=== PATIENT | male | born 1965 | race American Indian/Alaskan Native ===

== ENCOUNTER 2018-07-22 15:38 | Inpatient (IN) | payer MEDICARE, OTHER ==
[2018-07-22] MEDS ORDERED: NACL 0.9% 1000 ML 2,000 ML IV ONE (17:01)
[2018-07-22] MEDS ORDERED: SUBLIMAZE IV ONE (17:02)
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
[2018-07-22 18:02] LABS: Hematocrit 25.5 % (35.5-45.6); Hemoglobin 8.3 gm/dl (11.8-15.2); Mean Corpuscular HGB Conc 33 % (32-34); Mean Corpuscular Volume 78 fl (84-94); Platelet Count 495 K/mm3 (140-440); Red Blood Count 3.27 M/mm3 (3.65-5.03); Red Cell Distribution Width 17.1 % (13.2-15.2)
[2018-07-22 18:12] LABS: BUN/Creatinine Ratio 10; Blood Urea Nitrogen 8 mg/dL (9-20); Calcium 9.3 mg/dL (8.4-10.2); Hemolysis Index 1
[2018-07-22] MEDS ORDERED: CLEOCIN 600 MG/50 mL 600 MG/50 ML BAG IV ONE (19:38)
--- NOTE | 2018-07-22 19:40 | History and Physical Report ---
History of Present Illness Chief complaint: My wounds hurt and they are red History of present illness: 52 YO Male with HTN, Nicotine Dependence, Severe Malnutrition, Hidradenitis Suppurativa S/P Skin Graft 1 month ago presents to ED for evaluation. Pt states that he has experienced pain and redness to his bilateral groin and legs at the site of hidradenitis. Pt states that pain is 6/10, located in the groin, and bi lateral legs, constant, worsened with movement and palpation. Pt acknowledges redness to groin. Pt seen and evaluated by his wound care nurse and was found to have suspected cellulitis. EMS notified, and upon arrival the patient was found to be in distress. Pt transported to [facility] for further care and evaluation. Pt seen and evaluated in ED and found to have Sepsis suspected secondary to cellulitis. Pt initiated on sepsis protocol and admitted to medical floor. Surgery team consulted in ED. Wound care consulted in ED. Pt denies fever, chills, chest pain, palpitations, nausea, vomiting, abdominal pain, lethargy, projectile vomiting, dysuria, or recent ill contacts. Pt is currently unable to independently conduct activities of daily living. Case management consulted for D/C planning. Past History Past Medical History: hypertension Past Surgical History: bowel surgery, Other (Skin Graft, ) Social history: single, Lives alone, smoking. denies: alcohol abuse, prescription drug abuse, IV drug use Family history: hypertension Medications and Allergies Allergies Allergy/AdvReac Type Severity Reaction Status Date / Time No Known Allergies Allergy Verified 01/04/15 17:02 Home Medications Medication Instructions Recorded Confirmed Last Taken Type Sulfamethoxazole/Trimethoprim 1 each PO BID #20 tablet 01/04/15 Unknown Rx [Bactrim DS TAB] Active Meds: Active Medications Doxycycline Hyclate (Vibramycin) 100 mg PO BID [facility] Stop: 07/23/18 10:01 Clindamycin HCl (Cleocin 600 Mg/50 Ml) 600 mg in 50 mls @ 100 mls/hr IV ONCE ONE Stop: 07/22/18 20:07 Mirtazapine (Remeron) 15 mg PO QAM [facility] Oxycodone/Acetaminophen (Percocet 5/325) 1 tab PO Q4HR PRN PRN Reason: Pain , Severe (7-10) Review of Systems Constitutional: no weight loss, no weight gain, no fever, no chills Ears, nose, mouth and throat: no ear pain, no ear discharge, no tinnitis, no decreased hearing, no nasal congestion Cardiovascular: no chest pain, no orthopnea, no rapid/irregular heart beat Respiratory: no cough, no cough with sputum, no excessive sputum, no hemoptysis Gastrointestinal: no nausea, no vomiting, no diarrhea, no constipation Genitourinary Male: no hematuria, no flank pain, no discharge, no urinary frequency, no urinary hesitancy Rectal: no pain, no incontinence, no bleeding Musculoskeletal: no neck stiffness, no neck pain, no shooting arm pain Integumentary: redness, no rash, no pruritis Neurological: no transient paralysis, no paralysis, no weakness, no parathesias, no numbness, no tingling Psychiatric: no anxiety, no memory loss, no change in sleep habits, no sleep disturbances, no insomnia, no hypersomnia, no hallucinations Endocrine: no heat intolerance, no polyphagia, no excessive thirst Hematologic/Lymphatic: no easy bruising, no easy bleeding, no lymphadenopathy Allergic/Immunologic: no urticaria, no allergic rhinitis, no wheezing, no persistent infections, no anaphylaxis Exam - Constitutional Vitals: Temp Pulse Resp BP Pulse Ox 18 07/22/18 18:00 General appearance: Present: mild distress, cachectic, disheveled - EENT Eyes: Present: PERRL ENT: hearing intact, clear oral mucosa - Neck Neck: Present: supple, normal ROM - Respiratory Respiratory effort: normal Respiratory: bilateral: CTA - Cardiovascular Heart Sounds: Present: S1 & S2. Absent: rub, click - Extremities Extremities: pulses symmetrical, No edema Peripheral Pulses: within normal limits - Abdominal General gastrointestinal: Present: soft, non-tender, non-distended, normal bowel sounds Male genitourinary: Present: normal - Integumentary Integumentary: Present: clear, warm, dry - Musculoskeletal Musculoskeletal: gait normal, strength equal bilaterally - Psychiatric Psychiatric: appropriate mood/affect, intact judgment & insight - Neurologic Neurologic: CNII-XII intact, moves all extremities Results - Labs CBC & Chem 7: 07/22/18 17:37 07/22/18 17:37 Labs: Abnormal lab results 07/22/18 07/22/18 Range/Units 17:37 17:37 WBC 16.6 H (4.5-11.0) K/mm3 RBC 3.27 L (3.65-5.03) M/mm3 Hgb 8.3 L (11.8-15.2) gm/dl Hct 25.5 L (35.5-45.6) % MCV 78 L (84-94) fl MCH 25 L (28-32) pg RDW 17.1 H (13.2-15.2) % Plt Count 495 H (140-440) K/mm3 Sodium 131 L (137-145) mmol/L Chloride 95.5 L (98-107) mmol/L BUN 8 L (9-20) mg/dL Total Creatine Kinase 11 L (55-170) units/L Assessment and Plan - Patient Problems (1) Sepsis Current Visit: Yes Status: Acute Qualifiers: Sepsis type: sepsis due to unspecified organism Qualified Code(s): A41.9 - Sepsis, unspecified organism Plan to address problem: IV antibiotic therapy, blood cultures, monitor uop q shift, serial lactic acid, CBC, CMP, serial lactic acid, urinalysis, IVF resuscitation therapy. (2) Nicotine dependence Current Visit: Yes Status: Acute Qualifiers: Nicotine product type: cigarettes Plan to address problem: smoking cessation counseling, supportive care. (3) Cellulitis Current Visit: Yes Status: Acute Qualifiers: Site of cellulitis of extremity: lower extremity Plan to address problem: Bilateral Groin Cellulitis: IV antibiotic therapy, CBC, wound care consulted. (4) Hydradenitis Current Visit: Yes Status: Acute Plan to address problem: Surgery consulted, wound care consulted, (5) Debility Current Visit: Yes Status: Acute Plan to address problem: fall precautions, PT consulted, Case management consulted for D/C Planning/Placement. (6) DVT prophylaxis Current Visit: Yes Status: Acute Plan to address problem: scd to BLE while in bed.
[2018-07-22] MEDS ORDERED: VANCOMYCIN IV ONE (19:41)
[2018-07-22] MEDS ORDERED: ZOFRAN IV PRN (19:41)
[2018-07-22] MEDS ORDERED: NACL 0.9% 1000 ML IV ONE (19:41)
[2018-07-22] MEDS ORDERED: PROVENTIL IH PRN (19:41)
[2018-07-22] MEDS ORDERED: SODIUM CHLORIDE FLUSH SYRINGE 10 ML IV PRN (19:41)
[2018-07-22] MEDS ORDERED: NACL 0.9% IV ONE (19:41)
[2018-07-22] MEDS ORDERED: VANCOMYCIN PHARMACY TO DOSE IV SCH (20:00)
[2018-07-22] MEDS ORDERED: NACL 0.9% 1000 ML 1,000 ML ONE (21:39)
[2018-07-22] MEDS ORDERED: VANCOMYCIN 1,250 MG in NACL 0.9% 250ML 250 ML IV ONE (22:00)
[2018-07-23] MEDS: VIBRAMYCIN PO SCH ×2 (00:23→10:59)
[2018-07-23] MEDS: SODIUM CHLORIDE FLUSH SYRINGE 10 ML IV SCH ×3 (00:32→22:45)
[2018-07-23 06:01] LABS: Basophils # (Auto) 0.1 K/mm3 (0.0-0.1); Basophils % (Auto) 0.4 % (0.0-1.8); Eosinophils # (Auto) 0.1 K/mm3 (0.0-0.4); Eosinophils % (Auto) 0.7 % (0.0-4.3); Hematocrit 21.9 % (35.5-45.6); Hemoglobin 7.1 gm/dl (11.8-15.2); Lymphocytes # (Auto) 2.2 K/mm3 (1.2-5.4); Lymphocytes % (Auto) 13.6 % (13.4-35.0); Mean Corpuscular HGB Conc 32 % (32-34); Mean Corpuscular Volume 77 fl (84-94); Monocytes # (Auto) 0.8 K/mm3 (0.0-0.8); Monocytes % (Auto) 5.3 % (0.0-7.3); Platelet Count 481 K/mm3 (140-440); Red Blood Count 2.84 M/mm3 (3.65-5.03)
[2018-07-23 06:26] LABS: BUN/Creatinine Ratio 10; Blood Urea Nitrogen 7 mg/dL (9-20); Calcium 8.9 mg/dL (8.4-10.2); Hemolysis Index 0
[2018-07-23] MEDS: REMERON PO SCH (10:58)
[2018-07-23] MEDS: VANCOMYCIN/NS 1 GM/250 ML 1 GM/250 ML BAG IV SCH ×2 (10:59→21:00)
--- NOTE | 2018-07-23 12:44 | Consultation ---
History of Present Illness Consult date: 07/23/18 Chief complaint: hydradenitis wounds - History of present illness History of present illness: 52 yo M with extensive history of wound debridement and skin grafting at [facility] presents from home per home care nursing. The patient states he has been doing well. He has no complaints. He was admitted to [facility] several months ago for infected hidradenitis of the scrotum and perineum for which he underwent debridement. He was then transferred to [facility] after one month and then to [facility]. He underwent skin grafting by Dr. Taylor and then was sent to rehab for 2 weeks. The patient states he was unable to stay in the rehab due to financial constraints and was sent home with home health care. He states the home health care nurse saw him once and changed the dressings. However, it was felt that he needed 24 hour care and that his wound care needs could not be met by home care visits. He was therefore sent to [facility] for evaluation. he denies f/c, cp, sob, n/v, abd pain, c/d. He states there were plans for him to be seen by plastic surgery for further surgery. Past History Past Medical History: hypertension Past Surgical History: bowel surgery (colostomy), Other (Skin Graft, debridement of perineum and scrotal wounds) Social history: single, Lives alone, smoking. denies: alcohol abuse, p rescription drug abuse, IV drug use Family history: hypertension Medications and Allergies Allergies Allergy/AdvReac Type Severity Reaction Status Date / Time No Known Allergies Allergy Verified 01/04/15 17:02 Home Medications Medication Instructions Recorded Confirmed Last Taken Type Doxycycline Hyclate [Doxycycline 100 mg PO Q12HR 07/22/18 07/22/18 Unknown History Hyclate TAB] Mirtazapine [Remeron] 15 mg PO QHS 07/22/18 07/22/18 Unknown History oxyCODONE /ACETAMINOPHEN [Percocet 1 tab PO Q4HR PRN 07/22/18 07/22/18 Unknown History 5/325] Active Meds: Active Medications Acetaminophen (Tylenol) 650 mg PO Q4H PRN PRN Reason: Pain MILD(1-3)/Fever >100.5/ANDERSEN Albuterol (Proventil) 2.5 mg IH Q4HRT PRN PRN Reason: Shortness Of Breath Vancomycin HCl (Vancomycin/Ns 1 Gm/250 Ml) 1 gm in 250 mls @ 250 mls/hr IV Q12H [facility] Last Admin: 07/23/18 10:59 Dose: 250 mls/hr Documented by: Mirtazapine (Remeron) 15 mg PO QAM [facility] Last Admin: 07/23/18 10:58 Dose: 15 mg Documented by: Ondansetron HCl (Zofran) 4 mg IV Q8H PRN PRN Reason: Nausea And Vomiting Oxycodone/Acetaminophen (Percocet 5/325) 1 tab PO Q4HR PRN PRN Reason: Pain , Severe (7-10) Sodium Chloride (Sodium Chloride Flush Syringe 10 Ml) 10 ml IV BID [facility] Last Admin: 07/23/18 10:59 Dose: 10 ml Documented by: Sodium Chloride (Sodium Chloride Flush Syringe 10 Ml) 10 ml IV PRN PRN PRN Reason: LINE FLUSH Review of Systems All systems: negative (10 pt ROS performed and negative except for that listed in HPI) Exam Vital Signs Resp 18 07/22/18 17:30 Narrative exam: Gen: AAOx3. NAD ENT: no scleral icterus or conjunctival pallor CV: S1, S2+ Resp: even and unlabored Abd: soft, colostomy with yellow/brown stool in bag Ext: bilateral anterior thigh skin graft harvest sites are clean and dry, healing well. No evidence of erythema or drainage. Xeroform dressing over wounds, wrapped with kerlex : Perineum, groin, and scrotal wounds are clean with minimal seropurulent drainage. Appear to be healing well. No erythema. Xeroform dressings in place with ABD pads and mesh underwear Results - Labs 07/23/18 05:41 07/23/18 05:41 Abnormal lab results 07/22/18 07/22/18 07/22/18 Range/Units 17:37 17:37 20:56 WBC 16.6 H (4.5-11.0) K/mm3 RBC 3.27 L (3.65-5.03) M/mm3 Hgb 8.3 L (11.8-15.2) gm/dl Hct 25.5 L (35.5-45.6) % MCV 78 L (84-94) fl MCH 25 L (28-32) pg RDW 17.1 H (13.2-15.2) % Plt Count 495 H (140-440) K/mm3 Seg Neutrophils % (40.0-70.0) % Seg Neutrophils # (1.8-7.7) K/mm3 Sodium 131 L (137-145) mmol/L Chloride 95.5 L (98-107) mmol/L BUN 8 L (9-20) mg/dL Creatinine (0.8-1.5) mg/dL Lactic Acid 2.20 H* (0.7-2.0) mmol/L Total Creatine Kinase 11 L (55-170) units/L 07/23/18 07/23/18 Range/Units 05:41 05:41 WBC 15.9 H (4.5-11.0) K/mm3 RBC 2.84 L (3.65-5.03) M/mm3 Hgb 7.1 L (11.8-15.2) gm/dl Hct 21.9 L (35.5-45.6) % MCV 77 L (84-94) fl MCH 25 L (28-32) pg RDW 17.0 H (13.2-15.2) % Plt Count 481 H (140-440) K/mm3 Seg Neutrophils % 80.0 H (40.0-70.0) % Seg Neutrophils # 12.7 H (1.8-7.7) K/mm3 Sodium 133 L (137-145) mmol/L Chloride (98-107) mmol/L BUN 7 L (9-20) mg/dL Creatinine 0.7 L (0.8-1.5) mg/dL Lactic Acid (0.7-2.0) mmol/L Total Creatine Kinase (55-170) units/L Diabetes panel 07/22/18 07/23/18 Range/Units 17:37 05:41 Sodium 131 L 133 L (137-145) mmol/L Potassium 3.9 4.0 (3.6-5.0) mmol/L Chloride 95.5 L 101.7 (98-107) mmol/L Carbon Dioxide 23 24 (22-30) mmol/L BUN 8 L 7 L (9-20) mg/dL Creatinine 0.8 0.7 L (0.8-1.5) mg/dL Glucose 87 84 (75-100) mg/dL Calcium 9.3 8.9 (8.4-10.2) mg/dL Calcium panel 07/22/18 07/23/18 Range/Units 17:37 05:41 Calcium 9.3 8.9 (8.4-10.2) mg/dL Pituitary panel 07/22/18 07/23/18 Range/Units 17:37 05:41 Sodium 131 L 133 L (137-145) mmol/L Potassium 3.9 4.0 (3.6-5.0) mmol/L Chloride 95.5 L 101.7 (98-107) mmol/L Carbon Dioxide 23 24 (22-30) mmol/L BUN 8 L 7 L (9-20) mg/dL Creatinine 0.8 0.7 L (0.8-1.5) mg/dL Glucose 87 84 (75-100) mg/dL Calcium 9.3 8.9 (8.4-10.2) mg/dL Adrenal panel 07/22/18 07/23/18 Range/Units 17:37 05:41 Sodium 131 L 133 L (137-145) mmol/L Potassium 3.9 4.0 (3.6-5.0) mmol/L Chloride 95.5 L 101.7 (98-107) mmol/L Carbon Dioxide 23 24 (22-30) mmol/L BUN 8 L 7 L (9-20) mg/dL Creatinine 0.8 0.7 L (0.8-1.5) mg/dL Glucose 87 84 (75-100) mg/dL Calcium 9.3 8.9 (8.4-10.2) mg/dL Assessment and Plan 52 yo M with 1. hx hidradenitis 2. bilateral lower extremity wounds 3. scrotal and perineal wounds 4. hx of recent skin grafting to scrotum and perineum 5. dehydration Plan: 1. Reg diet 2. IVF 3. daily wound care with xeroform dressing to wounds, covered with ABD pads 4. abx per 1' team. I do not feel the wounds are acutely infected 5. patient would benefit from placement in nursing facility while wounds heal and then be set up to follow up with his surgeon at [place] as planned. If he cannot afford this, a family member can be taught wound care and he can continue to have home health care follow up. Patient states his mother is planning to come to [place] and take care of him while the wounds heal. 6. case management consult to aid with disposition. No surgical intervention indicated. Thank you, please call with questions.
[2018-07-23 15:05] LABS: Hemoglobin 6.9 gm/dl (11.8-15.2)
[2018-07-23] MEDS ORDERED: NACL 0.9% 500 ML 500 ML IV ONE (19:00)
[2018-07-23] MEDS ORDERED: NACL 0.9% 500 ML 500 ML ONE (22:01)
[2018-07-23 23:48] LABS: Hematocrit 23.2 % (35.5-45.6); Hemoglobin 7.5 gm/dl (11.8-15.2)
[2018-07-24] MEDS: TYLENOL PO PRN (00:56)
[2018-07-24 08:55] LABS: Hematocrit 23.7 % (35.5-45.6); Hemoglobin 7.7 gm/dl (11.8-15.2)
--- NOTE | 2018-07-24 09:11 | Progress Note ---
Assessment and Plan / Sepsis IV antibiotic therapy, blood cultures, monitor uop q shift, IVF resuscitation therapy. /Bacteremia, contamination? cont abx for now, repeat cx / Nicotine dependence smoking cessation counseling, supportive care. / Cellulitis Bilateral Groin Cellulitis: IV antibiotic therapy, wound care consulted. / Hydradenitis Surgery consulted, wound care consulted, / Debility fall precautions, PT consulted, Case management consulted for D/C Planning/Placement. / DVT prophylaxis scd to BLE while in bed. Brief History: 52 YO Male with HTN, Nicotine Dependence, Severe Malnutrition, Hidradenitis Suppurativa S/P Skin Graft 1 month ago presents to ED for evaluation of pain and redness to his bilateral groin and legs at the site of hidradenitis. Pt seen and evaluated by his wound care nurse and was found to have suspected cellulitis. EMS notified, Pt transported to [facility] for further care and evaluat ion. Pt seen and evaluated in ED and found to have Sepsis suspected secondary to cellulitis. Pt initiated on sepsis protocol and admitted to medical floor. Surgery team consulted in ED. Wound care consulted in ED. Pt is currently unable to independently conduct activities of daily living. Case management consulted for D/C planning. Physical exam: Gen: AAOx3. NAD ENT: no scleral icterus or conjunctival pallor CV: S1, S2+ Resp: even and unlabored Abd: soft, colostomy with yellow/brown stool in bag Ext: bilateral anterior thigh skin graft harvest sites are clean and dry, healing well. No evidence of erythema or drainage. Xeroform dressing over wounds, wrapped with kerlex : Perineum, groin, and scrotal wounds are clean with minimal seropurulent drainage. Appear to be healing well. No erythema. Xeroform dressings in place with ABD pads and mesh underwear Subjective Date of service: 07/23/18 Interval history: patient seen and examined No fever, resting on bed Objective - Constitutional Vitals: Vital Signs - 12hr 07/23/18 07/23/18 07/23/18 22:00 22:17 22:32 Temperature 98.7 F 98.7 F Pulse Rate 108 H 102 H Respiratory 20 16 16 Rate Blood Pressure 106/71 104/64 O2 Sat by Pulse 100 99 99 Oximetry 07/23/18 07/23/18 07/23/18 22:54 23:02 23:32 Temperature 99.0 F 99.1 F 99.1 F Pulse Rate 101 H 96 H 101 H Respiratory 18 16 16 Rate Blood Pressure 106/68 111/67 105/68 O2 Sat by Pulse 100 100 98 Oximetry 07/24/18 07/24/18 07/24/18 00:02 00:56 01:56 Temperature 99.7 F H Pulse Rate 103 H Respiratory 16 16 20 Rate Blood Pressure 117/74 O2 Sat by Pulse 100 Oximetry 07/24/18 06:08 Temperature 99.0 F Pulse Rate 107 H Respiratory 18 Rate Blood Pressure 97/66 O2 Sat by Pulse 98 Oximetry - Labs CBC & Chem 7: 07/24/18 07:59 07/23/18 05:41 Labs: Abnormal lab results 07/23/18 07/23/18 07/23/18 Range/Units 14:41 19:55 23:23 Hgb 6.9 L 7.5 L (11.8-15.2) gm/dl Hct 21.0 L 23.2 L (35.5-45.6) % Crossmatch See Detail 07/24/18 Range/Units 07:59 Hgb 7.7 L (11.8-15.2) gm/dl Hct 23.7 L (35.5-45.6) % Crossmatch
[2018-07-24] MEDS: REMERON PO SCH (09:34)
[2018-07-24] MEDS: SODIUM CHLORIDE FLUSH SYRINGE 10 ML IV SCH ×2 (09:35→22:24)
[2018-07-24] MEDS: VANCOMYCIN/NS 1 GM/250 ML 1 GM/250 ML BAG IV SCH ×2 (09:37→22:24)
--- NOTE | 2018-07-24 10:36 | Progress Note ---
Assessment and Plan / Sepsis likely from groin Hydradenitis Cont IV antibiotic therapy, follow cultures, monitor uop q shift, IVF resuscitation therapy. /Bacteremia, likely contamination, repeat cx negative / Nicotine dependence smoking cessation counseling, supportive care. / Cellulitis Bilateral Groin Cellulitis: IV antibiotic therapy, wound care consulted. / Hydradenitis Surgery consulted, wound care consulted, / Debility, due to chronic infection fall precautions, PT consulted, Case management consulted for D/C Planning/Placement. / Possible moderated PCM - low albulin, will order prealbulmin - consult dietary / DVT prophylaxis scd to BLE while in bed. Diposition: pending placement Brief History: 52 YO Male with HTN, Nicotine Dependence, Severe Malnutrition, Hidradenitis Suppurativa S/P Skin Graft 1 month ago presents to ED for evaluation of pain and redness to his bilateral groin and legs at the site of hidradenitis. Pt seen and evaluated by his wound care nurse and was found to have suspected c ellulitis. EMS notified, Pt transported to [facility] for further care and evaluation. Pt seen and evaluated in ED and found to have Sepsis suspected secondary to cellulitis. Pt initiated on sepsis protocol and admitted to medical floor. Surgery team consulted in ED. Wound care consulted in ED. Pt is currently unable to independently conduct activities of daily living. Case management consulted for D/C planning. Physical exam: Gen: AAOx3. NAD ENT: no scleral icterus or conjunctival pallor CV: S1, S2+ Resp: even and unlabored Abd: soft, colostomy with yellow/brown stool in bag Ext: bilateral anterior thigh skin graft harvest sites are clean and dry, healing well. No evidence of erythema or drainage. Xeroform dressing over wounds, wrapped with kerlex : Perineum, groin, and scrotal wounds are clean with minimal seropurulent drainage. Appear to be healing well. No erythema. Xeroform dressings in place with ABD pads and mesh underwear Subjective Date of service: 07/24/18 Interval history: patient seen and examined No fever, resting on bed Discharge pending on placement Objective - Constitutional Vitals: Vital Signs - 12hr 07/23/18 07/23/18 07/23/18 22:54 23:02 23:32 Temperature 99.0 F 99.1 F 99.1 F Pulse Rate 101 H 96 H 101 H Respiratory 18 16 16 Rate Blood Pressure 106/68 111/67 105/68 O2 Sat by Pulse 100 100 98 Oximetry 07/24/18 07/24/18 07/24/18 00:02 00:56 01:56 Temperature 99.7 F H Pulse Rate 103 H Respiratory 16 16 20 Rate Blood Pressure 117/74 O2 Sat by Pulse 100 Oximetry 07/24/18 07/24/18 06:08 09:47 Temperature 99.0 F Pulse Rate 107 H Respiratory 18 Rate Blood Pressure 97/66 O2 Sat by Pulse 98 98 Oximetry - Labs CBC & Chem 7: 07/25/18 07:19 07/25/18 07:19 Labs: Abnormal lab results 07/23/18 07/23/18 07/23/18 Range/Units 14:41 19:55 23:23 Hgb 6.9 L 7.5 L (11.8-15.2) gm/dl Hct 21.0 L 23.2 L (35.5-45.6) % Crossmatch See Detail 07/24/18 Range/Units 07:59 Hgb 7.7 L (11.8-15.2) gm/dl Hct 23.7 L (35.5-45.6) % Crossmatch
[2018-07-24 15:02] LABS: Hemoglobin 7.9 gm/dl (11.8-15.2)
[2018-07-24] MEDS: PERCOCET 5/325 PO PRN (15:55)
[2018-07-24] MEDS: LOPRESSOR PO SCH (22:15)
[2018-07-24 23:37] LABS: Hematocrit 25.9 % (35.5-45.6); Hemoglobin 8.3 gm/dl (11.8-15.2)
[2018-07-25 07:42] LABS: Basophils # (Auto) 0.1 K/mm3 (0.0-0.1); Basophils % (Auto) 0.5 % (0.0-1.8); Eosinophils # (Auto) 0.1 K/mm3 (0.0-0.4); Eosinophils % (Auto) 0.7 % (0.0-4.3); Hematocrit 23.2 % (35.5-45.6); Lymphocytes # (Auto) 2.3 K/mm3 (1.2-5.4); Lymphocytes % (Auto) 12.2 % (13.4-35.0); Mean Corpuscular HGB Conc 35 % (32-34); Mean Corpuscular Volume 77 fl (84-94); Monocytes # (Auto) 0.9 K/mm3 (0.0-0.8); Monocytes % (Auto) 4.9 % (0.0-7.3); Platelet Count 512 K/mm3 (140-440); Red Cell Distribution Width 17.7 % (13.2-15.2)
[2018-07-25 07:57] LABS: BUN/Creatinine Ratio 12; Blood Urea Nitrogen 7 mg/dL (9-20); Calcium 8.8 mg/dL (8.4-10.2); Hemolysis Index 3
[2018-07-25] MEDS: LOPRESSOR PO SCH ×2 (09:40→22:54)
[2018-07-25] MEDS: REMERON PO SCH ×2 (09:42→22:37)
[2018-07-25] MEDS: VANCOMYCIN/NS 1 GM/250 ML 1 GM/250 ML BAG IV SCH ×2 (09:42→22:54)
[2018-07-25] MEDS: SODIUM CHLORIDE FLUSH SYRINGE 10 ML IV SCH ×2 (09:43→22:38)
[2018-07-25] MEDS: PERCOCET 5/325 PO PRN (15:46)
--- NOTE | 2018-07-25 16:24 | Progress Note ---
Assessment and Plan / Sepsis likely from groin Hydradenitis Cont IV antibiotic therapy, follow cultures, monitor uop q shift, IVF resuscitation therapy. Consulted ID /Bacteremia, likely contamination, repeat cx negative / Nicotine dependence smoking cessation counseling, supportive care. / Cellulitis Bilateral Groin Cellulitis: IV antibiotic therapy, wound care consulted. / Hydradenitis Surgery consulted, wound care consulted, / Debility, due to chronic infection fall precautions, PT consulted, Case management consulted for D/C Planning/Placement. / Possible moderated PCM - low albulin, will order prealbulmin - consult dietary / DVT prophylaxis scd to BLE while in bed. Diposition: pending placement Brief History: 52 YO Male with HTN, Nicotine Dependence, Severe Malnutrition, Hidradenitis Suppurativa S/P Skin Graft 1 month ago presents to ED for evaluation of pain and redness to his bilateral groin and legs at the site of hidradenitis. Pt seen and evaluated by his wound care nurse and was found to have suspected cellulitis. EMS notified, Pt transported to [facility] for further care and evaluation. Pt seen and evaluated in ED and found to have Sepsis suspected secondary to cellulitis. Pt initiated on sepsis protocol and admitted to medical floor. Surgery team consulted in ED. Wound care consulted in ED. Pt is currently unable to independently conduct activities of daily living. Case management consulted for D/C planning. Physical exam: Gen: AAOx3. NAD ENT: no scleral icterus or conjunctival pallor CV: S1, S2+ Resp: even and unlabored Abd: soft, colostomy with yellow/brown stool in bag Ext: bilateral anterior thigh skin graft harvest sites are clean and dry, healing well. No evidence of erythema or drainage. Xeroform dressing over wounds, wrapped with kerlex : Perineum, groin, and scrotal wounds are clean with minimal seropurulent drainage. Appear to be healing well. No erythema. Xeroform dressings in place with ABD pads and mesh underwear Subjective Date of service: 07/25/18 Interval history: patient seen and examined No fever, resting on bed Discharge pending on placement Objective - Constitutional Vitals: Vital Signs - 12hr 07/25/18 07/25/18 06:07 12:02 Temperature 99.7 F H 99.4 F Pulse Rate 114 H 110 H Respiratory 18 18 Rate Blood Pressure 92/61 95/58 O2 Sat by Pulse 98 99 Oximetry - Labs CBC & Chem 7: 07/25/18 07:19 07/25/18 07:19 Labs: Abnormal lab results 07/24/18 07/25/18 07/25/18 Range/Units 23:03 07:19 07:19 WBC 18.8 H (4.5-11.0) K/mm3 RBC 3.00 L (3.65-5.03) M/mm3 Hgb 8.3 L 8.0 L (11.8-15.2) gm/dl Hct 25.9 L 23.2 L (35.5-45.6) % MCV 77 L (84-94) fl MCH 27 L (28-32) pg MCHC 35 H (32-34) % RDW 17.7 H (13.2-15.2) % Plt Count 512 H (140-440) K/mm3 Lymph % (Auto) 12.2 L (13.4-35.0) % [place] # 0.9 H (0.0-0.8) K/mm3 Seg Neutrophils % 81.7 H (40.0-70.0) % Seg Neutrophils # 15.3 H (1.8-7.7) K/mm3 Sodium 132 L (137-145) mmol/L BUN 7 L (9-20) mg/dL Creatinine 0.6 L (0.8-1.5) mg/dL
[2018-07-26] MEDS: LOPRESSOR PO SCH ×2 (09:51→23:34)
[2018-07-26] MEDS: PERCOCET 5/325 PO PRN (09:59)
[2018-07-26] MEDS: REMERON PO SCH ×2 (09:59→21:55)
[2018-07-26] MEDS: VANCOMYCIN/NS 1 GM/250 ML 1 GM/250 ML BAG IV SCH ×3 (10:00→23:26)
[2018-07-26] MEDS: SODIUM CHLORIDE FLUSH SYRINGE 10 ML IV SCH ×2 (10:02→21:57)
--- NOTE | 2018-07-26 13:52 | Consultation ---
History of Present Illness - Reason for Consult Consult date: 07/26/18 abx recommnedations Requesting physician: NOHEMI BAUMANN - History of Present Illness 52 y/o male with hsitory of HTN and severe hidradenitis suppurativa follows up with Alla Batres, initially admitted at [facility] in Mar 2018 for worsening skin and soft tissue infection, abscess of the perineum, perirectal and leg flank region, undewent exlap with SHAUN, RLQ skin biopsy, diverting colostomy, he was found to have Dermabacter hominis bacteremia on 04/25/2018, discharged to rehab on vancomycin and ertapenem for 4 weeks until 05/29/2018. Readmitted at [facility] on 05/10/2018 06/10/2018 from rehab due to wound infection, WBC 15K. Saw [facility] at [facility] recommended continuation of IV abx until 05/29/2019 and follow-up with Plastics Dr Wang, colorectal sx Dr Shital thomas. During hospital course wound were bleeding and persisnte leukocytosis. A CT abd showed 6x1.5 cm fluid collection left gluteal area.and patient was taken to the OR by general surgery underwent I+D of left gluteal abscess. Seen by and no intervention done. Patient completed IV abx and PICC was removed. He underwent skin grafting by Dr. Taylor. Patient was then sent to [facility]. The patient states he was unable to stay in the rehab due to financial constraints and was sent home with home health care. He was discharged home with home health. Home health agency felt that he needed 24 hour care and that his wound care needs could not be met by home care visits. He was therefore sent to [facility] ER for evaluation. Patient clinically feels ok, no fever, N/V/D, cough, SOB, urinary symptoms. In the ED, temp 98.3, HR 113, BP 96/56, R18, O2 sat 100%. WBC 16.6. Hg 8.3. Plat 495. Creat 0.8. Lactate 2.2. CRP 9.4. Blood cultures PARTS RUNNER 1 of 8 bottles. Wound cultures 07/24/2018 GNR x 2. Review of Systems: General: no fever, chills, nightsweats, unintentional weight change, or change in appetite Cutaneous: +multiple chronic wounds Head: no headaches or injury Eyes: no changes in vision, eye pain, double vision Ears: no ear pain, ear discharge, ringing or hearing loss Nose: no nose bleeding, stuffiness Mouth & throat: no bleeding gums, no horseness, no dental problems, or swollen glands Neck: no pain, node enlargement/lumps, tyroid enlargement or tenderness Respiratory: no cough, wheezing, sputum, hemoptysis, pleuritic chest pain Cardiovascular: no chest pain, leg edema, cyanosis, MOFFETT, orthopnea Musculoskeletal: no decreased joint motion, bone or joint pain, joint swelling, muscle aches Gastrointestinal: no nausea, vomiting, hematemesis, diarrhea, constipation, melena, bright red blood in stools, fecal incontinence, jaundice Genitourinary/Reproductive: no frequent urination, dysuria, hematuria, incontinence Neurogical: no seizures, no headaches, no weakness, no paresthesias, no loss of speech or vision; no memory loss, no vertigo, no tremors, no numbness Psychiatric: stable mood; no excessive anxiety, sadness or moodiness Past History Past Medical History: hypertension Past Surgical History: bowel surgery (colostomy), Other (Skin Graft, debridement of perineum and scrotal wounds) Social history: single, Lives alone, smoking. denies: alcohol abuse, prescription drug abuse, IV drug use Family history: hypertension Medications and Allergies Allergies Allergy/AdvReac Type Severity Reaction Status Date / Time No Known Allergies Allergy Verified 01/04/15 17:02 Home Medications Medication Instructions Recorded Confirmed Last Taken Type Doxycycline Hyclate [Doxycycline 100 mg PO Q12HR 07/22/18 07/22/18 Unknown Hi story Hyclate TAB] Mirtazapine [Remeron] 15 mg PO QHS 07/22/18 07/22/18 Unknown History oxyCODONE /ACETAMINOPHEN [Percocet 1 tab PO Q4HR PRN 07/22/18 07/22/18 Unknown History 5/325] Active Meds: Active Medications Acetaminophen (Tylenol) 650 mg PO Q4H PRN PRN Reason: Pain MILD(1-3)/Fever >100.5/ANDERSEN Last Admin: 07/24/18 00:56 Dose: 650 mg Documented by: Albuterol (Proventil) 2.5 mg IH Q4HRT PRN PRN Reason: Shortness Of Breath Vancomycin HCl (Vancomycin/Ns 1 Gm/250 Ml) 1 gm in 250 mls @ 250 mls/hr IV Q12H [facility] Last Admin: 07/26/18 10:00 Dose: 250 mls/hr Documented by: Metoprolol Tartrate (Lopressor) 25 mg PO BID [facility] Last Admin: 07/26/18 09:51 Dose: Not Given Documented by: Mirtazapine (Remeron) 15 mg PO QAM [facility] Last Admin: 07/26/18 09:59 Dose: 15 mg Documented by: Mirtazapine (Remeron) 15 mg PO QHS [facility] Last Admin: 07/25/18 22:37 Dose: 15 mg Documented by: Ondansetron HCl (Zofran) 4 mg IV Q8H PRN PRN Reason: Nausea And Vomiting Oxycodone/Acetaminophen (Percocet 5/325) 1 tab PO Q4HR PRN PRN Reason: Pain , Severe (7-10) Last Admin: 07/26/18 09:59 Dose: 1 tab Documented by: Sodium Chloride (Sodium Chloride Flush Syringe 10 Ml) 10 ml IV BID [facility] Last Admin: 07/26/18 10:02 Dose: 10 ml Documented by: Sodium Chloride (Sodium Chloride Flush Syringe 10 Ml) 10 ml IV PRN PRN PRN Reason: LINE FLUSH Physical Examination - Physical Exam Narrative exam: General appearance: Alert in NAD, conversant Eyes: anicteric sclerae, moist conjunctivae; no lid-lag; PERRLA HENT: Atraumatic; oropharynx clear with moist mucous membranes and no mucosal ulcerations/no oral thrush; normal hard and soft palate. Normal external ears. Neck: Trachea midline; supple, no thyromegaly or lymphadenopathy Lungs: CTA, with normal respiratory effort and no intercostal retractions CV: RRR, no murmurs Abdomen: Soft, non-tender; +diverting colostomy Extremities: No peripheral edema or extremity lymphadenopathy Skin: extensive pernieal, bilateral groin and scrotal shallow wounds with red granulation tissue. Left groin area with moderate clear slough/drainage. Right thigh graft donor wound healing, clean. Psych: Appropriate affect, alert and oriented to person, place and time. Neuro: alert and oriented x 3. Moving all extermities - Constitutional Vitals: Vital Signs Temp Pulse Resp BP Pulse Ox 98.5 F 112 H 18 100/64 99 07/26/18 12:02 07/26/18 12:02 07/26/18 12:02 07/26/18 12:02 07/26/18 12:02 Temperature -Last 24 Hours Temperature 98.5 F Temperature 99.6 F Temperature 98.0 F Temperature 98.0 F Results - Labs CBC & Chem 7: 07/25/18 07:19 07/25/18 07:19 Labs: Abnormal lab results 07/25/18 07/26/18 Range/Units 18:04 06:25 C-Reactive Protein 9.40 H (0.00-1.30) mg/dL Prealbumin 0.046 L (0.200-0.400) g/L Assessment and Plan Cultures: Blood culture Urine culture Sputum culture Assessment: 52 y/o male with hsitory of HTN and severe hidradenitis suppurativa follows up with Alla domingo [facility], readmitted on 07/22/2018: 1) SIRS versus Sepsis: Present on admission, manifested by tachycardia, hypotension, leukocytosis (which is chronic), increased lactate. Etiology most likely ?infected wound +/- severe anemia. Blood cx positive for PARTS RUNNER 1 of 8 bottles. Likley a contaminant. 2) Extensive hidradenitis suppurativa with recent extensive skin and soft tissue infection, abscesses of the perineum, perirectal and leg flank region seen at [facility]: - underwent exlap with SHAUN, RLQ skin biopsy, diverting colostomy Mar 2018 - treated with vancomycin and ertapenem for 4 weeks until 05/29/2018 - CT abd 05/22/2018 showed 6x1.5 cm fluid collection left gluteal area s/p OR by general surgery underwent I+D of left gluteal abscess. Seen by and no intervention done. - S/p skin grafting by Dr. Taylor - CRP 9.4. - Wound cultures 07/24/2018 GNR x 2. 3) Recent Dermabacter hominis bacteremia on 04/25/2018 from wound infection 4) Extensive Perianal skin papillomas (warts) Recommendations: - follow-up wound cultures - check UA/urine culture/CXR - continue vancomycin - add cefepime and flagyl - check MRSA PCR - aggressive wound care - why was he not admitted [facility]?- he is well known to Surgery, , colorectal and plastics there Will follow. Traci Alonso MD Infectious Diseases [employer] [facility] M [phone] O [phone]
--- NOTE | 2018-07-26 14:47 | Progress Note ---
Assessment and Plan Assessment and plan: Patient is a 52 yo man with a history of HTN, Nicotine Dependence, Severe Malnutrition and Hidradenitis Suppurativa S/P Skin Graft 1 month ago who presents to ED for evaluation of pain and redness to his bilateral groin and legs at the site of hidradenitis. Pt seen and evaluated by his wound care nurse and was found to have suspected cellulitis. EMS notified, Pt transported to [facility] for further care and evaluation. Pt seen and evaluated in ED and found to have Sepsis suspected secondary to cellulitis. Pt initiated on sepsis protocol and admitted to medical floor. Surgery team consulted in ED. Wound care consulted in ED. Pt is currently unable to independently conduct activities of daily living. Case management consulted for D/C planning. /Sepsis, likely from groin Hidradenitis, Cont IV antibiotic therapy, follow cultures, monitor uop q shift, IVF resuscitation therapy. Consulted ID /Bacteremia, likely contamination, repeat cx negative, Recent Dermabacter hominis bacteremia on 04/25/2018 from wound infection /Extensive hidradenitis suppurativa with recent extensive skin and soft tissue infection, abscesses of the perineum, perirectal and leg flank region seen at [facility]: - underwent exlap with SHAUN, RLQ skin biopsy, diverting colostomy Mar 2018 - treated with vancomycin and ertapenem for 4 weeks until 05/29/2018 - CT abd 05/22/2018 showed 6x1.5 cm fluid collection left gluteal area s/p OR by general surgery underwent I+D of left gluteal abscess. Seen by and no i ntervention done. - S/p skin grafting by Dr. Taylor - CRP 9.4. - Wound cultures 07/24/2018 GNR x 2. / Nicotine dependence, smoking cessation counseling, supportive care. / Cellulitis, Bilateral Groin Cellulitis: IV antibiotic therapy, wound care consulted. / Hidradenitis, Surgery consulted, wound care consulted, / Debility, due to chronic infection fall precautions, PT consulted, Case manag ement consulted for D/C Planning/Placement. / Severe Malnutrition, poa, - low albulin, will order prealbulmin- consult dietary / DVT prophylaxis, scd to BLE while in bed. /Extensive Perianal skin papillomas (warts) Disposition: pending placement History Interval history: Patient was seen and examined. Follow-up on current diagnosis skin infection. Overnight uneventful. Patient denies any chest pain, shortness breath, nausea/vomiting or severe headaches. Imaging, nursing note, chart, labs and old chart reviewed. Discussed with patient. Hospitalist Physical - Physical exam Narrative exam: Gen: AAOx3. NAD ENT: no scleral icterus or conjunctival pallor CV: S1, S2+ Resp: even and unlabored Abd: soft, colostomy with yellow/brown stool in bag Ext: bilateral anterior thigh skin graft harvest sites are clean and dry, healing well. No evidence of erythema or drainage. Xeroform dressing over wounds, wrapped with kerlex : Perineum, groin, and scrotal wounds are clean with minimal seropurulent drainage. Appear to be healing well. No erythema. Xeroform dressings in place with ABD pads and mesh underwear On exam +rod anal large papillomas - Constitutional Vitals: Temp Pulse Resp BP Pulse Ox 98.5 F 112 H 18 100/64 99 07/26/18 12:02 07/26/18 12:02 07/26/18 12:02 07/26/18 12:02 07/26/18 12:02 General appearance: Present: cachectic, disheveled Results - Labs CBC & Chem 7: 07/27/18 10:10 07/25/18 07:19 Labs: Laboratory Last Values WBC 18.8 K/mm3 (4.5-11.0) H 07/25/18 07:19 RBC 3.00 M/mm3 (3.65-5.03) L 07/25/18 07:19 Hgb 8.0 gm/dl (11.8-15.2) L 07/25/18 07:19 Hct 23.2 % (35.5-45.6) L 07/25/18 07:19 MCV 77 fl (84-94) L 07/25/18 07:19 MCH 27 pg (28-32) L 07/25/18 07:19 MCHC 35 % (32-34) H 07/25/18 07:19 RDW 17.7 % (13.2-15.2) H 07/25/18 07:19 Plt Count 512 K/mm3 (140-440) H 07/25/18 07:19 Lymph % (Auto) 12.2 % (13.4-35.0) L 07/25/18 07:19 [place] % (Auto) 4.9 % (0.0-7.3) 07/25/18 07:19 Eos % (Auto) 0.7 % (0.0-4.3) 07/25/18 07:19 Baso % (Auto) 0.5 % (0.0-1.8) 07/25/18 07:19 Lymph # 2.3 K/mm3 (1.2-5.4) 07/25/18 07:19 [place] # 0.9 K/mm3 (0.0-0.8) H 07/25/18 07:19 Eos # 0.1 K/mm3 (0.0-0.4) 07/25/18 07:19 Baso # 0.1 K/mm3 (0.0-0.1) 07/25/18 07:19 Seg Neutrophils % 81.7 % (40.0-70.0) H 07/25/18 07:19 Seg Neutrophils # 15.3 K/mm3 (1.8-7.7) H 07/25/18 07:19 Sodium 132 mmol/L (137-145) L 07/25/18 07:19 Potassium 3.9 mmol/L (3.6-5.0) 07/25/18 07:19 Chloride 99.3 mmol/L (98-107) 07/25/18 07:19 Carbon Dioxide 24 mmol/L (22-30) 07/25/18 07:19 Anion Gap 13 mmol/L 07/25/18 07:19 BUN 7 mg/dL (9-20) L 07/25/18 07:19 Creatinine 0.6 mg/dL (0.8-1.5) L 07/25/18 07:19 Estimated GFR > 60 ml/min 07/25/18 07:19 BUN/Creatinine Ratio 12 % 07/25/18 07:19 Glucose 90 mg/dL (75-100) 07/25/18 07:19 Lactic Acid 1.50 mmol/L (0.7-2.0) 07/23/18 01:17 Calcium 8.8 mg/dL (8.4-10.2) 07/25/18 07:19 Total Creatine Kinase 11 units/L (55-170) L 07/22/18 17:37 C-Reactive Protein 9.40 mg/dL (0.00-1.30) H 07/25/18 18:04 Prealbumin 0.046 g/L (0.200-0.400) L 07/26/18 06:25 Vancomycin Trough 16.6 ug/mL (5.0-20.0) 07/25/18 21:23 Blood Type O POSITIVE 07/23/18 19:55 Antibody Screen Negative 07/23/18 19:55 Crossmatch See Detail 07/23/18 19:55 Nutrition/Malnutrition Assess - Dietary Evaluation Nutrition/Malnutrition Findings: Nutrition Notes Start: 07/23/18 13:16 Freq: Status: Active Protocol: Document 07/25/18 17:29 RM (Rec: 07/25/18 17:36 RM [id number]) Nutrition Notes Initial or Follow up Reassessment Current Diagnosis Sepsis Hypertension Other Pertinent Diagnosis Cellulitis, Hidradenitis suppurativa s/p skin graft Current Diet Cardiac Labs/Tests Reviewed Pertinent Medications Reviewed Height 5 ft 11 in Weight 63 kg [place] Body Weight (kg) 78.18 BMI 19.3 Subjective/Other Information Pt stated that his appetite is poor and that he eats a little more than 50% of his meals. Noted lunch at bedside with none eaten. Noted preferences. Pt also stated that he drinks the Ensure Enlive and would like it to be increased to TID. Percent of energy/protein needs met: 89%/100% Burn Absent Trauma Absent #1 Nutrition Diagnosis Malnutrition Diagnosis Progress(for reassessment Continues documentation) Is patient on ventilator? No Is Patient Ambulatory and/or Out of Bed No REE-([facility]-confined to bed) 1800.888 Kcal/Kg value to use for calculation 35 Approximate Energy Requirements Using 2205 kcal/Kg Calculation Used for Recommendations Kcal/kg Additional Notes Pro needs 1.25-1.5g/k-92g /day Fluid needs 1ml/kcal Nutrition Intervention Change Diet Order: Continue current diet order Add Supplement/Snack (indicate name/kcal Ensure Enlive TID /protein ) Jake BID Provides kCal: 890 Provides Protein (gm) 45 Goal #1 PO intake of meals plus ONS to continue to meet 100% energy and pro needs Goal #2 Wound healing Goal #3 Wt maintenance and/or gain Anticipated Discharge Needs: Continue Ensure Enlive and Jake BID for wt maintenance/ gain and wound healing Follow-Up By: 07/28/18 Additional Comments Follow for PO and ONS intakes
[2018-07-26] MEDS: MAXIPIME/NS 2 GM/100 ML 2 GM/100 ML BAG IV SCH ×2 (15:00→22:42)
[2018-07-26] MEDS: FLAGYL PO SCH ×2 (15:58→21:54)
[2018-07-26 22:42] LABS: Bacteria,Urine 1+ /HPF (Negative); Bilirubin,Urine NEG (Negative); Blood,Urine NEG (Negative); Color,Urine Yellow (Yellow); Mucus,Urine FEW /HPF; Protein,Urine <15 mg/dL mg/dL (Negative); Urobilinogen,Urine < 2.0 mg/dL (<2.0)
[2018-07-27] MEDS: MAXIPIME/NS 2 GM/100 ML 2 GM/100 ML BAG IV SCH ×3 (06:42→22:15)
[2018-07-27] MEDS: FLAGYL PO SCH ×3 (06:43→22:07)
--- NOTE | 2018-07-27 09:27 | Progress Note ---
Assessment and Plan Cultures: 07/26/18 Urine: no growth to date 07/24/18 Groin: Gram negative Rods 07/22/18 Blood: no growth thus far 07/22/18 Blood: Coag negative Staph, 1 out of 4 bottles Assessment: 52 y/o male with history of HTN and severe hidradenitis suppurativa follows up with Derm on [facility], readmitted on 07/22/2018: 1) SIRS versus Sepsis: Improved, still leukocytosis. Etiology most likely ?infected wound +/- severe anemia. Blood cx positive for [employer] F[employer] 1 of 8 bottles. [place] a contaminant. 2) Extensive hidradenitis suppurativa with recent extensive skin and soft tissue infection, abscesses of the perineum, perirectal and leg flank region seen at [facility]: - underwent exlap with SHAUN, RLQ skin biopsy, diverting colostomy Mar 2018 - treated with vancomycin and ertapenem for 4 weeks until 05/29/2018 - CT abd 05/22/2018 showed 6x1.5 cm fluid collection left gluteal area s/p OR by general surgery underwent I+D of left gluteal abscess. Seen by and no intervention done. - S/p skin grafting by Dr. Taylor - CRP 9.4. - Wound cultures 07/24/2018 GNR x 2. 3) Recent Dermabacter hominis bacteremia on 04/25/2018 from wound infection 4) Extensive Perianal skin papillomas (warts) Recommendations: - follow-up wound cultures - continue vancomycin - continue cefepime and flagyl - f/u MRSA PCR - aggressive wound care -Will order HIV tomorrow, need to obtain patient consent [employer] M: [phone] O:[phone] Subjective Date of service: 07/27/18 Interval history: Patient seen and examined. Acute distress observed, pelvic pain 7/10 on numeric pain scale. no fevers. No family at bedside. Objective - Exam Narrative Exam: General appearance: Alert in NAD, conversant. Acute distress, pelvic and groin pain Eyes: anicteric sclerae, moist conjunctivae; no lid-lag; PERRLA HENT: Atraumatic; oropharynx clear with moist mucous membranes and no mucosal ulcerations/no oral thrush; normal hard and soft palate. Normal external ears. Neck: Trachea midline; supple, no thyromegaly or lymphadenopathy Lungs: CTA, with normal respiratory effort and no intercostal retractions CV: RRR, no murmurs Abdomen: Soft, non-tender; +diverting colostomy Extremities: No peripheral edema or extremity lymphadenopathy Skin: extensive pernieal, bilateral groin and scrotal shallow wounds with red granulation tissue. Left groin area with moderate clear slough/drainage. Right thigh graft donor wound healing, clean. Psych: Appropriate affect, alert and oriented to person, place and time. Neuro: alert and oriented x 3. Moving all extermities - Constitutional Vitals: Vital Signs Temp Pulse Resp BP Pulse Ox 98.4 F 100 H 18 94/53 97 07/27/18 05:46 07/27/18 05:46 07/27/18 05:46 07/27/18 05:46 07/27/18 05:46 Temperature -Last 24 Hours Temperature 98.4 F Temperature 99.4 F Temperature 98.3 F Temperature 98.5 F - Labs CBC & Chem 7: 07/27/18 10:10 07/25/18 07:19
[2018-07-27 11:20] LABS: Basophils # (Auto) 0.1 K/mm3 (0.0-0.1); Basophils % (Auto) 0.5 % (0.0-1.8); Eosinophils # (Auto) 0.2 K/mm3 (0.0-0.4); Eosinophils % (Auto) 1.4 % (0.0-4.3); Hematocrit 24.6 % (35.5-45.6); Hemoglobin 7.8 gm/dl (11.8-15.2); Lymphocytes % (Auto) 11.9 % (13.4-35.0); Mean Corpuscular HGB Conc 32 % (32-34); Mean Corpuscular Volume 79 fl (84-94); Monocytes % (Auto) 5.8 % (0.0-7.3); Platelet Count 550 K/mm3 (140-440); Red Cell Distribution Width 17.4 % (13.2-15.2)
[2018-07-27] MEDS: PERCOCET 5/325 PO PRN ×2 (11:28→18:44)
[2018-07-27] MEDS: VANCOMYCIN/NS 1 GM/250 ML 1 GM/250 ML BAG IV SCH ×2 (11:40→23:42)
[2018-07-27] MEDS: REMERON PO SCH ×2 (11:50→22:14)
--- NOTE | 2018-07-27 16:19 | Progress Note ---
Assessment and Plan Assessment and plan: Patient is a 52 yo man with a history of HTN, Nicotine Dependence, Severe Malnutrition and Hidradenitis Suppurativa s/p Skin Graft [address] Taylor at [facility], underwent exlap with SHAUN, RLQ skin biopsy, diverting colostomy Mar 2018, treated with vancomycin and ertapenem for 4 weeks until 05/29/2018, CT abd 05/22/2018 showed 6x1.5 cm fluid collection left gluteal area s/p OR by general surgery underwent I+D of left gluteal abscess. Seen by and no intervention done. who presents to ED for evaluation of pain and redness to his bilateral groin and legs at the site of hidradenitis. Pt seen and evaluated by his wound care nurse and was found to have suspected cellulitis. EMS notified, Pt transported to [facility] for further care and evaluation. Pt seen and evaluated in ED and found to have Sepsis suspected secondary to cellulitis. Pt initiated on sepsis protocol and admitted to medical floor. Surgery team consulted in ED. Wound care consulted in ED. Pt is currently unable to independently conduct activities of daily living. Case management consulted for D/C planning. /Sepsis, likely from groin Hidradenitis, Cont IV antibiotic therapy, follow cultures, monitor uop q shift, IVF resuscitation therapy. ID is following /Bacteremia, likely contamination, repeat cx negative, Recent Dermabacter hominis bacteremia on 04/25/2018 from wound infection /Extensive hidradenitis suppurativa with recent extensive skin and soft tissue infection, abscesses of the perineum, perirectal and leg flank region seen at [facility]: follow Wound cultures 07/24/2018 GNR x 2. / Nicotine dependence, smoking cessation counseling, supportive care. / Cellulitis, Bilateral Groin Cellulitis: IV antibiotic therapy, wound care consulted. / Hidradenitis, Surgery consulted, wound care consulted, / Debility, due to chronic infection fall precautions, PT consulted, Case management consulted for D/C Planning/Placement. /Severe Malnutrition, poa, - low albulin, will order prealbulmin- consult diet srini / DVT prophylaxis, scd to BLE while in bed. /Extensive Perianal skin papillomas (warts) Disposition: pending placement History Interval history: Patient was seen and examined. Follow-up on current diagnosis skin infection. Overnight uneventful. Patient denies any chest pain, shortness breath, nausea/ vomiting or severe headaches. Imaging, nursing note, chart, labs and old chart reviewed. Discussed with patient. Hospitalist Physical - Physical exam Narrative exam: Gen: AAOx3. NAD ENT: no scleral icterus or conjunctival pallor CV: S1, S2+ Resp: even and unlabored Abd: soft, colostomy with yellow/brown stool in bag Ext: bilateral anterior thigh skin graft harvest sites are clean and dry, healing well. No evidence of erythema or drainage. Xeroform dressing over wounds, wrapped with kerlex : Perineum, groin, and scrotal wounds are clean with minimal seropurulent drainage. Appear to be healing well. No erythema. Xeroform dressings in place with ABD pads and mesh underwear On exam +rod anal large papillomas - Constitutional Vitals: Temp Pulse Resp BP Pulse Ox 98.6 F 105 H 18 101/61 98 07/27/18 12:03 07/27/18 12:03 07/27/18 12:03 07/27/18 12:03 07/27/18 12:03 General appearance: Present: cachectic, disheveled Results - Labs CBC & Chem 7: 07/27/18 10:10 07/25/18 07:19 Labs: Laboratory Last Values WBC 17.0 K/mm3 (4.5-11.0) H 07/27/18 10:10 RBC 3.10 M/mm3 (3.65-5.03) L 07/27/18 10:10 Hgb 7.8 gm/dl (11.8-15.2) L 07/27/18 10:10 Hct 24.6 % (35.5-45.6) L 07/27/18 10:10 MCV 79 fl (84-94) L 07/27/18 10:10 MCH 25 pg (28-32) L 07/27/18 10:10 MCHC 32 % (32-34) 07/27/18 10:10 RDW 17.4 % (13.2-15.2) H 07/27/18 10:10 Plt Count 550 K/mm3 (140-440) H 07/27/18 10:10 Lymph % (Auto) 11.9 % (13.4-35.0) L 07/27/18 10:10 [place] % (Auto) 5.8 % (0.0-7.3) 07/27/18 10:10 Eos % (Auto) 1.4 % (0.0-4.3) 07/27/18 10:10 Baso % (Auto) 0.5 % (0.0-1.8) 07/27/18 10:10 Lymph # 2.0 K/mm3 (1.2-5.4) 07/27/18 10:10 [place] # 1.0 K/mm3 (0.0-0.8) H 07/27/18 10:10 Eos # 0.2 K/mm3 (0.0-0.4) 07/27/18 10:10 Baso # 0.1 K/mm3 (0.0-0.1) 07/27/18 10:10 Seg Neutrophils % 80.4 % (40.0-70.0) H 07/27/18 10:10 Seg Neutrophils # 13.7 K/mm3 (1.8-7.7) H 07/27/18 10:10 Sodium 132 mmol/L (137-145) L 07/25/18 07:19 Potassium 3.9 mmol/L (3.6-5.0) 07/25/18 07:19 Chloride 99.3 mmol/L (98-107) 07/25/18 07:19 Carbon Dioxide 24 mmol/L (22-30) 07/25/18 07:19 Anion Gap 13 mmol/L 07/25/18 07:19 BUN 7 mg/dL (9-20) L 07/25/18 07:19 Creatinine 0.6 mg/dL (0.8-1.5) L 07/25/18 07:19 Estimated GFR > 60 ml/min 07/25/18 07:19 BUN/Creatinine Ratio 12 % 07/25/18 07:19 Glucose 90 mg/dL (75-100) 07/25/18 07:19 Lactic Acid 1.50 mmol/L (0.7-2.0) 07/23/18 01:17 Calcium 8.8 mg/dL (8.4-10.2) 07/25/18 07:19 Total Creatine Kinase 11 units/L (55-170) L 07/22/18 17:37 C-Reactive Protein 9.40 mg/dL (0.00-1.30) H 07/25/18 18:04 Prealbumin 0.046 g/L (0.200-0.400) L 07/26/18 06:25 Urine Color Yellow (Yellow) 07/26/18 22:09 Urine Turbidity Clear (Clear) 07/26/18 22:09 Urine pH 6.0 (5.0-7.0) 07/26/18 22:09 Ur Specific [place] 1.008 (1.003-1.030) 07/26/18 22:09 Urine Protein <15 mg/dl mg/dL (Negative) 07/26/18 22:09 Urine Glucose (UA) Neg mg/dL (Negative) 07/26/18 22:09 Urine Ketones Neg mg/dL (Negative) 07/26/18 22:09 Urine Blood Neg (Negative) 07/26/18 22:09 Urine Nitrite Neg (Negative) 07/26/18 22:09 Urine Bilirubin Neg (Negative) 07/26/18 22:09 Urine Urobilinogen < 2.0 mg/dL (<2.0) 07/26/18 22:09 Ur Leukocyte Esterase Sm (Negative) 07/26/18 22:09 Urine WBC (Auto) 5.0 /HPF (0.0-6.0) 07/26/18 22:09 Urine RBC (Auto) 2.0 /HPF (0.0-6.0) 07/26/18 22:09 Urine Bacteria (Auto) 1+ /HPF (Negative) 07/26/18 22:09 Urine Mucus Few /HPF 07/26/18 22:09 Vancomycin Trough 16.6 ug/mL (5.0-20.0) 07/25/18 21:23 Blood Type O POSITIVE 07/23/18 19:55 Antibody Screen Negative 07/23/18 19:55 Crossmatch See Detail 07/23/18 19:55 Nutrition/Malnutrition Assess - Dietary Evaluation Nutrition/Malnutrition Findings: Nutrition Notes Start: 07/23/18 13:16 Freq: Status: Active Protocol: Document 07/27/18 13:58 RM (Rec: 07/27/18 13:59 RM [id number]) Nutrition Notes Need for Assessment generated from: MD Order Initial or Follow up Brief Note Subjective/Other Information Consulted for malnutrition and wounds. Pt already being followed. Nutrition Intervention Follow-Up By: 07/28/18 Additional Comments Follow for PO and ONS intakes
[2018-07-27] MEDS: LOPRESSOR PO SCH (22:11)
[2018-07-27] MEDS: SODIUM CHLORIDE FLUSH SYRINGE 10 ML IV SCH ×2 (22:12→22:13)
[2018-07-28] MEDS: FLAGYL PO SCH ×3 (05:50→22:30)
[2018-07-28] MEDS: MAXIPIME/NS 2 GM/100 ML 2 GM/100 ML BAG IV SCH ×3 (05:50→22:29)
[2018-07-28] MEDS: PERCOCET 5/325 PO PRN ×3 (09:17→23:26)
[2018-07-28] MEDS: REMERON PO SCH ×2 (09:17→22:30)
[2018-07-28] MEDS: SODIUM CHLORIDE FLUSH SYRINGE 10 ML IV SCH ×2 (09:18→22:31)
[2018-07-28] MEDS: LOPRESSOR PO SCH ×3 (09:24→22:31)
--- NOTE | 2018-07-28 10:37 | Progress Note ---
Assessment and Plan Cultures: 07/26/18 Urine: no growth to date 07/24/18 Groin: Proteus, Klebsiella, susceptible to cefepime 07/22/18 Blood: no growth thus far 07/22/18 Blood: Coag negative Staph, 1 out of 4 bottles Assessment: 52 y/o male with history of HTN and severe hidradenitis suppurativa follows up with Derm on [facility], readmitted on 07/22/2018: 1) SIRS versus Sepsis: Improved, still leukocytosis, which is chronic. Etiology most likely ?infected wound +/- severe anemia. 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 Likley a contaminant. HIV negative 2) Extensive hidradenitis suppurativa with recent extensive skin and soft tissue infection, abscesses of the perineum, perirectal and leg flank region seen at [facility]: - underwent exlap with SHAUN, RLQ skin biopsy, diverting colostomy Mar 2018 - treated with vancomycin and ertapenem for 4 weeks until 05/29/2018 - CT abd 05/22/2018 showed 6x1.5 cm fluid collection left gluteal area s/p OR by general surgery underwent I+D of left gluteal abscess. Seen by and no intervention done. - S/p skin grafting by Dr. Taylor - CRP 9.4. - Wound cultures 07/24/2018 Proteus, Klebsiella, susceptible to cefepime 3) Recent Dermabacter hominis bacteremia on 04/25/2018 from wound infection 4) Extensive Perianal skin papillomas (warts) Recommendations: - follow-up wound cultures - continue vancomycin, D3 - continue cefepime and flagyl, D3 - f/u MRSA PCR - aggressive wound care [employer] M: [phone] O:[phone] Subjective Date of service: 07/28/18 Interval history: Patient seen and examined. Acute distress observed, Thigh pain 5/10 on numeric pain scale. no fevers. No family at bedside. Objective - Exam Narrative Exam: General appearance: Alert in NAD, conversant. Acute distress, pelvic and groin pain Eyes: anicteric sclerae, moist conjunctivae; no lid-lag; PERRLA HENT: Atraumatic; oropharynx clear with moist mucous membranes and no mucosal ulcerations/no oral thrush; normal hard and soft palate. Normal external ears. Neck: Trachea midline; supple, no thyromegaly or lymphadenopathy Lungs: CTA, with normal respiratory effort and no intercostal retractions CV: RRR, no murmurs Abdomen: Soft, non-tender; +diverting colostomy Extremities: No peripheral edema or extremity lymphadenopathy Skin: extensive pernieal, bilateral groin and scrotal shallow wounds with red granulation tissue. Left groin area with moderate clear slough/drainage. Right thigh graft donor wound healing, clean. Psych: Appropriate affect, alert and oriented to person, place and time. Neuro: alert and oriented x 3. Moving all extermities - Constitutional Vitals: Vital Signs Temp Pulse Resp BP Pulse Ox 98.2 F 122 H 18 99/66 98 07/28/18 05:16 07/28/18 05:16 07/28/18 05:16 07/28/18 09:24 07/28/18 05:16 Temperature -Last 24 Hours Temperature 98.2 F Temperature 99.3 F Temperature 98.0 F Temperature 98.6 F - Labs CBC & Chem 7: 07/28/18 11:08 07/25/18 07:19 Labs: Abnormal lab results 07/27/18 Range/Units 10:10 WBC 17.0 H (4.5-11.0) K/mm3 RBC 3.10 L (3.65-5.03) M/mm3 Hgb 7.8 L (11.8-15.2) gm/dl Hct 24.6 L (35.5-45.6) % MCV 79 L (84-94) fl MCH 25 L (28-32) pg RDW 17.4 H (13.2-15.2) % Plt Count 550 H (140-440) K/mm3 Lymph % (Auto) 11.9 L (13.4-35.0) % [place] # 1.0 H (0.0-0.8) K/mm3 Seg Neutrophils % 80.4 H (40.0-70.0) % Seg Neutrophils # 13.7 H (1.8-7.7) K/mm3
[2018-07-28 11:32] LABS: Basophils # (Auto) 0.1 K/mm3 (0.0-0.1); Basophils % (Auto) 0.4 % (0.0-1.8); Eosinophils # (Auto) 0.3 K/mm3 (0.0-0.4); Eosinophils % (Auto) 1.5 % (0.0-4.3); Hematocrit 22.5 % (35.5-45.6); Hemoglobin 7.2 gm/dl (11.8-15.2); Lymphocytes % (Auto) 11.5 % (13.4-35.0); Mean Corpuscular HGB Conc 32 % (32-34); Mean Corpuscular Volume 79 fl (84-94); Monocytes % (Auto) 5.6 % (0.0-7.3); Platelet Count 514 K/mm3 (140-440); Red Blood Count 2.86 M/mm3 (3.65-5.03); Red Cell Distribution Width 17.9 % (13.2-15.2)
[2018-07-28] MEDS: VANCOMYCIN/NS 1 GM/250 ML 1 GM/250 ML BAG IV SCH ×2 (12:56→23:27)
--- NOTE | 2018-07-28 15:12 | Progress Note ---
Assessment and Plan Assessment and plan: Patient is a 52 yo man with a history of HTN, Nicotine Dependence, Severe Malnutrition and Hidradenitis Suppurativa s/p Skin Graft [address] Taylor at [facility], underwent exlap with SHAUN, RLQ skin biopsy, diverting colostomy Mar 2018, treated with vancomycin and ertapenem for 4 weeks until 05/29/2018, CT abd 05/22/2018 showed 6x1.5 cm fluid collection left gluteal area s/p OR by general surgery underwent I+D of left gluteal abscess. Seen by and no intervention done. who presents to ED for evaluation of pain and redness to his bilateral groin and legs at the site of hidradenitis. Pt seen and evaluated by his wound care nurse and was found to have suspected cellulitis. EMS notified, Pt transported to [facility] for further care and evaluation. Pt seen and evaluated in ED and found to have Sepsis suspected secondary to cellulitis. Pt initiated on sepsis protocol and admitted to medical floor. Surgery team consulted in ED. Wound care consulted in ED. Pt is currently unable to independently conduct activities of daily living. Case management consulted for D/C planning. /Sepsis, likely from groin Hidradenitis, Cont IV antibiotic therapy, follow cultures, monitor uop q shift, IVF resuscitation therapy. ID is following /Bacteremia, likely contamination, repeat cx negative, Recent Dermabacter hominis bacteremia on 04/25/2018 from wound infection /Extensive hidradenitis suppurativa with recent extensive skin and soft tissue infection, abscesses of the perineum, perirectal and leg flank region seen at [facility]: follow Wound cultures 07/24/2018 GNR x 2. / Nicotine dependence, smoking cessation counseling, supportive care. / Cellulitis, Bilateral Groin Cellulitis: IV antibiotic therapy, wound care consulted. / Hidradenitis, Surgery consulted, wound care consulted, / Debility, due to chronic infection fall precautions, PT consulted, Case management consulted for D/C Planning/Placement. /Severe Malnutrition, poa, - low albulin, will order prealbulmin- consult diet srini / DVT prophylaxis, scd to BLE while in bed. /Extensive Perianal skin papillomas (warts) Disposition: pending placement History Interval history: Patient was seen and examined. Follow-up on current diagnosis skin infection. Overnight uneventful. Patient denies any chest pain, shortness breath, nausea/ vomiting or severe headaches. Imaging, nursing note, chart, labs and old chart reviewed. Discussed with patient. Hospitalist Physical - Physical exam Narrative exam: Gen: AAOx3. NAD ENT: no scleral icterus or conjunctival pallor CV: S1, S2+ Resp: even and unlabored Abd: soft, colostomy with yellow/brown stool in bag Ext: bilateral anterior thigh skin graft harvest sites are clean and dry, healing well. No evidence of erythema or drainage. Xeroform dressing over wounds, wrapped with kerlex : Perineum, groin, and scrotal wounds are clean with minimal seropurulent drainage. Appear to be healing well. No erythema. Xeroform dressings in place with ABD pads and mesh underwear On exam +rod anal large papillomas - Constitutional Vitals: Temp Pulse Resp BP Pulse Ox 99.3 F 114 H 18 94/59 98 07/28/18 12:00 07/28/18 12:00 07/28/18 12:00 07/28/18 12:00 07/28/18 12:00 General appearance: Present: cachectic, disheveled Results - Labs CBC & Chem 7: 07/28/18 11:08 07/25/18 07:19 Labs: Laboratory Last Values WBC 17.2 K/mm3 (4.5-11.0) H 07/28/18 11:08 RBC 2.86 M/mm3 (3.65-5.03) L 07/28/18 11:08 Hgb 7.2 gm/dl (11.8-15.2) L 07/28/18 11:08 Hct 22.5 % (35.5-45.6) L 07/28/18 11:08 MCV 79 fl (84-94) L 07/28/18 11:08 MCH 25 pg (28-32) L 07/28/18 11:08 MCHC 32 % (32-34) 07/28/18 11:08 RDW 17.9 % (13.2-15.2) H 07/28/18 11:08 Plt Count 514 K/mm3 (140-440) H 07/28/18 11:08 Lymph % (Auto) 11.5 % (13.4-35.0) L 07/28/18 11:08 [place] % (Auto) 5.6 % (0.0-7.3) 07/28/18 11:08 Eos % (Auto) 1.5 % (0.0-4.3) 07/28/18 11:08 Baso % (Auto) 0.4 % (0.0-1.8) 07/28/18 11:08 Lymph # 2.0 K/mm3 (1.2-5.4) 07/28/18 11:08 [place] # 1.0 K/mm3 (0.0-0.8) H 07/28/18 11:08 Eos # 0.3 K/mm3 (0.0-0.4) 07/28/18 11:08 Baso # 0.1 K/mm3 (0.0-0.1) 07/28/18 11:08 Seg Neutrophils % 81.0 % (40.0-70.0) H 07/28/18 11:08 Seg Neutrophils # 13.9 K/mm3 (1.8-7.7) H 07/28/18 11:08 Sodium 132 mmol/L (137-145) L 07/25/18 07:19 Potassium 3.9 mmol/L (3.6-5.0) 07/25/18 07:19 Chloride 99.3 mmol/L (98-107) 07/25/18 07:19 Carbon Dioxide 24 mmol/L (22-30) 07/25/18 07:19 Anion Gap 13 mmol/L 07/25/18 07:19 BUN 7 mg/dL (9-20) L 07/25/18 07:19 Creatinine 0.6 mg/dL (0.8-1.5) L 07/25/18 07:19 Estimated GFR > 60 ml/min 07/25/18 07:19 BUN/Creatinine Ratio 12 % 07/25/18 07:19 Glucose 90 mg/dL (75-100) 07/25/18 07:19 Lactic Acid 1.50 mmol/L (0.7-2.0) 07/23/18 01:17 Calcium 8.8 mg/dL (8.4-10.2) 07/25/18 07:19 Total Creatine Kinase 11 units/L (55-170) L 07/22/18 17:37 C-Reactive Protein 9.40 mg/dL (0.00-1.30) H 07/25/18 18:04 Prealbumin 0.046 g/L (0.200-0.400) L 07/26/18 06:25 Urine Color Yellow (Yellow) 07/26/18 22:09 Urine Turbidity Clear (Clear) 07/26/18 22:09 Urine pH 6.0 (5.0-7.0) 07/26/18 22:09 Ur Specific [place] 1.008 (1.003-1.030) 07/26/18 22:09 Urine Protein <15 mg/dl mg/dL (Negative) 07/26/18 22:09 Urine Glucose (UA) Neg mg/dL (Negative) 07/26/18 22:09 Urine Ketones Neg mg/dL (Negative) 07/26/18 22:09 Urine Blood Neg (Negative) 07/26/18 22:09 Urine Nitrite Neg (Negative) 07/26/18 22:09 Urine Bilirubin Neg (Negative) 07/26/18 22:09 Urine Urobilinogen < 2.0 mg/dL (<2.0) 07/26/18 22:09 Ur Leukocyte Esterase Sm (Negative) 07/26/18 22:09 Urine WBC (Auto) 5.0 /HPF (0.0-6.0) 07/26/18 22:09 Urine RBC (Auto) 2.0 /HPF (0.0-6.0) 07/26/18 22:09 Urine Bacteria (Auto) 1+ /HPF (Negative) 07/26/18 22:09 Urine Mucus Few /HPF 07/26/18 22:09 Vancomycin Trough 16.6 ug/mL (5.0-20.0) 07/25/18 21:23 HIV 1&2 Antibody Rapid Non react (Non React) 07/27/18 18:47 HIV P24 Antigen Non react (Non React) 07/27/18 18:47 Blood Type O POSITIVE 07/23/18 19:55 Antibody Screen Negative 07/23/18 19:55 Crossmatch See Detail 07/23/18 19:55 Nutrition/Malnutrition Assess - Dietary Evaluation Nutrition/Malnutrition Findings: Nutrition Notes Start: 07/23/18 13:16 Freq: Status: Active Protocol: Document 07/28/18 11:58 SA (Rec: 07/28/18 12:04 SA [id number]) Co-Sign 07/28/18 11:58 LP Nutrition Notes Initial or Follow up Reassessment Current Diagnosis Sepsis Hypertension Other Pertinent Diagnosis Cellulitis, Hidradenitis suppurativa s/p skin graft Current Diet Cardiac Labs/Tests Reviewed Pertinent Medications Reviewed Height 5 ft 11 in Weight 61.2 kg [place] Body Weight (kg) 78.18 BMI 18.8 Subjective/Other Information Patient states appetite is not good. Pt reports eating 55% of meals. Pt reports drinking 100% of ensure and jake. Pt denies N/V/D. Noted preferences. Percent of energy/protein needs met: 100%/100% Burn Absent Trauma Absent #1 Nutrition Diagnosis Malnutrition Diagnosis Progress(for reassessment Continues documentation) Is patient on ventilator? No Is Patient Ambulatory and/or Out of Bed No REE-([facility]-confined to bed) 1779.300 Kcal/Kg value to use for calculation 35 Approximate Energy Requirements Using 2142 kcal/Kg Calculation Used for Recommendations Kcal/kg Additional Notes Pro needs 1.25-1.5g/k-92g /day Fluid needs 1ml/kcal Nutrition Intervention Change Diet Order: Continue current diet order Add Supplement/Snack (indicate name/kcal Ensure Enlive TID /protein ) Jake BID Provides kCal: 1,145 Provides Protein (gm) 63 Goal #1 PO intake of meals plus ONS to continue to meet 100% energy and pro needs Goal #2 Wound healing Goal #3 Wt maintenance and/or gain Anticipated Discharge Needs: Continue Ensure Enlive and Jake BID for wt maintenance/ gain and wound healing Follow-Up By: 08/04/18 Additional Comments F/U: PO intake and ONS intake
[2018-07-29] MEDS: FLAGYL PO SCH ×3 (06:25→21:12)
[2018-07-29] MEDS: MAXIPIME/NS 2 GM/100 ML 2 GM/100 ML BAG IV SCH ×3 (06:26→21:12)
[2018-07-29 06:34] LABS: Hematocrit 23.7 % (35.5-45.6); Hemoglobin 7.6 gm/dl (11.8-15.2); Mean Corpuscular HGB Conc 32 % (32-34); Mean Corpuscular Volume 78 fl (84-94); Platelet Count 559 K/mm3 (140-440); Red Blood Count 3.02 M/mm3 (3.65-5.03); Red Cell Distribution Width 17.5 % (13.2-15.2)
[2018-07-29 06:55] LABS: BUN/Creatinine Ratio 27; Blood Urea Nitrogen 19 mg/dL (9-20); Calcium 8.7 mg/dL (8.4-10.2); Hemolysis Index 2
--- NOTE | 2018-07-29 09:59 | Progress Note ---
Assessment and Plan Cultures: 07/26/18 Urine: no growth to date 07/24/18 Groin: Proteus, Klebsiella, susceptible to cefepime 07/22/18 Blood: no growth thus far 07/22/18 Blood: Coag negative Staph, 1 out of 4 bottles Assessment: 52 y/o male with history of HTN and severe hidradenitis suppurativa follows up with Derm on [facility], readmitted on 07/22/2018: 1) SIRS versus Sepsis: Improved, still leukocytosis, which is chronic. Etiology most likely ?infected wound +/- severe anemia. 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 Likley a contaminant. HIV negative 2) Extensive hidradenitis suppurativa with recent extensive skin and soft tissue infection, abscesses of the perineum, perirectal and leg flank region seen at [facility]: - underwent exlap with SHAUN, RLQ skin biopsy, diverting colostomy Mar 2018 - treated with vancomycin and ertapenem for 4 weeks until 05/29/2018 - CT abd 05/22/2018 showed 6x1.5 cm fluid collection left gluteal area s/p OR by general surgery underwent I+D of left gluteal abscess. Seen by and no intervention done. - S/p skin grafting by Dr. Taylor - CRP 9.4. - Wound cultures 07/24/2018 Proteus, Klebsiella, susceptible to cefepime 3) Recent Dermabacter hominis bacteremia on 04/25/2018 from wound infection 4) Extensive Perianal skin papillomas (warts) Recommendations: - follow-up wound cultures - continue vancomycin, D7 - continue cefepime and flagyl, D4 - f/u MRSA PCR - aggressive wound care - can discharge on Augmentin 875 mg PO BID for total 10 days ending 08-04-18 Dr. 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 [facility] M: [phone] O:[phone] Subjective Date of service: 07/29/18 Interval history: Patient seen and examined. Stated that he was feeling better today, no fevers. Objective - Exam Narrative Exam: General appearance: Alert in NAD, conversant. no acute distress Eyes: anicteric sclerae, moist conjunctivae; no lid-lag; PERRLA HENT: Atraumatic; oropharynx clear with moist mucous membranes and no mucosal ulcerations/no oral thrush; normal hard and soft palate. Normal external ears. Neck: Trachea midline; supple, no thyromegaly or lymphadenopathy Lungs: CTA, with normal respiratory effort and no intercostal retractions CV: RRR, no murmurs Abdomen: Soft, non-tender; +diverting colostomy Extremities: No peripheral edema or extremity lymphadenopathy Skin: extensive pernieal, bilateral groin and scrotal shallow wounds with red granulation tissue. Left groin area with moderate clear slough/drainage. Right thigh graft donor wound healing, clean. Psych: Appropriate affect, alert and oriented to person, place and time. Neuro: alert and oriented x 3. Moving all extermities - Constitutional Vitals: Vital Signs Temp Pulse Resp BP Pulse Ox 98.8 F 110 H 18 97/58 98 07/28/18 22:22 07/29/18 02:56 07/29/18 02:56 07/28/18 22:31 07/29/18 02:56 Temperature -Last 24 Hours Temperature 98.8 F Temperature 98.9 F Temperature 99.3 F - Labs CBC & Chem 7: 07/29/18 05:56 07/29/18 05:56 Labs: Abnormal lab results 07/28/18 07/29/18 07/29/18 Range/Units 11:08 05:56 05:56 WBC 17.2 H 15.8 H (4.5-11.0) K/mm3 RBC 2.86 L 3.02 L (3.65-5.03) M/mm3 Hgb 7.2 L 7.6 L (11.8-15.2) gm/dl Hct 22.5 L 23.7 L (35.5-45.6) % MCV 79 L 78 L (84-94) fl MCH 25 L 25 L (28-32) pg RDW 17.9 H 17.5 H (13.2-15.2) % Plt Count 514 H 559 H (140-440) K/mm3 Lymph % (Auto) 11.5 L (13.4-35.0) % [place] # 1.0 H (0.0-0.8) K/mm3 Seg Neutrophils % 81.0 H (40.0-70.0) % Seg Neutrophils # 13.9 H (1.8-7.7) K/mm3 Sodium 136 L (137-145) mmol/L Creatinine 0.7 L (0.8-1.5) mg/dL
[2018-07-29] MEDS: VANCOMYCIN/NS 1 GM/250 ML 1 GM/250 ML BAG IV SCH (10:08)
[2018-07-29] MEDS: REMERON PO SCH ×2 (10:10→23:41)
[2018-07-29] MEDS: PERCOCET 5/325 PO PRN ×2 (10:10→16:09)
[2018-07-29] MEDS: LOPRESSOR PO SCH ×2 (10:13→21:34)
[2018-07-29] MEDS: SODIUM CHLORIDE FLUSH SYRINGE 10 ML IV SCH ×2 (10:21→21:12)
--- NOTE | 2018-07-29 15:01 | Event Note ---
Date: 07/29/18 Physician Attestation: I have seen and examined patient. I personally discussed and directed assessment and management with PREPARER Ba. Stop vancomycin, continue cefepime for now. Traci Alonso MD Infectious Diseases [employer] [facility] M [phone] O [phone]
--- NOTE | 2018-07-29 15:11 | Discharge Summary ---
Providers - Providers Date of Admission: 07/22/18 19:41 Date of discharge: 07/29/18 Attending physician: GISELLA FIGUEROA 07/22/18 17:02 Consult to Case Management [CONS] Stat Services Needed at Discharge: [facility] Notified:: awaiting call back 07/22/18 19:38 Consult to Physician [CONS] Urgent Comment: Dr. Baldwin spoke with Dr. Doyle @ [phone] Consulting Provider: DOUG DOYLE Physician Instructions: Reason For Exam: hydradenitis wounds 07/22/18 20:41 Physical Therapy Evaluation and Treat [CONS] Routine Comment: Reason For Exam: weakness/deconditioning 07/23/18 14:12 Consult to Case Management [CONS] Routine Services Needed at Discharge: Other Notified:: cm Comment:: placement 07/25/18 16:24 Consult to Physician [CONS] Routine Comment: Consulting Provider: LAYNE TA Physician Instructions: Reason For Exam: abx recommendation 07/26/18 14:16 Consult to Dietitian/Nutrition [CONS] Routine Physician Instructions: Reason For Exam: nonhealing wounds, poor nutrition Reason for Consult: Malnutrition Primary care physician: HAIR SPECIALIST Hospitalization Condition: Good Hospital course: Patient is a 52 yo man with a history of HTN, Nicotine Dependence, Severe Malnutrition and Hidradenitis Suppurativa s/p Skin Graft [address] Taylor at [facility], underwent exlap with SHAUN, RLQ skin biopsy, diverting colostomy Mar 2018, treated with vancomycin and ertapenem for 4 weeks until 05/29/2018, CT abd 05/22/2018 showed 6x1.5 cm fluid collection left gluteal area s/p OR by general surgery underwent I+D of left gluteal abscess. Seen by and no intervention done. who presents to ED for evaluation of pain and redness to his bilateral groin and legs at the site of hidradenitis. Pt seen and evaluated by his wound care nurse and was found to have suspected cellulitis. EMS notified, Pt transported to [facility] for further care and evaluation. Pt seen and evaluated in ED and found to have Sepsis suspected secondary to cellulitis. Pt initiated on sepsis protocol and admitted to medical floor. Surgery team consulted in ED. Wound care consulted in ED. Pt is currently unable to independently conduct activities of daily living. Case management consulted for D/C planning. /Sepsis, likely from groin Hidradenitis, Cont IV antibiotic therapy, follow cultures, monitor uop q shift, IVF resuscitation therapy. ID is following /Bacteremia, likely contamination, repeat cx negative, Recent Dermabacter hominis bacteremia on 04/25/2018 from wound infection /Extensive hidradenitis suppurativa with recent extensive skin and soft tissue infection, abscesses of the perineum, perirectal and leg flank region seen at [facility]: follow Wound cultures 07/24/2018 GNR x 2. / Nicotine dependence, smoking cessation counseling, supportive care. / Cellulitis, Bilateral Groin Cellulitis: IV antibiotic therapy, wound care consulted. / Hidradenitis, Surgery consulted, wound care consulted, / Debility, due to chronic infection fall precautions, PT consulted, Case management consulted for D/C Planning/Placement. /Severe Malnutrition, poa, - low albulin, will order prealbulmin- consult dietary / DVT prophylaxis, scd to BLE while in bed. /Extensive Perianal skin papillomas (warts) Disposition: [facility], pt is trying for all infection to heal so that he can have reversal of colostomy. Disposition: DC/[place]-03 SNF W [facility] CERT Time spent for discharge: 35 minutes Core Measure Documentation - Palliative Care Palliative Care/ Comfort Measures: Not Applicable - Core Measures Any of the following diagnoses?: none - VTE Discharge Requirements Deep Vein Thrombosis/Pulmonary Embolism Present on Admission: No Has pt received <5 days of overlap therapy or INR<2.0: No Anticoagulant overlap therapy prescribed at discharge: No Contraindication No Overlap Therapy order at DC: Not Indicated Exam - Physical Exam Narrative exam: Gen: AAOx3. NAD ENT: no scleral icterus or conjunctival pallor CV: S1, S2+ Resp: even and unlabored Abd: soft, colostomy with yellow/brown stool in bag Ext: bilateral anterior thigh skin graft harvest sites are clean and dry, healing well. No evidence of erythema or drainage. Xeroform dressing over wou nds, wrapped with kerlex : Perineum, groin, and scrotal wounds are clean with minimal seropurulent drainage. Appear to be healing well. No erythema. Xeroform dressings in place with ABD pads and mesh underwear On exam +rod anal large papillomas - Constitutional Vitals: Temp Pulse Resp BP Pulse Ox 98.8 F 122 H 18 92/57 99 07/28/18 22:22 07/29/18 12:04 07/29/18 12:04 07/29/18 12:04 07/29/18 05:35 Plan Activity: other (no strenous activity ) Diet: low salt Special Instructions: record daily BP diary Follow up with: PRIMARY CARE, [Primary Care Provider] - 3-5 Days DOUG DOYLE DO [Staff Physician] - 7 Days LAYNE TA MD [Staff Physician] - 7 Days AWAIS BUSTOS MD [Staff Physician] - 7 Days Prescriptions: Amoxicillin/Potassium Clav [Augmentin 875-125 Tablet] 1 each PO BID #20 tablet oxyCODONE /ACETAMINOPHEN [Percocet 5/325 mg] 1 tab PO Q4HR PRN #15 tablet PRN Reason: Pain , Severe (7-10)
--- NOTE | 2018-07-29 15:42 | Progress Note ---
Assessment and Plan Assessment and plan: Patient is a 52 yo man with a history of HTN, Nicotine Dependence, Severe Malnutrition and Hidradenitis Suppurativa s/p Skin Graft [address] Taylor at [facility], underwent exlap with SHAUN, RLQ skin biopsy, diverting colostomy Mar 2018, treated with vancomycin and ertapenem for 4 weeks until 05/29/2018, CT abd 05/22/2018 showed 6x1.5 cm fluid collection left gluteal area s/p OR by general surgery underwent I+D of left gluteal abscess. Seen by and no intervention done. who presents to ED for evaluation of pain and redness to his bilateral groin and legs at the site of hidradenitis. Pt seen and evaluated by his wound care nurse and was found to have suspected cellulitis. EMS notified, Pt transported to [facility] for further care and evaluation. Pt seen and evaluated in ED and found to have Sepsis suspected secondary to cellulitis. Pt initiated on sepsis protocol and admitted to medical floor. Surgery team consulted in ED. Wound care consulted in ED. Pt is currently unable to independently conduct activities of daily living. Case management consulted for D/C planning. /Sepsis, likely from groin Hidradenitis, Cont IV antibiotic therapy, follow cultures, monitor uop q shift, IVF resuscitation therapy. ID is following /Bacteremia, likely contamination, repeat cx negative, Recent Dermabacter hominis bacteremia on 04/25/2018 from wound infection /Extensive hidradenitis suppurativa with recent extensive skin and soft tissue infection, abscesses of the perineum, perirectal and leg flank region seen at [facility]: follow Wound cultures 07/24/2018 GNR x 2. / Nicotine dependence, smoking cessation counseling, supportive care. / Cellulitis, Bilateral Groin Cellulitis: IV antibiotic therapy, wound care consulted. / Hidradenitis, Surgery consulted, wound care consulted, / Debility, due to chronic infection fall precautions, PT consulted, Case management consulted for D/C Planning/Placement. /Severe Malnutrition, poa, - low albulin, will order prealbulmin- consult diet srini / DVT prophylaxis, scd to BLE while in bed. /Extensive Perianal skin papillomas (warts) Disposition: pending placement discharge held to [facility], because Hr 122, pt bp runs in the 90s because he is malnutr. Will get ekg and troponin and remote monitoring, most likely due to the skin graft pains bilateral thighs. History Interval history: Patient was seen and examined. Follow-up on current diagnosis skin infection. Overnight uneventful. Patient denies any chest pain, shortness breath, naus ea/vomiting or severe headaches. Imaging, nursing note, chart, labs and old chart reviewed. Discussed with patient. Hospitalist Physical - Physical exam Narrative exam: Gen: AAOx3. NAD ENT: no scleral icterus or conjunctival pallor CV: S1, S2+, regular tachycardia Resp: even and unlabored Abd: soft, colostomy with yellow/brown stool in bag Ext: bilateral anterior thigh skin graft harvest sites are clean and dry, healing well. No evidence of erythema or drainage. Xeroform dressing over wounds, wrapped with kerlex : Perineum, groin, and scrotal wounds are clean with minimal seropurulent drainage. Appear to be healing well. No erythema. Xeroform dressings in place with ABD pads and mesh underwear On exam +rod anal large papillomas - Constitutional Vitals: Temp Pulse Resp BP Pulse Ox 99.4 F 122 H 18 92/57 99 07/29/18 12:04 07/29/18 12:04 07/29/18 12:04 07/29/18 12:04 07/29/18 05:35 General appearance: Present: cachectic, disheveled Results - Labs CBC & Chem 7: 07/29/18 05:56 07/29/18 05:56 Labs: Laboratory Last Values WBC 15.8 K/mm3 (4.5-11.0) H 07/29/18 05:56 RBC 3.02 M/mm3 (3.65-5.03) L 07/29/18 05:56 Hgb 7.6 gm/dl (11.8-15.2) L 07/29/18 05:56 Hct 23.7 % (35.5-45.6) L 07/29/18 05:56 MCV 78 fl (84-94) L 07/29/18 05:56 MCH 25 pg (28-32) L 07/29/18 05:56 MCHC 32 % (32-34) 07/29/18 05:56 RDW 17.5 % (13.2-15.2) H 07/29/18 05:56 Plt Count 559 K/mm3 (140-440) H 07/29/18 05:56 Lymph % (Auto) 11.5 % (13.4-35.0) L 07/28/18 11:08 [place] % (Auto) 5.6 % (0.0-7.3) 07/28/18 11:08 Eos % (Auto) 1.5 % (0.0-4.3) 07/28/18 11:08 Baso % (Auto) 0.4 % (0.0-1.8) 07/28/18 11:08 Lymph # 2.0 K/mm3 (1.2-5.4) 07/28/18 11:08 [place] # 1.0 K/mm3 (0.0-0.8) H 07/28/18 11:08 Eos # 0.3 K/mm3 (0.0-0.4) 07/28/18 11:08 Baso # 0.1 K/mm3 (0.0-0.1) 07/28/18 11:08 Seg Neutrophils % 81.0 % (40.0-70.0) H 07/28/18 11:08 Seg Neutrophils # 13.9 K/mm3 (1.8-7.7) H 07/28/18 11:08 Sodium 136 mmol/L (137-145) L 07/29/18 05:56 Potassium 4.2 mmol/L (3.6-5.0) 07/29/18 05:56 Chloride 101.5 mmol/L (98-107) 07/29/18 05:56 Carbon Dioxide 27 mmol/L (22-30) 07/29/18 05:56 Anion Gap 12 mmol/L 07/29/18 05:56 BUN 19 mg/dL (9-20) 07/29/18 05:56 Creatinine 0.7 mg/dL (0.8-1.5) L 07/29/18 05:56 Estimated GFR > 60 ml/min 07/29/18 05:56 BUN/Creatinine Ratio 27 % 07/29/18 05:56 Glucose 85 mg/dL (75-100) 07/29/18 05:56 Lactic Acid 1.50 mmol/L (0.7-2.0) 07/23/18 01:17 Calcium 8.7 mg/dL (8.4-10.2) 07/29/18 05:56 Total Creatine Kinase 11 units/L (55-170) L 07/22/18 17:37 C-Reactive Protein 9.40 mg/dL (0.00-1.30) H 07/25/18 18:04 Prealbumin 0.046 g/L (0.200-0.400) L 07/26/18 06:25 Urine Color Yellow (Yellow) 07/26/18 22:09 Urine Turbidity Clear (Clear) 07/26/18 22:09 Urine pH 6.0 (5.0-7.0) 07/26/18 22:09 Ur Specific [place] 1.008 (1.003-1.030) 07/26/18 22:09 Urine Protein <15 mg/dl mg/dL (Negative) 07/26/18 22:09 Urine Glucose (UA) Neg mg/dL (Negative) 07/26/18 22:09 Urine Ketones Neg mg/dL (Negative) 07/26/18 22:09 Urine Blood Neg (Negative) 07/26/18 22:09 Urine Nitrite Neg (Negative) 07/26/18 22:09 Urine Bilirubin Neg (Negative) 07/26/18 22:09 Urine Urobilinogen < 2.0 mg/dL (<2.0) 07/26/18 22:09 Ur Leukocyte Esterase Sm (Negative) 07/26/18 22:09 Urine WBC (Auto) 5.0 /HPF (0.0-6.0) 07/26/18 22:09 Urine RBC (Auto) 2.0 /HPF (0.0-6.0) 07/26/18 22:09 Urine Bacteria (Auto) 1+ /HPF (Negative) 07/26/18 22:09 Urine Mucus Few /HPF 07/26/18 22:09 Vancomycin Trough 16.6 ug/mL (5.0-20.0) 07/25/18 21:23 HIV 1&2 Antibody Rapid Non react (Non React) 07/27/18 18:47 HIV P24 Antigen Non react (Non React) 07/27/18 18:47 Blood Type O POSITIVE 07/23/18 19:55 Antibody Screen Negative 07/23/18 19:55 Crossmatch See Detail 07/23/18 19:55 Nutrition/Malnutrition Assess - Dietary Evaluation Nutrition/Malnutrition Findings: Nutrition Notes Start: 07/23/18 13:16 Freq: Status: Active Protocol: Document 07/28/18 11:58 SA (Rec: 07/28/18 12:04 SA [id number]) Co-Sign 07/28/18 11:58 LP Nutrition Notes Initial or Follow up Reassessment Current Diagnosis Sepsis Hypertension Other Pertinent Diagnosis Cellulitis, Hidradenitis suppurativa s/p skin graft Current Diet Cardiac Labs/Tests Reviewed Pertinent Medications Reviewed Height 5 ft 11 in Weight 61.2 kg [place] Body Weight (kg) 78.18 BMI 18.8 Subjective/Other Information Patient states appetite is not good. Pt reports eating 55% of meals. Pt reports drinking 100% of ensure and jake. Pt denies N/V/D. Noted preferences. Percent of energy/protein needs met: 100%/100% Burn Absent Trauma Absent #1 Nutrition Diagnosis Malnutrition Diagnosis Progress(for reassessment Continues documentation) Is patient on ventilator? No Is Patient Ambulatory and/or Out of Bed No REE-([facility]-confined to bed) 1779.300 Kcal/Kg value to use for calculation 35 Approximate Energy Requirements Using 2142 kcal/Kg Calculation Used for Recommendations Kcal/kg Additional Notes Pro needs 1.25-1.5g/k-92g /day Fluid needs 1ml/kcal Nutrition Intervention Change Diet Order: Continue current diet order Add Supplement/Snack (indicate name/kcal Ensure Enlive TID /protein ) Jake BID Provides kCal: 1,145 Provides Protein (gm) 63 Goal #1 PO intake of meals plus ONS to continue to meet 100% energy and pro needs Goal #2 Wound healing Goal #3 Wt maintenance and/or gain Anticipated Discharge Needs: Continue Ensure Enlive and Jake BID for wt maintenance/ gain and wound healing Follow-Up By: 08/04/18 Additional Comments F/U: PO intake and ONS intake
[2018-07-30] MEDS: TYLENOL PO PRN (05:41)
[2018-07-30] MEDS: MAXIPIME/NS 2 GM/100 ML 2 GM/100 ML BAG IV SCH ×3 (05:41→21:22)
[2018-07-30] MEDS: FLAGYL PO SCH ×3 (05:41→21:23)
[2018-07-30 05:57] LABS: Hematocrit 22.6 % (35.5-45.6); Hemoglobin 7.5 gm/dl (11.8-15.2); Mean Corpuscular HGB Conc 33 % (32-34); Mean Corpuscular Volume 78 fl (84-94); Platelet Count 581 K/mm3 (140-440); Red Blood Count 2.92 M/mm3 (3.65-5.03); Red Cell Distribution Width 17.5 % (13.2-15.2)
[2018-07-30 06:41] LABS: BUN/Creatinine Ratio 26; Blood Urea Nitrogen 21 mg/dL (9-20); Calcium 9.1 mg/dL (8.4-10.2); Hemolysis Index 0
[2018-07-30] MEDS: REMERON PO SCH ×2 (10:55→21:23)
[2018-07-30] MEDS: PERCOCET 5/325 PO PRN (11:02)
[2018-07-30] MEDS: SODIUM CHLORIDE FLUSH SYRINGE 10 ML IV SCH ×2 (11:09→21:23)
--- NOTE | 2018-07-30 13:12 | Progress Note ---
Assessment and Plan Assessment and plan: Patient is a 52 yo man with a history of HTN, Nicotine Dependence, Severe Malnutrition and Hidradenitis Suppurativa s/p Skin Graft [address] Taylor at [facility], underwent exlap with SHAUN, RLQ skin biopsy, diverting colostomy Mar 2018, treated with vancomycin and ertapenem for 4 weeks until 05/29/2018, CT abd 05/22/2018 showed 6x1.5 cm fluid collection left gluteal area s/p OR by general surgery underwent I+D of left gluteal abscess. Seen by and no intervention done. who presents to ED for evaluation of pain and redness to his bilateral groin and legs at the site of hidradenitis. Pt seen and evaluated by his wound care nurse and was found to have suspected cellulitis. EMS notified, Pt transported to [facility] for further care and evaluation. Pt seen and evaluated in ED and found to have Sepsis suspected secondary to cellulitis. Pt initiated on sepsis protocol and admitted to medical floor. Surgery team consulted in ED. Wound care consulted in ED. Pt is currently unable to independently conduct activities of daily living. Case management consulted for D/C planning. /Sepsis, likely from groin Hidradenitis, Cont IV antibiotic therapy, follow cultures, monitor uop q shift, IVF resuscitation therapy. ID is following /Bacteremia, likely contamination, repeat cx negative, Recent Dermabacter hominis bacteremia on 04/25/2018 from wound infection /Extensive hidradenitis suppurativa with recent extensive skin and soft tissue infection, abscesses of the perineum, perirectal and leg flank region seen at [facility]: follow Wound cultures 07/24/2018 GNR x 2. / Nicotine dependence, smoking cessation counseling, supportive care. / Cellulitis, Bilateral Groin Cellulitis: IV antibiotic therapy, wound care consulted. / Hidradenitis, Surgery consulted, wound care consulted, / Debility, due to chronic infection fall precautions, PT consulted, Case management consulted for D/C Planning/Placement. /Severe Malnutrition, poa, - low albulin, will order prealbulmin- consult diet srini / DVT prophylaxis, scd to BLE while in bed. /Extensive Perianal skin papillomas (warts) Disposition: pending placement discharge held to [facility], because Hr 122, pt bp runs in the 90s because he is malnutr. Will get ekg and troponin and remote monitoring, most likely due to the skin graft pains bilateral thighs. History Interval history: Patient was seen and examined. Follow-up on current diagnosis skin infection. Overnight uneventful. Patient denies any chest pain, shortness breath, naus ea/vomiting or severe headaches. Imaging, nursing note, chart, labs and old chart reviewed. Discussed with patient. Hospitalist Physical - Physical exam Narrative exam: Gen: AAOx3. NAD ENT: no scleral icterus or conjunctival pallor CV: S1, S2+, regular tachycardia Resp: even and unlabored Abd: soft, colostomy with yellow/brown stool in bag Ext: bilateral anterior thigh skin graft harvest sites are clean and dry, healing well. No evidence of erythema or drainage. Xeroform dressing over wounds, wrapped with kerlex : Perineum, groin, and scrotal wounds are clean with minimal seropurulent drainage. Appear to be healing well. No erythema. Xeroform dressings in place with ABD pads and mesh underwear On exam +rod anal large papillomas - Constitutional Vitals: Temp Pulse Resp BP Pulse Ox 98.1 F 86 18 121/54 99 07/30/18 11:34 07/30/18 11:34 07/30/18 11:34 07/30/18 11:34 07/30/18 11:34 General appearance: Present: cachectic, disheveled Results - Labs CBC & Chem 7: 07/30/18 05:27 07/30/18 05:27 Labs: Laboratory Last Values WBC 16.7 K/mm3 (4.5-11.0) H 07/30/18 05:27 RBC 2.92 M/mm3 (3.65-5.03) L 07/30/18 05:27 Hgb 7.5 gm/dl (11.8-15.2) L 07/30/18 05:27 Hct 22.6 % (35.5-45.6) L 07/30/18 05:27 MCV 78 fl (84-94) L 07/30/18 05:27 MCH 26 pg (28-32) L 07/30/18 05:27 MCHC 33 % (32-34) 07/30/18 05:27 RDW 17.5 % (13.2-15.2) H 07/30/18 05:27 Plt Count 581 K/mm3 (140-440) H 07/30/18 05:27 Lymph % (Auto) 11.5 % (13.4-35.0) L 07/28/18 11:08 [place] % (Auto) 5.6 % (0.0-7.3) 07/28/18 11:08 Eos % (Auto) 1.5 % (0.0-4.3) 07/28/18 11:08 Baso % (Auto) 0.4 % (0.0-1.8) 07/28/18 11:08 Lymph # 2.0 K/mm3 (1.2-5.4) 07/28/18 11:08 [place] # 1.0 K/mm3 (0.0-0.8) H 07/28/18 11:08 Eos # 0.3 K/mm3 (0.0-0.4) 07/28/18 11:08 Baso # 0.1 K/mm3 (0.0-0.1) 07/28/18 11:08 Seg Neutrophils % 81.0 % (40.0-70.0) H 07/28/18 11:08 Seg Neutrophils # 13.9 K/mm3 (1.8-7.7) H 07/28/18 11:08 Sodium 135 mmol/L (137-145) L 07/30/18 05:27 Potassium 3.8 mmol/L (3.6-5.0) 07/30/18 05:27 Chloride 100.7 mmol/L (98-107) 07/30/18 05:27 Carbon Dioxide 27 mmol/L (22-30) 07/30/18 05:27 Anion Gap 11 mmol/L 07/30/18 05:27 BUN 21 mg/dL (9-20) H 07/30/18 05:27 Creatinine 0.8 mg/dL (0.8-1.5) 07/30/18 05:27 Estimated GFR > 60 ml/min 07/30/18 05:27 BUN/Creatinine Ratio 26 % 07/30/18 05:27 Glucose 92 mg/dL (75-100) 07/30/18 05:27 Lactic Acid 1.50 mmol/L (0.7-2.0) 07/23/18 01:17 Calcium 9.1 mg/dL (8.4-10.2) 07/30/18 05:27 Total Creatine Kinase 11 units/L (55-170) L 07/22/18 17:37 Troponin T < 0.010 ng/mL (0.00-0.029) 07/29/18 15:56 C-Reactive Protein 9.40 mg/dL (0.00-1.30) H 07/25/18 18:04 Prealbumin 0.046 g/L (0.200-0.400) L 07/26/18 06:25 Urine Color Yellow (Yellow) 07/26/18 22:09 Urine Turbidity Clear (Clear) 07/26/18 22:09 Urine pH 6.0 (5.0-7.0) 07/26/18 22:09 Ur Specific [place] 1.008 (1.003-1.030) 07/26/18 22:09 Urine Protein <15 mg/dl mg/dL (Negative) 07/26/18 22:09 Urine Glucose (UA) Neg mg/dL (Negative) 07/26/18 22:09 Urine Ketones Neg mg/dL (Negative) 07/26/18 22:09 Urine Blood Neg (Negative) 07/26/18 22:09 Urine Nitrite Neg (Negative) 07/26/18 22:09 Urine Bilirubin Neg (Negative) 07/26/18 22:09 Urine Urobilinogen < 2.0 mg/dL (<2.0) 07/26/18 22:09 Ur Leukocyte Esterase Sm (Negative) 07/26/18 22:09 Urine WBC (Auto) 5.0 /HPF (0.0-6.0) 07/26/18 22:09 Urine RBC (Auto) 2.0 /HPF (0.0-6.0) 07/26/18 22:09 Urine Bacteria (Auto) 1+ /HPF (Negative) 07/26/18 22:09 Urine Mucus Few /HPF 07/26/18 22:09 Vancomycin Trough 16.6 ug/mL (5.0-20.0) 07/25/18 21:23 HIV 1&2 Antibody Rapid Non react (Non React) 07/27/18 18:47 HIV P24 Antigen Non react (Non React) 07/27/18 18:47 Blood Type O POSITIVE 07/23/18 19:55 Antibody Screen Negative 07/23/18 19:55 Crossmatch See Detail 07/23/18 19:55 Nutrition/Malnutrition Assess - Dietary Evaluation Nutrition/Malnutrition Findings: Nutrition Notes Start: 07/23/18 13:16 Freq: Status: Active Protocol: Document 07/28/18 11:58 SA (Rec: 07/28/18 12:04 SA [id number]) Co-Sign 07/28/18 11:58 LP Nutrition Notes Initial or Follow up Reassessment Current Diagnosis Sepsis Hypertension Other Pertinent Diagnosis Cellulitis, Hidradenitis suppurativa s/p skin graft Current Diet Cardiac Labs/Tests Reviewed Pertinent Medications Reviewed Height 5 ft 11 in Weight 61.2 kg [place] Body Weight (kg) 78.18 BMI 18.8 Subjective/Other Information Patient states appetite is not good. Pt reports eating 55% of meals. Pt reports drinking 100% of ensure and jake. Pt denies N/V/D. Noted preferences. Percent of energy/protein needs met: 100%/100% Burn Absent Trauma Absent #1 Nutrition Diagnosis Malnutrition Diagnosis Progress(for reassessment Continues documentation) Is patient on ventilator? No Is Patient Ambulatory and/or Out of Bed No REE-([facility]-confined to bed) 1779.300 Kcal/Kg value to use for calculation 35 Approximate Energy Requirements Using 2142 kcal/Kg Calculation Used for Recommendations Kcal/kg Additional Notes Pro needs 1.25-1.5g/k-92g /day Fluid needs 1ml/kcal Nutrition Intervention Change Diet Order: Continue current diet order Add Supplement/Snack (indicate name/kcal Ensure Enlive TID /protein ) Jake BID Provides kCal: 1,145 Provides Protein (gm) 63 Goal #1 PO intake of meals plus ONS to continue to meet 100% energy and pro needs Goal #2 Wound healing Goal #3 Wt maintenance and/or gain Anticipated Discharge Needs: Continue Ensure Enlive and Jake BID for wt maintenance/ gain and wound healing Follow-Up By: 08/04/18 Additional Comments F/U: PO intake and ONS intake
[2018-07-30] MEDS: LOPRESSOR PO SCH ×2 (14:38→21:23)
[2018-07-31 05:15] LABS: Hematocrit 24.3 % (35.5-45.6); Hemoglobin 7.9 gm/dl (11.8-15.2); Mean Corpuscular HGB Conc 33 % (32-34); Mean Corpuscular Volume 78 fl (84-94); Platelet Count 594 K/mm3 (140-440); Red Blood Count 3.12 M/mm3 (3.65-5.03); Red Cell Distribution Width 17.9 % (13.2-15.2)
[2018-07-31 05:39] LABS: BUN/Creatinine Ratio 19; Blood Urea Nitrogen 15 mg/dL (9-20); Hemolysis Index 2
[2018-07-31] MEDS: FLAGYL PO SCH ×3 (06:31→21:32)
[2018-07-31] MEDS: MAXIPIME/NS 2 GM/100 ML 2 GM/100 ML BAG IV SCH ×3 (06:31→21:34)
[2018-07-31] MEDS: REMERON PO SCH ×2 (09:23→21:32)
[2018-07-31] MEDS: SODIUM CHLORIDE FLUSH SYRINGE 10 ML IV SCH ×2 (09:23→21:33)
[2018-07-31] MEDS: LOPRESSOR PO SCH ×2 (09:23→21:32)
--- NOTE | 2018-07-31 10:31 | Progress Note ---
Assessment and Plan Assessment and plan: Patient is a 52 yo man with a history of HTN, Nicotine Dependence, Severe Malnutrition and Hidradenitis Suppurativa s/p Skin Graft [address] Taylor at [facility], underwent exlap with SHAUN, RLQ skin biopsy, diverting colostomy Mar 2018, treated with vancomycin and ertapenem for 4 weeks until 05/29/2018, CT abd 05/22/2018 showed 6x1.5 cm fluid collection left gluteal area s/p OR by general surgery underwent I+D of left gluteal abscess. Seen by and no intervention done. who presents to ED for evaluation of pain and redness to his bilateral groin and legs at the site of hidradenitis. Pt seen and evaluated by his wound care nurse and was found to have suspected cellulitis. EMS notified, Pt transported to [facility] for further care and evaluation. Pt seen and evaluated in ED and found to have Sepsis suspected secondary to cellulitis. Pt initiated on sepsis protocol and admitted to medical floor. Surgery team consulted in ED. Wound care consulted in ED. Pt is currently unable to independently conduct activities of daily living. Case management consulted for D/C planning. /Sepsis, likely from groin Hidradenitis, Cont IV antibiotic therapy, follow cultures, monitor uop q shift, IVF resuscitation therapy. ID is following /Bacteremia, likely contamination, repeat cx negative, Recent Dermabacter hominis bacteremia on 04/25/2018 from wound infection /Extensive hidradenitis suppurativa with recent extensive skin and soft tissue infection, abscesses of the perineum, perirectal and leg flank region seen at [facility]: follow Wound cultures 07/24/2018 GNR x 2. / Nicotine dependence, smoking cessation counseling, supportive care. / Cellulitis, Bilateral Groin Cellulitis: IV antibiotic therapy, wound care consulted. / Hidradenitis, Surgery consulted, wound care consulted, / Debility, due to chronic infection fall precautions, PT consulted, Case management consulted for D/C Planning/Placement. /Severe Malnutrition, poa, - low albulin, will order prealbulmin- consult diet srini / DVT prophylaxis, scd to BLE while in bed. /Extensive Perianal skin papillomas (warts) Disposition: pending placement discharge held to [facility], because Hr 122, pt bp runs in the 90s because he is malnutr. Will get ekg and troponin and remote monitoring, most likely due to the skin graft pains bilateral thighs. History Interval history: Patient was seen and examined. Follow-up on current diagnosis skin infection. Overnight uneventful. Patient denies any chest pain, shortness breath, naus ea/vomiting or severe headaches. Imaging, nursing note, chart, labs and old chart reviewed. Discussed with patient. Hospitalist Physical - Physical exam Narrative exam: Gen: AAOx3. NAD ENT: no scleral icterus or conjunctival pallor CV: S1, S2+, regular tachycardia Resp: even and unlabored Abd: soft, colostomy with yellow/brown stool in bag Ext: bilateral anterior thigh skin graft harvest sites are clean and dry, healing well. No evidence of erythema or drainage. Xeroform dressing over wounds, wrapped with kerlex : Perineum, groin, and scrotal wounds are clean with minimal seropurulent drainage. Appear to be healing well. No erythema. Xeroform dressings in place with ABD pads and mesh underwear On exam +rod anal large papillomas - Constitutional Vitals: Temp Pulse Resp BP Pulse Ox 99.4 F 118 H 18 96/65 98 07/31/18 06:48 07/31/18 06:48 07/31/18 06:48 07/31/18 06:48 07/31/18 06:48 General appearance: Present: cachectic, disheveled Results - Labs CBC & Chem 7: 07/31/18 05:00 07/31/18 05:00 Labs: Laboratory Last Values WBC 17.4 K/mm3 (4.5-11.0) H 07/31/18 05:00 RBC 3.12 M/mm3 (3.65-5.03) L 07/31/18 05:00 Hgb 7.9 gm/dl (11.8-15.2) L 07/31/18 05:00 Hct 24.3 % (35.5-45.6) L 07/31/18 05:00 MCV 78 fl (84-94) L 07/31/18 05:00 MCH 25 pg (28-32) L 07/31/18 05:00 MCHC 33 % (32-34) 07/31/18 05:00 RDW 17.9 % (13.2-15.2) H 07/31/18 05:00 Plt Count 594 K/mm3 (140-440) H 07/31/18 05:00 Lymph % (Auto) 11.5 % (13.4-35.0) L 07/28/18 11:08 [place] % (Auto) 5.6 % (0.0-7.3) 07/28/18 11:08 Eos % (Auto) 1.5 % (0.0-4.3) 07/28/18 11:08 Baso % (Auto) 0.4 % (0.0-1.8) 07/28/18 11:08 Lymph # 2.0 K/mm3 (1.2-5.4) 07/28/18 11:08 [place] # 1.0 K/mm3 (0.0-0.8) H 07/28/18 11:08 Eos # 0.3 K/mm3 (0.0-0.4) 07/28/18 11:08 Baso # 0.1 K/mm3 (0.0-0.1) 07/28/18 11:08 Seg Neutrophils % 81.0 % (40.0-70.0) H 07/28/18 11:08 Seg Neutrophils # 13.9 K/mm3 (1.8-7.7) H 07/28/18 11:08 Sodium 135 mmol/L (137-145) L 07/31/18 05:00 Potassium 3.7 mmol/L (3.6-5.0) 07/31/18 05:00 Chloride 99.4 mmol/L (98-107) 07/31/18 05:00 Carbon Dioxide 26 mmol/L (22-30) 07/31/18 05:00 Anion Gap 13 mmol/L 07/31/18 05:00 BUN 15 mg/dL (9-20) 07/31/18 05:00 Creatinine 0.8 mg/dL (0.8-1.5) 07/31/18 05:00 Estimated GFR > 60 ml/min 07/31/18 05:00 BUN/Creatinine Ratio 19 % 07/31/18 05:00 Glucose 84 mg/dL (75-100) 07/31/18 05:00 Lactic Acid 1.50 mmol/L (0.7-2.0) 07/23/18 01:17 Calcium 9.0 mg/dL (8.4-10.2) 07/31/18 05:00 Total Creatine Kinase 11 units/L (55-170) L 07/22/18 17:37 Troponin T < 0.010 ng/mL (0.00-0.029) 07/29/18 15:56 C-Reactive Protein 9.40 mg/dL (0.00-1.30) H 07/25/18 18:04 Prealbumin 0.046 g/L (0.200-0.400) L 07/26/18 06:25 Urine Color Yellow (Yellow) 07/26/18 22:09 Urine Turbidity Clear (Clear) 07/26/18 22:09 Urine pH 6.0 (5.0-7.0) 07/26/18 22:09 Ur Specific [place] 1.008 (1.003-1.030) 07/26/18 22:09 Urine Protein <15 mg/dl mg/dL (Negative) 07/26/18 22:09 Urine Glucose (UA) Neg mg/dL (Negative) 07/26/18 22:09 Urine Ketones Neg mg/dL (Negative) 07/26/18 22:09 Urine Blood Neg (Negative) 07/26/18 22:09 Urine Nitrite Neg (Negative) 07/26/18 22:09 Urine Bilirubin Neg (Negative) 07/26/18 22:09 Urine Urobilinogen < 2.0 mg/dL (<2.0) 07/26/18 22:09 Ur Leukocyte Esterase Sm (Negative) 07/26/18 22:09 Urine WBC (Auto) 5.0 /HPF (0.0-6.0) 07/26/18 22:09 Urine RBC (Auto) 2.0 /HPF (0.0-6.0) 07/26/18 22:09 Urine Bacteria (Auto) 1+ /HPF (Negative) 07/26/18 22:09 Urine Mucus Few /HPF 07/26/18 22:09 Vancomycin Trough 16.6 ug/mL (5.0-20.0) 07/25/18 21:23 HIV 1&2 Antibody Rapid Non react (Non React) 07/27/18 18:47 HIV P24 Antigen Non react (Non React) 07/27/18 18:47 Blood Type O POSITIVE 07/23/18 19:55 Antibody Screen Negative 07/23/18 19:55 Crossmatch See Detail 07/23/18 19:55 Nutrition/Malnutrition Assess - Dietary Evaluation Nutrition/Malnutrition Findings: Nutrition Notes Start: 07/23/18 13:16 Freq: Status: Active Protocol: Document 07/28/18 11:58 SA (Rec: 07/28/18 12:04 SA [id number]) Co-Sign 07/28/18 11:58 LP Nutrition Notes Initial or Follow up Reassessment Current Diagnosis Sepsis Hypertension Other Pertinent Diagnosis Cellulitis, Hidradenitis suppurativa s/p skin graft Current Diet Cardiac Labs/Tests Reviewed Pertinent Medications Reviewed Height 5 ft 11 in Weight 61.2 kg [place] Body Weight (kg) 78.18 BMI 18.8 Subjective/Other Information Patient states appetite is not good. Pt reports eating 55% of meals. Pt reports drinking 100% of ensure and jake. Pt denies N/V/D. Noted preferences. Percent of energy/protein needs met: 100%/100% Burn Absent Trauma Absent #1 Nutrition Diagnosis Malnutrition Diagnosis Progress(for reassessment Continues documentation) Is patient on ventilator? No Is Patient Ambulatory and/or Out of Bed No REE-([facility]-confined to bed) 1779.300 Kcal/Kg value to use for calculation 35 Approximate Energy Requirements Using 2142 kcal/Kg Calculation Used for Recommendations Kcal/kg Additional Notes Pro needs 1.25-1.5g/k-92g /day Fluid needs 1ml/kcal Nutrition Intervention Change Diet Order: Continue current diet order Add Supplement/Snack (indicate name/kcal Ensure Enlive TID /protein ) Jake BID Provides kCal: 1,145 Provides Protein (gm) 63 Goal #1 PO intake of meals plus ONS to continue to meet 100% energy and pro needs Goal #2 Wound healing Goal #3 Wt maintenance and/or gain Anticipated Discharge Needs: Continue Ensure Enlive and Jake BID for wt maintenance/ gain and wound healing Follow-Up By: 08/04/18 Additional Comments F/U: PO intake and ONS intake
[2018-08-01] MEDS: FLAGYL PO SCH ×2 (06:48→14:09)
[2018-08-01] MEDS: MAXIPIME/NS 2 GM/100 ML 2 GM/100 ML BAG IV SCH ×2 (06:48→14:10)
[2018-08-01] MEDS: PERCOCET 5/325 PO PRN (07:15)
[2018-08-01] MEDS: SODIUM CHLORIDE FLUSH SYRINGE 10 ML IV SCH (09:45)
[2018-08-01] MEDS: REMERON PO SCH (09:45)
[2018-08-01] MEDS: LOPRESSOR PO SCH (09:47)
--- NOTE | 2018-08-01 10:27 | Progress Note ---
Assessment and Plan Cultures: 07/26/18 Urine: no growth to date 07/24/18 Groin: Proteus, Klebsiella, susceptible to cefepime 07/22/18 Blood: no growth thus far 07/22/18 Blood: Coag negative Staph, 1 out of 4 bottles Assessment: 52 y/o male with history of HTN and severe hidradenitis suppurativa follows up with Derm on [facility], readmitted on 07/22/2018: 1) SIRS versus Sepsis: Resolved, still leukocytosis, which is chronic. Etiology most likely ?infected wound +/- severe anemia. Blood cx positive for [employer]AFF [employer]ICAL [employer]ER[employer] 1 of 8 bottles. Likley a contaminant. HIV negative 2) Extensive hidradenitis suppurativa with recent extensive skin and soft tissue infection, abscesses of the perineum, perirectal and leg flank region seen at [facility]: - underwent exlap with SHAUN, RLQ skin biopsy, diverting colostomy Mar 2018 - treated with vancomycin and ertapenem for 4 weeks until 05/29/2018 - CT abd 05/22/2018 showed 6x1.5 cm fluid collection left gluteal area s/p OR by general surgery underwent I+D of left gluteal abscess. Seen by and no intervention done. - S/p skin grafting by Dr. Taylor - CRP 9.4. - Wound cultures 07/24/2018 Proteus, Klebsiella, susceptible to cefepime 3) Recent Dermabacter hominis bacteremia on 04/25/2018 from wound infection 4) Extensive Perianal skin papillomas (warts) Recommendations: - follow-up wound cultures - continue vancomycin, D7 - continue cefepime and flagyl, D4 - f/u MRSA PCR - aggressive wound care - can discharge on Augmentin 875 mg PO BID for total 10 days ending 08-04-18 ID is signing off [employer] M: [phone] O:[phone] Subjective Date of service: 08/01/18 Interval history: Patient seen and examined. Stated that he was feeling better today, no fevers. Objective - Exam Narrative Exam: General appearance: Alert in NAD, conversant. no acute distress Eyes: anicteric sclerae, moist conjunctivae; no lid-lag; PERRLA HENT: Atraumatic; oropharynx clear with moist mucous membranes and no mucosal ulcerations/no oral thrush; normal hard and soft palate. Normal external ears. Neck: Trachea midline; supple, no thyromegaly or lymphadenopathy Lungs: CTA, with normal respiratory effort and no intercostal retractions CV: RRR, no murmurs Abdomen: Soft, non-tender; +diverting colostomy Extremities: No peripheral edema or extremity lymphadenopathy Skin: extensive pernieal, bilateral groin and scrotal shallow wounds with red granulation tissue. Left groin area with moderate clear slough/drainage. Right thigh graft donor wound healing, clean. Psych: Appropriate affect, alert and oriented to person, place and time. Neuro: alert and oriented x 3. Moving all extermities - Constitutional Vitals: Vital Signs Temp Pulse Resp BP Pulse Ox 99.5 F 115 H 20 106/73 97 08/01/18 05:21 08/01/18 09:47 08/01/18 05:21 08/01/18 09:47 08/01/18 05:21 Temperature -Last 24 Hours Temperature 99.5 F Temperature 99.8 F Temperature 98.5 F Temperature 98.4 F - Labs CBC & Chem 7: 07/31/18 05:00 07/31/18 05:00
--- NOTE | 2018-08-01 13:33 | Event Note ---
Date: 08/01/18 Patient seen and examined. Please see Discharge Summary on 07/29/18. Patient was not discharge Wednesday to [place] due to borderline bp. Then he was unable to be placed over the weekend. Patient is a 52 yo man with a history of HTN, Nicotine Dependence, Severe Malnutrition and Hidradenitis Suppurativa s/p Skin Graft [address] Taylor at [facility], underwent exlap with SHAUN, RLQ skin biopsy, diverting colostomy Mar 2018, treated with vancomycin and ertapenem for 4 weeks until 05/29/2018, CT abd 05/22/2018 showed 6x1.5 cm fluid collection left gluteal area s/p OR by general surgery underwent I+D of left gluteal abscess. Seen by and no intervention done. who presents to ED for evaluation of pain and redness to his bilateral groin and legs at the site of hidradenitis. Pt seen and evaluated by his wound care nurse and was found to have suspected cellulitis. EMS notified, Pt transported to [facility] for further care and evaluation. Pt seen and evaluated in ED and found to have Sepsis suspected secondary to cellulitis. Pt initiated on sepsis protocol and admitted to medical floor. Surgery team consulted in ED. Wound care consulted in ED. Pt is currently unable to independently conduct activities of daily living. Case management consulted for D/C planning. /Sepsis, likely from groin Hidradenitis, Cont IV antibiotic therapy, follow cultures, monitor uop q shift, IVF resuscitation therapy. ID is following /Bacteremia, likely contamination, repeat cx negative, Recent Dermabacter hominis bacteremia on 04/25/2018 from wound infection /Extensive hidradenitis suppurativa with recent extensive skin and soft tissue infection, abscesses of the perineum, perirectal and leg flank region seen at [facility]: follow Wound cultures 07/24/2018 GNR x 2. / Nicotine dependence, smoking cessation counseling, supportive care. / Cellulitis, Bilateral Groin Cellulitis: IV antibiotic therapy, wound care consulted. / Hidradenitis, Surgery consulted, wound care consulted, / Debility, due to chronic infection fall precautions, PT consulted, Case management consulted for D/C Planning/Placement. /Severe Malnutrition, poa, - low albulin, will order prealbulmin- consult dietary / DVT prophylaxis, scd to BLE while in bed. /Extensive Perianal skin papillomas (warts) Disposition: [facility] [place], pt is trying for all infection to heal so that he can have reversal of colostomy. ID Recommendations: - follow-up wound cultures - continue vancomycin, D7 - continue cefepime and flagyl, D4 - f/u MRSA PCR - aggressive wound care - can discharge on Augmentin 875 mg PO BID for total 10 days ending 08-04-18
[2018-08-01 16:57] VITALS: BP 94/63
== END 2018-08-01 17:15 | DRG 871 ==
LOC: ED 15:38 → 3A 19:41
PROVIDERS: ADMIT Internal Medicine; ATTEND Internal Medicine
PROC: 30233N1 Transfusion of Nonautologous Red Blood Cells into Peripheral Vein, Percutaneous Approach (ICD-10-PCS; principal; 2018-07-23)
DX: A41.9 Sepsis, unspecified organism (principal); E43 Unspecified severe protein-calorie malnutrition; Z68.1 Body mass index [BMI] 19.9 or less, adult; L03.314 Cellulitis of groin; L73.2 Hidradenitis suppurativa; F17.210 Nicotine dependence, cigarettes, uncomplicated; R53.81 Other malaise; I10 Essential (primary) hypertension; E86.0 Dehydration; D23.5 Other benign neoplasm of skin of trunk; Z71.6 Tobacco abuse counseling; Z82.49 Family history of ischemic heart disease and other diseases of the circulatory system; Z79.899 Other long term (current) drug therapy
CPT/HCPCS: 36415; 36430; 80048; 80202; 81001; 82140; 82550; 84134; 84484; 85014; 85018; 85025; 85027; 86140; 86850; 86900; 86901; 86920; 87040; 87076; 87086; 87116; 87186; 87641; 87806; 93005; 93010; G0378; J0692; J3010; J3370; J7030; J7040; J7050; P9016

== ENCOUNTER 2019-01-11 08:59 | Inpatient (IN) | payer MEDICARE ==
[2019-01-11] MEDS ORDERED: NACL 0.9% 1000 ML 1,000 ML ONE (09:16)
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
[2019-01-11] MEDS ORDERED: INTROPIN DRIP 800 MG/D5W 250 ML 800 MG/250 ML BAG IV ONE (09:30)
[2019-01-11] MEDS ORDERED: LEVOPHED DRIP 4 MG/NS 250 ML 4 MG/250 ML BAG IV ONE ×3 (09:31→17:29)
[2019-01-11 09:34] LABS: Basophils % (Auto) 0.4 % (0.0-1.8); Eosinophils % (Auto) 0.1 % (0.0-4.3); Lymphocytes # (Auto) 1.5 K/mm3 (1.2-5.4); Lymphocytes % (Auto) 15.7 % (13.4-35.0); Mean Corpuscular HGB Conc 33 % (32-34); Mean Corpuscular Volume 72 fl (84-94); Monocytes # (Auto) 0.1 K/mm3 (0.0-0.8); Monocytes % (Auto) 0.8 % (0.0-7.3); Platelet Count 334 K/mm3 (140-440); Red Blood Count 2.42 M/mm3 (3.65-5.03)
[2019-01-11] MEDS: LEVOPHED DRIP 4 MG/NS 250 ML 4 MG/250 ML BAG IV SCH ×4 (09:35→22:27)
[2019-01-11 09:47] LABS: INR 1.78 (0.87-1.13)
[2019-01-11] MEDS ORDERED: NACL 0.9% 1000 ML 1,000 ML IV ONE (09:47)
[2019-01-11 09:48] LABS: Partial Thromboplastin Time 41.5 Sec. (24.2-36.6)
--- NOTE | 2019-01-11 09:51 | XRay Report ---
CHEST 1 VIEW 9:17 AM INDICATION / CLINICAL INFORMATION: Cardiac arrest; status post intubation. COMPARISON: None available. FINDINGS: SUPPORT DEVICES: There is an endotracheal tube with the tip 2-3 cm above the radha. HEART / MEDIASTINUM: The heart size and pulmonary vasculature are normal. LUNGS / PLEURA: No significant pulmonary or pleural abnormality. No pneumothorax. ADDITIONAL FINDINGS: There is moderately severe gaseous distention of the stomach. IMPRESSION: 1. The tip of the endotracheal tube is 2 to 3 cm above the radha. 2. Moderately severe gaseous distention of the stomach. Signer Name: Jay Carbone MD Signed: 01/11/2019 9:46 AM Workstation Name: [id number]
[2019-01-11 09:52] LABS: Red Cell Distribution Width 20.9 % (13.2-15.2)
[2019-01-11 09:54] LABS: Hematocrit 17.5 % (35.5-45.6); Hemoglobin 5.7 gm/dl (11.8-15.2)
[2019-01-11] MEDS ORDERED: NACL 0.9% 500 ML 500 ML IV ONE ×2 (09:58→13:13)
[2019-01-11 10:03] LABS: Albumin 2.1 g/dL (3.9-5); Calcium 9.4 mg/dL (8.4-10.2); Creatine Kinase MB 10.1 ng/mL (0.0-4.0)
[2019-01-11 10:08] LABS: Free T4 (Free Thyroxine) 1.04 ng/dL (0.76-1.46)
[2019-01-11] MEDS ORDERED: CEPHULAC FEEDTUBE ONE (10:25)
[2019-01-11] MEDS ORDERED: HumuLIN R IV ONE (10:30)
[2019-01-11] MEDS ORDERED: D50W (25GM) Syringe IV ONE (10:30)
[2019-01-11] MEDS ORDERED: PROVENTIL IH ONE (10:30)
[2019-01-11] MEDS ORDERED: ROCEPHIN/NS 1 GM/50 ML 1 GM/50 ML BAG IV ONE ×2 (10:52→11:46)
--- NOTE | 2019-01-11 11:18 | XRay Report ---
CHEST 1 VIEW INDICATION: Central line placement. COMPARISON: 01/11/2019 at 0917 hours FINDINGS: Support devices: The right IJ venous catheter terminates in the proximal SVC. Endotracheal tube termi nates 3 cm superior to the radha. A nasogastric tube has been inserted with its distal tip coiled in the fundus of the stomach. Heart: Within normal limits. Lungs/Pleura: No acute air space or interstitial disease. Additional findings: None. IMPRESSION: Right IJ central line as described. No pneumothorax. No acute cardiopulmonary findings. Signer Name: Brday Solano Jr, MD Signed: 01/11/2019 11:13 AM Workstation Name: [id number]
[2019-01-11] MEDS ORDERED: CALCIUM GLUCONATE 1,000 MG in NACL 0.9% 100 ML IV ONE (11:30)
--- NOTE | 2019-01-11 13:06 | Consultation ---
History of Present Illness - Reason for Consult Consult date: 01/11/19 acute renal failure, hyperkalemia, metabolic acidosis Requesting physician: SARABJIT MAYA - History of Present Illness This is a 53M, [place] resident, with past medical history of Hypertension and hidrad enitis suppurativa on treatment with humira, who presents with chief complaint of cardiac arrest. Per EMS when they arrived on scene he had been receiving CPR staff "for 10 minutes." EMS pushed 2 rounds of epinephrine and one round of sodium bicarbonate with ROSC. Upon arrival to the ED the patient was intubated. Patient was found to be hypotensive with BP as low as 70/30s mmHg, and dopamine/levophed was initiated. Labs showed severe anemia with Hb as low as 5.7, lactic acid was elevated at 7,2 with ABG showing pH of 7.28; pt was also found to be in acute renal failure with BUN/Cr at 197/13.7mg/dl along with significant hyperkalemia with K > 7.2 and severe hyponatremia with Na as low as 113. Renal Consult was requested for management of Acute renal failure and electrolyte imbalance.based on chart review, last renal function in 07/2018 was normal. Past History Past Medical History: anemia, renal failure Past Surgical History: Other (unknown) Social history: other (unknown ) Medications and Allergies Allergies Allergy/AdvReac Type Severity Reaction Status Date / Time No Known Allergies Allergy Verified 01/04/15 17:02 Home Medications Medication Instructions Recorded Confirmed Last Taken Type oxyCODONE /ACETAMINOPHEN [Percocet 1 tab PO Q4HR PRN #15 tablet 07/29/18 01/11/19 Unknown Rx 5/325 mg] Adalimumab [Humira] 40 mg SQ QWEEK 01/11/19 01/11/19 Unknown History Ascorbic Acid [Vitamin C] 500 mg PO QDAY 01/11/19 01/11/19 Unknown History Ferrous Sulfate [Feosol] 325 mg PO QDAY 01/11/19 01/11/19 Unknown History Loperamide [Imodium] 2 mg PO DAILY 01/11/19 01/11/19 Unknown History Megestrol [Megace] 10 ml PO DAILY 01/11/19 01/11/19 Unknown History Mirtazapine [Remeron 15mg TAB] 30 mg PO QHS 01/11/19 01/11/19 Unknown History Multivit-Min/Iron Fum/Folic AC 1 each PO DAILY 01/11/19 01/11/19 Unknown History [Hmbnr-Fjoubwo-Fxrapwqb Tablet] Zinc [Zinc 50mg TAB] 50 mg PO DAILY 01/11/19 01/11/19 Unknown History Active Meds: Active Medications Dopamine HCl/Dextrose (Intropin Drip 800 Mg/D5w 250 Ml) 800 mg in 250 mls @ 5.588 mls/hr IV TITR ONE; Protocol Stop: 01/13/19 06:14 Last Titration: 01/11/19 10:40 Dose: 20 mcg/kg/min, 22.35 mls/hr Documented by: Norepinephrine (Levophed Drip 4 Mg/Ns 250 Ml) 4 mg in 250 mls @ 7.5 mls/hr IV TITR MAXIMUS; Protocol Last Titration: 01/11/19 12:05 Dose: 22 mcg/min, 82.5 mls/hr Documented by: Review of Systems ROS unobtainable: due to endotracheal tube, due to mental status Exam - Vital Signs Vital signs: Vital Signs Pulse BP Pulse Ox 59 L 101/61 95 01/11/19 09:25 01/11/19 09:25 01/11/19 09:25 - General Appearance General appearance: cachectic, chronically ill, intubated, frail EENT: ATNC, mucous membranes dry Neck: Present: neck supple Respiratory: Ronchi Heart: regular, S1S2 Gastrointestinal: Present: normoactive bowel sounds Integumentary: no rash, ulcer, other (no edema ) Neurologic: other (intubated, unresponsive ) Results - Lab Results 01/11/19 09:19 01/11/19 09:19 Most recent lab results Calcium 9.4 mg/dL (8.4-10.2) 01/11/19 09:19 Magnesium 2.50 mg/dL (1.7-2.3) H 01/11/19 09:19 Assessment and Plan - Patient Problems (1) Acute kidney injury with acute tubular necrosis Current Visit: Yes Status: Acute Plan to address problem: acute renal failure secondary to ischemic ATN in the setting of hemorrhagic/septic shock. given hemodynamic instability pt is not a candidate for hemodialysis at present. Medical treatment initiated for hyperkalemia with D50, IV insulin, Na bicarb, calcium gluconate, metabolic acidosis mainly due to lactic acidosis. cont vasopressor support with levo/dopamin to maintain MAP > 65mmHg, currently at max dose. Supportive care for ATN, avoid nephrotoxins, NSAIDS, IV contrast. will monitor lytes and renal parameters closely and assess indication/feasibility of renal replacement therapy. Overall poor prognosis. (2) Hemorrhagic shock Current Visit: Yes Status: Acute Plan to address problem: 3PRBC prepared, first PRBC given. Rule out GI bleed (3) Cardiac arrest Current Visit: Yes Status: Acute Plan to address problem: s/p ACLS, now with ROSC. (4) Sepsis Current Visit: No Status: Acute Qualifiers: Sepsis type: sepsis due to unspecified organism Qualified Code(s): A41.9 - Sepsis, unspecified organism Plan to address problem: follow UCx, BCx, initated on empiric ABXs, follow ID recommendations. (5) Metabolic acidosis Current Visit: Yes Status: Acute Plan to address problem: secondary to lactic acidosis. cont IVF resuscitation along with vasopressors/blood transfusion. if refractory to above treatment will need to consider renal replacement therapy (6) Hyperkalemia Current Visit: Yes Status: Acute Plan to address problem: medical treatment as above (7) Hyponatremia Current Visit: Yes Status: Acute Plan to address problem: cont IV NS target Na correction at 8-10meq/24h
[2019-01-11] MEDS ORDERED: NACL 0.9% 500 ML 500 ML ONE (13:51)
[2019-01-11 20:54] LABS: Hematocrit 29.9 % (35.5-45.6); Hemoglobin 10.2 gm/dl (11.8-15.2); Mean Corpuscular HGB Conc 34 % (32-34); Mean Corpuscular Volume 75 fl (84-94); Platelet Count 299 K/mm3 (140-440); Red Blood Count 4.01 M/mm3 (3.65-5.03)
[2019-01-11 21:09] LABS: Red Cell Distribution Width 22.7 % (13.2-15.2)
[2019-01-11 21:15] LABS: Calcium 9.2 mg/dL (8.4-10.2)
[2019-01-11 21:39] LABS: Anisocytosis 1+; Basophils % (Manual) 0 % (0.0-1.8); Eosinophils % (Manual) 0 % (0.0-4.3); Hypochromasia 1+; Total Cells Counted 100
[2019-01-12] MEDS: LEVOPHED DRIP 4 MG/NS 250 ML 4 MG/250 ML BAG IV SCH ×4 (02:40→18:00)
[2019-01-12] MEDS ORDERED: SIMPLE SYRUP FEEDTUBE PRN ×2 (03:16)
[2019-01-12] MEDS ORDERED: REGLAN IV PRN (03:16)
[2019-01-12] MEDS ORDERED: DILAUDID IV PRN (03:16)
[2019-01-12] MEDS ORDERED: SODIUM CHLORIDE FLUSH SYRINGE 10 ML IV PRN (03:16)
[2019-01-12] MEDS ORDERED: PANCREAZE DR 10,500 UNIT FEEDTUBE PRN (03:16)
[2019-01-12] MEDS ORDERED: SODIUM BICARBONATE FEEDTUBE PRN (03:16)
[2019-01-12] MEDS ORDERED: TORADOL IV PRN (03:16)
[2019-01-12 03:59] LABS: Bacteria,Urine 1+ /HPF (Negative)
[2019-01-12 04:00] LABS: Bilirubin,Urine NEG (Negative); Blood,Urine SM (Negative); Color,Urine Yellow (Yellow); Protein,Urine <15 mg/dL mg/dL (Negative); Urobilinogen,Urine < 2.0 mg/dL (<2.0)
[2019-01-12] MEDS ORDERED: VANCOMYCIN PHARMACY TO DOSE IV SCH (04:00)
[2019-01-12] MEDS ORDERED: VANCOMYCIN 1,250 MG in NACL 0.9% 250ML 250 ML IV ONE (04:30)
[2019-01-12 05:03] LABS: Hemoglobin 9.7 gm/dl (11.8-15.2); Mean Corpuscular HGB Conc 34 % (32-34); Mean Corpuscular Volume 75 fl (84-94); Platelet Count 254 K/mm3 (140-440); Red Blood Count 3.88 M/mm3 (3.65-5.03)
[2019-01-12 05:05] LABS: Red Cell Distribution Width 22.6 % (13.2-15.2)
[2019-01-12 05:22] LABS: Calcium 9.5 mg/dL (8.4-10.2)
[2019-01-12] MEDS ORDERED: CALCIUM GLUCONATE 1,000 MG in NACL 0.9% 100 ML IV ONE (05:33)
[2019-01-12] MEDS ORDERED: HumuLIN R SUB-Q ONE (05:33)
[2019-01-12] MEDS ORDERED: D50W (25GM) Syringe IV ONE (05:34)
[2019-01-12 05:45] LABS: Monocytes # (Auto) 0.5 K/mm3 (0.0-0.8); Monocytes % (Auto) 2.8 % (0.0-7.3)
[2019-01-12] MEDS ORDERED: MAXIPIME/NS 1 GM/100 ML 1 GM/100 ML BAG IV SCH (06:00)
--- NOTE | 2019-01-12 06:35 | History and Physical Report ---
CHIEF COMPLAINT: Cardiac arrest at long-term. HISTORY OF PRESENT ILLNESS: A 53-year-old with multiple medical problems, brought in by EMS after witnessing a cardiac arrest. EMS tried to revive, CPR was done for 10 minutes. EMS pushed 2 rounds of epinephrine and 1 round of bicarbonate with return of spontaneous circulation. Upon arrival in the Emergency Room, airway was cleaned, LMA was removed, and the patient was intubated by Dr. Shipley. The patient was also hypotensive for which dopamine and Levophed was started. PAST MEDICAL HISTORY: Significant for hypertension. PAST SURGICAL HISTORY: Colon resection, status post kicked by a horse. FAMILY HISTORY: Hypertension. SOCIAL HISTORY: Unknown whether the patient smokes. REVIEW OF SYSTEMS: Significant for cardiac arrest as above. Other review of systems could not be assessed. CURRENT MEDICATIONS: On chart including albuterol, metoprolol 12.5 b.i.d. PHYSICAL EXAMINATION: GENERAL: Middle-aged male, intubated. VITAL SIGNS: Blood pressure is 92/59, temperature is 98.2, pulse is 115, sats are 90%, but intubated. HEENT: Pupils dilated and fixed. NECK: Supple, no lymphadenopathy, no thyromegaly. LUNGS: Scattered rhonchi present. CARDIOVASCULAR: S1, S2 heard. No gallop, no murmur, no rub. Apical impulse in left fifth intercostal space and midclavicular line. ABDOMEN: Soft and benign. No hepatosplenomegaly. No guarding, no rigidity. Hernial orifices are normal. EXTREMITIES: Revealed pedal pulses. CENTRAL NERVOUS SYSTEM: Unresponsive. LABORATORY DATA: Significant for a hemoglobin of 5.7, hematocrit of 17.5. Sodium is 113, potassium is 7.2, BUN and creatinine are 19 and 13.7. Glucose is 258. Lactic acid is 7.2. Total CK is 3244. Troponin is 0.094. BNP is 2056. EKG shows sinus tachycardia. ASSESSMENT AND PLAN: 1. Status post cardiac arrest. The patient revived. Continue vent support. 2. Acute respiratory failure. Continue vent support. The patient is intubated. 3. Anoxic encephalopathy highly possible. The patient does not have any power in both upper and lower extremities. Not moving the extremities at all. 4. Symptomatic anemia. Transfuse 2-3 units of packed red blood cells. 5. Hyponatremia, severe, 3% normal saline for 500 mL and then normal saline. 6. Acute kidney injury on end-stage renal disease, emergent hemodialysis to be taken. 7. Type 2 diabetes, coverage for now. 8.Multiple sacral decubitus ulcers--wound care consult 9.Septic shock--Source of infection probably from sacral decubitus ulcers---High Lactic acid.Cover with cefepime and IV Vancomycin 10. DVT prophylaxis, heparin 5000 q. 12. GI prophylaxis. CRITICAL CARE STATEMENT: 40 minutes. JOB# [id number] MILAM/TWILA VILLATORO
[2019-01-12 08:13] LABS: Basophils % (Manual) 0 % (0.0-1.8); Eosinophils % (Manual) 0 % (0.0-4.3); Total Cells Counted 100
[2019-01-12 08:15] LABS: Anisocytosis 2+; Hypochromasia 1+; Platelet Estimate Consistent w Auto
[2019-01-12] MEDS: SODIUM CHLORIDE FLUSH SYRINGE 10 ML IV SCH (10:00)
[2019-01-12] MEDS ORDERED: NACL 0.9% 1000 ML 1,000 ML IV ONE ×2 (10:37)
[2019-01-12] MEDS ORDERED: KIONEX PO ONE (10:58)
[2019-01-12] MEDS: SODIUM BICARBONATE 150 MEQ in D5W 1,000 ML IV SCH (11:07)
[2019-01-12] MEDS: NACL 0.9% 500 ML 500 ML IV SCH (11:14)
[2019-01-12] MEDS: PEPCID IV SCH (11:35)
--- NOTE | 2019-01-12 12:42 | Consultation ---
History of Present Illness Consult date: 01/12/19 Requesting physician: KISHAN REYNA Reason for consult: other (Cardiac Arrest) History of present illness: Patient found at residing alf unresponsive and no pulse. Per charting, CPR started there and had been going for 10 minutes prior to EMS arrival. Given 1 round of epi and had ROSC. Brought to ED and was intubated. Found to be hypotensive so had right IJ placed. Started on IV pressors and transferred to the unit. Patient is completely unresponsive on vent. Per RT, no cough no gag. Labs BUN/CR of 137/13, hyperkalemia with K >7 as well as several other abnormalities. Patient was also anemic with HgB of 5.7. This was not repeated but 2 units were transfused which took patient up to 10??? Patient remains hypotensive. No family is present at bedside but I have spoken to the mother and sister on the phone this morning who both live in [place]. Past History Past Medical History: other (unable to obtain given mental status) Past Surgical History: Other (unable to obtain given mental status) Social history: other (unable to obtain given mental status, did come from a alf but unsure of diagnosis that lead him there) Family history: other (unable to obtain given mental state) Medications and Allergies Allergies Allergy/AdvReac Type Severity Reaction Status Date / Time No Known Allergies Allergy Verified 01/04/15 17:02 Home Medications Medication Instructions Recorded Confirmed Last Taken Type oxyCODONE /ACETAMINOPHEN [Percocet 1 tab PO Q4HR PRN #15 tablet 07/29/18 01/11/19 Unknown Rx 5/325 mg] Adalimumab [Humira] 40 mg SQ QWEEK 01/11/19 01/11/19 Unknown History Ascorbic Acid [Vitamin C] 500 mg PO QDAY 01/11/19 01/11/19 Unknown History Ferrous Sulfate [Feosol] 325 mg PO QDAY 01/11/19 01/11/19 Unknown History Loperamide [Imodium] 2 mg PO DAILY 01/11/19 01/11/19 Unknown History Megestrol [Megace] 10 ml PO DAILY 01/11/19 01/11/19 Unknown History Mirtazapine [Remeron 15mg TAB] 30 mg PO QHS 01/11/19 01/11/19 Unknown History Multivit-Min/Iron Fum/Folic AC 1 each PO DAILY 01/11/19 01/11/19 Unknown History [Vjtvl-Exehdvi-Jujuplec Tablet] Zinc [Zinc 50mg TAB] 50 mg PO DAILY 01/11/19 01/11/19 Unknown History Active Meds: Active Medications Lipase/Protease/Amylase (Pancreaze Dr 10,500 Unit) 1 each FEEDTUBE PRN PRN PRN Reason: For Clogged Feeding Tube Famotidine (Pepcid) 20 mg IV QAM MAXIMUS Last Admin: 01/12/19 11:35 Dose: 20 mg Documented by: Hydromorphone HCl (Dilaudid) 0.25 mg IV Q3H PRN PRN Reason: Pain, Moderate (4-6) Dopamine HCl/Dextrose (Intropin Drip 800 Mg/D5w 250 Ml) 800 mg in 250 mls @ 5.588 mls/hr IV TITR ONE; Protocol Stop: 01/13/19 06:14 Last Titration: 01/11/19 23:00 Dose: 0 mcg/kg/min, 0 mls/hr Documented by: Norepinephrine (Levophed Drip 4 Mg/Ns 250 Ml) 4 mg in 250 mls @ 7.5 mls/hr IV TITR MAXIMUS; Protocol Last Admin: 01/12/19 11:06 Dose: 18 mcg/min, 67.5 mls/hr Documented by: Cefepime HCl (Maxipime/Ns 1 Gm/100 Ml) 1 gm in 100 mls @ 200 mls/hr IV QHS MAXIMUS; Protocol Sodium Bicarbonate 150 meq/ (Dextrose) 1,150 mls @ 75 mls/hr IV DIRECT MAXIMUS Last Admin: 01/12/19 11:07 Dose: 75 mls/hr Documented by: Sodium Chloride (Nacl 0.9% 1000 Ml) 1,000 mls @ 0 mls/hr IV ONCE MAXIMUS Stop: 01/13/19 11:01 Sodium Chloride (Nacl 0.9% 500 Ml) 500 mls @ 0 mls/hr IV DIRECT MAXIMUS Last Admin: 01/12/19 11:14 Dose: 10 mls/hr Documented by: Ketorolac Tromethamine (Toradol) 15 mg IV Q6H PRN PRN Reason: Pain, Mild (1-3) Stop: 01/17/19 03:15 Metoclopramide HCl (Reglan) 5 mg IV Q6H PRN PRN Reason: Nausea And Vomiting Simple Syrup (Simple Syrup) 15 ml FEEDTUBE PRN PRN PRN Reason: Hypoglycemia Simple Syrup (Simple Syrup) 30 ml FEEDTUBE PRN PRN PRN Reason: Hypoglycemia Sodium Bicarbonate (Sodium Bicarbonate) 325 mg FEEDTUBE PRN PRN PRN Reason: For Clogged Feeding Tube Sodium Chloride (Sodium Chloride Flush Syringe 10 Ml) 10 ml IV BID MAXIMUS Last Admin: 01/12/19 10:00 Dose: 10 ml Documented by: Sodium Chloride (Sodium Chloride Flush Syringe 10 Ml) 10 ml IV PRN PRN PRN Reason: LINE FLUSH Review of Systems ROS unobtainable: due to endotracheal tube, due to mental status Physical Examination Vital signs: Vital Signs Pulse BP Pulse Ox 59 L 101/61 95 01/11/19 09:25 01/11/19 09:25 01/11/19 09:25 General appearance: comatose Eyes: non-icteric ENT: other (orally intubated and not medically sedated) Neck: supple Effort: normal Ascultation: Bilateral: clear Percussion: Bilateral: not dull Cardiovascular: other (sinus tach) Gastrointestinal: other (colostomy with large output per nursing) Results - Laboratory Findings CBC and BMP: 01/12/19 04:15 01/12/19 04:15 ABG POC ABG pH 7.442 (7.35-7.45) 01/12/19 04:50 POC ABG pO2 256 (80-105) H 01/12/19 04:50 POC ABG HCO3 12.7 (22-26 mml/L) 01/12/19 04:50 POC ABG Total CO2 13 (23-27mmol/L) 01/12/19 04:50 POC ABG O2 Sat 100 01/12/19 04:50 PT/INR, D-dimer PT 20.3 Sec. (12.2-14.9) H 01/11/19 09:19 INR 1.78 (0.87-1.13) H 01/11/19 09:19 Abnormal lab findings: Abnormal Labs 01/11/19 01/11/19 01/11/19 09:19 09:19 09:19 WBC RBC 2.42 L Hgb 5.7 L* Hct 17.5 L* MCV 72 L MCH 24 L RDW 20.9 H Seg Neutrophils % 83.0 H Seg Neuts % (Manual) Lymphocytes % (Manual) Seg Neutrophils # 7.8 H Seg Neutrophils # Man Lymphocytes # (Manual) PT 20.3 H INR 1.78 H APTT 41.5 H POC ABG pH POC ABG pCO2 POC ABG pO2 Sodium 113 L* Potassium 7.2 H* Chloride 72.7 L Carbon Dioxide 10 L BUN 197 H Creatinine 13.7 H Glucose 258 H POC Glucose Lactic Acid Magnesium 2.50 H Alkaline Phosphatase 139 H Ammonia Total Creatine Kinase 244 H CK-MB (CK-2) 10.1 H CK-MB (CK-2) Rel Index 4.1 H Troponin T 0.094 H NT-Pro-B Natriuret Pep 2056 H Albumin 2.1 L Crossmatch 01/11/19 01/11/19 01/11/19 09:19 09:30 10:08 WBC RBC Hgb Hct MCV MCH RDW Seg Neutrophils % Seg Neuts % (Manual) Lymphocytes % (Manual) Seg Neutrophils # Seg Neutrophils # Man Lymphocytes # (Manual) PT INR APTT POC ABG pH POC ABG pCO2 POC ABG pO2 Sodium Potassium Chloride Carbon Dioxide BUN Creatinine Glucose POC Glucose Lactic Acid 7.20 H* Magnesium Alkaline Phosphatase Ammonia 167.0 H Total Creatine Kinase CK-MB (CK-2) CK-MB (CK-2) Rel Index Troponin T NT-Pro-B Natriuret Pep Albumin Crossmatch See Detail 01/11/19 01/11/19 01/11/19 11:02 11:15 15:10 WBC RBC Hgb Hct MCV MCH RDW Seg Neutrophils % Seg Neuts % (Manual) Lymphocytes % (Manual) Seg Neutrophils # Seg Neutrophils # Man Lymphocytes # (Manual) PT INR APTT POC ABG pH 7.287 L POC ABG pCO2 32.1 L POC ABG pO2 Sodium Potassium Chloride Carbon Dioxide BUN Creatinine Glucose POC Glucose 239 H Lactic Acid 4.70 H* Magnesium Alkaline Phosphatase Ammonia Total Creatine Kinase CK-MB (CK-2) CK-MB (CK-2) Rel Index Troponin T NT-Pro-B Natriuret Pep Albumin Crossmatch 01/11/19 01/11/19 01/11/19 20:30 20:30 23:13 WBC RBC Hgb 10.2 L D Hct 29.9 L D MCV 75 L MCH 25 L RDW 22.7 H Seg Neutrophils % Seg Neuts % (Manual) 91.0 H Lymphocytes % (Manual) 5.0 L Seg Neutrophils # Seg Neutrophils # Man Lymphocytes # (Manual) 0.4 L PT INR APTT POC ABG pH POC ABG pCO2 POC ABG pO2 Sodium 120 L D Potassium 5.8 H Chloride 78.5 L Carbon Dioxide 10 L BUN 190 H Creatinine 13.2 H Glucose 107 H POC Glucose 134 H Lactic Acid Magnesium Alkaline Phosphatase Ammonia Total Creatine Kinase CK-MB (CK-2) CK-MB (CK-2) Rel Index Troponin T NT-Pro-B Natriuret Pep Albumin Crossmatch 01/12/19 01/12/19 01/12/19 04:15 04:15 04:50 WBC 16.3 H RBC Hgb 9.7 L Hct 29.0 L MCV 75 L MCH 25 L RDW 22.6 H Seg Neutrophils % Seg Neuts % (Manual) 95.0 H Lymphocytes % (Manual) 2.0 L Seg Neutrophils # 15.5 H Seg Neutrophils # Man 15.5 H Lymphocytes # (Manual) 0.3 L PT INR APTT POC ABG pH POC ABG pCO2 POC ABG pO2 256 H Sodium 121 L Potassium 6.5 H* Chloride 80.8 L Carbon Dioxide 12 L BUN 187 H Creatinine 13.1 H Glucose 110 H POC Glucose Lactic Acid Magnesium Alkaline Phosphatase Ammonia Total Creatine Kinase CK-MB (CK-2) CK-MB (CK-2) Rel Index Troponin T NT-Pro-B Natriuret Pep Albumin Crossmatch 01/12/19 01/12/19 05:56 11:34 WBC RBC Hgb Hct MCV MCH RDW Seg Neutrophils % Seg Neuts % (Manual) Lymphocytes % (Manual) Seg Neutrophils # Seg Neutrophils # Man Lymphocytes # (Manual) PT INR APTT POC ABG pH POC ABG pCO2 POC ABG pO2 Sodium Potassium Chloride Carbon Dioxide BUN Creatinine Glucose POC Glucose 124 H 127 H Lactic Acid Magnesium Alkaline Phosphatase Ammonia Total Creatine Kinase CK-MB (CK-2) CK-MB (CK-2) Rel Index Troponin T NT-Pro-B Natriuret Pep Albumin Crossmatch - Diagnostic Findings Chest x-ray: image reviewed (Clear) Assessment and Plan 53 y/o male resident at alf, found down with no pulse and ROSC was achieved after 10 minutes of CPR and drug administration, found to have renal failure, electrolyte abnormalities that are severe, hypotension and possible bleed. 1. Patient appears to be severely volume deplete. Renal has been consulted but asked nursing to check CVP and it was 1. Ordered 4 more additional boluses. Will continue to bolus until CVP is 10-12. Wean pressors for MAPS >65. 2. Renal-Agree with bicarb drip ordered by renal. Likely will need serial chemistries to follow K and BUN/CR. Also do not want to correct Na levels too fast, but given his mental state, renal may be ok with a more rapid correction. 3. Heme- Low HGB on initial read but unexpected response to just 2 units of PRBC's. Suspect the 5.7 was not accurate. Reviewed last admit and HgB was in the 7's. Will check serial H/H's for the next 24 hours. 4. Pulm-intubated, not on sedation. Very minimal support. Is breathing over the vent but has no cough no gag per RT 5. Neuro-comatose now without sedation/help from us. Maybe metabolic encepha lopathy given the degree of azotemia but patient was also down for an unknown amount of time. Long discussion over the phone with mother and sister. Both them deny knowledge of the person listed in the computer as the daughter. The person listed as the aunt is actually his sister and the number is correct but address is wrong. I attempted to explain in detail the severity of the illness that their family member is experiencing regarding life support and multi-system organ failure. I explained there is a high likelihood of him not waking up and a high chance he would have arrest again. I also asked the family to make arrangements to come down here [facility] given the severity of illness. I am not sure that the mother has a full understanding but I kept making the same points over and over again and stressed the severity of illness. CCT [id number]
[2019-01-12] MEDS: NACL 0.9% 1000 ML 1,000 ML IV SCH ×6 (14:30→21:23)
--- NOTE | 2019-01-12 15:35 | Consultation ---
History of Present Illness Consult date: 01/12/19 Consult reason: elevated troponin History of present illness: This is a 53 year old male who presented to the hospital with out of the hospital cardiac arrest. Initial rhythm is reported as PEA. CPR was initiated and continued by EMS. Patient was brought in and intubated in the emergency department. Chest x-ray reports no acute cardiopulmonary findings. Labs revealed multiple metabolic abnormalities including severe anemia, metabolic acidosis, severe hyponatremia, acute renal insufficiency with a creatinine of 13.7 with severe hyperkalemia, potassium of 7.2. His presenting ECG is junctional rhythm, likely in the setting of severe hyperkalemia. Patient is currently in the CCU, unresponsive on the ventilator and on pressors for support. Past History Past Medical History: other (unable to obtain given mental status) Past Surgical History: Other (unable to obtain given mental status) Social history: other (unable to obtain given mental status, did come from a half-way but unsure of diagnosis that lead him there) Family history: other (unable to obtain given mental state) Medications and Allergies Allergies Allergy/AdvReac Type Severity Reaction Status Date / Time No Known Allergies Allergy Verified 01/04/15 17:02 Home Medications Medication Instructions Recorded Confirmed Last Taken Type oxyCODONE /ACETAMINOPHEN [Percocet 1 tab PO Q4HR PRN #15 tablet 07/29/18 01/11/19 Unknown Rx 5/325 mg] Adalimumab [Humira] 40 mg SQ QWEEK 01/11/19 01/11/19 Unknown History Ascorbic Acid [Vitamin C] 500 mg PO QDAY 01/11/19 01/11/19 Unknown History Ferrous Sulfate [Feosol] 325 mg PO QDAY 01/11/19 01/11/19 Unknown History Loperamide [Imodium] 2 mg PO DAILY 01/11/19 01/11/19 Unknown History Megestrol [Megace] 10 ml PO DAILY 01/11/19 01/11/19 Unknown History Mirtazapine [Remeron 15mg TAB] 30 mg PO QHS 01/11/19 01/11/19 Unknown History Multivit-Min/Iron Fum/Folic AC 1 each PO DAILY 01/11/19 01/11/19 Unknown History [Ffhbj-Kjkqvkm-Ncvrqqcf Tablet] Zinc [Zinc 50mg TAB] 50 mg PO DAILY 01/11/19 01/11/19 Unknown History Active Meds: Active Medications Lipase/Protease/Amylase (Pancreaze Dr 10,500 Unit) 1 each FEEDTUBE PRN PRN PRN Reason: For Clogged Feeding Tube Famotidine (Pepcid) 20 mg IV QAM MAXIMUS Last Admin: 01/12/19 11:35 Dose: 20 mg Documented by: Hydromorphone HCl (Dilaudid) 0.25 mg IV Q3H PRN PRN Reason: Pain, Moderate (4-6) Dopamine HCl/Dextrose (Intropin Drip 800 Mg/D5w 250 Ml) 800 mg in 250 mls @ 5.588 mls/hr IV TITR ONE; Protocol Stop: 01/13/19 06:14 Last Titration: 01/11/19 23:00 Dose: 0 mcg/kg/min, 0 mls/hr Documented by: Norepinephrine (Levophed Drip 4 Mg/Ns 250 Ml) 4 mg in 250 mls @ 7.5 mls/hr IV TITR MAXIMUS; Protocol Last Titration: 01/12/19 14:31 Dose: 10 mcg/min, 37.5 mls/hr Documented by: Cefepime HCl (Maxipime/Ns 1 Gm/100 Ml) 1 gm in 100 mls @ 200 mls/hr IV QHS MAXIMUS; Protocol Sodium Bicarbonate 150 meq/ (Dextrose) 1,150 mls @ 75 mls/hr IV DIRECT MAXIMUS Last Admin: 01/12/19 11:07 Dose: 75 mls/hr Documented by: Sodium Chloride (Nacl 0.9% 1000 Ml) 1,000 mls @ 0 mls/hr IV ONCE MAXIMUS Stop: 01/13/19 11:01 Last Admin: 01/12/19 14:30 Dose: 999 mls/hr Documented by: Sodium Chloride (Nacl 0.9% 500 Ml) 500 mls @ 0 mls/hr IV DIRECT MAXIMUS Last Admin: 01/12/19 11:14 Dose: 10 mls/hr Documented by: Ketorolac Tromethamine (Toradol) 15 mg IV Q6H PRN PRN Reason: Pain, Mild (1-3) Stop: 01/17/19 03:15 Metoclopramide HCl (Reglan) 5 mg IV Q6H PRN PRN Reason: Nausea And Vomiting Simple Syrup (Simple Syrup) 15 ml FEEDTUBE PRN PRN PRN Reason: Hypoglycemia Simple Syrup (Simple Syrup) 30 ml FEEDTUBE PRN PRN PRN Reason: Hypoglycemia Sodium Bicarbonate (Sodium Bicarbonate) 325 mg FEEDTUBE PRN PRN PRN Reason: For Clogged Feeding Tube Sodium Chloride (Sodium Chloride Flush Syringe 10 Ml) 10 ml IV BID MAXIMUS Last Admin: 01/12/19 10:00 Dose: 10 ml Documented by: Sodium Chloride (Sodium Chloride Flush Syringe 10 Ml) 10 ml IV PRN PRN PRN Reason: LINE FLUSH Physical Examination Vital Signs Pulse BP Pulse Ox 59 L 101/61 95 01/11/19 09:25 01/11/19 09:25 01/11/19 09:25 General appearance: other (unresponsive on the vent) Cardiac: Positive: Reg Rate and Rhythm Results 01/12/19 04:15 01/12/19 04:15 CBC 01/11/19 01/12/19 Range/Units 20:30 04:15 WBC 7.8 16.3 H (4.5-11.0) K/mm3 RBC 4.01 3.88 (3.65-5.03) M/mm3 Hgb 10.2 L D 9.7 L (11.8-15.2) gm/dl Hct 29.9 L D 29.0 L (35.5-45.6) % Plt Count 299 254 (140-440) K/mm3 [place] # 0.5 (0.0-0.8) K/mm3 Eos # 0.0 (0.0-0.4) K/mm3 Baso # 0.0 (0.0-0.1) K/mm3 Comprehensive Metabolic Panel 01/11/19 01/12/19 Range/Units 20:30 04:15 Sodium 120 L D 121 L (137-145) mmol/L Potassium 5.8 H 6.5 H* (3.6-5.0) mmol/L Chloride 78.5 L 80.8 L (98-107) mmol/L Carbon Dioxide 10 L 12 L (22-30) mmol/L BUN 190 H 187 H (9-20) mg/dL Creatinine 13.2 H 13.1 H (0.8-1.5) mg/dL Glucose 107 H 110 H (75-100) mg/dL Calcium 9.2 9.5 (8.4-10.2) mg/dL Assessment and Plan Out of the hospital Cardiac arrest intubated on the vent and pressors for support GI bleed Severe Anemia s/p transfusion of PRBCs Metabolic acidosis Severe Renal failure Severe hyperkalemia Severe Volume depletion Recommend: An echocardiogram for LVEF assessment.
[2019-01-12 17:36] LABS: Hematocrit 21.4 % (35.5-45.6); Hemoglobin 7.2 gm/dl (11.8-15.2)
--- NOTE | 2019-01-12 18:00 | Progress Note ---
Assessment and Plan - Patient Problems (1) Acute kidney injury with acute tubular necrosis Current Visit: Yes Status: Acute Plan to address problem: acute renal failure secondary to ischemic ATN in the setting of hemorrhagic/septic shock. given hemodynamic instability pt is not a candidate for hemodialysis at present. Cont medical treatment for hyperkalemia with kayexalate, started on bicarb gtt. cont vasopressor support with levo to maintain MAP > 65mmHg. Supportive care for ATN, avoid nephrotoxins, NSAIDS, IV contrast. will monitor lytes and renal parameters closely and assess indication/feasibility of renal replacement therapy. Will consider HD in AM once levophed requirement decreases. Overall poor prognosis. (2) Hemorrhagic shock Current Visit: Yes Status: Acute Plan to address problem: s/p 2PRBC, monitor Hb and transfuse for Hb 7 (3) Cardiac arrest Current Visit: Yes Status: Acute Plan to address problem: s/p ACLS, now with ROSC. (4) Sepsis Current Visit: No Status: Acute Qualifiers: Sepsis type: sepsis due to unspecified organism Qualified Code(s): A41.9 - Sepsis, unspecified organism Plan to address problem: follow UCx, BCx, initated on empiric ABXs, follow ID recommendations. (5) Metabolic acidosis Current Visit: Yes Status: Acute Plan to address problem: secondary to lactic acidosis, improving with improved hemodynamics (6) Hyperkalemia Current Visit: Yes Status: Acute Plan to address problem: medical treatment as above. will consider HD in AM if vasopressor requirment is acceptable to tolerate HD. (7) Hyponatremia Current Visit: Yes Status: Acute Plan to address problem: cont IV NS target Na correction at 8-10meq/24h Subjective Date of service: 01/12/19 Principal diagnosis: [place] Interval history: Pt remains intubated, unresponsive. off dopamin gtt, however still on levo 14mcg /min Objective - Vital Signs Vital signs: Vital Signs - 12hr 01/12/19 01/12/19 01/12/19 06:00 06:15 06:30 Temperature Pulse Rate 120 H 122 H 123 H Pulse Rate [ From Monitor] Respiratory 26 H 25 H 23 Rate Blood Pressure 88/61 87/51 83/53 O2 Sat by Pulse 97 95 96 Oximetry 01/12/19 01/12/19 01/12/19 06:45 07:00 07:15 Temperature Pulse Rate 122 H 120 H 120 H Pulse Rate [ From Monitor] Respiratory 24 23 24 Rate Blood Pressure 89/50 90/59 96/58 O2 Sat by Pulse 97 99 100 Oximetry 01/12/19 01/12/19 01/12/19 07:30 07:45 08:00 Temperature 98.1 F Pulse Rate 118 H 116 H 120 H Pulse Rate [ 119 H From Monitor] Respiratory 22 20 23 Rate Blood Pressure 96/59 89/60 108/70 O2 Sat by Pulse 100 99 100 Oximetry 01/12/19 01/12/19 01/12/19 08:15 08:30 08:45 Temperature Pulse Rate 114 H 116 H 117 H Pulse Rate [ From Monitor] Respiratory 21 21 22 Rate Blood Pressure 102/62 98/64 96/60 O2 Sat by Pulse 99 100 Oximetry 01/12/19 01/12/19 01/12/19 09:00 09:15 09:30 Temperature Pulse Rate 118 H 117 H 119 H Pulse Rate [ From Monitor] Respiratory 22 22 23 Rate Blood Pressure 95/63 104/62 95/61 O2 Sat by Pulse 100 Oximetry 01/12/19 01/12/19 01/12/19 09:45 10:00 10:15 Temperature Pulse Rate 116 H 118 H 119 H Pulse Rate [ From Monitor] Respiratory 22 21 22 Rate Blood Pressure 108/70 96/62 94/64 O2 Sat by Pulse 99 100 Oximetry 01/12/19 01/12/19 01/12/19 10:30 10:45 11:00 Temperature Pulse Rate 120 H 115 H 120 H Pulse Rate [ From Monitor] Respiratory 21 19 23 Rate Blood Pressure 96/67 99/66 73/46 O2 Sat by Pulse 100 99 94 Oximetry 01/12/19 01/12/19 01/12/19 11:15 11:30 11:45 Temperature Pulse Rate 117 H 115 H 114 H Pulse Rate [ From Monitor] Respiratory 20 19 17 Rate Blood Pressure 101/66 110/71 118/71 O2 Sat by Pulse 100 Oximetry 01/12/19 01/12/19 01/12/19 12:00 12:15 12:30 Temperature 98.3 F Pulse Rate 110 H 110 H 108 H Pulse Rate [ 108 H From Monitor] Respiratory 13 14 22 Rate Blood Pressure 118/71 116/75 114/77 O2 Sat by Pulse 100 100 Oximetry 01/12/19 01/12/1919 12:45 13:00 13:06 Temperature Pulse Rate 107 H 104 H 118 H Pulse Rate [ From Monitor] Respiratory 16 13 Rate Blood Pressure 125/77 129/80 109/71 O2 Sat by Pulse 99 Oximetry 01/12/19 01/12/19 01/12/19 13:15 13:30 13:45 Temperature Pulse Rate 107 H 105 H 107 H Pulse Rate [ From Monitor] Respiratory 12 11 L 14 Rate Blood Pressure 122/76 118/79 119/75 O2 Sat by Pulse Oximetry 01/12/19 01/12/19 01/12/19 14:00 14:15 14:30 Temperature Pulse Rate 108 H 108 H 100 H Pulse Rate [ From Monitor] Respiratory 11 L 12 16 Rate Blood Pressure 110/76 116/76 120/77 O2 Sat by Pulse 100 Oximetry 01/12/19 01/12/19 01/12/19 14:45 15:00 15:15 Temperature Pulse Rate 106 H 104 H 104 H Pulse Rate [ From Monitor] Respiratory 10 L 20 9 L Rate Blood Pressure 108/74 115/74 120/73 O2 Sat by Pulse Oximetry 01/12/19 01/12/19 01/12/19 15:30 15:45 16:00 Temperature 98.8 F Pulse Rate 106 H 108 H 107 H Pulse Rate [ 89 From Monitor] Respiratory 7 L 14 10 L Rate Blood Pressure 109/71 118/69 110/61 O2 Sat by Pulse 100 100 Oximetry 01/12/19 01/12/19 01/12/19 16:06 16:15 16:30 Temperature Pulse Rate 111 H 102 H 103 H Pulse Rate [ From Monitor] Respiratory 12 17 Rate Blood Pressure 110/61 117/70 110/73 O2 Sat by Pulse 99 Oximetry 01/12/19 01/12/19 16:45 17:00 Temperature Pulse Rate 102 H 104 H Pulse Rate [ From Monitor] Respiratory 19 7 L Rate Blood Pressure 113/74 119/70 O2 Sat by Pulse Oximetry - General Appearance General appearance: cachectic, chronically ill, intubated, frail EENT: ATNC, mucous membranes dry Neck: no JVD Respiratory: Present: Decreased Breath Sounds Cardiology: regular, tachycardia, S1S2 Gastrointestinal: normoactive bowel sounds Integumentary: no rash Neurologic: other (unresponsive ) - Lab 01/12/19 17:12 01/12/19 04:15 Most recent lab results Calcium 9.5 mg/dL (8.4-10.2) 01/12/19 04:15 Magnesium 1.80 mg/dL (1.7-2.3) 01/11/19 20:30 Medications & Allergies - Medications Allergies/Adverse Reactions: Allergies No Known Allergies Allergy (Verified 01/04/15 17:02) Home Medications: Home Medications Medication Instructions Recorded Confirmed Last Taken Type oxyCODONE /ACETAMINOPHEN [Percocet 1 tab PO Q4HR PRN #15 tablet 07/29/18 Unknown Rx 5/325 mg] Adalimumab [Humira] 40 mg SQ QWEEK 01/11/19 01/11/19 Unknown History Ascorbic Acid [Vitamin C] 500 mg PO QDAY 01/11/19 01/11/19 Unknown History Ferrous Sulfate [Feosol] 325 mg PO QDAY 01/11/19 01/11/19 Unknown History Loperamide [Imodium] 2 mg PO DAILY 01/11/19 01/11/19 Unknown History Megestrol [Megace] 10 ml PO DAILY 01/11/19 01/11/19 Unknown History Mirtazapine [Remeron 15mg TAB] 30 mg PO QHS 01/11/19 01/11/19 Unknown History Multivit-Min/Iron Fum/Folic AC 1 each PO DAILY 01/11/19 01/11/19 Unknown History [Vlqdk-Emztygg-Ujbdtgla Tablet] Zinc [Zinc 50mg TAB] 50 mg PO DAILY 01/11/19 01/11/19 Unknown History Active Medications: Generic Name Dose Route Start Last Admin Trade Name Freq PRN Reason Stop Dose Admin Lipase/Protease/Amylase 1 each 01/12/19 03:[address] 10,500 Unit FEEDTUBE PRN PRN For Clogged Feeding Tube Famotidine 20 mg 01/12/19 10:00 01/12/19 11:35 Pepcid IV 20 mg QAM MAXIMUS Administration Hydromorphone HCl 0.25 mg 01/12/19 03:16 Dilaudid IV Q3H PRN Pain, Moderate (4-6) Dopamine HCl/Dextrose 800 mg in 250 mls @ 5.588 mls/hr 01/11/19 09:30 01/11/19 23:00 Intropin Drip 800 Mg/D5w 250 Ml IV 01/13/19 06:14 0 mcg/kg/min TITR ONE 0 mls/hr Titration Protocol 5 MCG/KG/MIN Norepinephrine 4 mg in 250 mls @ 7.5 mls/hr 01/11/19 11:00 01/12/19 15:48 Levophed Drip 4 Mg/Ns 250 Ml IV 8 mcg/min TITR MAXIMUS 30 mls/hr Titration Protocol 2 MCG/MIN Cefepime HCl 1 gm in 100 mls @ 200 mls/hr 01/12/19 22:00 Maxipime/Ns 1 Gm/100 Ml IV QHS MAXIMUS Protocol Sodium Bicarbonate 150 meq/ 1,150 mls @ 75 mls/hr 01/12/19 11:15 01/12/19 11:07 Dextrose IV 75 mls/hr DIRECT MAXIMUS Administration Sodium Chloride 1,000 mls @ 0 mls/hr 01/12/19 11:00 01/12/19 15:42 Nacl 0.9% 1000 Ml IV 01/13/19 11:01 999 mls/hr ONCE MAXIMUS Administration As Directed Sodium Chloride 500 mls @ 0 mls/hr 01/12/19 11:00 01/12/19 11:14 Nacl 0.9% 500 Ml IV 10 mls/hr DIRECT MAXIMUS Administration As Directed Sodium Chloride 1,000 mls @ 999 mls/hr 01/12/19 18:00 01/12/19 17:36 Nacl 0.9% 1000 Ml IV 999 mls/hr DIRECT MAXIMUS Administration Ketorolac Tromethamine 15 mg 01/12/19 03:16 Toradol IV 01/17/19 03:15 Q6H PRN Pain, Mild (1-3) Metoclopramide HCl 5 mg 01/12/19 03:16 Reglan IV Q6H PRN Nausea And Vomiting Simple Syrup 15 ml 01/12/19 03:16 Simple Syrup FEEDTUBE PRN PRN Hypoglycemia Simple Syrup 30 ml 01/12/19 03:16 Simple Syrup FEEDTUBE PRN PRN Hypoglycemia Sodium Bicarbonate 325 mg 01/12/19 03:16 Sodium Bicarbonate FEEDTUBE PRN PRN For Clogged Feeding Tube Sodium Chloride 10 ml 01/12/19 10:00 01/12/19 10:00 Sodium Chloride Flush Syringe 10 Ml IV 10 ml BID MAXIMUS Administration Sodium Chloride 10 ml 01/12/19 03:16 Sodium Chloride Flush Syringe 10 Ml IV PRN PRN LINE FLUSH
--- NOTE | 2019-01-12 19:55 | Event Note ---
Date: 01/11/19 See history and physical in the reports Septic shock Status post cardiac arrest Multiple decubitus ulcers on sacrum, penis and thigh-rt Hypotension Acute respiratory failure Possible anoxic encephalopathy
[2019-01-12] MEDS: MAXIPIME/NS 1 GM/100 ML 1 GM/100 ML BAG IV SCH (21:27)
--- NOTE | 2019-01-12 23:05 | Progress Note ---
Assessment and Plan Assessment and plan: Patient is a 53 year old male with pmh significant for HTN, Hydranitis supprativa colon resection with ileostomy and a resident of group home admitted after he was found down for unknown period of time with chart documentation revealing CPR for about 10 mins prior to EMS arrival, and noted to be in PEA, patient was given 1 round of epi and had ROSC and on arrival to the ED was intubated. * Started on 3 pressors following volume resuscitation and now down to Levophed only but remains commatose * Received 2 units of Blood * unable to start Dialysis due to severe hypotension but renal following * manager government consulted and discussed case with them, I appreciated their update including well documented discussion with family * CXR: No acute cardiopulmonary abnormality Acute HYPOXIC RESPIRATORY FAILURE s/p non witnessed cardiac arrest Severe Anemia S/P Transfusion 2 units PRBC [place] with vasomotor nephropathy SIRS with organ dysfunction but no clear evidence of sepsis severe Metabolic acidosis Hyponatremia Metabolic Encephalopathy-ACUTE S/P CARDIAC ARREST Hyperkalmia Hydranitis supprative Plan Continue supportive care in the ICU Discussed case with Hospice Rn and initiated Bicarb drip Monitor electrolytes and Na level Attempt to obtain additional records from outside facility on patients clinical condition and any other medical hx Wean Pressors as tolerated Continue Neuro checks CT head when clinically stable and safe to obtain Patient was hypothermic on admission, now improved temp and remains unresponsive woundcare consult PROGNOSIS-POOR The high probability of a clinically significant, sudden or life threatening deterioration of the [renal, 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 The aggregate critic al care time was [55] minutes. This time is in addition to time spent performing reported procedures but includes the following: [x] Data Review and interpretation [x] Patient assessment and monitoring of vital signs [x] Documentation [x] Medication orders and management History Interval history: Patient seen and examined, remains comatose and on mechanical ventilation with no sedation. No other adverse event reported Hospitalist Physical - Constitutional Vitals: Temp Pulse Resp BP Pulse Ox 97.8 F 96 H 8 L 106/71 100 01/12/19 20:00 01/12/19 22:00 01/12/19 22:00 01/12/19 22:00 01/12/19 21:25 General appearance: Present: other (unresponsive on the vent) - EENT Eyes: Present: PERRL ENT: other (commatos) - Neck Neck: Present: other (unable to full exam, no ridgidty noted) - Respiratory Respiratory effort: other (on ventilator with no spontaneous breathing noted) - Cardiovascular Rhythm: regular Heart Sounds: Present: S1 & S2. Absent: systolic murmur - Extremities Extremities: no ischemia, pulses intact Extremity abnormal: pulses diminished Peripheral Pulses: abnormal (dimished) - Abdominal General gastrointestinal: soft, non-distended, normal bowel sounds, other (ileostomy bag in place) - Integumentary Integumentary: Present: warm (multiple skin lesions around groin and sacrum, dressing in place) - Psychiatric Psychiatric: other (comatos) - Neurologic Neurologic: other (comatose) - Allied Health Allied health notes reviewed: nursing Results - Labs CBC & Chem 7: 01/13/19 01:30 01/13/19 01:30 Labs: Laboratory Last Values WBC 16.3 K/mm3 (4.5-11.0) H 01/12/19 04:15 RBC 3.88 M/mm3 (3.65-5.03) 01/12/19 04:15 Hgb 7.2 gm/dl (11.8-15.2) L 01/12/19 17:12 Hct 21.4 % (35.5-45.6) L D 01/12/19 17:12 MCV 75 fl (84-94) L 01/12/19 04:15 MCH 25 pg (28-32) L 01/12/19 04:15 MCHC 34 % (32-34) 01/12/19 04:15 RDW 22.6 % (13.2-15.2) H 01/12/19 04:15 Plt Count 254 K/mm3 (140-440) 01/12/19 04:15 Lymph % (Auto) 15.7 % (13.4-35.0) 01/11/19 09:19 [place] % (Auto) 2.8 % (0.0-7.3) 01/12/19 04:15 Eos % (Auto) 0.0 % (0.0-4.3) 01/12/19 04:15 Baso % (Auto) 0.4 % (0.0-1.8) 01/11/19 09:19 Lymph # 1.5 K/mm3 (1.2-5.4) 01/11/19 09:19 [place] # 0.5 K/mm3 (0.0-0.8) 01/12/19 04:15 Eos # 0.0 K/mm3 (0.0-0.4) 01/12/19 04:15 Baso # 0.0 K/mm3 (0.0-0.1) 01/12/19 04:15 Add Manual Diff Complete 01/12/19 04:15 Total Counted 100 01/12/19 04:15 Seg Neutrophils % Lens Blank Gauger 01/11/19 20:30 Seg Neuts % (Manual) 95.0 % (40.0-70.0) H 01/12/19 04:15 0 % 01/12/19 04:15 2.0 % (13.4-35.0) L 01/12/19 04:15 Reactive Lymphs % (Man) 0 % 01/12/19 04:15 2.0 % (0.0-7.3) 01/12/19 04:15 0 % (0.0-4.3) 01/12/19 04:15 0 % (0.0-1.8) 01/12/19 04:15 1.0 % 01/12/19 04:15 0 % 01/12/19 04:15 0 % 01/12/19 04:15 0 % 01/12/19 04:15 Nucleated RBC % Not Reportable 01/12/19 04:15 Seg Neutrophils # 15.5 K/mm3 (1.8-7.7) H 01/12/19 04:15 Seg Neutrophils # Man 15.5 K/mm3 (1.8-7.7) H 01/12/19 04:15 Band Neutrophils # 0.0 K/mm3 01/12/19 04:15 0.3 K/mm3 (1.2-5.4) L 01/12/19 04:15 Abs React Lymphs (Man) 0.0 K/mm3 01/12/19 04:15 0.3 K/mm3 (0.0-0.8) 01/12/19 04:15 0.0 K/mm3 (0.0-0.4) 01/12/19 04:15 0.0 K/mm3 (0.0-0.1) 01/12/19 04:15 0.2 K/mm3 01/12/19 04:15 0.0 K/mm3 01/12/19 04:15 0.0 K/mm3 01/12/19 04:15 Blast Cells # 0.0 K/mm3 01/12/19 04:15 WBC Morphology Not Reportable 01/12/19 04:15 Hypersegmented Neuts Not Reportable 01/12/19 04:15 Hyposegmented Neuts Not Reportable 01/12/19 04:15 Hypogranular Neuts Not Reportable 01/12/19 04:15 Not Reportable 01/12/19 04:15 Not Reportable 01/12/19 04:15 Not Reportable 01/12/19 04:15 Not Reportable 01/12/19 04:15 Not Reportable 01/12/19 04:15 Not Reportable 01/12/19 04:15 Consistent w auto 01/12/19 04:15 Not Reportable 01/12/19 04:15 Plt Clumps, EDTA Not Reportable 01/12/19 04:15 Not Reportable 01/12/19 04:15 Not Reportable 01/12/19 04:15 Not Reportable 01/12/19 04:15 Plt Morphology Comment Not Reportable 01/12/19 04:15 RBC Morphology Not Reportable 01/12/19 04:15 Dimorphic RBCs Not Reportable 01/12/19 04:15 Not Reportable 01/12/19 04:15 1+ 01/12/19 04:15 Not Reportable 01/12/19 04:15 2+ 01/12/19 04:15 Not Reportable 01/12/19 04:15 Not Reportable 01/12/19 04:15 Not Reportable 01/12/19 04:15 Not Reportable 01/12/19 04:15 Not Reportable 01/12/19 04:15 Not Reportable 01/12/19 04:15 Not Reportable 01/12/19 04:15 Not Reportable 01/12/19 04:15 Not Reportable 01/12/19 04:15 Not Reportable 01/12/19 04:15 Not Reportable 01/12/19 04:15 Not Reportable 01/12/19 04:15 Not Reportable 01/12/19 04:15 Not Reportable 01/12/19 04:15 Not Reportable 01/12/19 04:15 Acanthocytes (Spur) Not Reportable 01/12/19 04:15 [place]le[place] Not Reportable 01/12/19 04:15 Not Reportable 01/12/19 04:15 Not Reportable 01/12/19 04:15 Not Reportable 01/12/19 04:15 Not Reportable 01/12/19 04:15 Hem Pathologist Commnt No 01/12/19 04:15 PT 20.3 Sec. (12.2-14.9) H 01/11/19 09:19 INR 1.78 (0.87-1.13) H 01/11/19 09:19 APTT 41.5 Sec. (24.2-36.6) H 01/11/19 09:19 POC ABG pH 7.442 (7.35-7.45) 01/12/19 04:50 POC ABG pCO2 32.1 (35-45) L 01/11/19 11:15 POC ABG pO2 256 (80-105) H 01/12/19 04:50 POC ABG HCO3 12.7 (22-26 mml/L) 01/12/19 04:50 POC ABG Total CO2 13 (23-27mmol/L) 01/12/19 04:50 POC ABG O2 Sat 100 01/12/19 04:50 POC ABG Base Excess -11 ((-2) - (+3)mmol/L) 01/12/19 04:50 30 % 01/12/19 04:50 Sodium 129 mmol/L (137-145) L D 01/12/19 17:12 Potassium 4.5 mmol/L (3.6-5.0) D 01/12/19 17:12 Chloride 94.4 mmol/L (98-107) L 01/12/19 17:12 Carbon Dioxide 14 mmol/L (22-30) L 01/12/19 17:12 25 mmol/L 01/12/19 17:12 BUN 165 mg/dL (9-20) H 01/12/19 17:12 11.4 mg/dL (0.8-1.5) H 01/12/19 17:12 Estimated GFR 6 ml/min 01/12/19 17:12 14 % 01/12/19 17:12 Glucose 119 mg/dL (75-100) H 01/12/19 17:12 POC Glucose 127 (70-105) H 01/12/19 11:34 Lactic Acid 4.70 mmol/L (0.7-2.0) H* 01/11/19 15:10 Calcium 8.0 mg/dL (8.4-10.2) L D 01/12/19 17:12 Magnesium 1.80 mg/dL (1.7-2.3) 01/11/19 20:30 0.30 mg/dL (0.1-1.2) 01/11/19 09:19 AST 30 units/L (5-40) 01/11/19 09:19 ALT 25 units/L (7-56) 01/11/19 09:19 139 units/L (35-129) H 01/11/19 09:19 167.0 umol/L (25-60) H 01/11/19 09:19 244 units/L (55-170) H 01/11/19 09:19 CK-MB (CK-2) 10.1 ng/mL (0.0-4.0) H 01/11/19 09:19 CK-MB (CK-2) Rel Index 4.1 (0-4) H 01/11/19 09:19 0.094 ng/mL (0.00-0.029) H 01/11/19 09:19 NT-Pro-B Natriuret Pep 2056 pg/mL (0-900) H 01/11/19 09:19 7.7 g/dL (6.3-8.2) 01/11/19 09:19 2.1 g/dL (3.9-5) L 01/11/19 09:19 0.4 % 01/11/19 09:19 TSH 3.310 mlU/mL (0.270-4.200) 01/11/19 09:19 Free T4 1.04 ng/dL (0.76-1.46) 01/11/19 09:19 Yellow (Yellow) 01/11/19 03:30 Hazy (Clear) 01/11/19 03:30 5.0 (5.0-7.0) 01/11/19 03:30 Ur Specific [place] 1.012 (1.003-1.030) 01/11/19 03:30 <15 mg/dl mg/dL (Negative) 01/11/19 03:30 Neg mg/dL (Negative) 01/11/19 03:30 Neg mg/dL (Negative) 01/11/19 03:30 Sm (Negative) 01/11/19 03:30 Neg (Negative) 01/11/19 03:30 Ur Reducing Substances Not Reportable 01/11/19 03:30 Neg (Negative) 01/11/19 03:30 Not Reportable 01/11/19 03:30 < 2.0 mg/dL (<2.0) 01/11/19 03:30 Ur Leukocyte Esterase Sm (Negative) 01/11/19 03:30 3.0 /HPF (0.0-6.0) 01/11/19 03:30 8.0 /HPF (0.0-6.0) 01/11/19 03:30 1+ /HPF (Negative) 01/11/19 03:30 Not Reportable 01/11/19 03:30 Blood Type O POSITIVE 01/11/19 10:08 Antibody Screen Negative 01/11/19 10:08 Crossmatch See Detail 01/11/19 10:08 Active Medications - Current Medications Current Medications: Generic Name Dose Route Start Last Admin Trade Name Freq PRN Reason Stop Dose Admin Lipase/Protease/Amylase 1 each 01/12/19 03:[address] 10,500 Unit FEEDTUBE PRN PRN For Clogged Feeding Tube Famotidine 20 mg 01/12/19 10:00 01/12/19 11:35 Pepcid IV 20 mg QAM MAXIMUS Administration Hydromorphone HCl 0.25 mg 01/12/19 03:16 Dilaudid IV Q3H PRN Pain, Moderate (4-6) Dopamine HCl/Dextrose 800 mg in 250 mls @ 5.588 mls/hr 01/11/19 09:30 01/11/19 23:00 Intropin Drip 800 Mg/D5w 250 Ml IV 01/13/19 06:14 0 mcg/kg/min TITR ONE 0 mls/hr Titration Protocol 5 MCG/KG/MIN Norepinephrine 4 mg in 250 mls @ 7.5 mls/hr 01/11/19 11:00 01/12/19 20:38 Levophed Drip 4 Mg/Ns 250 Ml IV 0 mcg/min TITR MAXIMUS 0 mls/hr Titration Protocol 2 MCG/MIN Cefepime HCl 1 gm in 100 mls @ 200 mls/hr 01/12/19 22:00 01/12/19 21:27 Maxipime/Ns 1 Gm/100 Ml IV 200 mls/hr QHS MAXIMUS Administration Protocol Sodium Bicarbonate 150 meq/ 1,150 mls @ 75 mls/hr 01/12/19 11:15 01/12/19 11:07 Dextrose IV 75 mls/hr DIRECT MAXIMUS Administration Sodium Chloride 1,000 mls @ 0 mls/hr 01/12/19 11:00 01/12/19 21:23 Nacl 0.9% 1000 Ml IV 01/13/19 11:01 999 mls/hr ONCE MAXIMUS Administration As Directed Sodium Chloride 500 mls @ 0 mls/hr 01/12/19 11:00 01/12/19 11:14 Nacl 0.9% 500 Ml IV 10 mls/hr DIRECT MAXIMUS Administration As Directed Sodium Chloride 1,000 mls @ 999 mls/hr 01/12/19 18:00 01/12/19 18:43 Nacl 0.9% 1000 Ml IV 999 mls/hr DIRECT MAXIMUS Administration Ketorolac Tromethamine 15 mg 01/12/19 03:16 Toradol IV 01/17/19 03:15 Q6H PRN Pain, Mild (1-3) Metoclopramide HCl 5 mg 01/12/19 03:16 Reglan IV Q6H PRN Nausea And Vomiting Simple Syrup 15 ml 01/12/19 03:16 Simple Syrup FEEDTUBE PRN PRN Hypoglycemia Simple Syrup 30 ml 01/12/19 03:16 Simple Syrup FEEDTUBE PRN PRN Hypoglycemia Sodium Bicarbonate 325 mg 01/12/19 03:16 Sodium Bicarbonate FEEDTUBE PRN PRN For Clogged Feeding Tube Sodium Chloride 10 ml 01/12/19 10:00 01/12/19 10:00 Sodium Chloride Flush Syringe 10 Ml IV 10 ml BID MAXIMUS Administration Sodium Chloride 10 ml 01/12/19 03:16 Sodium Chloride Flush Syringe 10 Ml IV PRN PRN LINE FLUSH Nutrition/Malnutrition Assess - Dietary Evaluation Nutrition/Malnutrition Findings: Nutrition Notes Start: 01/12/19 13:16 Freq: Status: Active Protocol: Document 01/12/19 13:16 RM (Rec: 01/12/19 13:29 RM [id number]) Nutrition Notes Need for Assessment generated from: MD Order Initial or Follow up Assessment Current Diagnosis Hypertension,Respiratory Failure Other Pertinent Diagnosis ESRD on HD, Multiple wounds Current Diet TF (blank) Labs/Tests K 6.5 Pertinent Medications Levophed Height 5 ft 6 in Weight 59.6 kg [place] Body Weight (kg) 64.54 BMI 21.2 Subjective/Other Information Consulted for TF recommendation. Pt on vent. Burn Absent Trauma Absent #2 Nutrition Diagnosis Increased nutrient needs ( specify in comment below) Comments: glutamine, arginine Etiology wound healing As Evidenced by Signs and Symptoms mutiple wounds #1 Nutrition Diagnosis Inadequate oral intake Etiology on vent As Evidenced by Signs and Symptoms TF consult Is patient on ventilator? Yes Is Patient Ambulatory and/or Out of Bed No REE-([facility]-confined to bed) [phone] Calculation Used for Recommendations [facility] Additional Notes Protein Needs: 72-119g (1.2-2g /kg) Fluid Needs: 1 ml/kcal Nutrition Intervention Nutrition Support: Nepro at 40 ml/hr Water flush of 150 mls q 4 hrs Kcal 1,728 Protein (gm) 78 Fluid (mL) 698 Add Supplement/Snack (indicate name/kcal Jake BID /protein ) Provides kCal: 190 Provides Protein (gm) 5 Goal #1 TF tolerance Goal #2 Meet at least 80% of calorie and protein needs via TF Anticipated Discharge Needs: Unable to determine at this time Follow-Up By: 01/16/19 Additional Comments Follow for new TF
[2019-01-13] MEDS: NACL 0.9% 1000 ML 1,000 ML IV SCH ×8 (01:06→14:44)
[2019-01-13] MEDS: SODIUM CHLORIDE FLUSH SYRINGE 10 ML IV SCH ×2 (01:07→09:39)
[2019-01-13] MEDS: SODIUM BICARBONATE 150 MEQ in D5W 1,000 ML IV SCH (02:13)
[2019-01-13 02:23] LABS: Hematocrit 20.5 % (35.5-45.6); Hemoglobin 6.7 gm/dl (11.8-15.2)
[2019-01-13 02:33] LABS: Calcium 7.5 mg/dL (8.4-10.2)
[2019-01-13 06:27] LABS: Albumin 1.5 g/dL (3.9-5); Calcium 6.9 mg/dL (8.4-10.2)
[2019-01-13 08:21] LABS: Hemoglobin 6.1 gm/dl (11.8-15.2); Mean Corpuscular HGB Conc 34 % (32-34); Mean Corpuscular Volume 76 fl (84-94); Platelet Count 103 K/mm3 (140-440); Red Blood Count 2.36 M/mm3 (3.65-5.03)
[2019-01-13 08:24] LABS: Red Cell Distribution Width 23.5 % (13.2-15.2)
[2019-01-13 08:29] LABS: Calcium 6.6 mg/dL (8.4-10.2)
[2019-01-13 09:10] LABS: Basophils % (Manual) 0 % (0.0-1.8); Eosinophils % (Manual) 0 % (0.0-4.3); Total Cells Counted 100
[2019-01-13 09:11] LABS: Anisocytosis 2+; Hypochromasia 1+; Platelet Estimate Consistent w Auto
[2019-01-13] MEDS ORDERED: NACL 0.9% 500 ML 500 ML IV NR (09:30)
[2019-01-13] MEDS: PEPCID IV SCH (09:38)
--- NOTE | 2019-01-13 09:51 | Progress Note ---
Assessment and Plan Out of the hospital Cardiac arrest intubated on the vent support GI bleed Severe Anemia s/p transfusion of PRBCs Metabolic acidosis Severe Renal failure Severe hyperkalemia Severe Volume depletion Echocardiogram showing normal LVEF Recommend: No further cardiac intervention is needed Supportive ICU care Subjective Date of service: 01/13/19 Principal diagnosis: [place] Interval history: No interval changes cardiac webb Objective Vital Signs Temp Pulse Pulse Resp BP Pulse Ox 01/13/19 08:52 101 H 118/81 100 01/13/19 08:45 101 H 10 L 118/81 100 01/13/19 08:30 97 H 10 L 109/71 100 01/13/19 08:15 105 H 13 109/79 100 01/13/19 08:00 96 F L 97 H 101 H 8 L 112/70 100 01/13/19 07:45 100 H 9 L 118/73 01/13/19 07:30 101 H 11 L 118/68 01/13/19 07:15 102 H 9 L 109/73 01/13/19 07:00 100 H 9 L 114/75 100 01/13/19 06:45 99 H 10 L 111/70 100 01/13/19 06:30 97 H 9 L 120/72 100 01/13/19 06:15 100 H 10 L 117/71 100 01/13/19 06:00 103 H 13 107/66 100 01/13/19 05:45 97 H 9 L 107/66 01/13/19 05:30 97 H 9 L 113/64 01/13/19 05:15 97 H 9 L 107/67 01/13/19 05:00 98 H 8 L 106/69 01/13/19 04:45 98 H 8 L 110/68 01/13/19 04:30 99 H 8 L 118/66 01/13/19 04:15 95 H 7 L 105/66 01/13/19 04:08 101 H 108/67 100 01/13/19 04:00 102 H 102 H 10 L 108/67 100 01/13/19 03:45 99 H 9 L 112/67 01/13/19 03:30 102 H 10 L 118/73 100 01/13/19 03:19 97.4 F L 01/13/19 03:15 98 H 13 115/67 01/13/19 03:00 101 H 11 L 122/71 100 01/13/19 02:45 99 H 10 L 112/70 01/13/19 02:30 96 H 12 108/68 01/13/19 02:15 98 H 9 L 107/67 01/13/19 02:00 100 H 11 L 106/70 01/13/19 01:45 99 H 10 L 118/78 100 01/13/19 01:32 96 H 01/13/19 01:30 97 H 11 L 121/71 01/13/19 01:15 98 H 10 L 116/69 01/13/19 01:00 98 H 9 L 106/68 100 01/13/19 00:45 98 H 10 L 115/75 100 01/13/19 00:30 94 H 8 L 105/72 01/13/19 00:15 97 H 9 L 112/72 100 01/13/19 00:00 98 H 97 H 22 112/76 100 01/12/19 23:48 96 H 112/76 100 01/12/19 23:45 97.5 F L 95 H 9 L 112/76 01/12/19 23:30 100 H 11 L 110/69 100 01/12/19 23:21 97 H 18 113/73 99 01/12/19 23:15 99 H 9 L 113/73 100 01/12/19 23:00 100 H 21 103/70 01/12/19 22:45 97 H 11 L 105/69 01/12/19 22:30 101 H 25 H 109/71 01/12/19 22:15 99 H 27 H 111/71 100 01/12/19 22:00 96 H 8 L 106/71 01/12/19 21:45 93 H 12 109/67 01/12/19 21:30 99 H 9 L 114/67 01/12/19 21:25 100 H 18 107/68 100 01/12/19 21:23 96 H 13 107/68 100 01/12/19 21:21 100 H 14 107/68 100 01/12/19 21:19 97 H 14 107/68 100 01/12/19 21:17 97 H 7 L 107/68 100 01/12/19 21:15 98 H 13 107/68 01/12/19 21:13 98 H 7 L 110/72 100 01/12/19 21:11 100 H 7 L 110/72 100 01/12/19 21:09 98 H 8 L 110/72 100 01/12/19 21:07 99 H 8 L 110/72 100 01/12/19 21:05 97 H 14 110/72 100 01/12/19 21:03 100 H 12 110/72 100 01/12/19 21:01 101 H 9 L 110/72 100 01/12/19 21:00 100 H 14 110/72 01/12/19 20:59 97 H 15 114/68 100 01/12/19 20:57 97 H 16 114/68 100 01/12/19 20:55 98 H 12 114/68 100 01/12/19 20:53 97 H 20 114/68 100 01/12/19 20:51 96 H 14 114/68 100 01/12/19 20:49 102 H 11 L 114/68 100 01/12/19 20:47 98 H 11 L 114/68 100 01/12/19 20:45 102 H 8 L 114/68 01/12/19 20:43 97 H 13 111/71 100 01/12/19 20:41 98 H 10 L 111/71 100 01/12/19 20:39 103 H 11 L 111/71 100 01/12/19 20:37 103 H 13 111/71 100 01/12/19 20:35 105 H 10 L 111/71 100 01/12/19 20:33 101 H 10 L 111/71 100 01/12/19 20:31 103 H 10 L 111/71 100 01/12/19 20:30 103 H 12 111/71 100 01/12/19 20:29 102 H 14 101/67 100 01/12/19 20:27 101 H 14 101/67 100 01/12/19 20:21 102 H 17 101/67 99 01/12/19 20:15 99 H 12 101/67 100 01/12/19 20:00 97.8 F 102 H 101 H 13 114/67 100 01/12/19 19:55 98 H 111/70 100 01/12/19 19:45 104 H 10 L 111/70 01/12/19 19:30 102 H 10 L 110/73 100 01/12/19 19:15 98 H 13 115/73 01/12/19 19:09 97 H 01/12/19 19:00 102 H 14 114/69 01/12/19 18:45 98 H 9 L 126/78 99 01/12/19 18:30 99 H 16 137/84 100 01/12/19 18:15 100 H 12 115/71 01/12/19 18:00 101 H 10 L 121/76 01/12/19 17:45 104 H 16 116/73 100 01/12/19 17:30 105 H 21 112/69 01/12/19 17:15 108 H 21 106/62 01/12/19 17:00 104 H 7 L 119/70 01/12/19 16:45 102 H 19 113/74 01/12/19 16:30 103 H 17 110/73 01/12/19 16:15 102 H 12 117/70 01/12/19 16:06 111 H 110/61 99 01/12/19 16:00 98.8 F 107 H 89 10 L 110/61 100 01/12/19 15:45 108 H 14 118/69 100 01/12/19 15:30 106 H 7 L 109/71 01/12/19 15:15 104 H 9 L 120/73 01/12/19 15:00 104 H 20 115/74 01/12/19 14:45 106 H 10 L 108/74 01/12/19 14:30 100 H 16 120/77 100 01/12/19 14:15 108 H 12 116/76 01/12/19 14:00 108 H 11 L 110/76 01/12/19 13:45 107 H 14 119/75 01/12/19 13:30 105 H 11 L 118/79 01/12/19 13:15 107 H 12 122/76 01/12/19 13:06 118 H 109/71 99 01/12/19 13:00 104 H 13 129/80 01/12/19 12:45 107 H 16 125/77 01/12/19 12:30 108 H 22 114/77 01/12/19 12:15 110 H 14 116/75 100 01/12/19 12:00 98.3 F 110 H 108 H 13 118/71 100 01/12/19 11:45 114 H 17 118/71 100 01/12/19 11:30 115 H 19 110/71 01/12/19 11:15 117 H 20 101/66 01/12/19 11:00 120 H 23 73/46 94 01/12/19 10:45 115 H 19 99/66 99 01/12/19 10:30 120 H 21 96/67 100 01/12/19 10:15 119 H 22 94/64 100 01/12/19 10:00 118 H 21 96/62 - Physical Examination Neck: Positive: neck supple Cardiac: Positive: Reg Rate and Rhythm Lungs: Positive: Ventilated Respirations - Labs and Meds Cardiac Enzymes 01/13/19 Range/Units 05:30 AST 20 (5-40) units/L CBC 01/12/19 01/13/19 01/13/19 Range/Units 17:12 01:30 08:05 WBC 10.3 (4.5-11.0) K/mm3 RBC 2.36 L (3.65-5.03) M/mm3 Hgb 7.2 L 6.7 L 6.1 L (11.8-15.2) gm/dl Hct 21.4 L D 20.5 L 18.0 L* (35.5-45.6) % Plt Count 103 L (140-440) K/mm3 Comprehensive Metabolic Panel 01/12/19 01/13/19 01/13/19 Range/Units 17:12 01:30 05:30 Sodium 129 L D 131 L 135 L (137-145) mmol/L Potassium 4.5 D 3.7 3.3 L (3.6-5.0) mmol/L Chloride 94.4 L 98.7 103.7 (98-107) mmol/L Carbon Dioxide 14 L 14 L 14 L (22-30) mmol/L BUN 165 H 150 H 125 H (9-20) mg/dL Creatinine 11.4 H 9.6 H 9.0 H (0.8-1.5) mg/dL Glucose 119 H 101 H 96 (75-100) mg/dL Calcium 8.0 L D 7.5 L 6.9 L (8.4-10.2) mg/dL AST 20 (5-40) units/L ALT 14 (7-56) units/L Alkaline Phosphatase 75 (35-129) units/L Total Protein 5.2 L D (6.3-8.2) g/dL Albumin 1.5 L (3.9-5) g/dL 01/13/19 Range/Units 08:05 Sodium 136 L (137-145) mmol/L Potassium 3.2 L (3.6-5.0) mmol/L Chloride 106.2 (98-107) mmol/L Carbon Dioxide 15 L (22-30) mmol/L BUN 113 H (9-20) mg/dL Creatinine 8.0 H (0.8-1.5) mg/dL Glucose 127 H (75-100) mg/dL Calcium 6.6 L (8.4-10.2) mg/dL AST (5-40) units/L ALT (7-56) units/L Alkaline Phosphatase (35-129) units/L Total Protein (6.3-8.2) g/dL Albumin (3.9-5) g/dL
[2019-01-13] MEDS ORDERED: POTASSIUM CHLORIDE FEEDTUBE ONE (12:00)
--- NOTE | 2019-01-13 12:49 | Cat Scan Report ---
CT HEAD WITHOUT CONTRAST INDICATION : Altered mental status. TECHNIQUE: Axial imaging performed from the skull apex through the skull base without the use of con trast. Sagittal and coronal reformatted images. All CT scans at this location are performed using C T dose reduction for ALARA by means of automated exposure control. COMPARISON: None FINDINGS: Parenchyma: No acute intracranial hemorrhage or parenchymal abnormality. Ventricles: Ventricles are normal in size and appear symmetric. Bones: No acute osseous abnormality. Sinuses: Sinuses and mastoid air cells are clear. Soft tissues: Soft tissues including the orbits appear normal. IMPRESSION: No acute abnormality. Signer Name: Brady Solano Jr, MD Signed: 01/13/2019 12:45 PM Workstation Name: [id number]
[2019-01-13] MEDS: NACL 0.9% 500 ML 500 ML IV SCH (12:57)
--- NOTE | 2019-01-13 13:02 | Progress Note ---
Assessment and Plan Imp: 1. Severe volume depletion 2. Hyperkalemia 3. [place] 4. Hyponatremia 2/2 #1 5. s/p CP arrest probably due to #1 6. Encephalopathy, ? anoxic Rec: 1. IVFs per renal; K repleted; d/c all sedation and Toradol 2. Cefipime for now pending cultures but doubt sepsis 3. For 1 unit of PRBCs today and monitor H/H; stool in colostomy is brown and there is not active bleeding 4. SCDs, GI PPx, TFs 5. May need neurology eval. 6. Prognosis guarded No family present CCt 31 minutes Subjective Date of service: 01/13/19 Principal diagnosis: [place] Interval history: No events. Unresponsive. Cannot give hx. Has gag/cough. HD stable. Active Medications Lipase/Protease/Amylase (Pancreaze Dr 10,500 Unit) 1 each FEEDTUBE PRN PRN PRN Reason: For Clogged Feeding Tube Famotidine (Pepcid) 20 mg IV QAM MAXIMUS Last Admin: 01/13/19 09:38 Dose: 20 mg Documented by: Norepinephrine (Levophed Drip 4 Mg/Ns 250 Ml) 4 mg in 250 mls @ 7.5 mls/hr IV TITR [facility]; Protocol Last Titration: 01/12/19 20:38 Dose: 0 mcg/min, 0 mls/hr Documented by: Cefepime HCl (Maxipime/Ns 1 Gm/100 Ml) 1 gm in 100 mls @ 200 mls/hr IV QHS MAXIMUS; Protocol Last Admin: 01/12/19 21:27 Dose: 200 mls/hr Documented by: Sodium Chloride (Nacl 0.9% 500 Ml) 500 mls @ 0 mls/hr IV DIRECT MAXIMUS Last Admin: 01/13/19 12:57 Dose: 10 mls/hr Documented by: Sodium Chloride (Nacl 0.9% 1000 Ml) 1,000 mls @ 100 mls/hr IV DIRECT MAXIMUS Last Admin: 01/13/19 14:44 Dose: 100 mls/hr Documented by: Metoclopramide HCl (Reglan) 5 mg IV Q6H PRN PRN Reason: Nausea And Vomiting Simple Syrup (Simple Syrup) 15 ml FEEDTUBE PRN PRN PRN Reason: Hypoglycemia Simple Syrup (Simple Syrup) 30 ml FEEDTUBE PRN PRN PRN Reason: Hypoglycemia Sodium Bicarbonate (Sodium Bicarbonate) 325 mg FEEDTUBE PRN PRN PRN Reason: For Clogged Feeding Tube Sodium Chloride (Sodium Chloride Flush Syringe 10 Ml) 10 ml IV BID MAXIMUS Last Admin: 01/13/19 09:39 Dose: 10 ml Documented by: Sodium Chloride (Sodium Chloride Flush Syringe 10 Ml) 10 ml IV PRN PRN PRN Reason: LINE FLUSH Objective Vital Signs - 12hr 01/13/19 01/13/19 01/13/19 01:15 01:30 01:32 Temperature Pulse Rate 98 H 97 H 96 H Pulse Rate [ From Monitor] Respiratory 10 L 11 L Rate Blood Pressure 116/69 121/71 O2 Sat by Pulse Oximetry 01/13/19 01/13/19 01/13/19 01:45 02:00 02:15 Temperature Pulse Rate 99 H 100 H 98 H Pulse Rate [ From Monitor] Respiratory 10 L 11 L 9 L Rate Blood Pressure 118/78 106/70 107/67 O2 Sat by Pulse 100 Oximetry 01/13/19 01/13/19 01/13/19 02:30 02:45 03:00 Temperature Pulse Rate 96 H 99 H 101 H Pulse Rate [ From Monitor] Respiratory 12 10 L 11 L Rate Blood Pressure 108/68 112/70 122/71 O2 Sat by Pulse 100 Oximetry 01/13/19 01/13/19 01/13/19 03:15 03:19 03:30 Temperature 97.4 F L Pulse Rate 98 H 102 H Pulse Rate [ From Monitor] Respiratory 13 10 L Rate Blood Pressure 115/67 118/73 O2 Sat by Pulse 100 Oximetry 01/13/19 01/13/19 01/13/19 03:45 04:00 04:08 Temperature Pulse Rate 99 H 102 H 101 H Pulse Rate [ 102 H From Monitor] Respiratory 9 L 10 L Rate Blood Pressure 112/67 108/67 108/67 O2 Sat by Pulse 100 100 Oximetry 01/13/19 01/13/19 01/13/19 04:15 04:30 04:45 Temperature Pulse Rate 95 H 99 H 98 H Pulse Rate [ From Monitor] Respiratory 7 L 8 L 8 L Rate Blood Pressure 105/66 118/66 110/68 O2 Sat by Pulse Oximetry 01/13/19 01/13/19 01/13/19 05:00 05:15 05:30 Temperature Pulse Rate 98 H 97 H 97 H Pulse Rate [ From Monitor] Respiratory 8 L 9 L 9 L Rate Blood Pressure 106/69 107/67 113/64 O2 Sat by Pulse Oximetry 01/13/19 01/13/19 01/13/19 05:45 06:00 06:15 Temperature Pulse Rate 97 H 103 H 100 H Pulse Rate [ From Monitor] Respiratory 9 L 13 10 L Rate Blood Pressure 107/66 107/66 117/71 O2 Sat by Pulse 100 100 Oximetry 01/13/19 01/13/19 01/13/19 06:30 06:45 07:00 Temperature Pulse Rate 97 H 99 H 100 H Pulse Rate [ From Monitor] Respiratory 9 L 10 L 9 L Rate Blood Pressure 120/72 111/70 114/75 O2 Sat by Pulse 100 100 100 Oximetry 01/13/19 01/13/19 01/13/19 07:15 07:30 07:45 Temperature Pulse Rate 102 H 101 H 100 H Pulse Rate [ From Monitor] Respiratory 9 L 11 L 9 L Rate Blood Pressure 109/73 118/68 118/73 O2 Sat by Pulse Oximetry 01/13/19 01/13/19 01/13/19 08:00 08:15 08:30 Temperature 96 F L Pulse Rate 97 H 105 H 97 H Pulse Rate [ 101 H From Monitor] Respiratory 8 L 13 10 L Rate Blood Pressure 112/70 109/79 109/71 O2 Sat by Pulse 100 100 100 Oximetry 01/13/19 01/13/19 01/13/19 08:45 08:52 09:00 Temperature Pulse Rate 101 H 101 H 101 H Pulse Rate [ From Monitor] Respiratory 10 L 15 Rate Blood Pressure 118/81 118/81 110/67 O2 Sat by Pulse 100 100 100 Oximetry 01/13/19 01/13/19 01/13/19 09:15 09:30 09:45 Temperature Pulse Rate 100 H 104 H 95 H Pulse Rate [ From Monitor] Respiratory 9 L 13 12 Rate Blood Pressure 106/64 111/71 112/68 O2 Sat by Pulse 100 100 Oximetry 01/13/19 01/13/19 01/13/19 10:00 10:15 10:30 Temperature Pulse Rate 95 H 97 H 99 H Pulse Rate [ From Monitor] Respiratory 13 12 8 L Rate Blood Pressure 113/69 114/67 112/67 O2 Sat by Pulse 100 100 100 Oximetry 01/13/19 01/13/19 01/13/19 10:45 11:00 11:15 Temperature Pulse Rate 100 H 97 H 101 H Pulse Rate [ From Monitor] Respiratory 8 L 9 L 13 Rate Blood Pressure 121/67 111/70 129/77 O2 Sat by Pulse 100 Oximetry 01/13/19 01/13/19 01/13/19 11:30 11:45 12:00 Temperature Pulse Rate 101 H 96 H 104 H Pulse Rate [ From Monitor] Respiratory 9 L 10 L 10 L Rate Blood Pressure 122/78 115/72 113/73 O2 Sat by Pulse Oximetry Constitutional: comatose, other (critically ill on vent) Eyes: non-icteric ENT: other (orally intubated and not medically sedated) Neck: supple Effort: normal Ascultation: Bilateral: other (coarse BS bilaterally) Cardiovascular: regular rate and rhythm (no mrg) Gastrointestinal: other (colostomy with brown output per nursing) Extremities: no cyanosis, no edema Neurologic: other (unresponsive, mild increased tone RUE but flaccid other extremities) Psychiatric: other (not able to assess) CBC and BMP: 01/13/19 17:55 01/13/19 12:47 ABG, PT/INR, D-dimer: ABG POC ABG pH 7.363 (7.35-7.45) 01/13/19 04:26 POC ABG pO2 122 (80-105) H 01/13/19 04:26 POC ABG HCO3 12.8 (22-26 mml/L) 01/13/19 04:26 POC ABG Total CO2 14 (23-27mmol/L) 01/13/19 04:26 POC ABG O2 Sat 99 01/13/19 04:26 PT/INR, D-dimer PT 20.3 Sec. (12.2-14.9) H 01/11/19 09:19 INR 1.78 (0.87-1.13) H 01/11/19 09:19 Abnormal lab findings: Abnormal Labs 01/11/19 01/11/19 01/11/19 09:19 09:19 09:19 WBC RBC 2.42 L Hgb 5.7 L* Hct 17.5 L* MCV 72 L MCH 24 L RDW 20.9 H Plt Count Seg Neutrophils % 83.0 H Seg Neuts % (Manual) Lymphocytes % (Manual) Seg Neutrophils # 7.8 H Seg Neutrophils # Man Lymphocytes # (Manual) PT 20.3 H INR 1.78 H APTT 41.5 H POC ABG pH POC ABG pCO2 POC ABG pO2 Sodium 113 L* Potassium 7.2 H* Chloride 72.7 L Carbon Dioxide 10 L BUN 197 H Creatinine 13.7 H Glucose 258 H POC Glucose Lactic Acid Calcium Magnesium 2.50 H Alkaline Phosphatase 139 H Ammonia Total Creatine Kinase 244 H CK-MB (CK-2) 10.1 H CK-MB (CK-2) Rel Index 4.1 H Troponin T 0.094 H NT-Pro-B Natriuret Pep 2056 H Total Protein Albumin 2.1 L Crossmatch 01/11/19 01/11/19 01/11/19 09:19 09:30 10:08 WBC RBC Hgb Hct MCV MCH RDW Plt Count Seg Neutrophils % Seg Neuts % (Manual) Lymphocytes % (Manual) Seg Neutrophils # Seg Neutrophils # Man Lymphocytes # (Manual) PT INR APTT POC ABG pH POC ABG pCO2 POC ABG pO2 Sodium Potassium Chloride Carbon Dioxide BUN Creatinine Glucose POC Glucose Lactic Acid 7.20 H* Calcium Magnesium Alkaline Phosphatase Ammonia 167.0 H Total Creatine Kinase CK-MB (CK-2) CK-MB (CK-2) Rel Index Troponin T NT-Pro-B Natriuret Pep Total Protein Albumin Crossmatch See Detail 01/11/19 01/11/19 01/11/19 11:02 11:15 15:10 WBC RBC Hgb Hct MCV MCH RDW Plt Count Seg Neutrophils % Seg Neuts % (Manual) Lymphocytes % (Manual) Seg Neutrophils # Seg Neutrophils # Man Lymphocytes # (Manual) PT INR APTT POC ABG pH 7.287 L POC ABG pCO2 32.1 L POC ABG pO2 Sodium Potassium Chloride Carbon Dioxide BUN Creatinine Glucose POC Glucose 239 H Lactic Acid 4.70 H* Calcium Magnesium Alkaline Phosphatase Ammonia Total Creatine Kinase CK-MB (CK-2) CK-MB (CK-2) Rel Index Troponin T NT-Pro-B Natriuret Pep Total Protein Albumin Crossmatch 01/11/19 01/11/19 01/11/19 20:30 20:30 23:13 WBC RBC Hgb 10.2 L D Hct 29.9 L D MCV 75 L MCH 25 L RDW 22.7 H Plt Count Seg Neutrophils % Seg Neuts % (Manual) 91.0 H Lymphocytes % (Manual) 5.0 L Seg Neutrophils # Seg Neutrophils # Man Lymphocytes # (Manual) 0.4 L PT INR APTT POC ABG pH POC ABG pCO2 POC ABG pO2 Sodium 120 L D Potassium 5.8 H Chloride 78.5 L Carbon Dioxide 10 L BUN 190 H Creatinine 13.2 H Glucose 107 H POC Glucose 134 H Lactic Acid Calcium Magnesium Alkaline Phosphatase Ammonia Total Creatine Kinase CK-MB (CK-2) CK-MB (CK-2) Rel Index Troponin T NT-Pro-B Natriuret Pep Total Protein Albumin Crossmatch 01/12/19 01/12/19 01/12/19 04:15 04:15 04:50 WBC 16.3 H RBC Hgb 9.7 L Hct 29.0 L MCV 75 L MCH 25 L RDW 22.6 H Plt Count Seg Neutrophils % Seg Neuts % (Manual) 95.0 H Lymphocytes % (Manual) 2.0 L Seg Neutrophils # 15.5 H Seg Neutrophils # Man 15.5 H Lymphocytes # (Manual) 0.3 L PT INR APTT POC ABG pH POC ABG pCO2 POC ABG pO2 256 H Sodium 121 L Potassium 6.5 H* Chloride 80.8 L Carbon Dioxide 12 L BUN 187 H Creatinine 13.1 H Glucose 110 H POC Glucose Lactic Acid Calcium Magnesium Alkaline Phosphatase Ammonia Total Creatine Kinase CK-MB (CK-2) CK-MB (CK-2) Rel Index Troponin T NT-Pro-B Natriuret Pep Total Protein Albumin Crossmatch 01/12/19 01/12/19 01/12/19 05:56 11:34 17:12 WBC RBC Hgb 7.2 L Hct 21.4 L D MCV MCH RDW Plt Count Seg Neutrophils % Seg Neuts % (Manual) Lymphocytes % (Manual) Seg Neutrophils # Seg Neutrophils # Man Lymphocytes # (Manual) PT INR APTT POC ABG pH POC ABG pCO2 POC ABG pO2 Sodium Potassium Chloride Carbon Dioxide BUN Creatinine Glucose POC Glucose 124 H 127 H Lactic Acid Calcium Magnesium Alkaline Phosphatase Ammonia Total Creatine Kinase CK-MB (CK-2) CK-MB (CK-2) Rel Index Troponin T NT-Pro-B Natriuret Pep Total Protein Albumin Crossmatch 01/12/19 01/12/19 01/13/19 17:12 18:02 00:21 WBC RBC Hgb Hct MCV MCH RDW Plt Count Seg Neutrophils % Seg Neuts % (Manual) Lymphocytes % (Manual) Seg Neutrophils # Seg Neutrophils # Man Lymphocytes # (Manual) PT INR APTT POC ABG pH POC ABG pCO2 POC ABG pO2 Sodium 129 L D Potassium Chloride 94.4 L Carbon Dioxide 14 L BUN 165 H Creatinine 11.4 H Glucose 119 H POC Glucose 140 H 132 H Lactic Acid Calcium 8.0 L D Magnesium Alkaline Phosphatase Ammonia Total Creatine Kinase CK-MB (CK-2) CK-MB (CK-2) Rel Index Troponin T NT-Pro-B Natriuret Pep Total Protein Albumin Crossmatch 01/13/19 01/13/19 01/13/19 01:30 01:30 04:13 WBC RBC Hgb 6.7 L Hct 20.5 L MCV MCH RDW Plt Count Seg Neutrophils % Seg Neuts % (Manual) Lymphocytes % (Manual) Seg Neutrophils # Seg Neutrophils # Man Lymphocytes # (Manual) PT INR APTT POC ABG pH POC ABG pCO2 POC ABG pO2 68 L Sodium 131 L Potassium Chloride Carbon Dioxide 14 L BUN 150 H Creatinine 9.6 H Glucose 101 H POC Glucose Lactic Acid Calcium 7.5 L Magnesium Alkaline Phosphatase Ammonia Total Creatine Kinase CK-MB (CK-2) CK-MB (CK-2) Rel Index Troponin T NT-Pro-B Natriuret Pep Total Protein Albumin Crossmatch 01/13/19 01/13/19 01/13/19 04:26 05:30 05:36 WBC RBC Hgb Hct MCV MCH RDW Plt Count Seg Neutrophils % Seg Neuts % (Manual) Lymphocytes % (Manual) Seg Neutrophils # Seg Neutrophils # Man Lymphocytes # (Manual) PT INR APTT POC ABG pH POC ABG pCO2 POC ABG pO2 122 H Sodium 135 L Potassium 3.3 L Chloride Carbon Dioxide 14 L BUN 125 H Creatinine 9.0 H Glucose POC Glucose 111 H Lactic Acid Calcium 6.9 L Magnesium Alkaline Phosphatase Ammonia Total Creatine Kinase CK-MB (CK-2) CK-MB (CK-2) Rel Index Troponin T NT-Pro-B Natriuret Pep Total Protein 5.2 L D Albumin 1.5 L Crossmatch 01/13/19 01/13/19 08:05 08:05 WBC RBC 2.36 L Hgb 6.1 L Hct 18.0 L* MCV 76 L MCH 26 L RDW 23.5 H Plt Count 103 L Seg Neutrophils % Seg Neuts % (Manual) 96.0 H Lymphocytes % (Manual) 2.0 L Seg Neutrophils # Seg Neutrophils # Man 9.9 H Lymphocytes # (Manual) 0.2 L PT INR APTT POC ABG pH POC ABG pCO2 POC ABG pO2 Sodium 136 L Potassium 3.2 L Chloride Carbon Dioxide 15 L BUN 113 H Creatinine 8.0 H Glucose 127 H POC Glucose Lactic Acid Calcium 6.6 L Magnesium Alkaline Phosphatase Ammonia Total Creatine Kinase CK-MB (CK-2) CK-MB (CK-2) Rel Index Troponin T NT-Pro-B Natriuret Pep Total Protein Albumin Crossmatch Chest x-ray: report reviewed, image reviewed (clear lungs)
[2019-01-13 13:18] LABS: Calcium 6.9 mg/dL (8.4-10.2)
--- NOTE | 2019-01-13 14:05 | Progress Note ---
Assessment and Plan - Patient Problems (1) Acute kidney injury with acute tubular necrosis Current Visit: Yes Status: Acute Plan to address problem: acute renal failure secondary to ischemic ATN in the setting of hemorrhagic/septic shock. Improving renal function with IVF, blood transfusion and s/p vasopressor support. pt is now weaned off vasopressors. metabolic acidosis corrected with bicarb gtt, will d/c IV bicarb given developing hypokalemia/hypocalcemia. changed IVF to NS. No emergent indication for renal replacement therapy at present, pt remains non- oliguric. Cont supportive care for ATN, avoid nephrotoxins, NSAIDS, IV contrast. (2) Hemorrhagic shock Current Visit: Yes Status: Acute Plan to address problem: hb trending down to 6.1, pt receiving 2PRBC transfusion (3) Cardiac arrest Current Visit: Yes Status: Acute Plan to address problem: s/p ACLS, now with ROSC. (4) Sepsis Current Visit: No Status: Acute Qualifiers: Sepsis type: sepsis due to unspecified organism Qualified Code(s): A41.9 - Sepsis, unspecified organism Plan to address problem: follow UCx, BCx, initated on empiric ABXs, follow ID recommendations. (5) Metabolic acidosis Current Visit: Yes Status: Acute Plan to address problem: secondary to lactic acidosis, improving s/p bicarb gtt along with stable hemodynamics (6) Hyponatremia Current Visit: Yes Status: Acute Plan to address problem: cont IV NS target Na correction at 8-10meq/24h (7) Hypokalemia Current Visit: Yes Status: Acute Plan to address problem: due to treatment with IV bicarb, which was stopped. K Dur 40meq given this AM Subjective Date of service: 01/13/19 Principal diagnosis: [place] Interval history: Pt remains intubated, unresponsive. off vasopressors Objective - Vital Signs Vital signs: Vital Signs - 12hr 01/13/19 01/13/19 01/13/19 02:15 02:30 02:45 Temperature Pulse Rate 98 H 96 H 99 H Pulse Rate [ From Monitor] Respiratory 9 L 12 10 L Rate Blood Pressure 107/67 108/68 112/70 O2 Sat by Pulse Oximetry 01/13/19 01/13/19 01/13/19 03:00 03:15 03:19 Temperature 97.4 F L Pulse Rate 101 H 98 H Pulse Rate [ From Monitor] Respiratory 11 L 13 Rate Blood Pressure 122/71 115/67 O2 Sat by Pulse 100 Oximetry 01/13/19 01/13/19 01/13/19 03:30 03:45 04:00 Temperature Pulse Rate 102 H 99 H 102 H Pulse Rate [ 102 H From Monitor] Respiratory 10 L 9 L 10 L Rate Blood Pressure 118/73 112/67 108/67 O2 Sat by Pulse 100 100 Oximetry 01/13/19 01/13/19 01/13/19 04:08 04:15 04:30 Temperature Pulse Rate 101 H 95 H 99 H Pulse Rate [ From Monitor] Respiratory 7 L 8 L Rate Blood Pressure 108/67 105/66 118/66 O2 Sat by Pulse 100 Oximetry 01/13/19 01/13/19 01/13/19 04:45 05:00 05:15 Temperature Pulse Rate 98 H 98 H 97 H Pulse Rate [ From Monitor] Respiratory 8 L 8 L 9 L Rate Blood Pressure 110/68 106/69 107/67 O2 Sat by Pulse Oximetry 01/13/19 01/13/19 01/13/19 05:30 05:45 06:00 Temperature Pulse Rate 97 H 97 H 103 H Pulse Rate [ From Monitor] Respiratory 9 L 9 L 13 Rate Blood Pressure 113/64 107/66 107/66 O2 Sat by Pulse 100 Oximetry 01/13/19 01/13/19 01/13/19 06:15 06:30 06:45 Temperature Pulse Rate 100 H 97 H 99 H Pulse Rate [ From Monitor] Respiratory 10 L 9 L 10 L Rate Blood Pressure 117/71 120/72 111/70 O2 Sat by Pulse 100 100 100 Oximetry 01/13/19 01/13/19 01/13/19 07:00 07:15 07:30 Temperature Pulse Rate 100 H 102 H 101 H Pulse Rate [ From Monitor] Respiratory 9 L 9 L 11 L Rate Blood Pressure 114/75 109/73 118/68 O2 Sat by Pulse 100 Oximetry 01/13/19 01/13/19 01/13/19 07:45 08:00 08:15 Temperature 96 F L Pulse Rate 100 H 97 H 105 H Pulse Rate [ 101 H From Monitor] Respiratory 9 L 8 L 13 Rate Blood Pressure 118/73 112/70 109/79 O2 Sat by Pulse 100 100 Oximetry 01/13/19 01/13/19 01/13/19 08:30 08:45 08:52 Temperature Pulse Rate 97 H 101 H 101 H Pulse Rate [ From Monitor] Respiratory 10 L 10 L Rate Blood Pressure 109/71 118/81 118/81 O2 Sat by Pulse 100 100 100 Oximetry 01/13/19 01/13/19 01/13/19 09:00 09:15 09:30 Temperature Pulse Rate 101 H 100 H 104 H Pulse Rate [ From Monitor] Respiratory 15 9 L 13 Rate Blood Pressure 110/67 106/64 111/71 O2 Sat by Pulse 100 100 Oximetry 01/13/19 01/13/19 01/13/19 09:45 10:00 10:15 Temperature Pulse Rate 95 H 95 H 97 H Pulse Rate [ From Monitor] Respiratory 12 13 12 Rate Blood Pressure 112/68 113/69 114/67 O2 Sat by Pulse 100 100 100 Oximetry 01/13/19 01/13/19 01/13/19 10:30 10:45 11:00 Temperature Pulse Rate 99 H 100 H 97 H Pulse Rate [ From Monitor] Respiratory 8 L 8 L 9 L Rate Blood Pressure 112/67 121/67 111/70 O2 Sat by Pulse 100 100 Oximetry 01/13/19 01/13/19 01/13/19 11:15 11:30 11:45 Temperature Pulse Rate 101 H 101 H 96 H Pulse Rate [ From Monitor] Respiratory 13 9 L 10 L Rate Blood Pressure 129/77 122/78 115/72 O2 Sat by Pulse Oximetry 01/13/19 01/13/19 01/13/19 12:00 12:33 12:45 Temperature 96.5 F L Pulse Rate 104 H 104 H 99 H Pulse Rate [ From Monitor] Respiratory 10 L 16 9 L Rate Blood Pressure 113/73 130/77 O2 Sat by Pulse 100 100 Oximetry 01/13/19 01/13/19 01/13/19 12:51 13:00 13:15 Temperature Pulse Rate 102 H 107 H 99 H Pulse Rate [ From Monitor] Respiratory 12 8 L Rate Blood Pressure 116/75 116/75 122/75 O2 Sat by Pulse 100 100 100 Oximetry 01/13/19 01/13/19 01/13/19 13:30 13:41 13:51 Temperature Pulse Rate 95 H 96 H 105 H Pulse Rate [ From Monitor] Respiratory 10 L 11 L 10 L Rate Blood Pressure 112/74 112/74 112/69 O2 Sat by Pulse 99 100 100 Oximetry 01/13/19 13:57 Temperature 96.2 F L Pulse Rate Pulse Rate [ From Monitor] Respiratory Rate Blood Pressure O2 Sat by Pulse Oximetry - General Appearance General appearance: chronically ill, intubated, frail EENT: ATNC, mucous membranes moist Neck: no JVD Respiratory: Present: Decreased Breath Sounds Cardiology: regular, S1S2 Gastrointestinal: normoactive bowel sounds Integumentary: no rash, other (no edema ) Neurologic: other (intubated, unresponsive ) - Lab 01/13/19 08:05 01/13/19 12:47 Most recent lab results Calcium 6.9 mg/dL (8.4-10.2) L 01/13/19 12:47 Magnesium 1.80 mg/dL (1.7-2.3) 01/11/19 20:30 Medications & Allergies - Medications Allergies/Adverse Reactions: Allergies No Known Allergies Allergy (Verified 01/04/15 17:02) Home Medications: Home Medications Medication Instructions Recorded Confirmed Last Taken Type oxyCODONE /ACETAMINOPHEN [Percocet 1 tab PO Q4HR PRN #15 tablet 07/29/18 01/11/19 Unknown Rx 5/325 mg] Adalimumab [Humira] 40 mg SQ QWEEK 01/11/19 01/11/19 Unknown History Ascorbic Acid [Vitamin C] 500 mg PO QDAY 01/11/19 01/11/19 Unknown History Ferrous Sulfate [Feosol] 325 mg PO QDAY 01/11/19 01/11/19 Unknown History Loperamide [Imodium] 2 mg PO DAILY 01/11/19 01/11/19 Unknown History Megestrol [Megace] 10 ml PO DAILY 01/11/19 01/11/19 Unknown History Mirtazapine [Remeron 15mg TAB] 30 mg PO QHS 01/11/19 01/11/19 Unknown History Multivit-Min/Iron Fum/Folic AC 1 each PO DAILY 01/11/19 01/11/19 Unknown History [Irlfr-Aafdbwd-Woiqdvyc Tablet] Zinc [Zinc 50mg TAB] 50 mg PO DAILY 01/11/19 01/11/19 Unknown History Active Medications: Generic Name Dose Route Start Last Admin Trade Name Freq PRN Reason Stop Dose Admin Lipase/Protease/Amylase 1 each 01/12/19 03:16 Pancrelyssa Henley 10,500 Unit FEEDTUBE PRN PRN For Clogged Feeding Tube Famotidine 20 mg 01/12/19 10:00 01/13/19 09:38 Pepcid IV 20 mg QAM MAXIUMS Administration Norepinephrine 4 mg in 250 mls @ 7.5 mls/hr 01/11/19 11:00 01/12/19 20:38 Levophed Drip 4 Mg/Ns 250 Ml IV 0 mcg/min TITR MAXIMUS 0 mls/hr Titration Protocol 2 MCG/MIN Cefepime HCl 1 gm in 100 mls @ 200 mls/hr 01/12/19 22:00 01/12/19 21:27 Maxipime/Ns 1 Gm/100 Ml IV 200 mls/hr QHS MAXIMUS Administration Protocol Sodium Bicarbonate 150 meq/ 1,150 mls @ 75 mls/hr 01/12/19 11:15 01/13/19 02:13 Dextrose IV 75 mls/hr DIRECT MAXIMUS Administration Sodium Chloride 500 mls @ 0 mls/hr 01/12/19 11:00 01/13/19 12:57 Nacl 0.9% 500 Ml IV 10 mls/hr DIRECT MAXIMUS Administration As Directed Sodium Chloride 500 mls @ 0 mls/hr 01/13/19 09:30 Nacl 0.9% 500 Ml IV 01/13/19 18:00 ONCE NR As Directed Metoclopramide HCl 5 mg 01/12/19 03:16 Reglan IV Q6H PRN Nausea And Vomiting Simple Syrup 15 ml 01/12/19 03:16 Simple Syrup FEEDTUBE PRN PRN Hypoglycemia Simple Syrup 30 ml 01/12/19 03:16 Simple Syrup FEEDTUBE PRN PRN Hypoglycemia Sodium Bicarbonate 325 mg 01/12/19 03:16 Sodium Bicarbonate FEEDTUBE PRN PRN For Clogged Feeding Tube Sodium Chloride 10 ml 01/12/19 10:00 01/13/19 09:39 Sodium Chloride Flush Syringe 10 Ml IV 10 ml BID MAXIMUS Administration Sodium Chloride 10 ml 01/12/19 03:16 Sodium Chloride Flush Syringe 10 Ml IV PRN PRN LINE FLUSH
[2019-01-13 18:10] LABS: Hematocrit 22.9 % (35.5-45.6); Hemoglobin 7.7 gm/dl (11.8-15.2)
--- NOTE | 2019-01-13 21:02 | Progress Note ---
Assessment and Plan Assessment and plan: Patient is a 53 year old male with pmh significant for HTN, Hydranitis supprativa colon resection with ileostomy and a resident of residential admitted after he was found down for unknown period of time with chart documentation revealing CPR for about 10 mins prior to EMS arrival, and noted to be in PEA, patient was given 1 round of epi and had ROSC and on arrival to the ED was intubated. * Started on 3 pressors following volume resuscitation and now down to Levophed only but remains commatose * Received 2 units of Blood * unable to start Dialysis due to severe hypotension but renal following * captain waiter consulted and discussed case with them, I appreciated their update including well documented discussion with family * CXR: No acute cardiopulmonary abnormality Acute HYPOXIC RESPIRATORY FAILURE s/p non witnessed cardiac arrest Severe Anemia S/P Transfusion 4 units PRBC [place] with vasomotor nephropathy SIRS with organ dysfunction but no clear evidence of sepsis severe Metabolic acidosis Hyponatremia Metabolic Encephalopathy-ACUTE S/P CARDIAC ARREST Hyperkalmia NOW WITH Hypokalemia Hydranitis supprative Plan Continue supportive care in the ICU Continue with Bicarb drip, may be able to start dialysis today Neurology consult considering negative CT head but not waking up Replace K Monitor electrolytes and Na level Attempt to obtain additional records from outside facility on patients clinical condition and any other medical hx Wean Pressors as tolerated Continue Neuro checks Patient was hypothermic on admission, now improved temp and remains unresponsive woundcare consult PROGNOSIS-POOR The high probability of a clinically significant, sudden or life threatening deterioration of the [renal, 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 The aggregate critical care time was [55] minutes. This time is in addition to time spent performing reported procedures but includes the following: [x] Data Review and interpretation [x] Patient assessment and monitoring of vital signs [x] Documentation [x] Medication orders and management History Interval history: Patient seen and examined, remains comatose and on mechanical ventilation with no sedation. No other adverse event reported. transported for ct head scan today Hospitalist Physical - Physical exam Narrative exam: General appearance: Present: other (unresponsive on the vent) - EENT Eyes: Present: PERRL ENT: other (commatos) - Neck Neck: Present: other (unable to full exam, no ridgidty noted) - Respiratory Respiratory effort: other (on ventilator with no spontaneous breathing noted) - Cardiovascular Rhythm: regular Heart Sounds: Present: S1 & S2. Absent: systolic murmur - Extremities Extremities: no ischemia, pulses intact Extremity abnormal: pulses diminished Peripheral Pulses: abnormal (dimished) - Abdominal General gastrointestinal: soft, non-distended, normal bowel sounds, other (ileos ling bag in place) - Integumentary Integumentary: Present: warm (multiple skin lesions around groin and sacrum, dressing in place) - Psychiatric Psychiatric: other (comatos) - Neurologic Neurologic: other (comatose) - Allied Health Allied health notes reviewed: nursing - Constitutional Vitals: Temp Pulse Resp BP Pulse Ox 97.8 F 101 H 9 L 120/67 100 01/13/19 20:40 01/13/19 20:45 01/13/19 20:45 01/13/19 20:45 01/13/19 20:40 General appearance: Present: other (unresponsive on the vent) Results - Labs CBC & Chem 7: 01/13/19 17:55 01/13/19 12:47 Labs: Laboratory Last Values WBC 10.3 K/mm3 (4.5-11.0) 01/13/19 08:05 RBC 2.36 M/mm3 (3.65-5.03) L 01/13/19 08:05 Hgb 7.7 gm/dl (11.8-15.2) L 01/13/19 17:55 Hct 22.9 % (35.5-45.6) L 01/13/19 17:55 MCV 76 fl (84-94) L 01/13/19 08:05 MCH 26 pg (28-32) L 01/13/19 08:05 MCHC 34 % (32-34) 01/13/19 08:05 RDW 23.5 % (13.2-15.2) H 01/13/19 08:05 Plt Count 103 K/mm3 (140-440) L 01/13/19 08:05 Lymph % (Auto) 15.7 % (13.4-35.0) 01/11/19 09:19 [place] % (Auto) 2.8 % (0.0-7.3) 01/12/19 04:15 Eos % (Auto) 0.0 % (0.0-4.3) 01/12/19 04:15 Baso % (Auto) 0.4 % (0.0-1.8) 01/11/19 09:19 Lymph # 1.5 K/mm3 (1.2-5.4) 01/11/19 09:19 [place] # 0.5 K/mm3 (0.0-0.8) 01/12/19 04:15 Eos # 0.0 K/mm3 (0.0-0.4) 01/12/19 04:15 Baso # 0.0 K/mm3 (0.0-0.1) 01/12/19 04:15 Add Manual Diff Complete 01/13/19 08:05 Total Counted 100 01/13/19 08:05 Seg Neutrophils % Laminated [employer]uer 01/11/19 20:30 Seg Neuts % (Manual) 96.0 % (40.0-70.0) H 01/13/19 08:05 0 % 01/13/19 08:05 2.0 % (13.4-35.0) L 01/13/19 08:05 Reactive Lymphs % (Man) 0 % 01/13/19 08:05 2.0 % (0.0-7.3) 01/13/19 08:05 0 % (0.0-4.3) 01/13/19 08:05 0 % (0.0-1.8) 01/13/19 08:05 0 % 01/13/19 08:05 0 % 01/13/19 08:05 0 % 01/13/19 08:05 0 % 01/13/19 08:05 Nucleated RBC % Not Reportable 01/13/19 08:05 Seg Neutrophils # 15.5 K/mm3 (1.8-7.7) H 01/12/19 04:15 Seg Neutrophils # Man 9.9 K/mm3 (1.8-7.7) H 01/13/19 08:05 Band Neutrophils # 0.0 K/mm3 01/13/19 08:05 0.2 K/mm3 (1.2-5.4) L 01/13/19 08:05 Abs React Lymphs (Man) 0.0 K/mm3 01/13/19 08:05 0.2 K/mm3 (0.0-0.8) 01/13/19 08:05 0.0 K/mm3 (0.0-0.4) 01/13/19 08:05 0.0 K/mm3 (0.0-0.1) 01/13/19 08:05 0.0 K/mm3 01/13/19 08:05 0.0 K/mm3 01/13/19 08:05 0.0 K/mm3 01/13/19 08:05 Blast Cells # 0.0 K/mm3 01/13/19 08:05 WBC Morphology Not Reportable 01/13/19 08:05 Hypersegmented Neuts Not Reportable 01/13/19 08:05 Hyposegmented Neuts Not Reportable 01/13/19 08:05 Hypogranular Neuts Not Reportable 01/13/19 08:05 Not Reportable 01/13/19 08:05 Not Reportable 01/13/19 08:05 Not Reportable 01/13/19 08:05 Not Reportable 01/13/19 08:05 Not Reportable 01/13/19 08:05 Not Reportable 01/13/19 08:05 Consistent w auto 01/13/19 08:05 Not Reportable 01/13/19 08:05 Plt Clumps, EDTA Not Reportable 01/13/19 08:05 Not Reportable 01/13/19 08:05 Not Reportable 01/13/19 08:05 Not Reportable 01/13/19 08:05 Plt Morphology Comment Not Reportable 01/13/19 08:05 RBC Morphology Not Reportable 01/13/19 08:05 Dimorphic RBCs Not Reportable 01/13/19 08:05 Not Reportable 01/13/19 08:05 1+ 01/13/19 08:05 Not Reportable 01/13/19 08:05 2+ 01/13/19 08:05 Not Reportable 01/13/19 08:05 Not Reportable 01/13/19 08:05 Not Reportable 01/13/19 08:05 Not Reportable 01/13/19 08:05 Not Reportable 01/13/19 08:05 Not Reportable 01/13/19 08:05 Not Reportable 01/13/19 08:05 Not Reportable 01/13/19 08:05 Not Reportable 01/13/19 08:05 Not Reportable 01/13/19 08:05 Not Reportable 01/13/19 08:05 Not Reportable 01/13/19 08:05 Not Reportable 01/13/19 08:05 Not Reportable 01/13/19 08:05 Not Reportable 01/13/19 08:05 Acanthocytes (Spur) Not Reportable 01/13/19 08:05 [place]leaux Not Reportable 01/13/19 08:05 Not Reportable 01/13/19 08:05 Not Reportable 01/13/19 08:05 Not Reportable 01/13/19 08:05 Not Reportable 01/13/19 08:05 Hem Pathologist Commnt No 01/13/19 08:05 PT 20.3 Sec. (12.2-14.9) H 01/11/19 09:19 INR 1.78 (0.87-1.13) H 01/11/19 09:19 APTT 41.5 Sec. (24.2-36.6) H 01/11/19 09:19 POC ABG pH 7.363 (7.35-7.45) 01/13/19 04:26 POC ABG pCO2 32.1 (35-45) L 01/11/19 11:15 POC ABG pO2 122 (80-105) H 01/13/19 04:26 POC ABG HCO3 12.8 (22-26 mml/L) 01/13/19 04:26 POC ABG Total CO2 14 (23-27mmol/L) 01/13/19 04:26 POC ABG O2 Sat 99 01/13/19 04:26 POC ABG Base Excess -13 ((-2) - (+3)mmol/L) 01/13/19 04:26 30 % 01/13/19 04:26 Sodium 134 mmol/L (137-145) L 01/13/19 12:47 Potassium 3.3 mmol/L (3.6-5.0) L 01/13/19 12:47 Chloride 104.5 mmol/L (98-107) 01/13/19 12:47 Carbon Dioxide 14 mmol/L (22-30) L 01/13/19 12:47 19 mmol/L 01/13/19 12:47 BUN 122 mg/dL (9-20) H 01/13/19 12:47 7.5 mg/dL (0.8-1.5) H 01/13/19 12:47 Estimated GFR 9 ml/min 01/13/19 12:47 16 % 01/13/19 12:47 Glucose 99 mg/dL (75-100) 01/13/19 12:47 POC Glucose 119 (70-105) H 01/13/19 17:43 Lactic Acid 4.70 mmol/L (0.7-2.0) H* 01/11/19 15:10 Calcium 6.9 mg/dL (8.4-10.2) L 01/13/19 12:47 Magnesium 1.80 mg/dL (1.7-2.3) 01/11/19 20:30 0.20 mg/dL (0.1-1.2) 01/13/19 05:30 AST 20 units/L (5-40) 01/13/19 05:30 ALT 14 units/L (7-56) 01/13/19 05:30 75 units/L (35-129) 01/13/19 05:30 167.0 umol/L (25-60) H 01/11/19 09:19 244 units/L (55-170) H 01/11/19 09:19 CK-MB (CK-2) 10.1 ng/mL (0.0-4.0) H 01/11/19 09:19 CK-MB (CK-2) Rel Index 4.1 (0-4) H 01/11/19 09:19 0.094 ng/mL (0.00-0.029) H 01/11/19 09:19 NT-Pro-B Natriuret Pep 2056 pg/mL (0-900) H 01/11/19 09:19 5.2 g/dL (6.3-8.2) L D 01/13/19 05:30 1.5 g/dL (3.9-5) L 01/13/19 05:30 0.4 % 01/13/19 05:30 TSH 3.310 mlU/mL (0.270-4.200) 01/11/19 09:19 Free T4 1.04 ng/dL (0.76-1.46) 01/11/19 09:19 Yellow (Yellow) 01/11/19 03:30 Hazy (Clear) 01/11/19 03:30 5.0 (5.0-7.0) 01/11/19 03:30 Ur Specific [place] 1.012 (1.003-1.030) 01/11/19 03:30 <15 mg/dl mg/dL (Negative) 01/11/19 03:30 Neg mg/dL (Negative) 01/11/19 03:30 Neg mg/dL (Negative) 01/11/19 03:30 Sm (Negative) 01/11/19 03:30 Neg (Negative) 01/11/19 03:30 Ur Reducing Substances Not Reportable 01/11/19 03:30 Neg (Negative) 01/11/19 03:30 Not Reportable 01/11/19 03:30 < 2.0 mg/dL (<2.0) 01/11/19 03:30 Ur Leukocyte Esterase Sm (Negative) 01/11/19 03:30 3.0 /HPF (0.0-6.0) 01/11/19 03:30 8.0 /HPF (0.0-6.0) 01/11/19 03:30 1+ /HPF (Negative) 01/11/19 03:30 Not Reportable 01/11/19 03:30 Blood Type O POSITIVE 01/11/19 10:08 Antibody Screen Negative 01/11/19 10:08 Crossmatch See Detail 01/11/19 10:08 Active Medications - Current Medications Current Medications: Generic Name Dose Route Start Last Admin Trade Name Freq PRN Reason Stop Dose Admin Lipase/Protease/Amylase 1 each 01/12/19 03:[address] 10,500 Unit FEEDTUBE PRN PRN For Clogged Feeding Tube Famotidine 20 mg 01/12/19 10:00 01/13/19 09:38 Pepcid IV 20 mg QAM MAXIMUS Administration Norepinephrine 4 mg in 250 mls @ 7.5 mls/hr 01/11/19 11:00 01/12/19 20:38 Levophed Drip 4 Mg/Ns 250 Ml IV 0 mcg/min TITR MAXIMUS 0 mls/hr Titration Protocol 2 MCG/MIN Cefepime HCl 1 gm in 100 mls @ 200 mls/hr 01/12/19 22:00 01/12/19 21:27 Maxipime/Ns 1 Gm/100 Ml IV 200 mls/hr QHS MAXIMUS Administration Protocol Sodium Chloride 500 mls @ 0 mls/hr 01/12/19 11:00 01/13/19 12:57 Nacl 0.9% 500 Ml IV 10 mls/hr DIRECT MAXIMUS Administration As Directed Sodium Chloride 1,000 mls @ 100 mls/hr 01/13/19 15:00 01/13/19 14:44 Nacl 0.9% 1000 Ml IV 100 mls/hr DIRECT MAXIMUS Administration Metoclopramide HCl 5 mg 01/12/19 03:16 Reglan IV Q6H PRN Nausea And Vomiting Simple Syrup 15 ml 01/12/19 03:16 Simple Syrup FEEDTUBE PRN PRN Hypoglycemia Simple Syrup 30 ml 01/12/19 03:16 Simple Syrup FEEDTUBE PRN PRN Hypoglycemia Sodium Bicarbonate 325 mg 01/12/19 03:16 Sodium Bicarbonate FEEDTUBE PRN PRN For Clogged Feeding Tube Sodium Chloride 10 ml 01/12/19 10:00 01/13/19 09:39 Sodium Chloride Flush Syringe 10 Ml IV 10 ml BID MAXIMUS Administration Sodium Chloride 10 ml 01/12/19 03:16 Sodium Chloride Flush Syringe 10 Ml IV PRN PRN LINE FLUSH Nutrition/Malnutrition Assess - Dietary Evaluation Nutrition/Malnutrition Findings: Nutrition Notes Start: 01/12/19 13:16 Freq: Status: Active Protocol: Document 01/12/19 13:16 RM (Rec: 01/12/19 13:29 RM [id number]) Nutrition Notes Need for Assessment generated from: MD Order Initial or Follow up Assessment Current Diagnosis Hypertension,Respiratory Failure Other Pertinent Diagnosis ESRD on HD, Multiple wounds Current Diet TF (blank) Labs/Tests K 6.5 Pertinent Medications Levophed Height 5 ft 6 in Weight 59.6 kg [place] Body Weight (kg) 64.54 BMI 21.2 Subjective/Other Information Consulted for TF recommendation. Pt on vent. Burn Absent Trauma Absent #2 Nutrition Diagnosis Increased nutrient needs ( specify in comment below) Comments: glutamine, arginine Etiology wound healing As Evidenced by Signs and Symptoms mutiple wounds #1 Nutrition Diagnosis Inadequate oral intake Etiology on vent As Evidenced by Signs and Symptoms TF consult Is patient on ventilator? Yes Is Patient Ambulatory and/or Out of Bed No REE-([facility]-confined to bed) [phone] Calculation Used for Recommendations Nat Medeiros Additional Notes Protein Needs: 72-119g (1.2-2g /kg) Fluid Needs: 1 ml/kcal Nutrition Intervention Nutrition Support: Nepro at 40 ml/hr Water flush of 150 mls q 4 hrs Kcal 1,728 Protein (gm) 78 Fluid (mL) 698 Add Supplement/Snack (indicate name/kcal Jake BID /protein ) Provides kCal: 190 Provides Protein (gm) 5 Goal #1 TF tolerance Goal #2 Meet at least 80% of calorie and protein needs via TF Anticipated Discharge Needs: Unable to determine at this time Follow-Up By: 01/16/19 Additional Comments Follow for new TF
[2019-01-13] MEDS: MAXIPIME/NS 1 GM/100 ML 1 GM/100 ML BAG IV SCH (22:49)
--- NOTE | 2019-01-13 23:46 | Progress Note ---
Assessment and Plan Out of the hospital Cardiac arrest intubated on the vent support GI bleed Severe Anemia s/p transfusion of PRBCs Metabolic acidosis Severe Renal failure Severe hyperkalemia Severe Volume depletion Echocardiogram showing normal LVEF Recommend: No further cardiac intervention is needed Supportive ICU care Thank you for the consult. no further cardiac recommendation at this time. Please re-consult as needed. Subjective Date of service: 01/14/19 Principal diagnosis: [place] Interval history: No acute events. Resting comfortably. No chest pain or SOB. Objective Vital Signs Temp Pulse Pulse Resp BP Pulse Ox 01/13/19 23:15 94 H 11 L 119/74 01/13/19 23:04 97.4 F L 01/13/19 23:00 98 H 11 L 111/72 98 01/13/19 22:45 92 H 14 112/71 01/13/19 22:30 101 H 16 124/69 01/13/19 22:15 98 H 14 111/68 01/13/19 22:00 88 20 120/71 99 01/13/19 21:45 95 H 7 L 116/69 99 01/13/19 21:41 100 H 18 112/66 100 01/13/19 21:30 100 H 10 L 112/66 01/13/19 21:15 97.6 F 94 H 8 L 113/66 100 01/13/19 21:00 100 H 8 L 118/85 98 01/13/19 20:45 101 H 9 L 120/67 01/13/19 20:40 97.8 F 96 H 18 120/67 100 01/13/19 20:30 106 H 8 L 111/68 01/13/19 20:24 101 H 111/68 99 01/13/19 20:15 93 H 17 118/70 01/13/19 20:00 97.4 F L 94 H 98 H 18 119/67 100 01/13/19 19:45 95 H 14 114/66 01/13/19 19:30 90 17 107/65 01/13/19 19:15 93 H 10 L 116/68 100 01/13/19 19:00 96 H 13 117/71 01/13/19 18:45 92 H 16 111/68 100 01/13/19 18:30 93 H 12 101/72 100 01/13/19 18:15 94 H 16 107/70 01/13/19 18:00 99 H 10 L 116/66 100 01/13/19 17:45 93 H 9 L 113/68 01/13/19 17:43 96.4 F L 95 H 16 117/67 100 01/13/19 17:30 94 H 14 117/67 98 01/13/19 17:15 92 H 17 114/71 99 01/13/19 17:12 96.6 F L 94 H 16 111/66 99 01/13/19 17:00 95 H 13 113/67 99 01/13/19 16:47 93 H 113/67 99 01/13/19 16:45 91 H 13 113/67 100 01/13/19 16:42 96.4 F L 96 H 16 113/67 100 01/13/19 16:30 87 14 108/66 100 01/13/19 16:15 87 17 99/58 99 01/13/19 16:12 96.8 F L 90 16 109/66 100 01/13/19 16:01 94 H 9 L 99/58 100 01/13/19 16:00 97.0 F L 98 H 16 99 01/13/19 15:45 105 H 14 99/58 100 01/13/19 15:42 97 F L 106 H 16 99/58 100 01/13/19 15:30 104 H 10 L 99/58 99 01/13/19 15:15 105 H 8 L 122/73 100 01/13/19 15:12 96.6 F L 94 H 16 122/73 100 01/13/19 15:00 97 H 10 L 113/71 100 01/13/19 14:45 96 H 9 L 117/71 01/13/19 14:42 96.4 F L 101 H 16 117/71 100 01/13/19 14:30 86 11 L 118/69 01/13/19 14:15 99 H 9 L 123/77 100 01/13/19 14:12 96.4 F L 97 H 16 119/70 01/13/19 14:11 95 H 10 L 119/70 100 01/13/19 14:00 99 H 8 L 119/70 100 01/13/19 13:57 96.2 F L 01/13/19 13:51 105 H 10 L 112/69 100 01/13/19 13:41 96 H 11 L 112/74 100 01/13/19 13:30 95 H 10 L 112/74 99 01/13/19 13:15 99 H 8 L 122/75 100 01/13/19 13:00 107 H 12 116/75 100 01/13/19 12:51 102 H 116/75 100 01/13/19 12:45 99 H 9 L 130/77 01/13/19 12:33 104 H 16 100 01/13/19 12:00 96.5 F L 104 H 10 L 113/73 100 01/13/19 11:45 96 H 10 L 115/72 01/13/19 11:30 101 H 9 L 122/78 01/13/19 11:15 101 H 13 129/77 01/13/19 11:00 97 H 9 L 111/70 100 01/13/19 10:45 100 H 8 L 121/67 01/13/19 10:30 99 H 8 L 112/67 100 01/13/19 10:15 97 H 12 114/67 100 01/13/19 10:00 95 H 13 113/69 100 01/13/19 09:45 95 H 12 112/68 100 01/13/19 09:30 104 H 13 111/71 100 01/13/19 09:15 100 H 9 L 106/64 01/13/19 09:00 101 H 15 110/67 100 01/13/19 08:52 101 H 118/81 100 01/13/19 08:45 101 H 10 L 118/81 100 01/13/19 08:30 97 H 10 L 109/71 100 01/13/19 08:15 105 H 13 109/79 100 01/13/19 08:00 96 F L 97 H 101 H 8 L 112/70 100 01/13/19 07:45 100 H 9 L 118/73 01/13/19 07:30 101 H 11 L 118/68 01/13/19 07:15 102 H 9 L 109/73 01/13/19 07:00 100 H 9 L 114/75 100 01/13/19 06:45 99 H 10 L 111/70 100 01/13/19 06:30 97 H 9 L 120/72 100 01/13/19 06:15 100 H 10 L 117/71 100 01/13/19 06:00 103 H 13 107/66 100 01/13/19 05:45 97 H 9 L 107/66 01/13/19 05:30 97 H 9 L 113/64 01/13/19 05:15 97 H 9 L 107/67 01/13/19 05:00 98 H 8 L 106/69 01/13/19 04:45 98 H 8 L 110/68 01/13/19 04:30 99 H 8 L 118/66 01/13/19 04:15 95 H 7 L 105/66 01/13/19 04:08 101 H 108/67 100 01/13/19 04:00 102 H 102 H 10 L 108/67 100 01/13/19 03:45 99 H 9 L 112/67 01/13/19 03:30 102 H 10 L 118/73 100 01/13/19 03:19 97.4 F L 01/13/19 03:15 98 H 13 115/67 01/13/19 03:00 101 H 11 L 122/71 100 01/13/19 02:45 99 H 10 L 112/70 01/13/19 02:30 96 H 12 108/68 01/13/19 02:15 98 H 9 L 107/67 01/13/19 02:00 100 H 11 L 106/70 01/13/19 01:45 99 H 10 L 118/78 100 01/13/19 01:32 96 H 01/13/19 01:30 97 H 11 L 121/71 01/13/19 01:15 98 H 10 L 116/69 01/13/19 01:00 98 H 9 L 106/68 100 01/13/19 00:45 98 H 10 L 115/75 100 01/13/19 00:30 94 H 8 L 105/72 01/13/19 00:15 97 H 9 L 112/72 100 01/13/19 00:00 98 H 97 H 22 112/76 100 01/12/19 23:48 96 H 112/76 100 - Physical Examination Neck: Positive: neck supple - Labs and Meds Cardiac Enzymes 01/13/19 Range/Units 05:30 AST 20 (5-40) units/L CBC 01/13/19 01/13/19 01/13/19 Range/Units 01:30 08:05 17:55 WBC 10.3 (4.5-11.0) K/mm3 RBC 2.36 L (3.65-5.03) M/mm3 Hgb 6.7 L 6.1 L 7.7 L (11.8-15.2) gm/dl Hct 20.5 L 18.0 L* 22.9 L (35.5-45.6) % Plt Count 103 L (140-440) K/mm3 Comprehensive Metabolic Panel 01/13/19 01/13/19 01/13/19 Range/Units 01:30 05:30 08:05 Sodium 131 L 135 L 136 L (137-145) mmol/L Potassium 3.7 3.3 L 3.2 L (3.6-5.0) mmol/L Chloride 98.7 103.7 106.2 (98-107) mmol/L Carbon Dioxide 14 L 14 L 15 L (22-30) mmol/L BUN 150 H 125 H 113 H (9-20) mg/dL Creatinine 9.6 H 9.0 H 8.0 H (0.8-1.5) mg/dL Glucose 101 H 96 127 H (75-100) mg/dL Calcium 7.5 L 6.9 L 6.6 L (8.4-10.2) mg/dL AST 20 (5-40) units/L ALT 14 (7-56) units/L Alkaline Phosphatase 75 (35-129) units/L Total Protein 5.2 L D (6.3-8.2) g/dL Albumin 1.5 L (3.9-5) g/dL 01/13/19 Range/Units 12:47 Sodium 134 L (137-145) mmol/L Potassium 3.3 L (3.6-5.0) mmol/L Chloride 104.5 (98-107) mmol/L Carbon Dioxide 14 L (22-30) mmol/L BUN 122 H (9-20) mg/dL Creatinine 7.5 H (0.8-1.5) mg/dL Glucose 99 (75-100) mg/dL Calcium 6.9 L (8.4-10.2) mg/dL AST (5-40) units/L ALT (7-56) units/L Alkaline Phosphatase (35-129) units/L Total Protein (6.3-8.2) g/dL Albumin (3.9-5) g/dL
[2019-01-14] MEDS: SODIUM CHLORIDE FLUSH SYRINGE 10 ML IV SCH ×2 (00:45→09:24)
[2019-01-14] MEDS: NACL 0.9% 1000 ML 1,000 ML IV SCH ×3 (01:03→20:30)
[2019-01-14 05:20] LABS: Hemoglobin 8.8 gm/dl (11.8-15.2); Mean Corpuscular HGB Conc 34 % (32-34); Mean Corpuscular Volume 79 fl (84-94); Platelet Count 100 K/mm3 (140-440)
[2019-01-14 05:23] LABS: Calcium 7.2 mg/dL (8.4-10.2)
[2019-01-14 05:51] LABS: Red Cell Distribution Width 23.3 % (13.2-15.2)
[2019-01-14 08:00] LABS: Basophils % (Manual) 0 % (0.0-1.8); Eosinophils % (Manual) 0 % (0.0-4.3); Total Cells Counted 100
[2019-01-14 08:01] LABS: Hypochromasia 1+; Platelet Estimate Consistent w Auto
[2019-01-14] MEDS: PEPCID IV SCH (09:23)
[2019-01-14] MEDS ORDERED: VANCOMYCIN/NS 1 GM/250 ML 1 GM/250 ML BAG IV ONE (10:00)
--- NOTE | 2019-01-14 11:42 | Progress Note ---
Assessment and Plan - Patient Problems (1) Acute kidney injury with acute tubular necrosis Current Visit: Yes Status: Acute Plan to address problem: acute renal failure secondary to ischemic ATN in the setting of hemorrhagic/septic shock. Improving renal function with IVF, blood transfusion and s/p vasopressor support. pt is now weaned off vasopressors. metabolic acidosis corrected with bicarb gtt, changed IVF to NS. No emergent indication for renal replacement therapy at present, pt remains non- oliguric. Cont supportive care for ATN, avoid nephrotoxins, NSAIDS, IV contrast. (2) Hemorrhagic shock Current Visit: Yes Status: Acute Plan to address problem: s/p another 2PRBC transfusion yesterday, Hb improved to 8.8 (3) Cardiac arrest Current Visit: Yes Status: Acute Plan to address problem: s/p ACLS, now with ROSC. (4) Sepsis Current Visit: No Status: Acute Qualifiers: Sepsis type: sepsis due to unspecified organism Qualified Code(s): A41.9 - Sepsis, unspecified organism Plan to address problem: follow UCx, BCx, initated on empiric ABXs, follow ID recommendations. (5) Metabolic acidosis Current Visit: Yes Status: Acute Plan to address problem: secondary to lactic acidosis, improved s/p bicarb gtt along with stable hemodynamics (6) Hyponatremia Current Visit: Yes Status: Acute Plan to address problem: improved with IV NS (7) Hypokalemia Current Visit: Yes Status: Acute Plan to address problem: s/p K supplementation with KDur 40meq Subjective Date of service: 01/14/19 Principal diagnosis: [place] Interval history: Pt remains intubated, unresponsive. off vasopressors Objective - Vital Signs Vital signs: Vital Signs - 12hr 01/13/19 01/14/19 01/14/19 23:45 00:00 00:15 Temperature Pulse Rate 103 H 104 H 100 H Pulse Rate [ 105 H From Monitor] Respiratory 14 10 L 15 Rate Blood Pressure 126/72 115/69 120/73 O2 Sat by Pulse 99 99 Oximetry 01/14/19 01/14/19 01/14/19 00:30 00:45 01:00 Temperature Pulse Rate 98 H 98 H 103 H Pulse Rate [ From Monitor] Respiratory 16 12 20 Rate Blood Pressure 111/71 117/70 120/71 O2 Sat by Pulse 98 99 Oximetry 01/14/19 01/14/19 01/14/19 01:07 01:15 01:30 Temperature Pulse Rate 103 H 103 H 101 H Pulse Rate [ From Monitor] Respiratory 26 H 13 Rate Blood Pressure 120/71 122/68 124/72 O2 Sat by Pulse 96 99 98 Oximetry 01/14/19 01/14/19 01/14/19 01:45 02:00 02:15 Temperature Pulse Rate 103 H 97 H 101 H Pulse Rate [ From Monitor] Respiratory 12 15 14 Rate Blood Pressure 110/70 113/68 113/69 O2 Sat by Pulse 98 98 99 Oximetry 01/14/19 01/14/19 01/14/19 02:30 02:45 03:00 Temperature Pulse Rate 103 H 102 H 100 H Pulse Rate [ From Monitor] Respiratory 17 13 14 Rate Blood Pressure 121/69 114/68 128/66 O2 Sat by Pulse 98 99 98 Oximetry 01/14/19 01/14/19 01/14/19 03:15 03:30 03:45 Temperature Pulse Rate 106 H 106 H 98 H Pulse Rate [ From Monitor] Respiratory 20 22 26 H Rate Blood Pressure 119/68 123/70 113/68 O2 Sat by Pulse 100 98 99 Oximetry 01/14/19 01/14/19 01/14/19 03:47 04:00 04:15 Temperature 97.8 F Pulse Rate 105 H 105 H Pulse Rate [ 105 H From Monitor] Respiratory 15 17 Rate Blood Pressure 115/75 123/75 O2 Sat by Pulse 98 99 Oximetry 01/14/19 01/14/19 01/14/19 04:30 04:45 04:54 Temperature Pulse Rate 109 H 107 H 101 H Pulse Rate [ From Monitor] Respiratory 8 L 8 L Rate Blood Pressure 120/72 123/77 123/77 O2 Sat by Pulse 99 98 99 Oximetry 01/14/19 01/14/19 01/14/19 05:00 05:15 05:30 Temperature Pulse Rate 103 H 102 H 99 H Pulse Rate [ From Monitor] Respiratory 8 L 9 L 12 Rate Blood Pressure 123/77 112/70 118/74 O2 Sat by Pulse 99 98 Oximetry 01/14/19 01/14/19 01/14/19 05:45 06:00 06:15 Temperature Pulse Rate 101 H 101 H 101 H Pulse Rate [ From Monitor] Respiratory 16 9 L 19 Rate Blood Pressure 116/73 109/70 111/72 O2 Sat by Pulse 97 Oximetry 01/14/19 01/14/19 01/14/19 06:30 06:45 07:00 Temperature Pulse Rate 98 H 100 H 98 H Pulse Rate [ From Monitor] Respiratory 14 14 13 Rate Blood Pressure 115/72 112/73 122/77 O2 Sat by Pulse 98 Oximetry 01/14/19 01/14/19 01/14/19 07:15 07:30 07:45 Temperature Pulse Rate 96 H 98 H 102 H Pulse Rate [ From Monitor] Respiratory 15 13 13 Rate Blood Pressure 111/73 114/72 109/78 O2 Sat by Pulse 98 98 Oximetry 01/14/19 01/14/19 01/14/19 08:00 08:15 08:30 Temperature 97.9 F Pulse Rate 96 H 107 H 103 H Pulse Rate [ 102 H From Monitor] Respiratory 12 12 10 L Rate Blood Pressure 118/71 126/76 120/76 O2 Sat by Pulse 98 98 96 Oximetry 01/14/19 01/14/19 01/14/19 08:45 09:00 09:15 Temperature Pulse Rate 96 H 101 H 111 H Pulse Rate [ From Monitor] Respiratory 16 13 11 L Rate Blood Pressure 118/75 117/75 129/82 O2 Sat by Pulse 99 Oximetry 01/14/19 01/14/19 01/14/19 09:30 09:45 10:00 Temperature Pulse Rate 106 H 105 H 98 H Pulse Rate [ From Monitor] Respiratory 9 L 19 13 Rate Blood Pressure 127/80 120/84 117/82 O2 Sat by Pulse 98 98 99 Oximetry 01/14/19 01/14/19 01/14/19 10:15 10:30 10:45 Temperature Pulse Rate 97 H 101 H 101 H Pulse Rate [ From Monitor] Respiratory 21 18 12 Rate Blood Pressure 128/81 131/82 133/87 O2 Sat by Pulse 99 100 100 Oximetry - General Appearance General appearance: appears stated age, chronically ill, intubated, frail, comatose EENT: ATNC, mucous membranes dry Neck: no JVD Respiratory: Present: Decreased Breath Sounds Cardiology: regular, S1S2 Gastrointestinal: normoactive bowel sounds Integumentary: no rash, other (no edema ) Neurologic: other (intubated, comatose ) - Lab 01/14/19 04:35 01/14/19 04:35 Most recent lab results Calcium 7.2 mg/dL (8.4-10.2) L 01/14/19 04:35 Phosphorus 5.30 mg/dL (2.5-4.5) H 01/14/19 04:35 Magnesium 1.20 mg/dL (1.7-2.3) L 01/14/19 04:35 Medications & Allergies - Medications Allergies/Adverse Reactions: Allergies No Known Allergies Allergy (Verified 01/04/15 17:02) Home Medications: Home Medications Medication Instructions Recorded Confirmed Last Taken Type oxyCODONE /ACETAMINOPHEN [Percocet 1 tab PO Q4HR PRN #15 tablet 07/29/18 Unknown Rx 5/325 mg] Adalimumab [Humira] 40 mg SQ QWEEK 01/11/19 01/11/19 Unknown History Ascorbic Acid [Vitamin C] 500 mg PO QDAY 01/11/19 01/11/19 Unknown History Ferrous Sulfate [Feosol] 325 mg PO QDAY 01/11/19 01/11/19 Unknown History Loperamide [Imodium] 2 mg PO DAILY 01/11/19 01/11/19 Unknown History Megestrol [Megace] 10 ml PO DAILY 01/11/19 01/11/19 Unknown History Mirtazapine [Remeron 15mg TAB] 30 mg PO QHS 01/11/19 01/11/19 Unknown History Multivit-Min/Iron Fum/Folic AC 1 each PO DAILY 01/11/19 01/11/19 Unknown History [Jaorl-[id number]-[id number] Tablet] Zinc [Zinc 50mg TAB] 50 mg PO DAILY 01/11/19 01/11/19 Unknown History Active Medications: Generic Name Dose Route Start Last Admin Trade Name Freq PRN Reason Stop Dose Admin Lipase/Protease/Amylase 1 each 01/12/19 03:[address] 10,500 Unit FEEDTUBE PRN PRN For Clogged Feeding Tube Famotidine 20 mg 01/12/19 10:00 01/14/19 09:23 Pepcid IV 20 mg QAM MAXIMUS Administration Norepinephrine 4 mg in 250 mls @ 7.5 mls/hr 01/11/19 11:00 01/12/19 20:38 Levophed Drip 4 Mg/Ns 250 Ml IV 0 mcg/min TITR MAXIMUS 0 mls/hr Titration Protocol 2 MCG/MIN Cefepime HCl 1 gm in 100 mls @ 200 mls/hr 01/12/19 22:00 01/13/19 22:49 Maxipime/Ns 1 Gm/100 Ml IV 200 mls/hr QHS MAXIMUS Administration Protocol Sodium Chloride 500 mls @ 0 mls/hr 01/12/19 11:00 01/13/19 12:57 Nacl 0.9% 500 Ml IV 10 mls/hr DIRECT MAXIMUS Administration As Directed Sodium Chloride 1,000 mls @ 75 mls/hr 01/13/19 15:00 01/14/19 09:24 Nacl 0.9% 1000 Ml IV 100 mls/hr DIRECT MAXIMUS Administration Metoclopramide HCl 5 mg 01/12/19 03:16 Reglan IV Q6H PRN Nausea And Vomiting Simple Syrup 15 ml 01/12/19 03:16 Simple Syrup FEEDTUBE PRN PRN Hypoglycemia Simple Syrup 30 ml 01/12/19 03:16 Simple Syrup FEEDTUBE PRN PRN Hypoglycemia Sodium Bicarbonate 325 mg 01/12/19 03:16 Sodium Bicarbonate FEEDTUBE PRN PRN For Clogged Feeding Tube Sodium Chloride 10 ml 01/12/19 10:00 01/14/19 09:24 Sodium Chloride Flush Syringe 10 Ml IV 10 ml BID MAXIMUS Administration Sodium Chloride 10 ml 01/12/19 03:16 Sodium Chloride Flush Syringe 10 Ml IV PRN PRN LINE FLUSH
--- NOTE | 2019-01-14 12:34 | Progress Note ---
Assessment and Plan - Patient Problems (1) Acute respiratory failure Current Visit: Yes Status: Acute (2) Acute kidney injury with acute tubular necrosis Current Visit: Yes Status: Acute (3) Acute renal failure Current Visit: Yes Status: Acute (4) Cardiac arrest Current Visit: Yes Status: Acute (5) Hemorrhagic shock Current Visit: Yes Status: Acute (6) Hepatic encephalopathy Current Visit: Yes Status: Acute (7) Metabolic acidosis Current Visit: Yes Status: Acute (8) Debility Current Visit: No Status: Acute (9) Nicotine dependence Current Visit: No Status: Acute Qualifiers: Nicotine product type: cigarettes (10) Sepsis Current Visit: No Status: Acute Qualifiers: Sepsis type: sepsis due to unspecified organism Qualified Code(s): A41.9 - Sepsis, unspecified organism (11) Electrolyte abnormality Current Visit: Yes Status: Acute Subjective Principal diagnosis: [place] Interval history: On vent No active weaning Objective Vital Signs - 12hr 01/14/19 01/14/19 01/14/19 00:45 01:00 01:07 Temperature Pulse Rate 98 H 103 H 103 H Pulse Rate [ From Monitor] Respiratory 12 20 Rate Blood Pressure 117/70 120/71 120/71 O2 Sat by Pulse 98 99 96 Oximetry 01/14/19 01/14/19 01/14/19 01:15 01:30 01:45 Temperature Pulse Rate 103 H 101 H 103 H Pulse Rate [ From Monitor] Respiratory 26 H 13 12 Rate Blood Pressure 122/68 124/72 110/70 O2 Sat by Pulse 99 98 98 Oximetry 01/14/19 01/14/19 01/14/19 02:00 02:15 02:30 Temperature Pulse Rate 97 H 101 H 103 H Pulse Rate [ From Monitor] Respiratory 15 14 17 Rate Blood Pressure 113/68 113/69 121/69 O2 Sat by Pulse 98 99 98 Oximetry 01/14/19 01/14/19 01/14/19 02:45 03:00 03:15 Temperature Pulse Rate 102 H 100 H 106 H Pulse Rate [ From Monitor] Respiratory 13 14 20 Rate Blood Pressure 114/68 128/66 119/68 O2 Sat by Pulse 99 98 100 Oximetry 01/14/19 01/14/19 01/14/19 03:30 03:45 03:47 Temperature 97.8 F Pulse Rate 106 H 98 H Pulse Rate [ From Monitor] Respiratory 22 26 H Rate Blood Pressure 123/70 113/68 O2 Sat by Pulse 98 99 Oximetry 01/14/19 01/14/19 01/14/19 04:00 04:15 04:30 Temperature Pulse Rate 105 H 105 H 109 H Pulse Rate [ 105 H From Monitor] Respiratory 15 17 8 L Rate Blood Pressure 115/75 123/75 120/72 O2 Sat by Pulse 98 99 99 Oximetry 01/14/19 01/14/19 01/14/19 04:45 04:54 05:00 Temperature Pulse Rate 107 H 101 H 103 H Pulse Rate [ From Monitor] Respiratory 8 L 8 L Rate Blood Pressure 123/77 123/77 123/77 O2 Sat by Pulse 98 99 99 Oximetry 01/14/19 01/14/19 01/14/19 05:15 05:30 05:45 Temperature Pulse Rate 102 H 99 H 101 H Pulse Rate [ From Monitor] Respiratory 9 L 12 16 Rate Blood Pressure 112/70 118/74 116/73 O2 Sat by Pulse 98 Oximetry 01/14/19 01/14/19 01/14/19 06:00 06:15 06:30 Temperature Pulse Rate 101 H 101 H 98 H Pulse Rate [ From Monitor] Respiratory 9 L 19 14 Rate Blood Pressure 109/70 111/72 115/72 O2 Sat by Pulse 97 Oximetry 01/14/19 01/14/19 01/14/19 06:45 07:00 07:15 Temperature Pulse Rate 100 H 98 H 96 H Pulse Rate [ From Monitor] Respiratory 14 13 15 Rate Blood Pressure 112/73 122/77 111/73 O2 Sat by Pulse 98 Oximetry 01/14/19 01/14/19 01/14/19 07:30 07:45 08:00 Temperature 97.9 F Pulse Rate 98 H 102 H 96 H Pulse Rate [ 102 H From Monitor] Respiratory 13 13 12 Rate Blood Pressure 114/72 109/78 118/71 O2 Sat by Pulse 98 98 98 Oximetry 01/14/19 01/14/19 01/14/19 08:15 08:30 08:45 Temperature Pulse Rate 107 H 103 H 96 H Pulse Rate [ From Monitor] Respiratory 12 10 L 16 Rate Blood Pressure 126/76 120/76 118/75 O2 Sat by Pulse 98 96 Oximetry 01/14/19 01/14/19 01/14/19 09:00 09:15 09:30 Temperature Pulse Rate 101 H 111 H 106 H Pulse Rate [ From Monitor] Respiratory 13 11 L 9 L Rate Blood Pressure 117/75 129/82 127/80 O2 Sat by Pulse 99 98 Oximetry 01/14/19 01/14/19 01/14/19 09:45 10:00 10:15 Temperature Pulse Rate 105 H 98 H 97 H Pulse Rate [ From Monitor] Respiratory 19 13 21 Rate Blood Pressure 120/84 117/82 128/81 O2 Sat by Pulse 98 99 99 Oximetry 01/14/19 01/14/19 01/14/19 10:30 10:45 11:00 Temperature Pulse Rate 101 H 101 H 103 H Pulse Rate [ From Monitor] Respiratory 18 12 22 Rate Blood Pressure 131/82 133/87 126/78 O2 Sat by Pulse 100 100 Oximetry 01/14/19 01/14/19 01/14/19 11:15 11:30 11:45 Temperature Pulse Rate 108 H 109 H 105 H Pulse Rate [ From Monitor] Respiratory 25 H 19 19 Rate Blood Pressure 122/82 128/80 111/83 O2 Sat by Pulse 99 99 99 Oximetry 01/14/19 12:00 Temperature 97.3 F L Pulse Rate 108 H Pulse Rate [ 108 H From Monitor] Respiratory 24 Rate Blood Pressure 118/76 O2 Sat by Pulse 99 Oximetry Constitutional: comatose, other (critically ill on vent) Eyes: non-icteric ENT: other (orally intubated and not medically sedated) Neck: supple Effort: normal Ascultation: Bilateral: other (coarse BS bilaterally) Percussion: Bilateral: not dull Cardiovascular: regular rate and rhythm (no mrg) Gastrointestinal: other (colostomy with brown output per nursing) Extremities: no cyanosis, no edema Neurologic: other (unresponsive, mild increased tone RUE but flaccid other extremities) Psychiatric: other (not able to assess) CBC and BMP: 01/14/19 04:35 01/14/19 04:35 ABG, PT/INR, D-dimer: ABG POC ABG pH 7.399 (7.35-7.45) 01/14/19 05:45 POC ABG pO2 143 (80-105) H 01/14/19 05:45 POC ABG HCO3 13.7 (22-26 mml/L) 01/14/19 05:45 POC ABG Total CO2 14 (23-27mmol/L) 01/14/19 05:45 POC ABG O2 Sat 99 01/14/19 05:45 PT/INR, D-dimer PT 20.3 Sec. (12.2-14.9) H 01/11/19 09:19 INR 1.78 (0.87-1.13) H 01/11/19 09:19 Abnormal lab findings: Abnormal Labs 01/11/19 01/11/19 01/11/19 09:19 09:19 09:19 WBC RBC 2.42 L Hgb 5.7 L* Hct 17.5 L* MCV 72 L MCH 24 L RDW 20.9 H Plt Count Seg Neutrophils % 83.0 H Seg Neuts % (Manual) Lymphocytes % (Manual) Seg Neutrophils # 7.8 H Seg Neutrophils # Man Lymphocytes # (Manual) PT 20.3 H INR 1.78 H APTT 41.5 H POC ABG pH POC ABG pCO2 POC ABG pO2 Sodium 113 L* Potassium 7.2 H* Chloride 72.7 L Carbon Dioxide 10 L BUN 197 H Creatinine 13.7 H Glucose 258 H POC Glucose Lactic Acid Calcium Phosphorus Magnesium 2.50 H Alkaline Phosphatase 139 H Ammonia Total Creatine Kinase 244 H CK-MB (CK-2) 10.1 H CK-MB (CK-2) Rel Index 4.1 H Troponin T 0.094 H NT-Pro-B Natriuret Pep 2056 H Total Protein Albumin 2.1 L Crossmatch 01/11/19 01/11/19 01/11/19 09:19 09:30 10:08 WBC RBC Hgb Hct MCV MCH RDW Plt Count Seg Neutrophils % Seg Neuts % (Manual) Lymphocytes % (Manual) Seg Neutrophils # Seg Neutrophils # Man Lymphocytes # (Manual) PT INR APTT POC ABG pH POC ABG pCO2 POC ABG pO2 Sodium Potassium Chloride Carbon Dioxide BUN Creatinine Glucose POC Glucose Lactic Acid 7.20 H* Calcium Phosphorus Magnesium Alkaline Phosphatase Ammonia 167.0 H Total Creatine Kinase CK-MB (CK-2) CK-MB (CK-2) Rel Index Troponin T NT-Pro-B Natriuret Pep Total Protein Albumin Crossmatch See Detail 01/11/19 01/11/19 01/11/19 11:02 11:15 15:10 WBC RBC Hgb Hct MCV MCH RDW Plt Count Seg Neutrophils % Seg Neuts % (Manual) Lymphocytes % (Manual) Seg Neutrophils # Seg Neutrophils # Man Lymphocytes # (Manual) PT INR APTT POC ABG pH 7.287 L POC ABG pCO2 32.1 L POC ABG pO2 Sodium Potassium Chloride Carbon Dioxide BUN Creatinine Glucose POC Glucose 239 H Lactic Acid 4.70 H* Calcium Phosphorus Magnesium Alkaline Phosphatase Ammonia Total Creatine Kinase CK-MB (CK-2) CK-MB (CK-2) Rel Index Troponin T NT-Pro-B Natriuret Pep Total Protein Albumin Crossmatch 01/11/19 01/11/19 01/11/19 20:30 20:30 23:13 WBC RBC Hgb 10.2 L D Hct 29.9 L D MCV 75 L MCH 25 L RDW 22.7 H Plt Count Seg Neutrophils % Seg Neuts % (Manual) 91.0 H Lymphocytes % (Manual) 5.0 L Seg Neutrophils # Seg Neutrophils # Man Lymphocytes # (Manual) 0.4 L PT INR APTT POC ABG pH POC ABG pCO2 POC ABG pO2 Sodium 120 L D Potassium 5.8 H Chloride 78.5 L Carbon Dioxide 10 L BUN 190 H Creatinine 13.2 H Glucose 107 H POC Glucose 134 H Lactic Acid Calcium Phosphorus Magnesium Alkaline Phosphatase Ammonia Total Creatine Kinase CK-MB (CK-2) CK-MB (CK-2) Rel Index Troponin T NT-Pro-B Natriuret Pep Total Protein Albumin Crossmatch 01/12/19 01/12/19 01/12/19 04:15 04:15 04:50 WBC 16.3 H RBC Hgb 9.7 L Hct 29.0 L MCV 75 L MCH 25 L RDW 22.6 H Plt Count Seg Neutrophils % Seg Neuts % (Manual) 95.0 H Lymphocytes % (Manual) 2.0 L Seg Neutrophils # 15.5 H Seg Neutrophils # Man 15.5 H Lymphocytes # (Manual) 0.3 L PT INR APTT POC ABG pH POC ABG pCO2 POC ABG pO2 256 H Sodium 121 L Potassium 6.5 H* Chloride 80.8 L Carbon Dioxide 12 L BUN 187 H Creatinine 13.1 H Glucose 110 H POC Glucose Lactic Acid Calcium Phosphorus Magnesium Alkaline Phosphatase Ammonia Total Creatine Kinase CK-MB (CK-2) CK-MB (CK-2) Rel Index Troponin T NT-Pro-B Natriuret Pep Total Protein Albumin Crossmatch 01/12/19 01/12/19 01/12/19 05:56 11:34 17:12 WBC RBC Hgb 7.2 L Hct 21.4 L D MCV MCH RDW Plt Count Seg Neutrophils % Seg Neuts % (Manual) Lymphocytes % (Manual) Seg Neutrophils # Seg Neutrophils # Man Lymphocytes # (Manual) PT INR APTT POC ABG pH POC ABG pCO2 POC ABG pO2 Sodium Potassium Chloride Carbon Dioxide BUN Creatinine Glucose POC Glucose 124 H 127 H Lactic Acid Calcium Phosphorus Magnesium Alkaline Phosphatase Ammonia Total Creatine Kinase CK-MB (CK-2) CK-MB (CK-2) Rel Index Troponin T NT-Pro-B Natriuret Pep Total Protein Albumin Crossmatch 01/12/19 01/12/19 01/13/19 17:12 18:02 00:21 WBC RBC Hgb Hct MCV MCH RDW Plt Count Seg Neutrophils % Seg Neuts % (Manual) Lymphocytes % (Manual) Seg Neutrophils # Seg Neutrophils # Man Lymphocytes # (Manual) PT INR APTT POC ABG pH POC ABG pCO2 POC ABG pO2 Sodium 129 L D Potassium Chloride 94.4 L Carbon Dioxide 14 L BUN 165 H Creatinine 11.4 H Glucose 119 H POC Glucose 140 H 132 H Lactic Acid Calcium 8.0 L D Phosphorus Magnesium Alkaline Phosphatase Ammonia Total Creatine Kinase CK-MB (CK-2) CK-MB (CK-2) Rel Index Troponin T NT-Pro-B Natriuret Pep Total Protein Albumin Crossmatch 01/13/19 01/13/19 01/13/19 01:30 01:30 04:13 WBC RBC Hgb 6.7 L Hct 20.5 L MCV MCH RDW Plt Count Seg Neutrophils % Seg Neuts % (Manual) Lymphocytes % (Manual) Seg Neutrophils # Seg Neutrophils # Man Lymphocytes # (Manual) PT INR APTT POC ABG pH POC ABG pCO2 POC ABG pO2 68 L Sodium 131 L Potassium Chloride Carbon Dioxide 14 L BUN 150 H Creatinine 9.6 H Glucose 101 H POC Glucose Lactic Acid Calcium 7.5 L Phosphorus Magnesium Alkaline Phosphatase Ammonia Total Creatine Kinase CK-MB (CK-2) CK-MB (CK-2) Rel Index Troponin T NT-Pro-B Natriuret Pep Total Protein Albumin Crossmatch 01/13/19 01/13/19 01/13/19 04:26 05:30 05:36 WBC RBC Hgb Hct MCV MCH RDW Plt Count Seg Neutrophils % Seg Neuts % (Manual) Lymphocytes % (Manual) Seg Neutrophils # Seg Neutrophils # Man Lymphocytes # (Manual) PT INR APTT POC ABG pH POC ABG pCO2 POC ABG pO2 122 H Sodium 135 L Potassium 3.3 L Chloride Carbon Dioxide 14 L BUN 125 H Creatinine 9.0 H Glucose POC Glucose 111 H Lactic Acid Calcium 6.9 L Phosphorus Magnesium Alkaline Phosphatase Ammonia Total Creatine Kinase CK-MB (CK-2) CK-MB (CK-2) Rel Index Troponin T NT-Pro-B Natriuret Pep Total Protein 5.2 L D Albumin 1.5 L Crossmatch 01/13/19 01/13/19 01/13/19 08:05 08:05 12:47 WBC RBC 2.36 L Hgb 6.1 L Hct 18.0 L* MCV 76 L MCH 26 L RDW 23.5 H Plt Count 103 L Seg Neutrophils % Seg Neuts % (Manual) 96.0 H Lymphocytes % (Manual) 2.0 L Seg Neutrophils # Seg Neutrophils # Man 9.9 H Lymphocytes # (Manual) 0.2 L PT INR APTT POC ABG pH POC ABG pCO2 POC ABG pO2 Sodium 136 L 134 L Potassium 3.2 L 3.3 L Chloride Carbon Dioxide 15 L 14 L BUN 113 H 122 H Creatinine 8.0 H 7.5 H Glucose 127 H POC Glucose Lactic Acid Calcium 6.6 L 6.9 L Phosphorus Magnesium Alkaline Phosphatase Ammonia Total Creatine Kinase CK-MB (CK-2) CK-MB (CK-2) Rel Index Troponin T NT-Pro-B Natriuret Pep Total Protein Albumin Crossmatch 01/13/19 01/13/19 01/13/19 17:43 17:55 23:35 WBC RBC Hgb 7.7 L Hct 22.9 L MCV MCH RDW Plt Count Seg Neutrophils % Seg Neuts % (Manual) Lymphocytes % (Manual) Seg Neutrophils # Seg Neutrophils # Man Lymphocytes # (Manual) PT INR APTT POC ABG pH POC ABG pCO2 POC ABG pO2 Sodium Potassium Chloride Carbon Dioxide BUN Creatinine Glucose POC Glucose 119 H 106 H Lactic Acid Calcium Phosphorus Magnesium Alkaline Phosphatase Ammonia Total Creatine Kinase CK-MB (CK-2) CK-MB (CK-2) Rel Index Troponin T NT-Pro-B Natriuret Pep Total Protein Albumin Crossmatch 01/14/19 01/14/19 01/14/19 04:35 04:35 05:45 WBC 12.6 H RBC 3.30 L Hgb 8.8 L Hct 26.0 L MCV 79 L MCH 27 L RDW 23.3 H Plt Count 100 L Seg Neutrophils % Seg Neuts % (Manual) 96.0 H Lymphocytes % (Manual) 1.0 L Seg Neutrophils # Seg Neutrophils # Man 12.1 H Lymphocytes # (Manual) 0.1 L PT INR APTT POC ABG pH POC ABG pCO2 POC ABG pO2 143 H Sodium Potassium 3.5 L Chloride Carbon Dioxide 15 L BUN 111 H Creatinine 8.0 H Glucose POC Glucose Lactic Acid Calcium 7.2 L Phosphorus 5.30 H Magnesium 1.20 L Alkaline Phosphatase Ammonia Total Creatine Kinase CK-MB (CK-2) CK-MB (CK-2) Rel Index Troponin T NT-Pro-B Natriuret Pep Total Protein Albumin Crossmatch 01/14/19 12:04 WBC RBC Hgb Hct MCV MCH RDW Plt Count Seg Neutrophils % Seg Neuts % (Manual) Lymphocytes % (Manual) Seg Neutrophils # Seg Neutrophils # Man Lymphocytes # (Manual) PT INR APTT POC ABG pH POC ABG pCO2 POC ABG pO2 Sodium Potassium Chloride Carbon Dioxide BUN Creatinine Glucose POC Glucose 111 H Lactic Acid Calcium Phosphorus Magnesium Alkaline Phosphatase Ammonia Total Creatine Kinase CK-MB (CK-2) CK-MB (CK-2) Rel Index Troponin T NT-Pro-B Natriuret Pep Total Protein Albumin Crossmatch Additional Studies: ct of head report reviewed
--- NOTE | 2019-01-14 14:12 | Progress Note ---
Subjective Date of service: 01/14/19 Principal diagnosis: [place] Interval history: reviewed the notes and prior labs/ imaging studies suspect septic shock will assess neuro issues thanks for consult Objective - Vital Sign Vital Signs - 12hr 01/14/19 01/14/19 01/14/19 02:15 02:30 02:45 Temperature Pulse Rate 101 H 103 H 102 H Pulse Rate [ From Monitor] Respiratory 14 17 13 Rate Blood Pressure 113/69 121/69 114/68 O2 Sat by Pulse 99 98 99 Oximetry 01/14/19 01/14/19 01/14/19 03:00 03:15 03:30 Temperature Pulse Rate 100 H 106 H 106 H Pulse Rate [ From Monitor] Respiratory 14 20 22 Rate Blood Pressure 128/66 119/68 123/70 O2 Sat by Pulse 98 100 98 Oximetry 01/14/19 01/14/19 01/14/19 03:45 03:47 04:00 Temperature 97.8 F Pulse Rate 98 H 105 H Pulse Rate [ 105 H From Monitor] Respiratory 26 H 15 Rate Blood Pressure 113/68 115/75 O2 Sat by Pulse 99 98 Oximetry 01/14/19 01/14/19 01/14/19 04:15 04:30 04:45 Temperature Pulse Rate 105 H 109 H 107 H Pulse Rate [ From Monitor] Respiratory 17 8 L 8 L Rate Blood Pressure 123/75 120/72 123/77 O2 Sat by Pulse 99 99 98 Oximetry 01/14/19 01/14/19 01/14/19 04:54 05:00 05:15 Temperature Pulse Rate 101 H 103 H 102 H Pulse Rate [ From Monitor] Respiratory 8 L 9 L Rate Blood Pressure 123/77 123/77 112/70 O2 Sat by Pulse 99 99 Oximetry 01/14/19 01/14/19 01/14/19 05:30 05:45 06:00 Temperature Pulse Rate 99 H 101 H 101 H Pulse Rate [ From Monitor] Respiratory 12 16 9 L Rate Blood Pressure 118/74 116/73 109/70 O2 Sat by Pulse 98 Oximetry 01/14/19 01/14/19 01/14/19 06:15 06:30 06:45 Temperature Pulse Rate 101 H 98 H 100 H Pulse Rate [ From Monitor] Respiratory 19 14 14 Rate Blood Pressure 111/72 115/72 112/73 O2 Sat by Pulse 97 Oximetry 01/14/19 01/14/19 01/14/19 07:00 07:15 07:30 Temperature Pulse Rate 98 H 96 H 98 H Pulse Rate [ From Monitor] Respiratory 13 15 13 Rate Blood Pressure 122/77 111/73 114/72 O2 Sat by Pulse 98 98 Oximetry 01/14/19 01/14/19 01/14/19 07:45 08:00 08:15 Temperature 97.9 F Pulse Rate 102 H 96 H 107 H Pulse Rate [ 102 H From Monitor] Respiratory 13 12 12 Rate Blood Pressure 109/78 118/71 126/76 O2 Sat by Pulse 98 98 98 Oximetry 01/14/19 01/14/19 01/14/19 08:30 08:45 09:00 Temperature Pulse Rate 103 H 96 H 101 H Pulse Rate [ From Monitor] Respiratory 10 L 16 13 Rate Blood Pressure 120/76 118/75 117/75 O2 Sat by Pulse 96 Oximetry 01/14/19 01/14/19 01/14/19 09:15 09:30 09:45 Temperature Pulse Rate 111 H 106 H 105 H Pulse Rate [ From Monitor] Respiratory 11 L 9 L 19 Rate Blood Pressure 129/82 127/80 120/84 O2 Sat by Pulse 99 98 98 Oximetry 01/14/19 01/14/19 01/14/19 10:00 10:15 10:30 Temperature Pulse Rate 98 H 97 H 101 H Pulse Rate [ From Monitor] Respiratory 13 21 18 Rate Blood Pressure 117/82 128/81 131/82 O2 Sat by Pulse 99 99 100 Oximetry 01/14/19 01/14/19 01/14/19 10:45 11:00 11:15 Temperature Pulse Rate 101 H 103 H 108 H Pulse Rate [ From Monitor] Respiratory 12 22 25 H Rate Blood Pressure 133/87 126/78 122/82 O2 Sat by Pulse 100 99 Oximetry 01/14/19 01/14/19 01/14/19 11:30 11:45 12:00 Temperature 97.3 F L Pulse Rate 109 H 105 H 108 H Pulse Rate [ 108 H From Monitor] Respiratory 19 19 24 Rate Blood Pressure 128/80 111/83 118/76 O2 Sat by Pulse 99 99 99 Oximetry 01/14/19 01/14/19 01/14/19 12:15 12:30 12:45 Temperature Pulse Rate 104 H 102 H 101 H Pulse Rate [ From Monitor] Respiratory 20 19 18 Rate Blood Pressure 120/77 121/78 123/77 O2 Sat by Pulse 99 Oximetry 01/14/19 01/14/19 01/14/19 13:00 13:15 13:30 Temperature Pulse Rate 102 H 104 H 107 H Pulse Rate [ From Monitor] Respiratory 20 24 22 Rate Blood Pressure 123/77 116/75 118/77 O2 Sat by Pulse 99 98 Oximetry 01/14/19 13:45 Temperature Pulse Rate 105 H Pulse Rate [ From Monitor] Respiratory 19 Rate Blood Pressure 122/78 O2 Sat by Pulse Oximetry - Laboratory Findings CBC and BMP: 01/14/19 04:35 01/14/19 04:35 Abnormal Lab Findings: Abnormal Labs 01/11/19 01/11/19 01/11/19 09:19 09:19 09:19 WBC RBC 2.42 L Hgb 5.7 L* Hct 17.5 L* MCV 72 L MCH 24 L RDW 20.9 H Plt Count Seg Neutrophils % 83.0 H Seg Neuts % (Manual) Lymphocytes % (Manual) Seg Neutrophils # 7.8 H Seg Neutrophils # Man Lymphocytes # (Manual) PT 20.3 H INR 1.78 H APTT 41.5 H POC ABG pH POC ABG pCO2 POC ABG pO2 Sodium 113 L* Potassium 7.2 H* Chloride 72.7 L Carbon Dioxide 10 L BUN 197 H Creatinine 13.7 H Glucose 258 H POC Glucose Lactic Acid Calcium Phosphorus Magnesium 2.50 H Alkaline Phosphatase 139 H Ammonia Total Creatine Kinase 244 H CK-MB (CK-2) 10.1 H CK-MB (CK-2) Rel Index 4.1 H Troponin T 0.094 H NT-Pro-B Natriuret Pep 2056 H Total Protein Albumin 2.1 L Crossmatch 01/11/19 01/11/19 01/11/19 09:19 09:30 10:08 WBC RBC Hgb Hct MCV MCH RDW Plt Count Seg Neutrophils % Seg Neuts % (Manual) Lymphocytes % (Manual) Seg Neutrophils # Seg Neutrophils # Man Lymphocytes # (Manual) PT INR APTT POC ABG pH POC ABG pCO2 POC ABG pO2 Sodium Potassium Chloride Carbon Dioxide BUN Creatinine Glucose POC Glucose Lactic Acid 7.20 H* Calcium Phosphorus Magnesium Alkaline Phosphatase Ammonia 167.0 H Total Creatine Kinase CK-MB (CK-2) CK-MB (CK-2) Rel Index Troponin T NT-Pro-B Natriuret Pep Total Protein Albumin Crossmatch See Detail 01/11/19 01/11/19 01/11/19 11:02 11:15 15:10 WBC RBC Hgb Hct MCV MCH RDW Plt Count Seg Neutrophils % Seg Neuts % (Manual) Lymphocytes % (Manual) Seg Neutrophils # Seg Neutrophils # Man Lymphocytes # (Manual) PT INR APTT POC ABG pH 7.287 L POC ABG pCO2 32.1 L POC ABG pO2 Sodium Potassium Chloride Carbon Dioxide BUN Creatinine Glucose POC Glucose 239 H Lactic Acid 4.70 H* Calcium Phosphorus Magnesium Alkaline Phosphatase Ammonia Total Creatine Kinase CK-MB (CK-2) CK-MB (CK-2) Rel Index Troponin T NT-Pro-B Natriuret Pep Total Protein Albumin Crossmatch 01/11/19 01/11/19 01/11/19 20:30 20:30 23:13 WBC RBC Hgb 10.2 L D Hct 29.9 L D MCV 75 L MCH 25 L RDW 22.7 H Plt Count Seg Neutrophils % Seg Neuts % (Manual) 91.0 H Lymphocytes % (Manual) 5.0 L Seg Neutrophils # Seg Neutrophils # Man Lymphocytes # (Manual) 0.4 L PT INR APTT POC ABG pH POC ABG pCO2 POC ABG pO2 Sodium 120 L D Potassium 5.8 H Chloride 78.5 L Carbon Dioxide 10 L BUN 190 H Creatinine 13.2 H Glucose 107 H POC Glucose 134 H Lactic Acid Calcium Phosphorus Magnesium Alkaline Phosphatase Ammonia Total Creatine Kinase CK-MB (CK-2) CK-MB (CK-2) Rel Index Troponin T NT-Pro-B Natriuret Pep Total Protein Albumin Crossmatch 01/12/19 01/12/19 01/12/19 04:15 04:15 04:50 WBC 16.3 H RBC Hgb 9.7 L Hct 29.0 L MCV 75 L MCH 25 L RDW 22.6 H Plt Count Seg Neutrophils % Seg Neuts % (Manual) 95.0 H Lymphocytes % (Manual) 2.0 L Seg Neutrophils # 15.5 H Seg Neutrophils # Man 15.5 H Lymphocytes # (Manual) 0.3 L PT INR APTT POC ABG pH POC ABG pCO2 POC ABG pO2 256 H Sodium 121 L Potassium 6.5 H* Chloride 80.8 L Carbon Dioxide 12 L BUN 187 H Creatinine 13.1 H Glucose 110 H POC Glucose Lactic Acid Calcium Phosphorus Magnesium Alkaline Phosphatase Ammonia Total Creatine Kinase CK-MB (CK-2) CK-MB (CK-2) Rel Index Troponin T NT-Pro-B Natriuret Pep Total Protein Albumin Crossmatch 01/12/19 01/12/19 01/12/19 05:56 11:34 17:12 WBC RBC Hgb 7.2 L Hct 21.4 L D MCV MCH RDW Plt Count Seg Neutrophils % Seg Neuts % (Manual) Lymphocytes % (Manual) Seg Neutrophils # Seg Neutrophils # Man Lymphocytes # (Manual) PT INR APTT POC ABG pH POC ABG pCO2 POC ABG pO2 Sodium Potassium Chloride Carbon Dioxide BUN Creatinine Glucose POC Glucose 124 H 127 H Lactic Acid Calcium Phosphorus Magnesium Alkaline Phosphatase Ammonia Total Creatine Kinase CK-MB (CK-2) CK-MB (CK-2) Rel Index Troponin T NT-Pro-B Natriuret Pep Total Protein Albumin Crossmatch 01/12/19 01/12/19 01/13/19 17:12 18:02 00:21 WBC RBC Hgb Hct MCV MCH RDW Plt Count Seg Neutrophils % Seg Neuts % (Manual) Lymphocytes % (Manual) Seg Neutrophils # Seg Neutrophils # Man Lymphocytes # (Manual) PT INR APTT POC ABG pH POC ABG pCO2 POC ABG pO2 Sodium 129 L D Potassium Chloride 94.4 L Carbon Dioxide 14 L BUN 165 H Creatinine 11.4 H Glucose 119 H POC Glucose 140 H 132 H Lactic Acid Calcium 8.0 L D Phosphorus Magnesium Alkaline Phosphatase Ammonia Total Creatine Kinase CK-MB (CK-2) CK-MB (CK-2) Rel Index Troponin T NT-Pro-B Natriuret Pep Total Protein Albumin Crossmatch 01/13/19 01/13/19 01/13/19 01:30 01:30 04:13 WBC RBC Hgb 6.7 L Hct 20.5 L MCV MCH RDW Plt Count Seg Neutrophils % Seg Neuts % (Manual) Lymphocytes % (Manual) Seg Neutrophils # Seg Neutrophils # Man Lymphocytes # (Manual) PT INR APTT POC ABG pH POC ABG pCO2 POC ABG pO2 68 L Sodium 131 L Potassium Chloride Carbon Dioxide 14 L BUN 150 H Creatinine 9.6 H Glucose 101 H POC Glucose Lactic Acid Calcium 7.5 L Phosphorus Magnesium Alkaline Phosphatase Ammonia Total Creatine Kinase CK-MB (CK-2) CK-MB (CK-2) Rel Index Troponin T NT-Pro-B Natriuret Pep Total Protein Albumin Crossmatch 01/13/19 01/13/19 01/13/19 04:26 05:30 05:36 WBC RBC Hgb Hct MCV MCH RDW Plt Count Seg Neutrophils % Seg Neuts % (Manual) Lymphocytes % (Manual) Seg Neutrophils # Seg Neutrophils # Man Lymphocytes # (Manual) PT INR APTT POC ABG pH POC ABG pCO2 POC ABG pO2 122 H Sodium 135 L Potassium 3.3 L Chloride Carbon Dioxide 14 L BUN 125 H Creatinine 9.0 H Glucose POC Glucose 111 H Lactic Acid Calcium 6.9 L Phosphorus Magnesium Alkaline Phosphatase Ammonia Total Creatine Kinase CK-MB (CK-2) CK-MB (CK-2) Rel Index Troponin T NT-Pro-B Natriuret Pep Total Protein 5.2 L D Albumin 1.5 L Crossmatch 01/13/19 01/13/19 01/13/19 08:05 08:05 11:24 WBC RBC 2.36 L Hgb 6.1 L Hct 18.0 L* MCV 76 L MCH 26 L RDW 23.5 H Plt Count 103 L Seg Neutrophils % Seg Neuts % (Manual) 96.0 H Lymphocytes % (Manual) 2.0 L Seg Neutrophils # Seg Neutrophils # Man 9.9 H Lymphocytes # (Manual) 0.2 L PT INR APTT POC ABG pH POC ABG pCO2 POC ABG pO2 Sodium 136 L Potassium 3.2 L Chloride Carbon Dioxide 15 L BUN 113 H Creatinine 8.0 H Glucose 127 H POC Glucose 122 H Lactic Acid Calcium 6.6 L Phosphorus Magnesium Alkaline Phosphatase Ammonia Total Creatine Kinase CK-MB (CK-2) CK-MB (CK-2) Rel Index Troponin T NT-Pro-B Natriuret Pep Total Protein Albumin Crossmatch 01/13/19 01/13/19 01/13/19 12:47 17:43 17:55 WBC RBC Hgb 7.7 L Hct 22.9 L MCV MCH RDW Plt Count Seg Neutrophils % Seg Neuts % (Manual) Lymphocytes % (Manual) Seg Neutrophils # Seg Neutrophils # Man Lymphocytes # (Manual) PT INR APTT POC ABG pH POC ABG pCO2 POC ABG pO2 Sodium 134 L Potassium 3.3 L Chloride Carbon Dioxide 14 L BUN 122 H Creatinine 7.5 H Glucose POC Glucose 119 H Lactic Acid Calcium 6.9 L Phosphorus Magnesium Alkaline Phosphatase Ammonia Total Creatine Kinase CK-MB (CK-2) CK-MB (CK-2) Rel Index Troponin T NT-Pro-B Natriuret Pep Total Protein Albumin Crossmatch 01/13/19 01/14/19 01/14/19 23:35 04:35 04:35 WBC 12.6 H RBC 3.30 L Hgb 8.8 L Hct 26.0 L MCV 79 L MCH 27 L RDW 23.3 H Plt Count 100 L Seg Neutrophils % Seg Neuts % (Manual) 96.0 H Lymphocytes % (Manual) 1.0 L Seg Neutrophils # Seg Neutrophils # Man 12.1 H Lymphocytes # (Manual) 0.1 L PT INR APTT POC ABG pH POC ABG pCO2 POC ABG pO2 Sodium Potassium 3.5 L Chloride Carbon Dioxide 15 L BUN 111 H Creatinine 8.0 H Glucose POC Glucose 106 H Lactic Acid Calcium 7.2 L Phosphorus 5.30 H Magnesium 1.20 L Alkaline Phosphatase Ammonia Total Creatine Kinase CK-MB (CK-2) CK-MB (CK-2) Rel Index Troponin T NT-Pro-B Natriuret Pep Total Protein Albumin Crossmatch 01/14/19 01/14/19 05:45 12:04 WBC RBC Hgb Hct MCV MCH RDW Plt Count Seg Neutrophils % Seg Neuts % (Manual) Lymphocytes % (Manual) Seg Neutrophils # Seg Neutrophils # Man Lymphocytes # (Manual) PT INR APTT POC ABG pH POC ABG pCO2 POC ABG pO2 143 H Sodium Potassium Chloride Carbon Dioxide BUN Creatinine Glucose POC Glucose 111 H Lactic Acid Calcium Phosphorus Magnesium Alkaline Phosphatase Ammonia Total Creatine Kinase CK-MB (CK-2) CK-MB (CK-2) Rel Index Troponin T NT-Pro-B Natriuret Pep Total Protein Albumin Crossmatch
--- NOTE | 2019-01-14 15:30 | Progress Note ---
Assessment and Plan Assessment and plan: The high probability of a clinically significant, sudden or life threatening deterioration of the [] system(s) required my full and direct attention, intervention and personal management. The aggregate critical care time was [] minutes. This time is in addition to time spent performing reported procedures but includes the following: [x] Data Review and interpretation [x] Patient assessment and monitoring of vital signs [x] Documentation []x Medication orders and management Total Time Spent with Patient (Minutes): 33 - Patient Problems (1) Acute kidney injury with acute tubular necrosis Current Visit: Yes Status: Acute Plan to address problem: Patient with acute kidney injury. (2) Acute respiratory failure Current Visit: Yes Status: Acute Plan to address problem: Acute respiratory failure patient remains intubated. Secondary to cardiorespiratory arrest. Continue beta alison oxygen support wean as tolerated. (3) Cardiac arrest Current Visit: Yes Status: Acute Plan to address problem: Patient status post ACLS. Intubated supportive care. Wean as tolerated. (4) Electrolyte abnormality Current Visit: Yes Status: Acute (5) Hemorrhagic shock Current Visit: Yes Status: Acute Plan to address problem: That is posttransfusion has stabilized now no evidence of obvious bleeding. (6) Hyperkalemia Current Visit: Yes Status: Resolved (7) Nicotine dependence Current Visit: No Status: Acute Qualifiers: Nicotine product type: cigarettes History Interval history: Patient remains intubated today. Acute hypoxic respiratory failure. Status post cardiorespiratory arrest. Hospitalist Physical - Constitutional Vitals: Temp Pulse Resp BP Pulse Ox 97.3 F L 104 H 8 L 126/78 98 01/14/19 12:00 01/14/19 15:00 01/14/19 15:00 01/14/19 15:00 01/14/19 14:00 General appearance: Present: no acute distress, well-nourished, other (unresponsive on the vent) - EENT Eyes: Present: PERRL, EOM intact. Absent: scleral icterus, conjunctival inje ction, exopthalmos ENT: hearing intact, clear oral mucosa, dentition normal, poor dentition, ulcerations, no oropharyngeal erythema, no thrush, no edentulous - Neck Neck: Present: supple, normal ROM. Absent: enlarged thyroid, masses or JVD, cervical LAD - Respiratory Respiratory: bilateral: diminished - Cardiovascular Rhythm: regular Heart Sounds: Present: S1 & S2, systolic murmur - Extremities Extremities: pulses intact, No edema Extremity abnormal: edema, cyanosis, clubbing - Abdominal General gastrointestinal: soft, non-tender, non-distended, normal bowel sounds, no hypoactive bowel sounds - Integumentary Integumentary: Present: clear, warm, dry Results - Labs CBC & Chem 7: 01/14/19 04:35 01/14/19 04:35 Labs: Laboratory Last Values WBC 12.6 K/mm3 (4.5-11.0) H 01/14/19 04:35 RBC 3.30 M/mm3 (3.65-5.03) L 01/14/19 04:35 Hgb 8.8 gm/dl (11.8-15.2) L 01/14/19 04:35 Hct 26.0 % (35.5-45.6) L 01/14/19 04:35 MCV 79 fl (84-94) L 01/14/19 04:35 MCH 27 pg (28-32) L 01/14/19 04:35 MCHC 34 % (32-34) 01/14/19 04:35 RDW 23.3 % (13.2-15.2) H 01/14/19 04:35 Plt Count 100 K/mm3 (140-440) L 01/14/19 04:35 Lymph % (Auto) 15.7 % (13.4-35.0) 01/11/19 09:19 [place] % (Auto) 2.8 % (0.0-7.3) 01/12/19 04:15 Eos % (Auto) 0.0 % (0.0-4.3) 01/12/19 04:15 Baso % (Auto) 0.4 % (0.0-1.8) 01/11/19 09:19 Lymph # 1.5 K/mm3 (1.2-5.4) 01/11/19 09:19 [place] # 0.5 K/mm3 (0.0-0.8) 01/12/19 04:15 Eos # 0.0 K/mm3 (0.0-0.4) 01/12/19 04:15 Baso # 0.0 K/mm3 (0.0-0.1) 01/12/19 04:15 Add Manual Diff Complete 01/14/19 04:35 Total Counted 100 01/14/19 04:35 Seg Neutrophils % Collections Curator 01/14/19 04:35 Seg Neuts % (Manual) 96.0 % (40.0-70.0) H 01/14/19 04:35 0 % 01/14/19 04:35 1.0 % (13.4-35.0) L 01/14/19 04:35 Reactive Lymphs % (Man) 0 % 01/14/19 04:35 3.0 % (0.0-7.3) 01/14/19 04:35 0 % (0.0-4.3) 01/14/19 04:35 0 % (0.0-1.8) 01/14/19 04:35 0 % 01/14/19 04:35 0 % 01/14/19 04:35 0 % 01/14/19 04:35 0 % 01/14/19 04:35 Nucleated RBC % Not Reportable 01/14/19 04:35 Seg Neutrophils # 15.5 K/mm3 (1.8-7.7) H 01/12/19 04:15 Seg Neutrophils # Man 12.1 K/mm3 (1.8-7.7) H 01/14/19 04:35 Band Neutrophils # 0.0 K/mm3 01/14/19 04:35 0.1 K/mm3 (1.2-5.4) L 01/14/19 04:35 Abs React Lymphs (Man) 0.0 K/mm3 01/14/19 04:35 0.4 K/mm3 (0.0-0.8) 01/14/19 04:35 0.0 K/mm3 (0.0-0.4) 01/14/19 04:35 0.0 K/mm3 (0.0-0.1) 01/14/19 04:35 0.0 K/mm3 01/14/19 04:35 0.0 K/mm3 01/14/19 04:35 0.0 K/mm3 01/14/19 04:35 Blast Cells # 0.0 K/mm3 01/14/19 04:35 WBC Morphology Not Reportable 01/14/19 04:35 Hypersegmented Neuts Not Reportable 01/14/19 04:35 Hyposegmented Neuts Not Reportable 01/14/19 04:35 Hypogranular Neuts Not Reportable 01/14/19 04:35 Not Reportable 01/14/19 04:35 Not Reportable 01/14/19 04:35 Not Reportable 01/14/19 04:35 Not Reportable 01/14/19 04:35 Not Reportable 01/14/19 04:35 Not Reportable 01/14/19 04:35 Consistent w auto 01/14/19 04:35 Not Reportable 01/14/19 04:35 Plt Clumps, EDTA Not Reportable 01/14/19 04:35 Not Reportable 01/14/19 04:35 Not Reportable 01/14/19 04:35 Not Reportable 01/14/19 04:35 Plt Morphology Comment Not Reportable 01/14/19 04:35 RBC Morphology Not Reportable 01/14/19 04:35 Dimorphic RBCs Not Reportable 01/14/19 04:35 Not Reportable 01/14/19 04:35 1+ 01/14/19 04:35 Not Reportable 01/14/19 04:35 Not Reportable 01/14/19 04:35 Not Reportable 01/14/19 04:35 Not Reportable 01/14/19 04:35 Not Reportable 01/14/19 04:35 Not Reportable 01/14/19 04:35 Not Reportable 01/14/19 04:35 Not Reportable 01/14/19 04:35 Not Reportable 01/14/19 04:35 Not Reportable 01/14/19 04:35 Not Reportable 01/14/19 04:35 Not Reportable 01/14/19 04:35 Not Reportable 01/14/19 04:35 Not Reportable 01/14/19 04:35 Not Reportable 01/14/19 04:35 Not Reportable 01/14/19 04:35 Not Reportable 01/14/19 04:35 Acanthocytes (Spur) Not Reportable 01/14/19 04:35 Rouleaux Not Reportable 01/14/19 04:35 Not Reportable 01/14/19 04:35 Not Reportable 01/14/19 04:35 Not Reportable 01/14/19 04:35 Not Reportable 01/14/19 04:35 Hem Pathologist Commnt No 01/14/19 04:35 PT 20.3 Sec. (12.2-14.9) H 01/11/19 09:19 INR 1.78 (0.87-1.13) H 01/11/19 09:19 APTT 41.5 Sec. (24.2-36.6) H 01/11/19 09:19 POC ABG pH 7.399 (7.35-7.45) 01/14/19 05:45 POC ABG pCO2 32.1 (35-45) L 01/11/19 11:15 POC ABG pO2 143 (80-105) H 01/14/19 05:45 POC ABG HCO3 13.7 (22-26 mml/L) 01/14/19 05:45 POC ABG Total CO2 14 (23-27mmol/L) 01/14/19 05:45 POC ABG O2 Sat 99 01/14/19 05:45 POC ABG Base Excess -11 ((-2) - (+3)mmol/L) 01/14/19 05:45 37 % 01/14/19 05:45 Sodium 137 mmol/L (137-145) 01/14/19 04:35 Potassium 3.5 mmol/L (3.6-5.0) L 01/14/19 04:35 Chloride 106.4 mmol/L (98-107) 01/14/19 04:35 Carbon Dioxide 15 mmol/L (22-30) L 01/14/19 04:35 19 mmol/L 01/14/19 04:35 BUN 111 mg/dL (9-20) H 01/14/19 04:35 8.0 mg/dL (0.8-1.5) H 01/14/19 04:35 Estimated GFR 9 ml/min 01/14/19 04:35 14 % 01/14/19 04:35 Glucose 89 mg/dL (75-100) 01/14/19 04:35 POC Glucose 111 (70-105) H 01/14/19 12:04 Lactic Acid 4.70 mmol/L (0.7-2.0) H* 01/11/19 15:10 Calcium 7.2 mg/dL (8.4-10.2) L 01/14/19 04:35 Phosphorus 5.30 mg/dL (2.5-4.5) H 01/14/19 04:35 Magnesium 1.20 mg/dL (1.7-2.3) L 01/14/19 04:35 0.20 mg/dL (0.1-1.2) 01/13/19 05:30 AST 20 units/L (5-40) 01/13/19 05:30 ALT 14 units/L (7-56) 01/13/19 05:30 75 units/L (35-129) 01/13/19 05:30 167.0 umol/L (25-60) H 01/11/19 09:19 244 units/L (55-170) H 01/11/19 09:19 CK-MB (CK-2) 10.1 ng/mL (0.0-4.0) H 01/11/19 09:19 CK-MB (CK-2) Rel Index 4.1 (0-4) H 01/11/19 09:19 0.094 ng/mL (0.00-0.029) H 01/11/19 09:19 NT-Pro-B Natriuret Pep 2056 pg/mL (0-900) H 01/11/19 09:19 5.2 g/dL (6.3-8.2) L D 01/13/19 05:30 1.5 g/dL (3.9-5) L 01/13/19 05:30 0.4 % 01/13/19 05:30 TSH 3.310 mlU/mL (0.270-4.200) 01/11/19 09:19 Free T4 1.04 ng/dL (0.76-1.46) 01/11/19 09:19 Yellow (Yellow) 01/11/19 03:30 Hazy (Clear) 01/11/19 03:30 5.0 (5.0-7.0) 01/11/19 03:30 Ur Specific [place] 1.012 (1.003-1.030) 01/11/19 03:30 <15 mg/dl mg/dL (Negative) 01/11/19 03:30 Neg mg/dL (Negative) 01/11/19 03:30 Neg mg/dL (Negative) 01/11/19 03:30 Sm (Negative) 01/11/19 03:30 Neg (Negative) 01/11/19 03:30 Ur Reducing Substances Not Reportable 01/11/19 03:30 Neg (Negative) 01/11/19 03:30 Not Reportable 01/11/19 03:30 < 2.0 mg/dL (<2.0) 01/11/19 03:30 Ur Leukocyte Esterase Sm (Negative) 01/11/19 03:30 3.0 /HPF (0.0-6.0) 01/11/19 03:30 8.0 /HPF (0.0-6.0) 01/11/19 03:30 1+ /HPF (Negative) 01/11/19 03:30 Not Reportable 01/11/19 03:30 Random Vancomycin 10.3 ug/mL (0-40.0) 01/14/19 04:35 Blood Type O POSITIVE 01/11/19 10:08 Antibody Screen Negative 01/11/19 10:08 Crossmatch See Detail 01/11/19 10:08 - Imaging and Cardiology EKG: image reviewed CT Scan - head: image reviewed Active Medications - Current Medications Current Medications: Generic Name Dose Route Start Last Admin Trade Name Freq PRN Reason Stop Dose Admin Lipase/Protease/Amylase 1 each 01/12/19 03:[address] 10,500 Unit FEEDTUBE PRN PRN For Clogged Feeding Tube Famotidine 20 mg 01/12/19 10:00 01/14/19 09:23 Pepcid IV 20 mg QAM MAXIMUS Administration Norepinephrine 4 mg in 250 mls @ 7.5 mls/hr 01/11/19 11:00 01/12/19 20:38 Levophed Drip 4 Mg/Ns 250 Ml IV 0 mcg/min TITR MAXIMUS 0 mls/hr Titration Protocol 2 MCG/MIN Cefepime HCl 1 gm in 100 mls @ 200 mls/hr 01/12/19 22:00 01/13/19 22:49 Maxipime/Ns 1 Gm/100 Ml IV 200 mls/hr QHS MAXIMUS Administration Protocol Sodium Chloride 500 mls @ 0 mls/hr 01/12/19 11:00 01/13/19 12:57 Nacl 0.9% 500 Ml IV 10 mls/hr DIRECT MAXIMUS Administration As Directed Sodium Chloride 1,000 mls @ 75 mls/hr 01/13/19 15:00 01/14/19 09:24 Nacl 0.9% 1000 Ml IV 100 mls/hr DIRECT MAXIMUS Administration Metoclopramide HCl 5 mg 01/12/19 03:16 Reglan IV Q6H PRN Nausea And Vomiting Simple Syrup 15 ml 01/12/19 03:16 Simple Syrup FEEDTUBE PRN PRN Hypoglycemia Simple Syrup 30 ml 01/12/19 03:16 Simple Syrup FEEDTUBE PRN PRN Hypoglycemia Sodium Bicarbonate 325 mg 01/12/19 03:16 Sodium Bicarbonate FEEDTUBE PRN PRN For Clogged Feeding Tube Sodium Chloride 10 ml 01/12/19 10:00 01/14/19 09:24 Sodium Chloride Flush Syringe 10 Ml IV 10 ml BID MAXIMUS Administration Sodium Chloride 10 ml 01/12/19 03:16 Sodium Chloride Flush Syringe 10 Ml IV PRN PRN LINE FLUSH Nutrition/Malnutrition Assess - Dietary Evaluation Nutrition/Malnutrition Findings: Nutrition Notes Start: 01/12/19 13:16 Freq: Status: Active Protocol: Document 01/12/19 13:16 RM (Rec: 01/12/19 13:29 RM [id number]) Nutrition Notes Need for Assessment generated from: MD Order Initial or Follow up Assessment Current Diagnosis Hypertension,Respiratory Failure Other Pertinent Diagnosis ESRD on HD, Multiple wounds Current Diet TF (blank) Labs/Tests K 6.5 Pertinent Medications Levophed Height 5 ft 6 in Weight 59.6 kg [place] Body Weight (kg) 64.54 BMI 21.2 Subjective/Other Information Consulted for TF recommendation. Pt on vent. Burn Absent Trauma Absent #2 Nutrition Diagnosis Increased nutrient needs ( specify in comment below) Comments: glutamine, arginine Etiology wound healing As Evidenced by Signs and Symptoms mutiple wounds #1 Nutrition Diagnosis Inadequate oral intake Etiology on vent As Evidenced by Signs and Symptoms TF consult Is patient on ventilator? Yes Is Patient Ambulatory and/or Out of Bed No REE-([facility]-confined to bed) 2213.473 Calculation Used for Recommendations [facility] Additional Notes Protein Needs: 72-119g (1.2-2g /kg) Fluid Needs: 1 ml/kcal Nutrition Intervention Nutrition Support: Nepro at 40 ml/hr Water flush of 150 mls q 4 hrs Kcal 1,728 Protein (gm) 78 Fluid (mL) 698 Add Supplement/Snack (indicate name/kcal Jake BID /protein ) Provides kCal: 190 Provides Protein (gm) 5 Goal #1 TF tolerance Goal #2 Meet at least 80% of calorie and protein needs via TF Anticipated Discharge Needs: Unable to determine at this time Follow-Up By: 01/16/19 Additional Comments Follow for new TF - Attestation Statement I have reviewed and agreed w/ Malnutrition eval & tx plan: Yes
[2019-01-14] MEDS: MAXIPIME/NS 1 GM/100 ML 1 GM/100 ML BAG IV SCH (22:05)
[2019-01-15 04:23] LABS: ABG Base Excess -9.5 mmol/L (-2.0-3.0); ABG Methemoglobin 0.5 % (0.0-1.5); ABG Oxygen Saturation 98.4 % (95.0-99.0); ABG PCO2 23.1 mm Hg; ABG PH 7.401 pH Units (7.350-7.450); ABG PO2 118.4 mm Hg (80.0-90.0)
[2019-01-15] MEDS: SODIUM CHLORIDE FLUSH SYRINGE 10 ML IV SCH ×2 (07:03→10:05)
[2019-01-15] MEDS: NACL 0.9% 1000 ML 1,000 ML IV SCH (07:15)
--- NOTE | 2019-01-15 09:26 | Progress Note ---
Subjective Date of service: 01/15/19 Principal diagnosis: [place] Interval history: patient is in deep coma and very limuited response to pain , no spontanous movements does have intact Doll's Eyes movement but he is not responsive to verbal or visual stimulation at this poin plan EEG susepct anoxic encephalopathy- prognosis is poor will follow and comment on EEG once done Objective - Vital Sign Vital Signs - 12hr 01/14/19 01/14/19 01/14/19 21:30 21:45 22:00 Temperature Pulse Rate 104 H 106 H 106 H Pulse Rate [ From Monitor] Respiratory 12 16 21 Rate Blood Pressure 112/70 119/69 125/73 O2 Sat by Pulse 98 99 Oximetry 01/14/19 01/14/19 01/14/19 22:15 22:30 22:45 Temperature Pulse Rate 103 H 101 H 107 H Pulse Rate [ From Monitor] Respiratory 15 22 18 Rate Blood Pressure 112/70 113/69 122/69 O2 Sat by Pulse 98 98 97 Oximetry 01/14/19 01/14/19 01/14/19 23:00 23:15 23:30 Temperature Pulse Rate 108 H 109 H 114 H Pulse Rate [ From Monitor] Respiratory 13 19 18 Rate Blood Pressure 119/72 123/70 115/76 O2 Sat by Pulse 98 97 98 Oximetry 01/14/19 01/15/19 01/15/19 23:45 00:00 00:04 Temperature 99.5 F Pulse Rate 107 H 107 H 107 H Pulse Rate [ 108 H From Monitor] Respiratory 15 11 L 12 Rate Blood Pressure 108/68 116/75 116/75 O2 Sat by Pulse 98 98 99 Oximetry 01/15/19 01/15/19 01/15/19 00:15 00:30 00:40 Temperature Pulse Rate 109 H 109 H 107 H Pulse Rate [ From Monitor] Respiratory 15 13 Rate Blood Pressure 116/72 119/73 119/73 O2 Sat by Pulse 97 97 99 Oximetry 01/15/19 01/15/19 01/15/19 00:45 01:00 01:15 Temperature Pulse Rate 106 H 114 H 111 H Pulse Rate [ From Monitor] Respiratory 12 13 11 L Rate Blood Pressure 121/75 131/77 127/75 O2 Sat by Pulse 97 96 97 Oximetry 01/15/19 01/15/19 01/15/19 01:30 01:45 02:00 Temperature Pulse Rate 109 H 109 H 105 H Pulse Rate [ From Monitor] Respiratory 18 12 11 L Rate Blood Pressure 120/75 118/73 118/74 O2 Sat by Pulse 97 97 98 Oximetry 01/15/19 01/15/19 01/15/19 02:15 02:30 02:45 Temperature Pulse Rate 107 H 107 H 106 H Pulse Rate [ From Monitor] Respiratory 11 L 18 13 Rate Blood Pressure 118/75 119/75 122/73 O2 Sat by Pulse 98 98 97 Oximetry 01/15/19 01/15/19 01/15/19 03:00 03:15 03:30 Temperature 98.8 F Pulse Rate 107 H 107 H 105 H Pulse Rate [ From Monitor] Respiratory 11 L 10 L 11 L Rate Blood Pressure 121/73 123/76 125/69 O2 Sat by Pulse 96 99 97 Oximetry 01/15/19 01/15/19 01/15/19 03:45 03:50 04:00 Temperature Pulse Rate 106 H 108 H 107 H Pulse Rate [ 108 H From Monitor] Respiratory 14 10 L Rate Blood Pressure 110/72 110/72 116/75 O2 Sat by Pulse 98 99 97 Oximetry 01/15/19 01/15/19 01/15/19 04:15 04:30 04:45 Temperature Pulse Rate 107 H 107 H 105 H Pulse Rate [ From Monitor] Respiratory 15 13 12 Rate Blood Pressure 115/73 117/73 122/75 O2 Sat by Pulse 96 98 98 Oximetry 01/15/19 01/15/19 01/15/19 05:00 05:15 05:30 Temperature Pulse Rate 104 H 107 H 103 H Pulse Rate [ From Monitor] Respiratory 11 L 16 12 Rate Blood Pressure 118/80 121/77 115/72 O2 Sat by Pulse 98 97 98 Oximetry 01/15/19 01/15/19 01/15/19 05:45 06:00 06:15 Temperature Pulse Rate 108 H 107 H 106 H Pulse Rate [ From Monitor] Respiratory 15 13 17 Rate Blood Pressure 119/74 117/73 116/75 O2 Sat by Pulse 98 96 98 Oximetry 01/15/19 01/15/19 06:30 07:46 Temperature Pulse Rate 106 H 107 H Pulse Rate [ From Monitor] Respiratory 13 Rate Blood Pressure 115/75 128/87 O2 Sat by Pulse 96 100 Oximetry - Laboratory Findings CBC and BMP: 01/14/19 04:35 01/14/19 04:35 Abnormal Lab Findings: Abnormal Labs 01/11/19 01/11/19 01/11/19 09:19 09:19 09:19 WBC RBC 2.42 L Hgb 5.7 L* Hct 17.5 L* MCV 72 L MCH 24 L RDW 20.9 H Plt Count Seg Neutrophils % 83.0 H Seg Neuts % (Manual) Lymphocytes % (Manual) Seg Neutrophils # 7.8 H Seg Neutrophils # Man Lymphocytes # (Manual) PT 20.3 H INR 1.78 H APTT 41.5 H POC ABG pH POC ABG pCO2 POC ABG pO2 ABG pO2 ABG HCO3 ABG Base Excess ABG Hemoglobin Sodium 113 L* Potassium 7.2 H* Chloride 72.7 L Carbon Dioxide 10 L BUN 197 H Creatinine 13.7 H Glucose 258 H POC Glucose Lactic Acid Calcium Phosphorus Magnesium 2.50 H Alkaline Phosphatase 139 H Ammonia Total Creatine Kinase 244 H CK-MB (CK-2) 10.1 H CK-MB (CK-2) Rel Index 4.1 H Troponin T 0.094 H NT-Pro-B Natriuret Pep 2056 H Total Protein Albumin 2.1 L Crossmatch 01/11/19 01/11/19 01/11/19 09:19 09:30 10:08 WBC RBC Hgb Hct MCV MCH RDW Plt Count Seg Neutrophils % Seg Neuts % (Manual) Lymphocytes % (Manual) Seg Neutrophils # Seg Neutrophils # Man Lymphocytes # (Manual) PT INR APTT POC ABG pH POC ABG pCO2 POC ABG pO2 ABG pO2 ABG HCO3 ABG Base Excess ABG Hemoglobin Sodium Potassium Chloride Carbon Dioxide BUN Creatinine Glucose POC Glucose Lactic Acid 7.20 H* Calcium Phosphorus Magnesium Alkaline Phosphatase Ammonia 167.0 H Total Creatine Kinase CK-MB (CK-2) CK-MB (CK-2) Rel Index Troponin T NT-Pro-B Natriuret Pep Total Protein Albumin Crossmatch See Detail 01/11/19 01/11/19 01/11/19 11:02 11:15 15:10 WBC RBC Hgb Hct MCV MCH RDW Plt Count Seg Neutrophils % Seg Neuts % (Manual) Lymphocytes % (Manual) Seg Neutrophils # Seg Neutrophils # Man Lymphocytes # (Manual) PT INR APTT POC ABG pH 7.287 L POC ABG pCO2 32.1 L POC ABG pO2 ABG pO2 ABG HCO3 ABG Base Excess ABG Hemoglobin Sodium Potassium Chloride Carbon Dioxide BUN Creatinine Glucose POC Glucose 239 H Lactic Acid 4.70 H* Calcium Phosphorus Magnesium Alkaline Phosphatase Ammonia Total Creatine Kinase CK-MB (CK-2) CK-MB (CK-2) Rel Index Troponin T NT-Pro-B Natriuret Pep Total Protein Albumin Crossmatch 01/11/19 01/11/19 01/11/19 20:30 20:30 23:13 WBC RBC Hgb 10.2 L D Hct 29.9 L D MCV 75 L MCH 25 L RDW 22.7 H Plt Count Seg Neutrophils % Seg Neuts % (Manual) 91.0 H Lymphocytes % (Manual) 5.0 L Seg Neutrophils # Seg Neutrophils # Man Lymphocytes # (Manual) 0.4 L PT INR APTT POC ABG pH POC ABG pCO2 POC ABG pO2 ABG pO2 ABG HCO3 ABG Base Excess ABG Hemoglobin Sodium 120 L D Potassium 5.8 H Chloride 78.5 L Carbon Dioxide 10 L BUN 190 H Creatinine 13.2 H Glucose 107 H POC Glucose 134 H Lactic Acid Calcium Phosphorus Magnesium Alkaline Phosphatase Ammonia Total Creatine Kinase CK-MB (CK-2) CK-MB (CK-2) Rel Index Troponin T NT-Pro-B Natriuret Pep Total Protein Albumin Crossmatch 01/12/19 01/12/19 01/12/19 04:15 04:15 04:50 WBC 16.3 H RBC Hgb 9.7 L Hct 29.0 L MCV 75 L MCH 25 L RDW 22.6 H Plt Count Seg Neutrophils % Seg Neuts % (Manual) 95.0 H Lymphocytes % (Manual) 2.0 L Seg Neutrophils # 15.5 H Seg Neutrophils # Man 15.5 H Lymphocytes # (Manual) 0.3 L PT INR APTT POC ABG pH POC ABG pCO2 POC ABG pO2 256 H ABG pO2 ABG HCO3 ABG Base Excess ABG Hemoglobin Sodium 121 L Potassium 6.5 H* Chloride 80.8 L Carbon Dioxide 12 L BUN 187 H Creatinine 13.1 H Glucose 110 H POC Glucose Lactic Acid Calcium Phosphorus Magnesium Alkaline Phosphatase Ammonia Total Creatine Kinase CK-MB (CK-2) CK-MB (CK-2) Rel Index Troponin T NT-Pro-B Natriuret Pep Total Protein Albumin Crossmatch 01/12/19 01/12/19 01/12/19 05:56 11:34 17:12 WBC RBC Hgb 7.2 L Hct 21.4 L D MCV MCH RDW Plt Count Seg Neutrophils % Seg Neuts % (Manual) Lymphocytes % (Manual) Seg Neutrophils # Seg Neutrophils # Man Lymphocytes # (Manual) PT INR APTT POC ABG pH POC ABG pCO2 POC ABG pO2 ABG pO2 ABG HCO3 ABG Base Excess ABG Hemoglobin Sodium Potassium Chloride Carbon Dioxide BUN Creatinine Glucose POC Glucose 124 H 127 H Lactic Acid Calcium Phosphorus Magnesium Alkaline Phosphatase Ammonia Total Creatine Kinase CK-MB (CK-2) CK-MB (CK-2) Rel Index Troponin T NT-Pro-B Natriuret Pep Total Protein Albumin Crossmatch 01/12/19 01/12/19 01/13/19 17:12 18:02 00:21 WBC RBC Hgb Hct MCV MCH RDW Plt Count Seg Neutrophils % Seg Neuts % (Manual) Lymphocytes % (Manual) Seg Neutrophils # Seg Neutrophils # Man Lymphocytes # (Manual) PT INR APTT POC ABG pH POC ABG pCO2 POC ABG pO2 ABG pO2 ABG HCO3 ABG Base Excess ABG Hemoglobin Sodium 129 L D Potassium Chloride 94.4 L Carbon Dioxide 14 L BUN 165 H Creatinine 11.4 H Glucose 119 H POC Glucose 140 H 132 H Lactic Acid Calcium 8.0 L D Phosphorus Magnesium Alkaline Phosphatase Ammonia Total Creatine Kinase CK-MB (CK-2) CK-MB (CK-2) Rel Index Troponin T NT-Pro-B Natriuret Pep Total Protein Albumin Crossmatch 01/13/19 01/13/19 01/13/19 01:30 01:30 04:13 WBC RBC Hgb 6.7 L Hct 20.5 L MCV MCH RDW Plt Count Seg Neutrophils % Seg Neuts % (Manual) Lymphocytes % (Manual) Seg Neutrophils # Seg Neutrophils # Man Lymphocytes # (Manual) PT INR APTT POC ABG pH POC ABG pCO2 POC ABG pO2 68 L ABG pO2 ABG HCO3 ABG Base Excess ABG Hemoglobin Sodium 131 L Potassium Chloride Carbon Dioxide 14 L BUN 150 H Creatinine 9.6 H Glucose 101 H POC Glucose Lactic Acid Calcium 7.5 L Phosphorus Magnesium Alkaline Phosphatase Ammonia Total Creatine Kinase CK-MB (CK-2) CK-MB (CK-2) Rel Index Troponin T NT-Pro-B Natriuret Pep Total Protein Albumin Crossmatch 01/13/19 01/13/19 01/13/19 04:26 05:30 05:36 WBC RBC Hgb Hct MCV MCH RDW Plt Count Seg Neutrophils % Seg Neuts % (Manual) Lymphocytes % (Manual) Seg Neutrophils # Seg Neutrophils # Man Lymphocytes # (Manual) PT INR APTT POC ABG pH POC ABG pCO2 POC ABG pO2 122 H ABG pO2 ABG HCO3 ABG Base Excess ABG Hemoglobin Sodium 135 L Potassium 3.3 L Chloride Carbon Dioxide 14 L BUN 125 H Creatinine 9.0 H Glucose POC Glucose 111 H Lactic Acid Calcium 6.9 L Phosphorus Magnesium Alkaline Phosphatase Ammonia Total Creatine Kinase CK-MB (CK-2) CK-MB (CK-2) Rel Index Troponin T NT-Pro-B Natriuret Pep Total Protein 5.2 L D Albumin 1.5 L Crossmatch 01/13/19 01/13/19 01/13/19 08:05 08:05 11:24 WBC RBC 2.36 L Hgb 6.1 L Hct 18.0 L* MCV 76 L MCH 26 L RDW 23.5 H Plt Count 103 L Seg Neutrophils % Seg Neuts % (Manual) 96.0 H Lymphocytes % (Manual) 2.0 L Seg Neutrophils # Seg Neutrophils # Man 9.9 H Lymphocytes # (Manual) 0.2 L PT INR APTT POC ABG pH POC ABG pCO2 POC ABG pO2 ABG pO2 ABG HCO3 ABG Base Excess ABG Hemoglobin Sodium 136 L Potassium 3.2 L Chloride Carbon Dioxide 15 L BUN 113 H Creatinine 8.0 H Glucose 127 H POC Glucose 122 H Lactic Acid Calcium 6.6 L Phosphorus Magnesium Alkaline Phosphatase Ammonia Total Creatine Kinase CK-MB (CK-2) CK-MB (CK-2) Rel Index Troponin T NT-Pro-B Natriuret Pep Total Protein Albumin Crossmatch 01/13/19 01/13/19 01/13/19 12:47 17:43 17:55 WBC RBC Hgb 7.7 L Hct 22.9 L MCV MCH RDW Plt Count Seg Neutrophils % Seg Neuts % (Manual) Lymphocytes % (Manual) Seg Neutrophils # Seg Neutrophils # Man Lymphocytes # (Manual) PT INR APTT POC ABG pH POC ABG pCO2 POC ABG pO2 ABG pO2 ABG HCO3 ABG Base Excess ABG Hemoglobin Sodium 134 L Potassium 3.3 L Chloride Carbon Dioxide 14 L BUN 122 H Creatinine 7.5 H Glucose POC Glucose 119 H Lactic Acid Calcium 6.9 L Phosphorus Magnesium Alkaline Phosphatase Ammonia Total Creatine Kinase CK-MB (CK-2) CK-MB (CK-2) Rel Index Troponin T NT-Pro-B Natriuret Pep Total Protein Albumin Crossmatch 01/13/19 01/14/19 01/14/19 23:35 04:35 04:35 WBC 12.6 H RBC 3.30 L Hgb 8.8 L Hct 26.0 L MCV 79 L MCH 27 L RDW 23.3 H Plt Count 100 L Seg Neutrophils % Seg Neuts % (Manual) 96.0 H Lymphocytes % (Manual) 1.0 L Seg Neutrophils # Seg Neutrophils # Man 12.1 H Lymphocytes # (Manual) 0.1 L PT INR APTT POC ABG pH POC ABG pCO2 POC ABG pO2 ABG pO2 ABG HCO3 ABG Base Excess ABG Hemoglobin Sodium Potassium 3.5 L Chloride Carbon Dioxide 15 L BUN 111 H Creatinine 8.0 H Glucose POC Glucose 106 H Lactic Acid Calcium 7.2 L Phosphorus 5.30 H Magnesium 1.20 L Alkaline Phosphatase Ammonia Total Creatine Kinase CK-MB (CK-2) CK-MB (CK-2) Rel Index Troponin T NT-Pro-B Natriuret Pep Total Protein Albumin Crossmatch 01/14/19 01/14/19 01/14/19 05:45 12:04 17:30 WBC RBC Hgb Hct MCV MCH RDW Plt Count Seg Neutrophils % Seg Neuts % (Manual) Lymphocytes % (Manual) Seg Neutrophils # Seg Neutrophils # Man Lymphocytes # (Manual) PT INR APTT POC ABG pH POC ABG pCO2 POC ABG pO2 143 H ABG pO2 ABG HCO3 ABG Base Excess ABG Hemoglobin Sodium Potassium Chloride Carbon Dioxide BUN Creatinine Glucose POC Glucose 111 H 119 H Lactic Acid Calcium Phosphorus Magnesium Alkaline Phosphatase Ammonia Total Creatine Kinase CK-MB (CK-2) CK-MB (CK-2) Rel Index Troponin T NT-Pro-B Natriuret Pep Total Protein Albumin Crossmatch 01/15/19 01/15/19 03:35 05:31 WBC RBC Hgb Hct MCV MCH RDW Plt Count Seg Neutrophils % Seg Neuts % (Manual) Lymphocytes % (Manual) Seg Neutrophils # Seg Neutrophils # Man Lymphocytes # (Manual) PT INR APTT POC ABG pH POC ABG pCO2 POC ABG pO2 ABG pO2 118.4 H ABG HCO3 14.0 L ABG Base Excess -9.5 L ABG Hemoglobin 8.7 L Sodium Potassium Chloride Carbon Dioxide BUN Creatinine Glucose POC Glucose 106 H Lactic Acid Calcium Phosphorus Magnesium Alkaline Phosphatase Ammonia Total Creatine Kinase CK-MB (CK-2) CK-MB (CK-2) Rel Index Troponin T NT-Pro-B Natriuret Pep Total Protein Albumin Crossmatch
[2019-01-15] MEDS: PEPCID IV SCH (10:05)
--- NOTE | 2019-01-15 11:12 | Progress Note ---
Assessment and Plan - Patient Problems (1) Acute respiratory failure Current Visit: Yes Status: Acute (2) Acute kidney injury with acute tubular necrosis Current Visit: Yes Status: Acute (3) Acute renal failure Current Visit: Yes Status: Acute (4) Cardiac arrest Current Visit: Yes Status: Acute (5) Hemorrhagic shock Current Visit: Yes Status: Acute (6) Hepatic encephalopathy Current Visit: Yes Status: Acute (7) Metabolic acidosis Current Visit: Yes Status: Acute (8) Debility Current Visit: No Status: Acute (9) Nicotine dependence Current Visit: No Status: Acute Qualifiers: Nicotine product type: cigarettes (10) Sepsis Current Visit: No Status: Acute Qualifiers: Sepsis type: sepsis due to unspecified organism Qualified Code(s): A41.9 - Sepsis, unspecified organism (11) Electrolyte abnormality Current Visit: Yes Status: Acute Subjective Principal diagnosis: [place] Interval history: on vent Objective Vital Signs - 12hr 01/14/19 01/14/19 01/14/19 23:15 23:30 23:45 Temperature Pulse Rate 109 H 114 H 107 H Pulse Rate [ From Monitor] Respiratory 19 18 15 Rate Blood Pressure 123/70 115/76 108/68 O2 Sat by Pulse 97 98 98 Oximetry 01/15/19 01/15/19 01/15/19 00:00 00:04 00:15 Temperature 99.5 F Pulse Rate 107 H 107 H 109 H Pulse Rate [ 108 H From Monitor] Respiratory 11 L 12 15 Rate Blood Pressure 116/75 116/75 116/72 O2 Sat by Pulse 98 99 97 Oximetry 01/15/19 01/15/19 01/15/19 00:30 00:40 00:45 Temperature Pulse Rate 109 H 107 H 106 H Pulse Rate [ From Monitor] Respiratory 13 12 Rate Blood Pressure 119/73 119/73 121/75 O2 Sat by Pulse 97 99 97 Oximetry 01/15/19 01/15/19 01/15/19 01:00 01:15 01:30 Temperature Pulse Rate 114 H 111 H 109 H Pulse Rate [ From Monitor] Respiratory 13 11 L 18 Rate Blood Pressure 131/77 127/75 120/75 O2 Sat by Pulse 96 97 97 Oximetry 01/15/19 01/15/19 01/15/19 01:45 02:00 02:15 Temperature Pulse Rate 109 H 105 H 107 H Pulse Rate [ From Monitor] Respiratory 12 11 L 11 L Rate Blood Pressure 118/73 118/74 118/75 O2 Sat by Pulse 97 98 98 Oximetry 01/15/19 01/15/19 01/15/19 02:30 02:45 03:00 Temperature Pulse Rate 107 H 106 H 107 H Pulse Rate [ From Monitor] Respiratory 18 13 11 L Rate Blood Pressure 119/75 122/73 121/73 O2 Sat by Pulse 98 97 96 Oximetry 01/15/19 01/15/19 01/15/19 03:15 03:30 03:45 Temperature 98.8 F Pulse Rate 107 H 105 H 106 H Pulse Rate [ From Monitor] Respiratory 10 L 11 L 14 Rate Blood Pressure 123/76 125/69 110/72 O2 Sat by Pulse 99 97 98 Oximetry 01/15/19 01/15/19 01/15/19 03:50 04:00 04:15 Temperature Pulse Rate 108 H 107 H 107 H Pulse Rate [ 108 H From Monitor] Respiratory 10 L 15 Rate Blood Pressure 110/72 116/75 115/73 O2 Sat by Pulse 99 97 96 Oximetry 01/15/19 01/15/19 01/15/19 04:30 04:45 05:00 Temperature Pulse Rate 107 H 105 H 104 H Pulse Rate [ From Monitor] Respiratory 13 12 11 L Rate Blood Pressure 117/73 122/75 118/80 O2 Sat by Pulse 98 98 98 Oximetry 01/15/19 01/15/19 01/15/19 05:15 05:30 05:45 Temperature Pulse Rate 107 H 103 H 108 H Pulse Rate [ From Monitor] Respiratory 16 12 15 Rate Blood Pressure 121/77 115/72 119/74 O2 Sat by Pulse 97 98 98 Oximetry 01/15/19 01/15/19 01/15/19 06:00 06:15 06:30 Temperature Pulse Rate 107 H 106 H 106 H Pulse Rate [ From Monitor] Respiratory 13 17 13 Rate Blood Pressure 117/73 116/75 115/75 O2 Sat by Pulse 96 98 96 Oximetry 01/15/19 01/15/19 01/15/19 06:45 07:00 07:15 Temperature Pulse Rate 106 H 104 H 105 H Pulse Rate [ From Monitor] Respiratory 11 L 16 10 L Rate Blood Pressure 107/74 118/73 115/75 O2 Sat by Pulse 97 97 98 Oximetry 01/15/19 01/15/19 01/15/19 07:30 07:45 07:46 Temperature Pulse Rate 107 H Pulse Rate [ From Monitor] Respiratory Rate Blood Pressure 120/79 128/87 128/87 O2 Sat by Pulse 99 98 100 Oximetry 01/15/19 01/15/19 01/15/19 08:00 08:15 08:30 Temperature 96.7 F L Pulse Rate 110 H 107 H 108 H Pulse Rate [ 110 H From Monitor] Respiratory 11 L 11 L 10 L Rate Blood Pressure 131/87 132/85 126/81 O2 Sat by Pulse 100 99 Oximetry 01/15/19 01/15/19 01/15/19 08:45 09:00 09:15 Temperature Pulse Rate 109 H 105 H 115 H Pulse Rate [ From Monitor] Respiratory 12 12 11 L Rate Blood Pressure 126/86 117/69 138/94 O2 Sat by Pulse 99 98 98 Oximetry 01/15/19 01/15/19 01/15/19 09:30 09:45 10:00 Temperature Pulse Rate 110 H 110 H 108 H Pulse Rate [ From Monitor] Respiratory 11 L 11 L 11 L Rate Blood Pressure 122/87 130/88 127/88 O2 Sat by Pulse 98 98 Oximetry 01/15/19 01/15/19 01/15/19 10:15 10:30 10:45 Temperature Pulse Rate 109 H 108 H 108 H Pulse Rate [ From Monitor] Respiratory 11 L 11 L 11 L Rate Blood Pressure 128/87 134/86 129/89 O2 Sat by Pulse 98 Oximetry 01/15/19 11:00 Temperature Pulse Rate 108 H Pulse Rate [ From Monitor] Respiratory 12 Rate Blood Pressure 124/84 O2 Sat by Pulse 99 Oximetry Constitutional: comatose, other (critically ill on vent) Eyes: non-icteric ENT: other (orally intubated and not medically sedated) Neck: supple Effort: normal Ascultation: Bilateral: other (coarse BS bilaterally) Percussion: Bilateral: not dull Cardiovascular: regular rate and rhythm (no mrg) Gastrointestinal: normoactive bowel sounds, soft, other (colostomy with brown output per nursing) Extremities: no cyanosis, no edema Neurologic: other (unresponsive, mild increased tone RUE but flaccid other extremities) Psychiatric: other (not able to assess) CBC and BMP: 01/14/19 04:35 01/14/19 04:35 ABG, PT/INR, D-dimer: ABG POC ABG pH 7.399 (7.35-7.45) 01/14/19 05:45 ABG pH 7.401 pH Units (7.350-7.450) 01/15/19 03:35 ABG pCO2 23.1 mm Hg 01/15/19 03:35 POC ABG pO2 143 (80-105) H 01/14/19 05:45 ABG pO2 118.4 mm Hg (80.0-90.0) H 01/15/19 03:35 POC ABG HCO3 13.7 (22-26 mml/L) 01/14/19 05:45 POC ABG Total CO2 14 (23-27mmol/L) 01/14/19 05:45 POC ABG O2 Sat 99 01/14/19 05:45 ABG O2 Saturation 98.4 % (95.0-99.0) 01/15/19 03:35 PT/INR, D-dimer PT 20.3 Sec. (12.2-14.9) H 01/11/19 09:19 INR 1.78 (0.87-1.13) H 01/11/19 09:19 Abnormal lab findings: Abnormal Labs 01/11/19 01/11/19 01/11/19 09:19 09:19 09:19 WBC RBC 2.42 L Hgb 5.7 L* Hct 17.5 L* MCV 72 L MCH 24 L RDW 20.9 H Plt Count Seg Neutrophils % 83.0 H Seg Neuts % (Manual) Lymphocytes % (Manual) Seg Neutrophils # 7.8 H Seg Neutrophils # Man Lymphocytes # (Manual) PT 20.3 H INR 1.78 H APTT 41.5 H POC ABG pH POC ABG pCO2 POC ABG pO2 ABG pO2 ABG HCO3 ABG Base Excess ABG Hemoglobin Sodium 113 L* Potassium 7.2 H* Chloride 72.7 L Carbon Dioxide 10 L BUN 197 H Creatinine 13.7 H Glucose 258 H POC Glucose Lactic Acid Calcium Phosphorus Magnesium 2.50 H Alkaline Phosphatase 139 H Ammonia Total Creatine Kinase 244 H CK-MB (CK-2) 10.1 H CK-MB (CK-2) Rel Index 4.1 H Troponin T 0.094 H NT-Pro-B Natriuret Pep 2056 H Total Protein Albumin 2.1 L Crossmatch 0801/11/19 01/11/19 09:19 09:30 10:08 WBC RBC Hgb Hct MCV MCH RDW Plt Count Seg Neutrophils % Seg Neuts % (Manual) Lymphocytes % (Manual) Seg Neutrophils # Seg Neutrophils # Man Lymphocytes # (Manual) PT INR APTT POC ABG pH POC ABG pCO2 POC ABG pO2 ABG pO2 ABG HCO3 ABG Base Excess ABG Hemoglobin Sodium Potassium Chloride Carbon Dioxide BUN Creatinine Glucose POC Glucose Lactic Acid 7.20 H* Calcium Phosphorus Magnesium Alkaline Phosphatase Ammonia 167.0 H Total Creatine Kinase CK-MB (CK-2) CK-MB (CK-2) Rel Index Troponin T NT-Pro-B Natriuret Pep Total Protein Albumin Crossmatch See Detail 01/11/19 01/11/19 01/11/19 11:02 11:15 15:10 WBC RBC Hgb Hct MCV MCH RDW Plt Count Seg Neutrophils % Seg Neuts % (Manual) Lymphocytes % (Manual) Seg Neutrophils # Seg Neutrophils # Man Lymphocytes # (Manual) PT INR APTT POC ABG pH 7.287 L POC ABG pCO2 32.1 L POC ABG pO2 ABG pO2 ABG HCO3 ABG Base Excess ABG Hemoglobin Sodium Potassium Chloride Carbon Dioxide BUN Creatinine Glucose POC Glucose 239 H Lactic Acid 4.70 H* Calcium Phosphorus Magnesium Alkaline Phosphatase Ammonia Total Creatine Kinase CK-MB (CK-2) CK-MB (CK-2) Rel Index Troponin T NT-Pro-B Natriuret Pep Total Protein Albumin Crossmatch 01/11/19 01/11/19 01/11/19 20:30 20:30 23:13 WBC RBC Hgb 10.2 L D Hct 29.9 L D MCV 75 L MCH 25 L RDW 22.7 H Plt Count Seg Neutrophils % Seg Neuts % (Manual) 91.0 H Lymphocytes % (Manual) 5.0 L Seg Neutrophils # Seg Neutrophils # Man Lymphocytes # (Manual) 0.4 L PT INR APTT POC ABG pH POC ABG pCO2 POC ABG pO2 ABG pO2 ABG HCO3 ABG Base Excess ABG Hemoglobin Sodium 120 L D Potassium 5.8 H Chloride 78.5 L Carbon Dioxide 10 L BUN 190 H Creatinine 13.2 H Glucose 107 H POC Glucose 134 H Lactic Acid Calcium Phosphorus Magnesium Alkaline Phosphatase Ammonia Total Creatine Kinase CK-MB (CK-2) CK-MB (CK-2) Rel Index Troponin T NT-Pro-B Natriuret Pep Total Protein Albumin Crossmatch 01/12/19 01/12/19 01/12/19 04:15 04:15 04:50 WBC 16.3 H RBC Hgb 9.7 L Hct 29.0 L MCV 75 L MCH 25 L RDW 22.6 H Plt Count Seg Neutrophils % Seg Neuts % (Manual) 95.0 H Lymphocytes % (Manual) 2.0 L Seg Neutrophils # 15.5 H Seg Neutrophils # Man 15.5 H Lymphocytes # (Manual) 0.3 L PT INR APTT POC ABG pH POC ABG pCO2 POC ABG pO2 256 H ABG pO2 ABG HCO3 ABG Base Excess ABG Hemoglobin Sodium 121 L Potassium 6.5 H* Chloride 80.8 L Carbon Dioxide 12 L BUN 187 H Creatinine 13.1 H Glucose 110 H POC Glucose Lactic Acid Calcium Phosphorus Magnesium Alkaline Phosphatase Ammonia Total Creatine Kinase CK-MB (CK-2) CK-MB (CK-2) Rel Index Troponin T NT-Pro-B Natriuret Pep Total Protein Albumin Crossmatch 01/12/19 01/12/19 01/12/19 05:56 11:34 17:12 WBC RBC Hgb 7.2 L Hct 21.4 L D MCV MCH RDW Plt Count Seg Neutrophils % Seg Neuts % (Manual) Lymphocytes % (Manual) Seg Neutrophils # Seg Neutrophils # Man Lymphocytes # (Manual) PT INR APTT POC ABG pH POC ABG pCO2 POC ABG pO2 ABG pO2 ABG HCO3 ABG Base Excess ABG Hemoglobin Sodium Potassium Chloride Carbon Dioxide BUN Creatinine Glucose POC Glucose 124 H 127 H Lactic Acid Calcium Phosphorus Magnesium Alkaline Phosphatase Ammonia Total Creatine Kinase CK-MB (CK-2) CK-MB (CK-2) Rel Index Troponin T NT-Pro-B Natriuret Pep Total Protein Albumin Crossmatch 01/12/19 01/12/19 01/13/19 17:12 18:02 00:21 WBC RBC Hgb Hct MCV MCH RDW Plt Count Seg Neutrophils % Seg Neuts % (Manual) Lymphocytes % (Manual) Seg Neutrophils # Seg Neutrophils # Man Lymphocytes # (Manual) PT INR APTT POC ABG pH POC ABG pCO2 POC ABG pO2 ABG pO2 ABG HCO3 ABG Base Excess ABG Hemoglobin Sodium 129 L D Potassium Chloride 94.4 L Carbon Dioxide 14 L BUN 165 H Creatinine 11.4 H Glucose 119 H POC Glucose 140 H 132 H Lactic Acid Calcium 8.0 L D Phosphorus Magnesium Alkaline Phosphatase Ammonia Total Creatine Kinase CK-MB (CK-2) CK-MB (CK-2) Rel Index Troponin T NT-Pro-B Natriuret Pep Total Protein Albumin Crossmatch 01/13/19 01/13/19 01/13/19 01:30 01:30 04:13 WBC RBC Hgb 6.7 L Hct 20.5 L MCV MCH RDW Plt Count Seg Neutrophils % Seg Neuts % (Manual) Lymphocytes % (Manual) Seg Neutrophils # Seg Neutrophils # Man Lymphocytes # (Manual) PT INR APTT POC ABG pH POC ABG pCO2 POC ABG pO2 68 L ABG pO2 ABG HCO3 ABG Base Excess ABG Hemoglobin Sodium 131 L Potassium Chloride Carbon Dioxide 14 L BUN 150 H Creatinine 9.6 H Glucose 101 H POC Glucose Lactic Acid Calcium 7.5 L Phosphorus Magnesium Alkaline Phosphatase Ammonia Total Creatine Kinase CK-MB (CK-2) CK-MB (CK-2) Rel Index Troponin T NT-Pro-B Natriuret Pep Total Protein Albumin Crossmatch 01/13/19 01/13/19 01/13/19 04:26 05:30 05:36 WBC RBC Hgb Hct MCV MCH RDW Plt Count Seg Neutrophils % Seg Neuts % (Manual) Lymphocytes % (Manual) Seg Neutrophils # Seg Neutrophils # Man Lymphocytes # (Manual) PT INR APTT POC ABG pH POC ABG pCO2 POC ABG pO2 122 H ABG pO2 ABG HCO3 ABG Base Excess ABG Hemoglobin Sodium 135 L Potassium 3.3 L Chloride Carbon Dioxide 14 L BUN 125 H Creatinine 9.0 H Glucose POC Glucose 111 H Lactic Acid Calcium 6.9 L Phosphorus Magnesium Alkaline Phosphatase Ammonia Total Creatine Kinase CK-MB (CK-2) CK-MB (CK-2) Rel Index Troponin T NT-Pro-B Natriuret Pep Total Protein 5.2 L D Albumin 1.5 L Crossmatch 01/13/19 01/13/19 01/13/19 08:05 08:05 11:24 WBC RBC 2.36 L Hgb 6.1 L Hct 18.0 L* MCV 76 L MCH 26 L RDW 23.5 H Plt Count 103 L Seg Neutrophils % Seg Neuts % (Manual) 96.0 H Lymphocytes % (Manual) 2.0 L Seg Neutrophils # Seg Neutrophils # Man 9.9 H Lymphocytes # (Manual) 0.2 L PT INR APTT POC ABG pH POC ABG pCO2 POC ABG pO2 ABG pO2 ABG HCO3 ABG Base Excess ABG Hemoglobin Sodium 136 L Potassium 3.2 L Chloride Carbon Dioxide 15 L BUN 113 H Creatinine 8.0 H Glucose 127 H POC Glucose 122 H Lactic Acid Calcium 6.6 L Phosphorus Magnesium Alkaline Phosphatase Ammonia Total Creatine Kinase CK-MB (CK-2) CK-MB (CK-2) Rel Index Troponin T NT-Pro-B Natriuret Pep Total Protein Albumin Crossmatch 01/13/19 01/13/19 01/13/19 12:47 17:43 17:55 WBC RBC Hgb 7.7 L Hct 22.9 L MCV MCH RDW Plt Count Seg Neutrophils % Seg Neuts % (Manual) Lymphocytes % (Manual) Seg Neutrophils # Seg Neutrophils # Man Lymphocytes # (Manual) PT INR APTT POC ABG pH POC ABG pCO2 POC ABG pO2 ABG pO2 ABG HCO3 ABG Base Excess ABG Hemoglobin Sodium 134 L Potassium 3.3 L Chloride Carbon Dioxide 14 L BUN 122 H Creatinine 7.5 H Glucose POC Glucose 119 H Lactic Acid Calcium 6.9 L Phosphorus Magnesium Alkaline Phosphatase Ammonia Total Creatine Kinase CK-MB (CK-2) CK-MB (CK-2) Rel Index Troponin T NT-Pro-B Natriuret Pep Total Protein Albumin Crossmatch 01/13/19 01/14/19 01/14/19 23:35 04:35 04:35 WBC 12.6 H RBC 3.30 L Hgb 8.8 L Hct 26.0 L MCV 79 L MCH 27 L RDW 23.3 H Plt Count 100 L Seg Neutrophils % Seg Neuts % (Manual) 96.0 H Lymphocytes % (Manual) 1.0 L Seg Neutrophils # Seg Neutrophils # Man 12.1 H Lymphocytes # (Manual) 0.1 L PT INR APTT POC ABG pH POC ABG pCO2 POC ABG pO2 ABG pO2 ABG HCO3 ABG Base Excess ABG Hemoglobin Sodium Potassium 3.5 L Chloride Carbon Dioxide 15 L BUN 111 H Creatinine 8.0 H Glucose POC Glucose 106 H Lactic Acid Calcium 7.2 L Phosphorus 5.30 H Magnesium 1.20 L Alkaline Phosphatase Ammonia Total Creatine Kinase CK-MB (CK-2) CK-MB (CK-2) Rel Index Troponin T NT-Pro-B Natriuret Pep Total Protein Albumin Crossmatch 01/14/19 01/14/19 01/14/19 05:45 12:04 17:30 WBC RBC Hgb Hct MCV MCH RDW Plt Count Seg Neutrophils % Seg Neuts % (Manual) Lymphocytes % (Manual) Seg Neutrophils # Seg Neutrophils # Man Lymphocytes # (Manual) PT INR APTT POC ABG pH POC ABG pCO2 POC ABG pO2 143 H ABG pO2 ABG HCO3 ABG Base Excess ABG Hemoglobin Sodium Potassium Chloride Carbon Dioxide BUN Creatinine Glucose POC Glucose 111 H 119 H Lactic Acid Calcium Phosphorus Magnesium Alkaline Phosphatase Ammonia Total Creatine Kinase CK-MB (CK-2) CK-MB (CK-2) Rel Index Troponin T NT-Pro-B Natriuret Pep Total Protein Albumin Crossmatch 01/15/19 01/15/19 03:35 05:31 WBC RBC Hgb Hct MCV MCH RDW Plt Count Seg Neutrophils % Seg Neuts % (Manual) Lymphocytes % (Manual) Seg Neutrophils # Seg Neutrophils # Man Lymphocytes # (Manual) PT INR APTT POC ABG pH POC ABG pCO2 POC ABG pO2 ABG pO2 118.4 H ABG HCO3 14.0 L ABG Base Excess -9.5 L ABG Hemoglobin 8.7 L Sodium Potassium Chloride Carbon Dioxide BUN Creatinine Glucose POC Glucose 106 H Lactic Acid Calcium Phosphorus Magnesium Alkaline Phosphatase Ammonia Total Creatine Kinase CK-MB (CK-2) CK-MB (CK-2) Rel Index Troponin T NT-Pro-B Natriuret Pep Total Protein Albumin Crossmatch
[2019-01-15 11:24] LABS: Calcium 7.4 mg/dL (8.4-10.2)
[2019-01-15] MEDS ORDERED: POTASSIUM CHLORIDE FEEDTUBE ONE (14:13)
--- NOTE | 2019-01-15 14:20 | Progress Note ---
Assessment and Plan - Patient Problems (1) Acute kidney injury with acute tubular necrosis Current Visit: Yes Status: Acute Plan to address problem: acute renal failure secondary to ischemic ATN in the setting of hemorrhagic/septic shock. Improving renal function with IVF, blood transfusion and s/p vasopressor support. pt is now weaned off vasopressors. metabolic acidosis corrected with bicarb gtt, changed IVF to D5 1/2 NS given worsening hyperchloremic met acidosis. No emergent indication for renal replacement therapy at present, pt remains non- oliguric. Cont supportive care for ATN, avoid nephrotoxins, NSAIDS, IV contrast. (2) Hemorrhagic shock Current Visit: Yes Status: Acute Plan to address problem: Hb improved to 8.8, s/p 4 PRBC transfusion since admission (3) Cardiac arrest Current Visit: Yes Status: Acute Plan to address problem: s/p ACLS, now with ROSC. (4) Sepsis Current Visit: No Status: Acute Qualifiers: Sepsis type: sepsis due to unspecified organism Qualified Code(s): A41.9 - Sepsis, unspecified organism Plan to address problem: follow UCx, BCx, initated on empiric ABXs, follow ID recommendations. (5) Metabolic acidosis Current Visit: Yes Status: Acute Plan to address problem: secondary to lactic acidosis, improved s/p bicarb gtt along with stable hemodynamics. now non AG hyperchloremic met acidosis in the setting of [place]. (6) Hyponatremia Current Visit: Yes Status: Acute Plan to address problem: improved with IVF (7) Hypokalemia Current Visit: Yes Status: Acute Plan to address problem: s/p K supplementation with KDur 40meq Subjective Date of service: 01/15/19 Principal diagnosis: [place] Interval history: Pt remains intubated, unresponsive. Objective - Vital Signs Vital signs: Vital Signs - 12hr 01/15/19 01/15/19 01/15/19 02:30 02:45 03:00 Temperature Pulse Rate 107 H 106 H 107 H Pulse Rate [ From Monitor] Respiratory 18 13 11 L Rate Blood Pressure 119/75 122/73 121/73 O2 Sat by Pulse 98 97 96 Oximetry 01/15/19 01/15/19 01/15/19 03:15 03:30 03:45 Temperature 98.8 F Pulse Rate 107 H 105 H 106 H Pulse Rate [ From Monitor] Respiratory 10 L 11 L 14 Rate Blood Pressure 123/76 125/69 110/72 O2 Sat by Pulse 99 97 98 Oximetry 01/15/19 01/15/19 01/15/19 03:50 04:00 04:15 Temperature Pulse Rate 108 H 107 H 107 H Pulse Rate [ 108 H From Monitor] Respiratory 10 L 15 Rate Blood Pressure 110/72 116/75 115/73 O2 Sat by Pulse 99 97 96 Oximetry 01/15/19 01/15/19 01/15/19 04:30 04:45 05:00 Temperature Pulse Rate 107 H 105 H 104 H Pulse Rate [ From Monitor] Respiratory 13 12 11 L Rate Blood Pressure 117/73 122/75 118/80 O2 Sat by Pulse 98 98 98 Oximetry 01/15/19 01/15/19 01/15/19 05:15 05:30 05:45 Temperature Pulse Rate 107 H 103 H 108 H Pulse Rate [ From Monitor] Respiratory 16 12 15 Rate Blood Pressure 121/77 115/72 119/74 O2 Sat by Pulse 97 98 98 Oximetry 01/15/19 01/15/19 01/15/19 06:00 06:15 06:30 Temperature Pulse Rate 107 H 106 H 106 H Pulse Rate [ From Monitor] Respiratory 13 17 13 Rate Blood Pressure 117/73 116/75 115/75 O2 Sat by Pulse 96 98 96 Oximetry 01/15/19 01/15/19 01/15/19 06:45 07:00 07:15 Temperature Pulse Rate 106 H 104 H 105 H Pulse Rate [ From Monitor] Respiratory 11 L 16 10 L Rate Blood Pressure 107/74 118/73 115/75 O2 Sat by Pulse 97 97 98 Oximetry 01/15/19 01/15/19 01/15/19 07:30 07:45 07:46 Temperature Pulse Rate 107 H Pulse Rate [ From Monitor] Respiratory Rate Blood Pressure 120/79 128/87 128/87 O2 Sat by Pulse 99 98 100 Oximetry 01/15/19 01/15/19 01/15/19 08:00 08:15 08:30 Temperature 96.7 F L Pulse Rate 110 H 107 H 108 H Pulse Rate [ 110 H From Monitor] Respiratory 11 L 11 L 10 L Rate Blood Pressure 131/87 132/85 126/81 O2 Sat by Pulse 100 99 Oximetry 01/15/19 01/15/19 01/15/19 08:45 09:00 09:15 Temperature Pulse Rate 109 H 105 H 115 H Pulse Rate [ From Monitor] Respiratory 12 12 11 L Rate Blood Pressure 126/86 117/69 138/94 O2 Sat by Pulse 99 98 98 Oximetry 01/15/19 01/15/19 01/15/19 09:30 09:45 10:00 Temperature Pulse Rate 110 H 110 H 108 H Pulse Rate [ From Monitor] Respiratory 11 L 11 L 11 L Rate Blood Pressure 122/87 130/88 127/88 O2 Sat by Pulse 98 98 Oximetry 01/15/19 01/15/19 01/15/19 10:15 10:30 10:45 Temperature Pulse Rate 109 H 108 H 108 H Pulse Rate [ From Monitor] Respiratory 11 L 11 L 11 L Rate Blood Pressure 128/87 134/86 129/89 O2 Sat by Pulse 98 Oximetry 01/15/19 01/15/19 01/15/19 11:00 11:15 11:30 Temperature Pulse Rate 108 H 107 H 107 H Pulse Rate [ From Monitor] Respiratory 12 12 11 L Rate Blood Pressure 124/84 127/85 127/85 O2 Sat by Pulse 99 98 98 Oximetry 01/15/19 01/15/19 01/15/19 11:45 12:00 12:15 Temperature Pulse Rate 107 H 106 H 104 H Pulse Rate [ 106 H From Monitor] Respiratory 12 11 L 10 L Rate Blood Pressure 126/86 129/86 123/84 O2 Sat by Pulse 99 99 Oximetry 01/15/19 12:43 Temperature Pulse Rate 103 H Pulse Rate [ From Monitor] Respiratory Rate Blood Pressure 122/85 O2 Sat by Pulse 99 Oximetry - General Appearance General appearance: chronically ill, intubated, frail EENT: ATNC, mucous membranes moist Neck: no JVD Respiratory: Present: Clear to Ascultation Cardiology: regular, S1S2 Gastrointestinal: normoactive bowel sounds Integumentary: no rash, other (no edema ) Neurologic: obtunded - Lab 01/14/19 04:35 01/15/19 10:37 Most recent lab results ABG pH 7.401 pH Units (7.350-7.450) 01/15/19 03:35 ABG pCO2 23.1 mm Hg 01/15/19 03:35 ABG pO2 118.4 mm Hg (80.0-90.0) H 01/15/19 03:35 ABG HCO3 14.0 mmol/L (20.0-26.0) L 01/15/19 03:35 ABG O2 Saturation 98.4 % (95.0-99.0) 01/15/19 03:35 Calcium 7.4 mg/dL (8.4-10.2) L 01/15/19 10:37 Phosphorus 5.30 mg/dL (2.5-4.5) H 01/14/19 04:35 Magnesium 1.20 mg/dL (1.7-2.3) L 01/14/19 04:35 Medications & Allergies - Medications Allergies/Adverse Reactions: Allergies No Known Allergies Allergy (Verified 01/04/15 17:02) Home Medications: Home Medications Medication Instructions Recorded Confirmed Last Taken Type oxyCODONE /ACETAMINOPHEN [Percocet 1 tab PO Q4HR PRN #15 tablet 07/29/18 01/11/19 Unknown Rx 5/325 mg] Adalimumab [Humira] 40 mg SQ QWEEK 01/11/19 01/11/19 Unknown History Ascorbic Acid [Vitamin C] 500 mg PO QDAY 01/11/19 01/11/19 Unknown History Ferrous Sulfate [Feosol] 325 mg PO QDAY 01/11/19 01/11/19 Unknown History Loperamide [Imodium] 2 mg PO DAILY 01/11/19 01/11/19 Unknown History Megestrol [Megace] 10 ml PO DAILY 01/11/19 01/11/19 Unknown History Mirtazapine [Remeron 15mg TAB] 30 mg PO QHS 01/11/19 01/11/19 Unknown History Multivit-Min/Iron Fum/Folic AC 1 each PO DAILY 01/11/19 01/11/19 Unknown History [Udlip-Otdequc-Pjfjyukz Tablet] Zinc [Zinc 50mg TAB] 50 mg PO DAILY 01/11/19 01/11/19 Unknown History Active Medications: Generic Name Dose Route Start Last Admin Trade Name Freq PRN Reason Stop Dose Admin Lipase/Protease/Amylase 1 each 01/12/19 03:16 Pancrelyssa Henley 10,500 Unit FEEDTUBE PRN PRN For Clogged Feeding Tube Famotidine 20 mg 01/12/19 10:00 01/14/19 09:23 Pepcid IV 20 mg QAM MAXIMUS Administration Norepinephrine 4 mg in 250 mls @ 7.5 mls/hr 01/11/19 11:00 01/12/19 20:38 Levophed Drip 4 Mg/Ns 250 Ml IV 0 mcg/min TITR MAXIMUS 0 mls/hr Titration Protocol 2 MCG/MIN Cefepime HCl 1 gm in 100 mls @ 200 mls/hr 01/12/19 22:00 01/14/19 22:05 Maxipime/Ns 1 Gm/100 Ml IV 200 mls/hr QHS MAXIMUS Administration Protocol Sodium Chloride 500 mls @ 0 mls/hr 01/12/19 11:00 01/13/19 12:57 Nacl 0.9% 500 Ml IV 10 mls/hr DIRECT MAXIMUS Administration As Directed Dextrose/Sodium Chloride 1,000 mls @ 75 mls/hr 01/15/19 15:00 D5/0.45ns IV DIRECT MAXIMUS Metoclopramide HCl 5 mg 01/12/19 03:16 Reglan IV Q6H PRN Nausea And Vomiting Potassium Chloride 40 meq 01/15/19 14:13 Potassium Chloride FEEDTUBE 01/15/19 14:14 ONCE ONE Simple Syrup 15 ml 01/12/19 03:16 Simple Syrup FEEDTUBE PRN PRN Hypoglycemia Simple Syrup 30 ml 01/12/19 03:16 Simple Syrup FEEDTUBE PRN PRN Hypoglycemia Sodium Bicarbonate 325 mg 01/12/19 03:16 Sodium Bicarbonate FEEDTUBE PRN PRN For Clogged Feeding Tube Sodium Chloride 10 ml 01/12/19 10:00 01/15/19 07:03 Sodium Chloride Flush Syringe 10 Ml IV 10 ml BID MAXIMUS Administration Sodium Chloride 10 ml 01/12/19 03:16 Sodium Chloride Flush Syringe 10 Ml IV PRN PRN LINE FLUSH
[2019-01-15] MEDS: D5/0.45NS 1,000 ML IV SCH (14:35)
--- NOTE | 2019-01-15 16:49 | Progress Note ---
Assessment and Plan Assessment and plan: The high probability of a clinically significant, sudden or life threatening deterioration of the [] system(s) required my full and direct attention, intervention and personal management. The aggregate critical care time was [] minutes. This time is in addition to time spent performing reported procedures but includes the following: [x] Data Review and interpretation [x] Patient assessment and monitoring of vital signs [x] Documentation []x Medication orders and management - Patient Problems (1) Acute kidney injury with acute tubular necrosis Current Visit: Yes Status: Acute Plan to address problem: Patient with acute kidney injury. Patient renal function continues to be poor s econdary to ischemia, respiratory arrest. (2) Acute respiratory failure Current Visit: Yes Status: Acute Plan to address problem: Acute respiratory failure patient remains intubated. Secondary to cardior espiratory arrest. Continue beta alison oxygen support wean as tolerated. Appears to be improving was able to come off of pressor support. (3) Cardiac arrest Current Visit: Yes Status: Acute Plan to address problem: Patient status post ACLS. Intubated supportive care. Wean as tolerated. (4) Electrolyte abnormality Current Visit: Yes Status: Acute (5) Hemorrhagic shock Current Visit: Yes Status: Acute Plan to address problem: That is posttransfusion has stabilized now no evidence of obvious bleeding. (6) Hyperkalemia Current Visit: Yes Status: Resolved Plan to address problem: Continue to monitor electrolytes (7) Nicotine dependence Current Visit: No Status: Acute Qualifiers: Nicotine product type: cigarettes (8) Sepsis Current Visit: Yes Status: Acute Plan to address problem: Continue reason for breakdown. Continue cefepime and vancomycin. Clinically patient not improving very well. The fever curve is coming down and leukocyto sis is improved however patient remains acutely ill with the extremely poor prognosis. History Interval history: She remains nonverbal encephalopathic was able to come or persist today remains on life-support. Hospitalist Physical - Constitutional Vitals: Temp Pulse Resp BP Pulse Ox 97.5 F L 101 H 10 L 120/82 100 01/15/19 12:00 01/15/19 14:58 01/15/19 12:15 01/15/19 14:58 01/15/19 14:58 General appearance: Present: no acute distress, well-nourished, other (unresponsive on the vent) - EENT ENT: poor dentition, other (reports sluggishly reactive.) - Neck Neck: Present: supple, normal ROM. Absent: enlarged thyroid, masses or JVD, cervical LAD - Respiratory Respiratory: bilateral: diminished, wheezing - Cardiovascular Rhythm: regular - Extremities Extremities: No edema, normal temperature, normal color, abnormal Extremity abnormal: edema, pulses diminished Peripheral Pulses: within normal limits - Abdominal General gastrointestinal: soft, non-tender, other (scaphoid), no hepatomegaly, no splenomegaly - Integumentary Integumentary: Present: clear, warm, dry Results - Labs CBC & Chem 7: 01/14/19 04:35 01/15/19 10:37 Labs: Laboratory Last Values WBC 12.6 K/mm3 (4.5-11.0) H 01/14/19 04:35 RBC 3.30 M/mm3 (3.65-5.03) L 01/14/19 04:35 Hgb 8.8 gm/dl (11.8-15.2) L 01/14/19 04:35 Hct 26.0 % (35.5-45.6) L 01/14/19 04:35 MCV 79 fl (84-94) L 01/14/19 04:35 MCH 27 pg (28-32) L 01/14/19 04:35 MCHC 34 % (32-34) 01/14/19 04:35 RDW 23.3 % (13.2-15.2) H 01/14/19 04:35 Plt Count 100 K/mm3 (140-440) L 01/14/19 04:35 Lymph % (Auto) 15.7 % (13.4-35.0) 01/11/19 09:19 [place] % (Auto) 2.8 % (0.0-7.3) 01/12/19 04:15 Eos % (Auto) 0.0 % (0.0-4.3) 01/12/19 04:15 Baso % (Auto) 0.4 % (0.0-1.8) 01/11/19 09:19 Lymph # 1.5 K/mm3 (1.2-5.4) 01/11/19 09:19 [place] # 0.5 K/mm3 (0.0-0.8) 01/12/19 04:15 Eos # 0.0 K/mm3 (0.0-0.4) 01/12/19 04:15 Baso # 0.0 K/mm3 (0.0-0.1) 01/12/19 04:15 Add Manual Diff Complete 01/14/19 04:35 Total Counted 100 01/14/19 04:35 Seg Neutrophils % Boom Pump Operator 01/14/19 04:35 Seg Neuts % (Manual) 96.0 % (40.0-70.0) H 01/14/19 04:35 0 % 01/14/19 04:35 1.0 % (13.4-35.0) L 01/14/19 04:35 Reactive Lymphs % (Man) 0 % 01/14/19 04:35 3.0 % (0.0-7.3) 01/14/19 04:35 0 % (0.0-4.3) 01/14/19 04:35 0 % (0.0-1.8) 01/14/19 04:35 0 % 01/14/19 04:35 0 % 01/14/19 04:35 0 % 01/14/19 04:35 0 % 01/14/19 04:35 Nucleated RBC % Not Reportable 01/14/19 04:35 Seg Neutrophils # 15.5 K/mm3 (1.8-7.7) H 01/12/19 04:15 Seg Neutrophils # Man 12.1 K/mm3 (1.8-7.7) H 01/14/19 04:35 Band Neutrophils # 0.0 K/mm3 01/14/19 04:35 0.1 K/mm3 (1.2-5.4) L 01/14/19 04:35 Abs React Lymphs (Man) 0.0 K/mm3 01/14/19 04:35 0.4 K/mm3 (0.0-0.8) 01/14/19 04:35 0.0 K/mm3 (0.0-0.4) 01/14/19 04:35 0.0 K/mm3 (0.0-0.1) 01/14/19 04:35 0.0 K/mm3 01/14/19 04:35 0.0 K/mm3 01/14/19 04:35 0.0 K/mm3 01/14/19 04:35 Blast Cells # 0.0 K/mm3 01/14/19 04:35 WBC Morphology Not Reportable 01/14/19 04:35 Hypersegmented Neuts Not Reportable 01/14/19 04:35 Hyposegmented Neuts Not Reportable 01/14/19 04:35 Hypogranular Neuts Not Reportable 01/14/19 04:35 Not Reportable 01/14/19 04:35 Not Reportable 01/14/19 04:35 Not Reportable 01/14/19 04:35 Not Reportable 01/14/19 04:35 Not Reportable 01/14/19 04:35 Not Reportable 01/14/19 04:35 Consistent w auto 01/14/19 04:35 Not Reportable 01/14/19 04:35 Plt Clumps, EDTA Not Reportable 01/14/19 04:35 Not Reportable 01/14/19 04:35 Not Reportable 01/14/19 04:35 Not Reportable 01/14/19 04:35 Plt Morphology Comment Not Reportable 01/14/19 04:35 RBC Morphology Not Reportable 01/14/19 04:35 Dimorphic RBCs Not Reportable 01/14/19 04:35 Not Reportable 01/14/19 04:35 1+ 01/14/19 04:35 Not Reportable 01/14/19 04:35 Not Reportable 01/14/19 04:35 Not Reportable 01/14/19 04:35 Not Reportable 01/14/19 04:35 Not Reportable 01/14/19 04:35 Not Reportable 01/14/19 04:35 Not Reportable 01/14/19 04:35 Not Reportable 01/14/19 04:35 Not Reportable 01/14/19 04:35 Not Reportable 01/14/19 04:35 Not Reportable 01/14/19 04:35 Not Reportable 01/14/19 04:35 Not Reportable 01/14/19 04:35 Not Reportable 01/14/19 04:35 Not Reportable 01/14/19 04:35 Not Reportable 01/14/19 04:35 Not Reportable 01/14/19 04:35 Acanthocytes (Spur) Not Reportable 01/14/19 04:35 Rouleaux Not Reportable 01/14/19 04:35 Not Reportable 01/14/19 04:35 Not Reportable 01/14/19 04:35 Not Reportable 01/14/19 04:35 Not Reportable 01/14/19 04:35 Hem Pathologist Commnt No 01/14/19 04:35 PT 20.3 Sec. (12.2-14.9) H 01/11/19 09:19 INR 1.78 (0.87-1.13) H 01/11/19 09:19 APTT 41.5 Sec. (24.2-36.6) H 01/11/19 09:19 POC ABG pH 7.399 (7.35-7.45) 01/14/19 05:45 ABG pH 7.401 pH Units (7.350-7.450) 01/15/19 03:35 POC ABG pCO2 32.1 (35-45) L 01/11/19 11:15 ABG pCO2 23.1 mm Hg 01/15/19 03:35 POC ABG pO2 143 (80-105) H 01/14/19 05:45 ABG pO2 118.4 mm Hg (80.0-90.0) H 01/15/19 03:35 POC ABG HCO3 13.7 (22-26 mml/L) 01/14/19 05:45 ABG HCO3 14.0 mmol/L (20.0-26.0) L 01/15/19 03:35 POC ABG Total CO2 14 (23-27mmol/L) 01/14/19 05:45 POC ABG O2 Sat 99 01/14/19 05:45 ABG O2 Saturation 98.4 % (95.0-99.0) 01/15/19 03:35 ABG O2 Content 12.1 (0.0-44) 01/15/19 03:35 POC ABG Base Excess -11 ((-2) - (+3)mmol/L) 01/14/19 05:45 ABG Base Excess -9.5 mmol/L (-2.0-3.0) L 01/15/19 03:35 ABG Hemoglobin 8.7 gm/dl (14.0-18.0) L 01/15/19 03:35 ABG Carboxyhemoglobin 1.4 % (0.0-5.0) 01/15/19 03:35 ABG Methemoglobin 0.5 % (0.0-1.5) 01/15/19 03:35 96.5 % (95.0-99.0) 01/15/19 03:35 30 % 01/15/19 03:35 Sodium 137 mmol/L (137-145) 01/15/19 10:37 Potassium 3.0 mmol/L (3.6-5.0) L 01/15/19 10:37 Chloride 109.1 mmol/L (98-107) H 01/15/19 10:37 Carbon Dioxide 13 mmol/L (22-30) L 01/15/19 10:37 18 mmol/L 01/15/19 10:37 BUN 105 mg/dL (9-20) H 01/15/19 10:37 7.2 mg/dL (0.8-1.5) H 01/15/19 10:37 Estimated GFR 10 ml/min 01/15/19 10:37 15 % 01/15/19 10:37 Glucose 94 mg/dL (75-100) 01/15/19 10:37 POC Glucose 88 (70-105) 01/15/19 12:45 Lactic Acid 4.70 mmol/L (0.7-2.0) H* 01/11/19 15:10 Calcium 7.4 mg/dL (8.4-10.2) L 01/15/19 10:37 Phosphorus 5.30 mg/dL (2.5-4.5) H 01/14/19 04:35 Magnesium 1.20 mg/dL (1.7-2.3) L 01/14/19 04:35 0.20 mg/dL (0.1-1.2) 01/13/19 05:30 AST 20 units/L (5-40) 01/13/19 05:30 ALT 14 units/L (7-56) 01/13/19 05:30 75 units/L (35-129) 01/13/19 05:30 167.0 umol/L (25-60) H 01/11/19 09:19 244 units/L (55-170) H 01/11/19 09:19 CK-MB (CK-2) 10.1 ng/mL (0.0-4.0) H 01/11/19 09:19 CK-MB (CK-2) Rel Index 4.1 (0-4) H 01/11/19 09:19 0.094 ng/mL (0.00-0.029) H 01/11/19 09:19 NT-Pro-B Natriuret Pep 2056 pg/mL (0-900) H 01/11/19 09:19 5.2 g/dL (6.3-8.2) L D 01/13/19 05:30 1.5 g/dL (3.9-5) L 01/13/19 05:30 0.4 % 01/13/19 05:30 TSH 3.310 mlU/mL (0.270-4.200) 01/11/19 09: Free T4 1.04 ng/dL (0.76-1.46) 01/11/19 09:19 Yellow (Yellow) 01/11/19 03:30 Hazy (Clear) 01/11/19 03:30 5.0 (5.0-7.0) 01/11/19 03:30 Ur Specific [place] 1.012 (1.003-1.030) 01/11/19 03:30 <15 mg/dl mg/dL (Negative) 01/11/19 03:30 Neg mg/dL (Negative) 01/11/19 03:30 Neg mg/dL (Negative) 01/11/19 03:30 Sm (Negative) 01/11/19 03:30 Neg (Negative) 01/11/19 03:30 Ur Reducing Substances Not Reportable 01/11/19 03:30 Neg (Negative) 01/11/19 03:30 Not Reportable 01/11/19 03:30 < 2.0 mg/dL (<2.0) 01/11/19 03:30 Ur Leukocyte Esterase Sm (Negative) 01/11/19 03:30 3.0 /HPF (0.0-6.0) 01/11/19 03:30 8.0 /HPF (0.0-6.0) 01/11/19 03:30 1+ /HPF (Negative) 01/11/19 03:30 Not Reportable 01/11/19 03:30 Random Vancomycin 10.3 ug/mL (0-40.0) 01/14/19 04:35 Blood Type O POSITIVE 01/11/19 10:08 Antibody Screen Negative 01/11/19 10:08 Crossmatch See Detail 01/11/19 10:08 - Imaging and Cardiology EKG: image reviewed Chest x-ray: report reviewed Venous US: report reviewed Active Medications - Current Medications Current Medications: Generic Name Dose Route Start Last Admin Trade Name Freq PRN Reason Stop Dose Admin Lipase/Protease/Amylase 1 each 01/12/19 03:[address] 10,500 Unit FEEDTUBE PRN PRN For Clogged Feeding Tube Famotidine 20 mg 01/12/19 10:00 01/15/19 10:05 Pepcid IV 20 mg QAM MAXIMUS Administration Norepinephrine 4 mg in 250 mls @ 7.5 mls/hr 01/11/19 11:00 01/12/19 20:38 Levophed Drip 4 Mg/Ns 250 Ml IV 0 mcg/min TITR MAXIMUS 0 mls/hr Titration Protocol 2 MCG/MIN Cefepime HCl 1 gm in 100 mls @ 200 mls/hr 01/12/19 22:00 01/14/19 22:05 Maxipime/Ns 1 Gm/100 Ml IV 200 mls/hr QHS MAXIMUS Administration Protocol Sodium Chloride 500 mls @ 0 mls/hr 01/12/19 11:00 01/13/19 12:57 Nacl 0.9% 500 Ml IV 10 mls/hr DIRECT MAXIMUS Administration As Directed Dextrose/Sodium Chloride 1,000 mls @ 75 mls/hr 01/15/19 15:00 01/15/19 14:35 D5/0.45ns IV 75 mls/hr DIRECT MAXIMUS Administration Metoclopramide HCl 5 mg 01/12/19 03:16 Reglan IV Q6H PRN Nausea And Vomiting Simple Syrup 15 ml 01/12/19 03:16 Simple Syrup FEEDTUBE PRN PRN Hypoglycemia Simple Syrup 30 ml 01/12/19 03:16 Simple Syrup FEEDTUBE PRN PRN Hypoglycemia Sodium Bicarbonate 325 mg 01/12/19 03:16 Sodium Bicarbonate FEEDTUBE PRN PRN For Clogged Feeding Tube Sodium Chloride 10 ml 01/12/19 10:00 01/15/19 10:05 Sodium Chloride Flush Syringe 10 Ml IV 10 ml BID MAXIMUS Administration Sodium Chloride 10 ml 01/12/19 03:16 Sodium Chloride Flush Syringe 10 Ml IV PRN PRN LINE FLUSH Nutrition/Malnutrition Assess - Dietary Evaluation Nutrition/Malnutrition Findings: Nutrition Notes Start: 01/12/19 13:16 Freq: Status: Active Protocol: Document 01/12/19 13:16 RM (Rec: 01/12/19 13:29 RM [id number]) Nutrition Notes Need for Assessment generated from: MD Order Initial or Follow up Assessment Current Diagnosis Hypertension,Respiratory Failure Other Pertinent Diagnosis ESRD on HD, Multiple wounds Current Diet TF (blank) Labs/Tests K 6.5 Pertinent Medications Levophed Height 5 ft 6 in Weight 59.6 kg [place] Body Weight (kg) 64.54 BMI 21.2 Subjective/Other Information Consulted for TF recommendation. Pt on vent. Burn Absent Trauma Absent #2 Nutrition Diagnosis Increased nutrient needs ( specify in comment below) Comments: glutamine, arginine Etiology wound healing As Evidenced by Signs and Symptoms mutiple wounds #1 Nutrition Diagnosis Inadequate oral intake Etiology on vent As Evidenced by Signs and Symptoms TF consult Is patient on ventilator? Yes Is Patient Ambulatory and/or Out of Bed No REE-([facility]-confined to bed) [phone] Calculation Used for Recommendations [facility] Additional Notes Protein Needs: 72-119g (1.2-2g /kg) Fluid Needs: 1 ml/kcal Nutrition Intervention Nutrition Support: Nepro at 40 ml/hr Water flush of 150 mls q 4 hrs Kcal 1,728 Protein (gm) 78 Fluid (mL) 698 Add Supplement/Snack (indicate name/kcal Jake BID /protein ) Provides kCal: 190 Provides Protein (gm) 5 Goal #1 TF tolerance Goal #2 Meet at least 80% of calorie and protein needs via TF Anticipated Discharge Needs: Unable to determine at this time Follow-Up By: 01/16/19 Additional Comments Follow for new TF
[2019-01-15] MEDS: MAXIPIME/NS 1 GM/100 ML 1 GM/100 ML BAG IV SCH (22:15)
[2019-01-16] MEDS: SODIUM CHLORIDE FLUSH SYRINGE 10 ML IV SCH ×2 (04:42→10:06)
[2019-01-16 05:17] LABS: ABG Base Excess -9.9 mmol/L (-2.0-3.0); ABG HCO3 13.3 mmol/L (20.0-26.0); ABG Methemoglobin 0.5 % (0.0-1.5); ABG Oxygen Saturation 98.3 % (95.0-99.0); ABG PCO2 21.5 mm Hg; ABG PH 7.41 pH Units (7.350-7.450); ABG PO2 113.7 mm Hg (80.0-90.0)
[2019-01-16 06:21] LABS: Albumin 1.3 g/dL (3.9-5); Calcium 7.6 mg/dL (8.4-10.2)
[2019-01-16] MEDS: D5/0.45NS 1,000 ML IV SCH (07:17)
[2019-01-16] MEDS: PEPCID PO SCH (10:05)
--- NOTE | 2019-01-16 10:25 | Progress Note ---
Assessment and Plan Assessment and plan: - Patient Problems -- Cardiac arrest Current Visit: Yes Status: Acute Plan to address problem: Patient status post ACLS. Intubated supportive care. Wean as tolerated. --Anoxic encephadenopathy Patient's family requested withdrawal of care -- Acute kidney injury with acute tubular necrosis Current Visit: Yes Status: Acute Plan to address problem: Patient with acute kidney injury. Patient renal function continues to be poor secondary to ischemia, respiratory arrest. -- Acute respiratory failure Current Visit: Yes Status: Acute Plan to address problem: Acute respiratory failure patient remains intubated. Secondary to cardiorespiratory arrest. Continue beta alison oxygen support wean as tolerated. Appears to be improving was able to come off of pressor support. -- Electrolyte abnormality Current Visit: Yes Status: Acute --Hemorrhagic shock Current Visit: Yes Status: Acute Plan to address problem: That is posttransfusion has stabilized now no evidence of obvious bleeding. --Hyperkalemia Current Visit: Yes Status: Resolved Plan to address problem: Continue to monitor electrolytes -- Nicotine dependence Current Visit: No Status: Acute Qualifiers: Nicotine product type: cigarettes -- Sepsis Current Visit: Yes Status: Acute Plan to address problem: Continue reason for breakdown. Continue cefepime and vancomycin. Clinically patient not improving very well. The fever curve is coming down and leukocytosis is improved however patient remains acutely ill with the extremely poor prognosis. Family/mother requests withdrawal of care. Mother reports that it was patient did not want life support. I discussed extensively with the family members mainly the mother, regarding DO NOT RESUSCITATE Withdrawal of care, hospice. They verbalized understanding Will discuss with case management, consult hospice The high probability of a clinically significant, sudden or life threatening deterioration of the [cardiac, respiratory, metabolic, infectious] system(s) required my full and direct attention, intervention and personal management. The aggregate critical care time was [] minutes. This time is in addition to time spent performing reported procedures but includes the following: [x] Data Review and interpretation [x] Patient assessment and monitoring of vital signs [x] Documentation []x Medication orders and management Critical care time 40 minutes History Interval history: Patient seen and examined medical records reviewed Patient is orally intubated on ventilatory support, unresponsive Family members at the bedside, mother requested to withdraw care And extubate and stop all the treatment She reports that patient had made this decision in the past Vital signs noted Hospitalist Physical - Constitutional Vitals: Temp Pulse Resp BP Pulse Ox 97.3 F L 113 H 15 123/86 98 01/16/19 08:00 01/16/19 09:30 01/16/19 09:30 01/16/19 09:30 01/16/19 09:30 General appearance: Present: no acute distress, well-nourished, other (unresponsive on the vent) - Neck Neck: Present: supple - Respiratory Respiratory effort: normal Respiratory: bilateral: diminished, rhonchi, negative: rales, wheezing - Cardiovascular Rhythm: regular Heart Sounds: Present: S1 & S2 - Extremities Extremities: no ischemia, No edema - Abdominal General gastrointestinal: soft, non-tender, non-distended, normal bowel sounds - Integumentary Integumentary: Present: clear, warm - Psychiatric Psychiatric: other (unresponsive) - Neurologic Neurologic: other (unresponsive) Results - Labs CBC & Chem 7: 01/14/19 04:35 01/16/19 05:35 Labs: Laboratory Last Values WBC 12.6 K/mm3 (4.5-11.0) H 01/14/19 04:35 RBC 3.30 M/mm3 (3.65-5.03) L 01/14/19 04:35 Hgb 8.8 gm/dl (11.8-15.2) L 01/14/19 04:35 Hct 26.0 % (35.5-45.6) L 01/14/19 04:35 MCV 79 fl (84-94) L 01/14/19 04:35 MCH 27 pg (28-32) L 01/14/19 04:35 MCHC 34 % (32-34) 01/14/19 04:35 RDW 23.3 % (13.2-15.2) H 01/14/19 04:35 Plt Count 100 K/mm3 (140-440) L 01/14/19 04:35 Lymph % (Auto) 15.7 % (13.4-35.0) 01/11/19 09:19 Gillespie % (Auto) 2.8 % (0.0-7.3) 01/12/19 04:15 Eos % (Auto) 0.0 % (0.0-4.3) 01/12/19 04:15 Baso % (Auto) 0.4 % (0.0-1.8) 01/11/19 09:19 Lymph # 1.5 K/mm3 (1.2-5.4) 01/11/19 09:19 Gillespie # 0.5 K/mm3 (0.0-0.8) 01/12/19 04:15 Eos # 0.0 K/mm3 (0.0-0.4) 01/12/19 04:15 Baso # 0.0 K/mm3 (0.0-0.1) 01/12/19 04:15 Add Manual Diff Complete 01/14/19 04:35 Total Counted 100 01/14/19 04:35 Seg Neutrophils % Machine Operator Slitter Technician 01/14/19 04:35 Seg Neuts % (Manual) 96.0 % (40.0-70.0) H 01/14/19 04:35 0 % 01/14/19 04:35 1.0 % (13.4-35.0) L 01/14/19 04:35 Reactive Lymphs % (Man) 0 % 01/14/19 04:35 3.0 % (0.0-7.3) 01/14/19 04:35 0 % (0.0-4.3) 01/14/19 04:35 0 % (0.0-1.8) 01/14/19 04:35 0 % 01/14/19 04:35 0 % 01/14/19 04:35 0 % 01/14/19 04:35 0 % 01/14/19 04:35 Nucleated RBC % Not Reportable 01/14/19 04:35 Seg Neutrophils # 15.5 K/mm3 (1.8-7.7) H 01/12/19 04:15 Seg Neutrophils # Man 12.1 K/mm3 (1.8-7.7) H 01/14/19 04:35 Band Neutrophils # 0.0 K/mm3 01/14/19 04:35 0.1 K/mm3 (1.2-5.4) L 01/14/19 04:35 Abs React Lymphs (Man) 0.0 K/mm3 01/14/19 04:35 0.4 K/mm3 (0.0-0.8) 01/14/19 04:35 0.0 K/mm3 (0.0-0.4) 01/14/19 04:35 0.0 K/mm3 (0.0-0.1) 01/14/19 04:35 0.0 K/mm3 01/14/19 04:35 0.0 K/mm3 01/14/19 04:35 0.0 K/mm3 01/14/19 04:35 Blast Cells # 0.0 K/mm3 01/14/19 04:35 WBC Morphology Not Reportable 01/14/19 04:35 Hypersegmented Neuts Not Reportable 01/14/19 04:35 Hyposegmented Neuts Not Reportable 01/14/19 04:35 Hypogranular Neuts Not Reportable 01/14/19 04:35 Not Reportable 01/14/19 04:35 Not Reportable 01/14/19 04:35 Not Reportable 01/14/19 04:35 Not Reportable 01/14/19 04:35 Not Reportable 01/14/19 04:35 Not Reportable 01/14/19 04:35 Consistent w auto 01/14/19 04:35 Not Reportable 01/14/19 04:35 Plt Clumps, EDTA Not Reportable 01/14/19 04:35 Not Reportable 01/14/19 04:35 Not Reportable 01/14/19 04:35 Not Reportable 01/14/19 04:35 Plt Morphology Comment Not Reportable 01/14/19 04:35 RBC Morphology Not Reportable 01/14/19 04:35 Dimorphic RBCs Not Reportable 01/14/19 04:35 Not Reportable 01/14/19 04:35 1+ 01/14/19 04:35 Not Reportable 01/14/19 04:35 Not Reportable 01/14/19 04:35 Not Reportable 01/14/19 04:35 Not Reportable 01/14/19 04:35 Not Reportable 01/14/19 04:35 Not Reportable 01/14/19 04:35 Not Reportable 01/14/19 04:35 Not Reportable 01/14/19 04:35 Not Reportable 01/14/19 04:35 Not Reportable 01/14/19 04:35 Not Reportable 01/14/19 04:35 Not Reportable 01/14/19 04:35 Not Reportable 01/14/19 04:35 Not Reportable 01/14/19 04:35 Not Reportable 01/14/19 04:35 Not Reportable 01/14/19 04:35 Not Reportable 01/14/19 04:35 Acanthocytes (Spur) Not Reportable 01/14/19 04:35 Rouleaux Not Reportable 01/14/19 04:35 Not Reportable 01/14/19 04:35 Not Reportable 01/14/19 04:35 Not Reportable 01/14/19 04:35 Not Reportable 01/14/19 04:35 Hem Pathologist Commnt No 01/14/19 04:35 PT 20.3 Sec. (12.2-14.9) H 01/11/19 09:19 INR 1.78 (0.87-1.13) H 01/11/19 09:19 APTT 41.5 Sec. (24.2-36.6) H 01/11/19 09:19 POC ABG pH 7.399 (7.35-7.45) 01/14/19 05:45 ABG pH 7.401 pH Units (7.350-7.450) 01/15/19 03:35 POC ABG pCO2 < 30 (35-45) L 01/14/19 05:45 ABG pCO2 23.1 mm Hg 01/15/19 03:35 POC ABG pO2 143 (80-105) H 01/14/19 05:45 ABG pO2 118.4 mm Hg (80.0-90.0) H 01/15/19 03:35 POC ABG HCO3 13.7 (22-26 mml/L) 01/14/19 05:45 ABG HCO3 14.0 mmol/L (20.0-26.0) L 01/15/19 03:35 POC ABG Total CO2 14 (23-27mmol/L) 01/14/19 05:45 POC ABG O2 Sat 99 01/14/19 05:45 ABG O2 Saturation 98.4 % (95.0-99.0) 01/15/19 03:35 ABG O2 Content 12.1 (0.0-44) 01/15/19 03:35 POC ABG Base Excess -11 ((-2) - (+3)mmol/L) 01/14/19 05:45 ABG Base Excess -9.5 mmol/L (-2.0-3.0) L 01/15/19 03:35 ABG Hemoglobin 8.7 gm/dl (14.0-18.0) L 01/15/19 03:35 ABG Carboxyhemoglobin 1.4 % (0.0-5.0) 01/15/19 03:35 ABG Methemoglobin 0.5 % (0.0-1.5) 01/15/19 03:35 96.5 % (95.0-99.0) 01/15/19 03:35 30 % 01/15/19 03:35 Sodium 141 mmol/L (137-145) 01/16/19 05:35 Potassium 3.2 mmol/L (3.6-5.0) L 01/16/19 05:35 Chloride 112.5 mmol/L (98-107) H 01/16/19 05:35 Carbon Dioxide 14 mmol/L (22-30) L 01/16/19 05:35 18 mmol/L 01/16/19 05:35 BUN 105 mg/dL (9-20) H 01/16/19 05:35 7.2 mg/dL (0.8-1.5) H 01/16/19 05:35 Estimated GFR 10 ml/min 01/16/19 05:35 15 % 01/16/19 05:35 Glucose 101 mg/dL (75-100) H 01/16/19 05:35 POC Glucose 119 (70-105) H 01/16/19 05:48 Lactic Acid 4.70 mmol/L (0.7-2.0) H* 01/11/19 15:10 Calcium 7.6 mg/dL (8.4-10.2) L 01/16/19 05:35 Phosphorus 5.30 mg/dL (2.5-4.5) H 01/14/19 04:35 Magnesium 1.20 mg/dL (1.7-2.3) L 01/14/19 04:35 0.40 mg/dL (0.1-1.2) 01/16/19 05:35 AST 14 units/L (5-40) 01/16/19 05:35 ALT 8 units/L (7-56) 01/16/19 05:35 84 units/L (35-129) 01/16/19 05:35 167.0 umol/L (25-60) H 01/11/19 09:19 244 units/L (55-170) H 01/11/19 09:19 CK-MB (CK-2) 10.1 ng/mL (0.0-4.0) H 01/11/19 09:19 CK-MB (CK-2) Rel Index 4.1 (0-4) H 01/11/19 09:19 0.094 ng/mL (0.00-0.029) H 01/11/19 09:19 NT-Pro-B Natriuret Pep 2056 pg/mL (0-900) H 01/11/19 09:19 5.4 g/dL (6.3-8.2) L 01/16/19 05:35 1.3 g/dL (3.9-5) L 01/16/19 05:35 0.3 % 01/16/19 05:35 TSH 3.310 mlU/mL (0.270-4.200) 01/11/19 09:19 Free T4 1.04 ng/dL (0.76-1.46) 01/11/19 09:19 Yellow (Yellow) 01/11/19 03:30 Hazy (Clear) 01/11/19 03:30 5.0 (5.0-7.0) 01/11/19 03:30 Ur Specific Scotts 1.012 (1.003-1.030) 01/11/19 03:30 <15 mg/dl mg/dL (Negative) 01/11/19 03:30 Neg mg/dL (Negative) 01/11/19 03:30 Neg mg/dL (Negative) 01/11/19 03:30 Sm (Negative) 01/11/19 03:30 Neg (Negative) 01/11/19 03:30 Ur Reducing Substances Not Reportable 01/11/19 03:30 Neg (Negative) 01/11/19 03:30 Not Reportable 01/11/19 03:30 < 2.0 mg/dL (<2.0) 01/11/19 03:30 Ur Leukocyte Esterase Sm (Negative) 01/11/19 03:30 3.0 /HPF (0.0-6.0) 01/11/19 03:30 8.0 /HPF (0.0-6.0) 01/11/19 03:30 1+ /HPF (Negative) 01/11/19 03:30 Not Reportable 01/11/19 03:30 Random Vancomycin 10.3 ug/mL (0-40.0) 01/14/19 04:35 Blood Type O POSITIVE 01/11/19 10:08 Antibody Screen Negative 01/11/19 10:08 Crossmatch See Detail 01/11/19 10:08 Active Medications - Current Medications Current Medications: Generic Name Dose Route Start Last Admin Trade Name Freq PRN Reason Stop Dose Admin Lipase/Protease/Amylase 1 each 01/12/19 03:[address] 10,500 Unit FEEDTUBE PRN PRN For Clogged Feeding Tube Famotidine 20 mg 01/16/19 10:00 01/16/19 10:05 Pepcid PO 20 mg DAILY MAXIMUS Administration Norepinephrine 4 mg in 250 mls @ 7.5 mls/hr 01/11/19 11:00 01/12/19 20:38 Levophed Drip 4 Mg/Ns 250 Ml IV 0 mcg/min TITR MAXIMUS 0 mls/hr Titration Protocol 2 MCG/MIN Cefepime HCl 1 gm in 100 mls @ 200 mls/hr 01/12/19 22:00 01/15/19 22:15 Maxipime/Ns 1 Gm/100 Ml IV 01/16/19 22:29 200 mls/hr QHS MAXIMUS Administration Protocol Sodium Chloride 500 mls @ 0 mls/hr 01/12/19 11:00 01/13/19 12:57 Nacl 0.9% 500 Ml IV 10 mls/hr DIRECT MAXIMUS Administration As Directed Dextrose/Sodium Chloride 1,000 mls @ 75 mls/hr 01/15/19 15:00 01/16/19 07:17 D5/0.45ns IV 75 mls/hr DIRECT MAXIMUS Administration Metoclopramide HCl 5 mg 01/12/19 03:16 Reglan IV Q6H PRN Nausea And Vomiting Simple Syrup 15 ml 01/12/19 03:16 Simple Syrup FEEDTUBE PRN PRN Hypoglycemia Simple Syrup 30 ml 01/12/19 03:16 Simple Syrup FEEDTUBE PRN PRN Hypoglycemia Sodium Bicarbonate 325 mg 01/12/19 03:16 Sodium Bicarbonate FEEDTUBE PRN PRN For Clogged Feeding Tube Sodium Chloride 10 ml 01/12/19 10:00 01/16/19 10:06 Sodium Chloride Flush Syringe 10 Ml IV 10 ml BID MAXIMUS Administration Sodium Chloride 10 ml 01/12/19 03:16 Sodium Chloride Flush Syringe 10 Ml IV PRN PRN LINE FLUSH Nutrition/Malnutrition Assess - Dietary Evaluation Nutrition/Malnutrition Findings: Nutrition Notes Start: 01/12/19 13:16 Freq: Status: Active Protocol: Document 01/12/19 13:16 RM (Rec: 01/12/19 13:29 RM [id number]) Nutrition Notes Need for Assessment generated from: MD Order Initial or Follow up Assessment Current Diagnosis Hypertension,Respiratory Failure Other Pertinent Diagnosis ESRD on HD, Multiple wounds Current Diet TF (blank) Labs/Tests K 6.5 Pertinent Medications Levophed Height 5 ft 6 in Weight 59.6 kg [place] Body Weight (kg) 64.54 BMI 21.2 Subjective/Other Information Consulted for TF recommendation. Pt on vent. Burn Absent Trauma Absent #2 Nutrition Diagnosis Increased nutrient needs ( specify in comment below) Comments: glutamine, arginine Etiology wound healing As Evidenced by Signs and Symptoms mutiple wounds #1 Nutrition Diagnosis Inadequate oral intake Etiology on vent As Evidenced by Signs and Symptoms TF consult Is patient on ventilator? Yes Is Patient Ambulatory and/or Out of Bed No REE-([facility]-confined to bed) 7385.003 Calculation Used for Recommendations [facility] Additional Notes Protein Needs: 72-119g (1.2-2g /kg) Fluid Needs: 1 ml/kcal Nutrition Intervention Nutrition Support: Nepro at 40 ml/hr Water flush of 150 mls q 4 hrs Kcal 1,728 Protein (gm) 78 Fluid (mL) 698 Add Supplement/Snack (indicate name/kcal Jake BID /protein ) Provides kCal: 190 Provides Protein (gm) 5 Goal #1 TF tolerance Goal #2 Meet at least 80% of calorie and protein needs via TF Anticipated Discharge Needs: Unable to determine at this time Follow-Up By: 01/16/19 Additional Comments Follow for new TF
--- NOTE | 2019-01-16 11:29 | Progress Note ---
Assessment and Plan - Patient Problems (1) Acute kidney injury with acute tubular necrosis Current Visit: Yes Status: Acute Plan to address problem: Acute kidney failure secondary to acute tubular necrosis. Kidney function is not improving. Patient's family have decided to withdraw care. Patient's prognosis is poor. We'll sign off. Please reconsult when necessary (2) Cardiac arrest Current Visit: Yes Status: Acute Plan to address problem: status post cardiac arrest (3) Hemorrhagic shock Current Visit: Yes Status: Acute (4) Hypokalemia Current Visit: Yes Status: Acute Plan to address problem: Potassium supplementation (5) Metabolic acidosis Current Visit: Yes Status: Acute Plan to address problem: Lactic acidosis. (6) Sepsis Current Visit: Yes Status: Acute Plan to address problem: Patient on antibiotics. Subjective Date of service: 01/16/19 Principal diagnosis: [place] Interval history: Since in-line in bed. Mother and Sister at the bedside. They requests withdrawal of care based on patient's wishes. Objective - Exam Narrative Exam: Middle-aged -[place] male lying in bed intubated on ventilator HEENT: NCAT, pink oral mucous membrane Neck: Supple, no venous distention CVS: S1S2 RRR with no murmur, rub or gallop Chest: Clear to auscultation Abdomen: Protuberant, soft, nontender, no organomegaly, bowel sounds are present Extremities: mild edema Neuro: Intubated on ventilator - Vital Signs Vital signs: Vital Signs - 12hr 01/15/19 01/15/19 01/16/19 23:30 23:45 00:00 Temperature Pulse Rate 107 H 106 H 107 H Pulse Rate [ 106 H From Monitor] Respiratory 12 13 14 Rate Blood Pressure 126/86 127/83 130/84 O2 Sat by Pulse 100 Oximetry 01/16/19 01/16/19 01/16/19 00:04 00:15 00:30 Temperature Pulse Rate 108 H 106 H 107 H Pulse Rate [ From Monitor] Respiratory 14 12 13 Rate Blood Pressure 123/84 122/84 125/85 O2 Sat by Pulse 98 Oximetry 01/16/19 01/16/19 01/16/19 00:40 00:45 00:53 Temperature 98.0 F Pulse Rate 107 H 105 H Pulse Rate [ From Monitor] Respiratory 12 Rate Blood Pressure 125/84 125/84 O2 Sat by Pulse 98 Oximetry 08/01/16/19 01/16/19 01:00 01:15 01:30 Temperature Pulse Rate 109 H 108 H 109 H Pulse Rate [ From Monitor] Respiratory 14 14 15 Rate Blood Pressure 129/85 128/83 130/83 O2 Sat by Pulse Oximetry 01/16/19 01/16/19 01/16/19 01:45 02:00 02:15 Temperature Pulse Rate 109 H 110 H 109 H Pulse Rate [ From Monitor] Respiratory 14 14 14 Rate Blood Pressure 128/85 125/83 129/84 O2 Sat by Pulse Oximetry 01/16/19 01/16/19 01/16/19 02:30 02:45 03:00 Temperature Pulse Rate 109 H 113 H 109 H Pulse Rate [ From Monitor] Respiratory 17 18 15 Rate Blood Pressure 128/86 129/87 130/84 O2 Sat by Pulse Oximetry 01/16/19 01/16/19 01/16/19 03:15 03:30 03:45 Temperature Pulse Rate 109 H 112 H 108 H Pulse Rate [ From Monitor] Respiratory 17 16 17 Rate Blood Pressure 133/85 133/91 129/84 O2 Sat by Pulse Oximetry 01/16/19 01/16/19 01/16/19 03:53 04:00 04:15 Temperature 97.9 F 98.0 F Pulse Rate 109 H 110 H Pulse Rate [ 112 H From Monitor] Respiratory 16 18 Rate Blood Pressure 132/87 131/86 O2 Sat by Pulse 100 Oximetry 01/16/19 01/16/19 01/16/19 04:30 04:45 05:00 Temperature Pulse Rate 109 H 112 H 111 H Pulse Rate [ From Monitor] Respiratory 19 18 18 Rate Blood Pressure 127/87 125/89 135/86 O2 Sat by Pulse 99 96 Oximetry 01/16/19 01/16/19 01/16/19 05:15 05:30 05:34 Temperature Pulse Rate 112 H 111 H 110 H Pulse Rate [ From Monitor] Respiratory 15 25 H Rate Blood Pressure 135/89 127/91 127/91 O2 Sat by Pulse 99 97 Oximetry 01/16/19 01/16/19 01/16/19 05:45 06:00 06:15 Temperature Pulse Rate 111 H 111 H 110 H Pulse Rate [ From Monitor] Respiratory 17 14 15 Rate Blood Pressure 128/84 132/83 124/85 O2 Sat by Pulse Oximetry 01/16/19 01/16/19 01/16/19 06:30 06:45 07:00 Temperature Pulse Rate 110 H 108 H 109 H Pulse Rate [ From Monitor] Respiratory 15 16 17 Rate Blood Pressure 128/83 124/84 128/82 O2 Sat by Pulse Oximetry 01/16/19 01/16/19 01/16/19 07:15 07:30 07:45 Temperature Pulse Rate 110 H 114 H 105 H Pulse Rate [ From Monitor] Respiratory 15 20 17 Rate Blood Pressure 123/83 143/93 117/80 O2 Sat by Pulse 100 Oximetry 01/16/19 01/16/19 01/16/19 07:49 08:00 08:15 Temperature 97.3 F L Pulse Rate 108 H 107 H 113 H Pulse Rate [ 112 H From Monitor] Respiratory 16 13 Rate Blood Pressure 117/80 124/81 122/85 O2 Sat by Pulse 96 96 99 Oximetry 01/16/19 01/16/19 01/16/19 08:30 08:45 09:00 Temperature Pulse Rate 110 H 113 H 109 H Pulse Rate [ From Monitor] Respiratory 13 14 13 Rate Blood Pressure 131/83 125/85 127/81 O2 Sat by Pulse 98 97 Oximetry 01/16/19 01/16/19 09:15 09:30 Temperature Pulse Rate 111 H 113 H Pulse Rate [ From Monitor] Respiratory 15 15 Rate Blood Pressure 126/84 123/86 O2 Sat by Pulse 98 Oximetry - Lab 01/14/19 04:35 01/16/19 05:35 Most recent lab results ABG pH 7.401 pH Units (7.350-7.450) 01/15/19 03:35 ABG pCO2 23.1 mm Hg 01/15/19 03:35 ABG pO2 118.4 mm Hg (80.0-90.0) H 01/15/19 03:35 ABG HCO3 14.0 mmol/L (20.0-26.0) L 01/15/19 03:35 ABG O2 Saturation 98.4 % (95.0-99.0) 01/15/19 03:35 Calcium 7.6 mg/dL (8.4-10.2) L 01/16/19 05:35 Phosphorus 5.30 mg/dL (2.5-4.5) H 01/14/19 04:35 Magnesium 1.20 mg/dL (1.7-2.3) L 01/14/19 04:35 Medications & Allergies - Medications Allergies/Adverse Reactions: Allergies No Known Allergies Allergy (Verified 01/04/15 17:02) Home Medications: Home Medications Medication Instructions Recorded Confirmed Last Taken Type oxyCODONE /ACETAMINOPHEN [Percocet 1 tab PO Q4HR PRN #15 tablet 07/29/18 01/11/19 Unknown Rx 5/325 mg] Adalimumab [Humira] 40 mg SQ QWEEK 01/11/19 01/11/19 Unknown History Ascorbic Acid [Vitamin C] 500 mg PO QDAY 01/11/19 01/11/19 Unknown History Ferrous Sulfate [Feosol] 325 mg PO QDAY 01/11/19 01/11/19 Unknown History Loperamide [Imodium] 2 mg PO DAILY 01/11/19 01/11/19 Unknown History Megestrol [Megace] 10 ml PO DAILY 01/11/19 01/11/19 Unknown History Mirtazapine [Remeron 15mg TAB] 30 mg PO QHS 01/11/19 01/11/19 Unknown History Multivit-Min/Iron Fum/Folic AC 1 each PO DAILY 01/11/19 01/11/19 Unknown History [Evvyk-Zkadlkw-Fdstzlbw Tablet] Zinc [Zinc 50mg TAB] 50 mg PO DAILY 01/11/19 01/11/19 Unknown History Active Medications: Generic Name Dose Route Start Last Admin Trade Name Freq PRN Reason Stop Dose Admin Lipase/Protease/Amylase 1 each 01/12/19 03:[address] 10,500 Unit FEEDTUBE PRN PRN For Clogged Feeding Tube Famotidine 20 mg 01/16/19 10:00 01/16/19 10:05 Pepcid PO 20 mg DAILY MAXIMUS Administration Norepinephrine 4 mg in 250 mls @ 7.5 mls/hr 01/11/19 11:00 01/12/19 20:38 Levophed Drip 4 Mg/Ns 250 Ml IV 0 mcg/min TITR MAXIMUS 0 mls/hr Titration Protocol 2 MCG/MIN Cefepime HCl 1 gm in 100 mls @ 200 mls/hr 01/12/19 22:00 01/15/19 22:15 Maxipime/Ns 1 Gm/100 Ml IV 01/16/19 22:29 200 mls/hr QHS MAXIMUS Administration Protocol Sodium Chloride 500 mls @ 0 mls/hr 01/12/19 11:00 01/13/19 12:57 Nacl 0.9% 500 Ml IV 10 mls/hr DIRECT MAXIMUS Administration As Directed Dextrose/Sodium Chloride 1,000 mls @ 75 mls/hr 01/15/19 15:00 01/16/19 07:17 D5/0.45ns IV 75 mls/hr DIRECT MAXIMUS Administration Metoclopramide HCl 5 mg 01/12/19 03:16 Reglan IV Q6H PRN Nausea And Vomiting Simple Syrup 15 ml 01/12/19 03:16 Simple Syrup FEEDTUBE PRN PRN Hypoglycemia Simple Syrup 30 ml 01/12/19 03:16 Simple Syrup FEEDTUBE PRN PRN Hypoglycemia Sodium Bicarbonate 325 mg 01/12/19 03:16 Sodium Bicarbonate FEEDTUBE PRN PRN For Clogged Feeding Tube Sodium Chloride 10 ml 01/12/19 10:00 01/16/19 10:06 Sodium Chloride Flush Syringe 10 Ml IV 10 ml BID MAXIMUS Administration Sodium Chloride 10 ml 01/12/19 03:16 Sodium Chloride Flush Syringe 10 Ml IV PRN PRN LINE FLUSH
--- NOTE | 2019-01-16 12:48 | Progress Note ---
Assessment and Plan Impression: Status post cardiorespiratory arrest Anoxic encephalopathy History of stroke And stated renal disease on hemodialysis Possible sepsis. Recommendation P: Patient is a family has decided about withdrawal of care. Patient may get transferred to hospice where extubation can take place or possibly he may be extubated prior to transfer to hospice care. Total critical care time 31 minute Subjective Date of service: 01/16/19 Principal diagnosis: [place] Interval history: Patient remained unresponsive on mechanical ventilator. Family is here and directing withdrawal of care. Objective Vital Signs - 12hr 01/16/19 01/16/19 01/16/19 00:53 01:00 01:15 Temperature Pulse Rate 105 H 109 H 108 H Pulse Rate [ From Monitor] Respiratory 14 14 Rate Blood Pressure 125/84 129/85 128/83 O2 Sat by Pulse 98 Oximetry 01/16/19 01/16/19 01/16/19 01:30 01:45 02:00 Temperature Pulse Rate 109 H 109 H 110 H Pulse Rate [ From Monitor] Respiratory 15 14 14 Rate Blood Pressure 130/83 128/85 125/83 O2 Sat by Pulse Oximetry 01/16/19 01/16/19 01/16/19 02:15 02:30 02:45 Temperature Pulse Rate 109 H 109 H 113 H Pulse Rate [ From Monitor] Respiratory 14 17 18 Rate Blood Pressure 129/84 128/86 129/87 O2 Sat by Pulse Oximetry 01/16/19 01/16/19 01/16/19 03:00 03:15 03:30 Temperature Pulse Rate 109 H 109 H 112 H Pulse Rate [ From Monitor] Respiratory 15 17 16 Rate Blood Pressure 130/84 133/85 133/91 O2 Sat by Pulse Oximetry 01/16/19 01/16/19 01/16/19 03:45 03:53 04:00 Temperature 97.9 F 98.0 F Pulse Rate 108 H 109 H Pulse Rate [ 112 H From Monitor] Respiratory 17 16 Rate Blood Pressure 129/84 132/87 O2 Sat by Pulse 100 Oximetry 01/16/19 01/16/19 01/16/19 04:15 04:30 04:45 Temperature Pulse Rate 110 H 109 H 112 H Pulse Rate [ From Monitor] Respiratory 18 19 18 Rate Blood Pressure 131/86 127/87 125/89 O2 Sat by Pulse 99 Oximetry 01/16/19 01/16/19 01/16/19 05:00 05:15 05:30 Temperature Pulse Rate 111 H 112 H 111 H Pulse Rate [ From Monitor] Respiratory 18 15 25 H Rate Blood Pressure 135/86 135/89 127/91 O2 Sat by Pulse 96 99 Oximetry 01/16/19 01/16/19 01/16/19 05:34 05:45 06:00 Temperature Pulse Rate 110 H 111 H 111 H Pulse Rate [ From Monitor] Respiratory 17 14 Rate Blood Pressure 127/91 128/84 132/83 O2 Sat by Pulse 97 Oximetry 01/16/19 01/16/19 01/16/19 06:15 06:30 06:45 Temperature Pulse Rate 110 H 110 H 108 H Pulse Rate [ From Monitor] Respiratory 15 15 16 Rate Blood Pressure 124/85 128/83 124/84 O2 Sat by Pulse Oximetry 01/16/19 01/16/19 01/16/19 07:00 07:15 07:30 Temperature Pulse Rate 109 H 110 H 114 H Pulse Rate [ From Monitor] Respiratory 17 15 20 Rate Blood Pressure 128/82 123/83 143/93 O2 Sat by Pulse 100 Oximetry 01/16/19 01/16/19 01/16/19 07:45 07:49 08:00 Temperature 97.3 F L Pulse Rate 105 H 108 H 107 H Pulse Rate [ 112 H From Monitor] Respiratory 17 16 Rate Blood Pressure 117/80 117/80 124/81 O2 Sat by Pulse 96 96 Oximetry 01/16/19 01/16/19 01/16/19 08:15 08:30 08:45 Temperature Pulse Rate 113 H 110 H 113 H Pulse Rate [ From Monitor] Respiratory 13 13 14 Rate Blood Pressure 122/85 131/83 125/85 O2 Sat by Pulse 99 98 97 Oximetry 01/16/19 01/16/19 01/16/19 09:00 09:15 09:30 Temperature Pulse Rate 109 H 111 H 113 H Pulse Rate [ From Monitor] Respiratory 13 15 15 Rate Blood Pressure 127/81 126/84 123/86 O2 Sat by Pulse 98 Oximetry 01/16/19 01/16/19 01/16/19 09:45 10:00 10:15 Temperature Pulse Rate 111 H 113 H 113 H Pulse Rate [ From Monitor] Respiratory 18 18 16 Rate Blood Pressure 125/84 126/84 127/82 O2 Sat by Pulse 97 Oximetry 01/16/19 01/16/19 01/16/19 10:30 10:45 11:00 Temperature Pulse Rate 114 H 112 H 112 H Pulse Rate [ From Monitor] Respiratory 17 16 16 Rate Blood Pressure 130/83 121/82 125/80 O2 Sat by Pulse Oximetry 01/16/19 01/16/19 01/16/19 11:15 11:30 11:38 Temperature Pulse Rate 111 H 111 H 111 H Pulse Rate [ From Monitor] Respiratory 16 17 Rate Blood Pressure 125/80 124/82 124/82 O2 Sat by Pulse 96 97 Oximetry 01/16/19 01/16/19 01/16/19 11:45 11:47 12:00 Temperature 98.3 F Pulse Rate 113 H 104 H 113 H Pulse Rate [ 112 H From Monitor] Respiratory 18 18 Rate Blood Pressure 126/81 115/80 124/79 O2 Sat by Pulse 100 100 Oximetry 01/16/19 12:15 Temperature Pulse Rate 112 H Pulse Rate [ From Monitor] Respiratory 19 Rate Blood Pressure 123/78 O2 Sat by Pulse 98 Oximetry Constitutional: comatose, other (critically ill on vent) Eyes: non-icteric ENT: other (orally intubated and not medically sedated) Neck: supple Effort: normal Ascultation: Bilateral: clear, other (coarse BS bilaterally) Percussion: Bilateral: not dull Cardiovascular: regular rate and rhythm (no mrg) Gastrointestinal: normoactive bowel sounds, soft, other (colostomy with brown output per nursing) Extremities: no cyanosis, no edema Neurologic: other (unresponsive, mild increased tone RUE but flaccid other extremities) Psychiatric: other (not able to assess) CBC and BMP: 01/14/19 04:35 01/16/19 05:35 ABG, PT/INR, D-dimer: ABG POC ABG pH 7.399 (7.35-7.45) 01/14/19 05:45 ABG pH 7.401 pH Units (7.350-7.450) 01/15/19 03:35 POC ABG pCO2 < 30 (35-45) L 01/14/19 05:45 ABG pCO2 23.1 mm Hg 01/15/19 03:35 POC ABG pO2 143 (80-105) H 01/14/19 05:45 ABG pO2 118.4 mm Hg (80.0-90.0) H 01/15/19 03:35 POC ABG HCO3 13.7 (22-26 mml/L) 01/14/19 05:45 POC ABG Total CO2 14 (23-27mmol/L) 01/14/19 05:45 POC ABG O2 Sat 99 01/14/19 05:45 ABG O2 Saturation 98.4 % (95.0-99.0) 01/15/19 03:35 PT/INR, D-dimer PT 20.3 Sec. (12.2-14.9) H 01/11/19 09:19 INR 1.78 (0.87-1.13) H 01/11/19 09:19 Abnormal lab findings: Abnormal Labs 01/11/19 01/11/19 01/11/19 09:19 09:19 09:19 WBC RBC 2.42 L Hgb 5.7 L* Hct 17.5 L* MCV 72 L MCH 24 L RDW 20.9 H Plt Count Seg Neutrophils % 83.0 H Seg Neuts % (Manual) Lymphocytes % (Manual) Seg Neutrophils # 7.8 H Seg Neutrophils # Man Lymphocytes # (Manual) PT 20.3 H INR 1.78 H APTT 41.5 H POC ABG pH POC ABG pCO2 POC ABG pO2 ABG pO2 ABG HCO3 ABG Base Excess ABG Hemoglobin Sodium 113 L* Potassium 7.2 H* Chloride 72.7 L Carbon Dioxide 10 L BUN 197 H Creatinine 13.7 H Glucose 258 H POC Glucose Lactic Acid Calcium Phosphorus Magnesium 2.50 H Alkaline Phosphatase 139 H Ammonia Total Creatine Kinase 244 H CK-MB (CK-2) 10.1 H CK-MB (CK-2) Rel Index 4.1 H Troponin T 0.094 H NT-Pro-B Natriuret Pep 2056 H Total Protein Albumin 2.1 L Crossmatch 01/11/19 01/11/19 01/11/19 09:19 09:30 10:08 WBC RBC Hgb Hct MCV MCH RDW Plt Count Seg Neutrophils % Seg Neuts % (Manual) Lymphocytes % (Manual) Seg Neutrophils # Seg Neutrophils # Man Lymphocytes # (Manual) PT INR APTT POC ABG pH POC ABG pCO2 POC ABG pO2 ABG pO2 ABG HCO3 ABG Base Excess ABG Hemoglobin Sodium Potassium Chloride Carbon Dioxide BUN Creatinine Glucose POC Glucose Lactic Acid 7.20 H* Calcium Phosphorus Magnesium Alkaline Phosphatase Ammonia 167.0 H Total Creatine Kinase CK-MB (CK-2) CK-MB (CK-2) Rel Index Troponin T NT-Pro-B Natriuret Pep Total Protein Albumin Crossmatch See Detail 01/11/19 01/11/19 01/11/19 11:02 11:15 15:10 WBC RBC Hgb Hct MCV MCH RDW Plt Count Seg Neutrophils % Seg Neuts % (Manual) Lymphocytes % (Manual) Seg Neutrophils # Seg Neutrophils # Man Lymphocytes # (Manual) PT INR APTT POC ABG pH 7.287 L POC ABG pCO2 32.1 L POC ABG pO2 ABG pO2 ABG HCO3 ABG Base Excess ABG Hemoglobin Sodium Potassium Chloride Carbon Dioxide BUN Creatinine Glucose POC Glucose 239 H Lactic Acid 4.70 H* Calcium Phosphorus Magnesium Alkaline Phosphatase Ammonia Total Creatine Kinase CK-MB (CK-2) CK-MB (CK-2) Rel Index Troponin T NT-Pro-B Natriuret Pep Total Protein Albumin Crossmatch 01/11/19 01/11/19 01/11/19 20:30 20:30 23:13 WBC RBC Hgb 10.2 L D Hct 29.9 L D MCV 75 L MCH 25 L RDW 22.7 H Plt Count Seg Neutrophils % Seg Neuts % (Manual) 91.0 H Lymphocytes % (Manual) 5.0 L Seg Neutrophils # Seg Neutrophils # Man Lymphocytes # (Manual) 0.4 L PT INR APTT POC ABG pH POC ABG pCO2 POC ABG pO2 ABG pO2 ABG HCO3 ABG Base Excess ABG Hemoglobin Sodium 120 L D Potassium 5.8 H Chloride 78.5 L Carbon Dioxide 10 L BUN 190 H Creatinine 13.2 H Glucose 107 H POC Glucose 134 H Lactic Acid Calcium Phosphorus Magnesium Alkaline Phosphatase Ammonia Total Creatine Kinase CK-MB (CK-2) CK-MB (CK-2) Rel Index Troponin T NT-Pro-B Natriuret Pep Total Protein Albumin Crossmatch 01/12/19 01/12/19 01/12/19 04:15 04:15 04:50 WBC 16.3 H RBC Hgb 9.7 L Hct 29.0 L MCV 75 L MCH 25 L RDW 22.6 H Plt Count Seg Neutrophils % Seg Neuts % (Manual) 95.0 H Lymphocytes % (Manual) 2.0 L Seg Neutrophils # 15.5 H Seg Neutrophils # Man 15.5 H Lymphocytes # (Manual) 0.3 L PT INR APTT POC ABG pH POC ABG pCO2 POC ABG pO2 256 H ABG pO2 ABG HCO3 ABG Base Excess ABG Hemoglobin Sodium 121 L Potassium 6.5 H* Chloride 80.8 L Carbon Dioxide 12 L BUN 187 H Creatinine 13.1 H Glucose 110 H POC Glucose Lactic Acid Calcium Phosphorus Magnesium Alkaline Phosphatase Ammonia Total Creatine Kinase CK-MB (CK-2) CK-MB (CK-2) Rel Index Troponin T NT-Pro-B Natriuret Pep Total Protein Albumin Crossmatch 01/12/19 01/12/19 01/12/19 05:56 11:34 17:12 WBC RBC Hgb 7.2 L Hct 21.4 L D MCV MCH RDW Plt Count Seg Neutrophils % Seg Neuts % (Manual) Lymphocytes % (Manual) Seg Neutrophils # Seg Neutrophils # Man Lymphocytes # (Manual) PT INR APTT POC ABG pH POC ABG pCO2 POC ABG pO2 ABG pO2 ABG HCO3 ABG Base Excess ABG Hemoglobin Sodium Potassium Chloride Carbon Dioxide BUN Creatinine Glucose POC Glucose 124 H 127 H Lactic Acid Calcium Phosphorus Magnesium Alkaline Phosphatase Ammonia Total Creatine Kinase CK-MB (CK-2) CK-MB (CK-2) Rel Index Troponin T NT-Pro-B Natriuret Pep Total Protein Albumin Crossmatch 01/12/19 01/12/19 01/13/19 17:12 18:02 00:21 WBC RBC Hgb Hct MCV MCH RDW Plt Count Seg Neutrophils % Seg Neuts % (Manual) Lymphocytes % (Manual) Seg Neutrophils # Seg Neutrophils # Man Lymphocytes # (Manual) PT INR APTT POC ABG pH POC ABG pCO2 POC ABG pO2 ABG pO2 ABG HCO3 ABG Base Excess ABG Hemoglobin Sodium 129 L D Potassium Chloride 94.4 L Carbon Dioxide 14 L BUN 165 H Creatinine 11.4 H Glucose 119 H POC Glucose 140 H 132 H Lactic Acid Calcium 8.0 L D Phosphorus Magnesium Alkaline Phosphatase Ammonia Total Creatine Kinase CK-MB (CK-2) CK-MB (CK-2) Rel Index Troponin T NT-Pro-B Natriuret Pep Total Protein Albumin Crossmatch 01/13/19 01/13/19 01/13/19 01:30 01:30 04:13 WBC RBC Hgb 6.7 L Hct 20.5 L MCV MCH RDW Plt Count Seg Neutrophils % Seg Neuts % (Manual) Lymphocytes % (Manual) Seg Neutrophils # Seg Neutrophils # Man Lymphocytes # (Manual) PT INR APTT POC ABG pH POC ABG pCO2 POC ABG pO2 68 L ABG pO2 ABG HCO3 ABG Base Excess ABG Hemoglobin Sodium 131 L Potassium Chloride Carbon Dioxide 14 L BUN 150 H Creatinine 9.6 H Glucose 101 H POC Glucose Lactic Acid Calcium 7.5 L Phosphorus Magnesium Alkaline Phosphatase Ammonia Total Creatine Kinase CK-MB (CK-2) CK-MB (CK-2) Rel Index Troponin T NT-Pro-B Natriuret Pep Total Protein Albumin Crossmatch 01/13/19 01/13/19 01/13/19 04:26 05:30 05:36 WBC RBC Hgb Hct MCV MCH RDW Plt Count Seg Neutrophils % Seg Neuts % (Manual) Lymphocytes % (Manual) Seg Neutrophils # Seg Neutrophils # Man Lymphocytes # (Manual) PT INR APTT POC ABG pH POC ABG pCO2 POC ABG pO2 122 H ABG pO2 ABG HCO3 ABG Base Excess ABG Hemoglobin Sodium 135 L Potassium 3.3 L Chloride Carbon Dioxide 14 L BUN 125 H Creatinine 9.0 H Glucose POC Glucose 111 H Lactic Acid Calcium 6.9 L Phosphorus Magnesium Alkaline Phosphatase Ammonia Total Creatine Kinase CK-MB (CK-2) CK-MB (CK-2) Rel Index Troponin T NT-Pro-B Natriuret Pep Total Protein 5.2 L D Albumin 1.5 L Crossmatch 01/13/19 01/13/19 01/13/19 08:05 08:05 11:24 WBC RBC 2.36 L Hgb 6.1 L Hct 18.0 L* MCV 76 L MCH 26 L RDW 23.5 H Plt Count 103 L Seg Neutrophils % Seg Neuts % (Manual) 96.0 H Lymphocytes % (Manual) 2.0 L Seg Neutrophils # Seg Neutrophils # Man 9.9 H Lymphocytes # (Manual) 0.2 L PT INR APTT POC ABG pH POC ABG pCO2 POC ABG pO2 ABG pO2 ABG HCO3 ABG Base Excess ABG Hemoglobin Sodium 136 L Potassium 3.2 L Chloride Carbon Dioxide 15 L BUN 113 H Creatinine 8.0 H Glucose 127 H POC Glucose 122 H Lactic Acid Calcium 6.6 L Phosphorus Magnesium Alkaline Phosphatase Ammonia Total Creatine Kinase CK-MB (CK-2) CK-MB (CK-2) Rel Index Troponin T NT-Pro-B Natriuret Pep Total Protein Albumin Crossmatch 01/13/19 01/13/19 01/13/19 12:47 17:43 17:55 WBC RBC Hgb 7.7 L Hct 22.9 L MCV MCH RDW Plt Count Seg Neutrophils % Seg Neuts % (Manual) Lymphocytes % (Manual) Seg Neutrophils # Seg Neutrophils # Man Lymphocytes # (Manual) PT INR APTT POC ABG pH POC ABG pCO2 POC ABG pO2 ABG pO2 ABG HCO3 ABG Base Excess ABG Hemoglobin Sodium 134 L Potassium 3.3 L Chloride Carbon Dioxide 14 L BUN 122 H Creatinine 7.5 H Glucose POC Glucose 119 H Lactic Acid Calcium 6.9 L Phosphorus Magnesium Alkaline Phosphatase Ammonia Total Creatine Kinase CK-MB (CK-2) CK-MB (CK-2) Rel Index Troponin T NT-Pro-B Natriuret Pep Total Protein Albumin Crossmatch 01/13/19 01/14/19 01/14/19 23:35 04:30 04:35 WBC 12.6 H RBC 3.30 L Hgb 8.8 L Hct 26.0 L MCV 79 L MCH 27 L RDW 23.3 H Plt Count 100 L Seg Neutrophils % Seg Neuts % (Manual) 96.0 H Lymphocytes % (Manual) 1.0 L Seg Neutrophils # Seg Neutrophils # Man 12.1 H Lymphocytes # (Manual) 0.1 L PT INR APTT POC ABG pH POC ABG pCO2 POC ABG pO2 ABG pO2 113.7 H ABG HCO3 13.3 L ABG Base Excess -9.9 L ABG Hemoglobin 8.6 L Sodium Potassium Chloride Carbon Dioxide BUN Creatinine Glucose POC Glucose 106 H Lactic Acid Calcium Phosphorus Magnesium Alkaline Phosphatase Ammonia Total Creatine Kinase CK-MB (CK-2) CK-MB (CK-2) Rel Index Troponin T NT-Pro-B Natriuret Pep Total Protein Albumin Crossmatch 01/14/19 01/14/19 01/14/19 04:35 05:45 12:04 WBC RBC Hgb Hct MCV MCH RDW Plt Count Seg Neutrophils % Seg Neuts % (Manual) Lymphocytes % (Manual) Seg Neutrophils # Seg Neutrophils # Man Lymphocytes # (Manual) PT INR APTT POC ABG pH POC ABG pCO2 < 30 L POC ABG pO2 143 H ABG pO2 ABG HCO3 ABG Base Excess ABG Hemoglobin Sodium Potassium 3.5 L Chloride Carbon Dioxide 15 L BUN 111 H Creatinine 8.0 H Glucose POC Glucose 111 H Lactic Acid Calcium 7.2 L Phosphorus 5.30 H Magnesium 1.20 L Alkaline Phosphatase Ammonia Total Creatine Kinase CK-MB (CK-2) CK-MB (CK-2) Rel Index Troponin T NT-Pro-B Natriuret Pep Total Protein Albumin Crossmatch 01/14/19 01/15/19 01/15/19 17:30 03:35 05:31 WBC RBC Hgb Hct MCV MCH RDW Plt Count Seg Neutrophils % Seg Neuts % (Manual) Lymphocytes % (Manual) Seg Neutrophils # Seg Neutrophils # Man Lymphocytes # (Manual) PT INR APTT POC ABG pH POC ABG pCO2 POC ABG pO2 ABG pO2 118.4 H ABG HCO3 14.0 L ABG Base Excess -9.5 L ABG Hemoglobin 8.7 L Sodium Potassium Chloride Carbon Dioxide BUN Creatinine Glucose POC Glucose 119 H 106 H Lactic Acid Calcium Phosphorus Magnesium Alkaline Phosphatase Ammonia Total Creatine Kinase CK-MB (CK-2) CK-MB (CK-2) Rel Index Troponin T NT-Pro-B Natriuret Pep Total Protein Albumin Crossmatch 01/15/19 01/16/19 01/16/19 10:37 05:35 05:48 WBC RBC Hgb Hct MCV MCH RDW Plt Count Seg Neutrophils % Seg Neuts % (Manual) Lymphocytes % (Manual) Seg Neutrophils # Seg Neutrophils # Man Lymphocytes # (Manual) PT INR APTT POC ABG pH POC ABG pCO2 POC ABG pO2 ABG pO2 ABG HCO3 ABG Base Excess ABG Hemoglobin Sodium Potassium 3.0 L 3.2 L Chloride 109.1 H 112.5 H Carbon Dioxide 13 L 14 L BUN 105 H 105 H Creatinine 7.2 H 7.2 H Glucose 101 H POC Glucose 119 H Lactic Acid Calcium 7.4 L 7.6 L Phosphorus Magnesium Alkaline Phosphatase Ammonia Total Creatine Kinase CK-MB (CK-2) CK-MB (CK-2) Rel Index Troponin T NT-Pro-B Natriuret Pep Total Protein 5.4 L Albumin 1.3 L Crossmatch 01/16/19 12:07 WBC RBC Hgb Hct MCV MCH RDW Plt Count Seg Neutrophils % Seg Neuts % (Manual) Lymphocytes % (Manual) Seg Neutrophils # Seg Neutrophils # Man Lymphocytes # (Manual) PT INR APTT POC ABG pH POC ABG pCO2 POC ABG pO2 ABG pO2 ABG HCO3 ABG Base Excess ABG Hemoglobin Sodium Potassium Chloride Carbon Dioxide BUN Creatinine Glucose POC Glucose 118 H Lactic Acid Calcium Phosphorus Magnesium Alkaline Phosphatase Ammonia Total Creatine Kinase CK-MB (CK-2) CK-MB (CK-2) Rel Index Troponin T NT-Pro-B Natriuret Pep Total Protein Albumin Crossmatch
--- NOTE | 2019-01-16 17:08 | Event Note ---
Date: 01/16/19 Patient's family members including patient's mother and son requested DO NOT RESUSCITATE status as well as withdrawal of care and extubation and stopping all the treatment. I explained in detail to the family members including the mother , the patient patient's condition prognosis, protocols of DO NOT RESUSCITATE status, withdrawal of care, aftercare after extubation, options of hospice, answered all their questions.Family signed the necessary documents for DO NOT RESUSCITATE/withdrawal of care Patient was extubated at 13;30 hrs. As requested by the family, patient is not receiving any treatment.We'll continue to monitor the patient in ICU. Plan of care is reviewed with the patient family, patient's nurse, charge nurse, consultants and case management. Disposition;If the patient survives the night, patient may be discharged to SNF with hospice in the morning Total Critical care time 60 minutes
[2019-01-17] MEDS ORDERED: K-DUR PO ONE (07:10)
--- NOTE | 2019-01-17 07:58 | Progress Note ---
Subjective Date of service: 01/17/19 Principal diagnosis: [place] Interval history: read Dr. Dailey's note and family decision certainly concur as thee is no basis to expect meaningful neuro recovery based on multiple medical factors no recoveryhas been documented and none anticipated advise extube and provide comfort Objective - Vital Sign Vital Signs - 12hr 01/16/19 01/16/19 01/16/19 20:00 20:15 20:29 Temperature 98.7 F Pulse Rate 136 H 136 H 137 H Pulse Rate [ 136 H From Monitor] Respiratory 30 H 30 H 29 H Rate Blood Pressure 121/80 123/75 123/75 O2 Sat by Pulse 85 88 81 L Oximetry 01/16/19 01/16/19 01/16/19 20:30 20:45 21:00 Temperature Pulse Rate 137 H 138 H 137 H Pulse Rate [ From Monitor] Respiratory 30 H 28 H 30 H Rate Blood Pressure 128/70 128/80 129/82 O2 Sat by Pulse 87 88 86 Oximetry 01/16/19 01/16/19 01/16/19 21:15 21:30 21:45 Temperature Pulse Rate 137 H 132 H 128 H Pulse Rate [ From Monitor] Respiratory 29 H 28 H 26 H Rate Blood Pressure 118/80 127/71 113/56 O2 Sat by Pulse 85 84 84 Oximetry 01/16/19 01/16/19 01/16/19 22:00 22:15 22:30 Temperature Pulse Rate 126 H 121 H 118 H Pulse Rate [ From Monitor] Respiratory 27 H 29 H 28 H Rate Blood Pressure 105/43 105/43 80/39 O2 Sat by Pulse 84 85 83 L Oximetry 01/16/19 01/16/19 01/16/19 22:45 23:00 23:15 Temperature Pulse Rate 119 H 119 H 119 H Pulse Rate [ From Monitor] Respiratory 28 H 30 H 30 H Rate Blood Pressure 75/42 76/43 78/48 O2 Sat by Pulse 81 L 80 L 79 L Oximetry 01/16/19 01/16/19 01/16/19 23:30 23:36 23:45 Temperature 100.2 F H Pulse Rate 120 H 119 H Pulse Rate [ From Monitor] Respiratory 30 H 29 H Rate Blood Pressure 78/45 80/50 O2 Sat by Pulse 81 L 81 L Oximetry 01/17/19 01/17/19 01/17/19 00:00 00:15 00:30 Temperature Pulse Rate 119 H 121 H 122 H Pulse Rate [ 125 H From Monitor] Respiratory 29 H 30 H 30 H Rate Blood Pressure 86/50 89/53 88/49 O2 Sat by Pulse 80 L 79 L 82 L Oximetry 01/17/19 01/17/19 01/17/19 00:45 01:00 01:15 Temperature Pulse Rate 123 H 126 H 127 H Pulse Rate [ From Monitor] Respiratory 29 H 31 H 30 H Rate Blood Pressure 93/48 89/44 89/47 O2 Sat by Pulse 82 L 83 L 80 L Oximetry 01/17/19 01/17/19 01/17/19 01:30 01:45 02:00 Temperature Pulse Rate 126 H 126 H 126 H Pulse Rate [ From Monitor] Respiratory 31 H 31 H 30 H Rate Blood Pressure 85/49 89/48 87/48 O2 Sat by Pulse 81 L 80 L 82 L Oximetry 01/17/19 01/17/19 01/17/19 02:15 02:30 02:45 Temperature Pulse Rate 126 H 124 H 124 H Pulse Rate [ From Monitor] Respiratory 30 H 31 H 30 H Rate Blood Pressure 91/47 88/48 88/49 O2 Sat by Pulse 82 L 82 L 81 L Oximetry 01/17/19 01/17/19 01/17/19 02:47 03:02 03:15 Temperature 100.3 F H Pulse Rate 126 H 125 H Pulse Rate [ From Monitor] Respiratory 29 H 30 H Rate Blood Pressure 87/48 O2 Sat by Pulse 81 L 82 L Oximetry 01/17/19 01/17/19 01/17/19 03:30 03:45 04:00 Temperature Pulse Rate 125 H 124 H 124 H Pulse Rate [ 124 H From Monitor] Respiratory 32 H 32 H 32 H Rate Blood Pressure 85/42 85/47 84/45 O2 Sat by Pulse 82 L 81 L 82 L Oximetry 01/17/19 01/17/19 01/17/19 04:15 04:30 04:45 Temperature Pulse Rate 123 H 123 H 124 H Pulse Rate [ From Monitor] Respiratory 32 H 30 H 32 H Rate Blood Pressure 83/47 88/45 86/45 O2 Sat by Pulse 81 L 81 L 83 L Oximetry 01/17/19 01/17/19 01/17/19 05:00 05:15 05:30 Temperature Pulse Rate 124 H 123 H 124 H Pulse Rate [ From Monitor] Respiratory 31 H 32 H 33 H Rate Blood Pressure 82/47 87/42 81/40 O2 Sat by Pulse 82 L 82 L 83 L Oximetry 01/17/19 01/17/19 01/17/19 05:45 06:00 06:15 Temperature Pulse Rate 123 H 122 H 122 H Pulse Rate [ From Monitor] Respiratory 31 H 34 H 32 H Rate Blood Pressure 84/38 95/42 79/44 O2 Sat by Pulse 83 L 82 L 83 L Oximetry - Laboratory Findings CBC and BMP: 01/14/19 04:35 01/16/19 05:35 Abnormal Lab Findings: Abnormal Labs 01/11/19 01/11/19 01/11/19 09:19 09:19 09:19 WBC RBC 2.42 L Hgb 5.7 L* Hct 17.5 L* MCV 72 L MCH 24 L RDW 20.9 H Plt Count Seg Neutrophils % 83.0 H Seg Neuts % (Manual) Lymphocytes % (Manual) Seg Neutrophils # 7.8 H Seg Neutrophils # Man Lymphocytes # (Manual) PT 20.3 H INR 1.78 H APTT 41.5 H POC ABG pH POC ABG pCO2 POC ABG pO2 ABG pO2 ABG HCO3 ABG Base Excess ABG Hemoglobin Sodium 113 L* Potassium 7.2 H* Chloride 72.7 L Carbon Dioxide 10 L BUN 197 H Creatinine 13.7 H Glucose 258 H POC Glucose Lactic Acid Calcium Phosphorus Magnesium 2.50 H Alkaline Phosphatase 139 H Ammonia Total Creatine Kinase 244 H CK-MB (CK-2) 10.1 H CK-MB (CK-2) Rel Index 4.1 H Troponin T 0.094 H NT-Pro-B Natriuret Pep 2056 H Total Protein Albumin 2.1 L Crossmatch 01/11/19 01/11/19 01/11/19 09:19 09:30 10:08 WBC RBC Hgb Hct MCV MCH RDW Plt Count Seg Neutrophils % Seg Neuts % (Manual) Lymphocytes % (Manual) Seg Neutrophils # Seg Neutrophils # Man Lymphocytes # (Manual) PT INR APTT POC ABG pH POC ABG pCO2 POC ABG pO2 ABG pO2 ABG HCO3 ABG Base Excess ABG Hemoglobin Sodium Potassium Chloride Carbon Dioxide BUN Creatinine Glucose POC Glucose Lactic Acid 7.20 H* Calcium Phosphorus Magnesium Alkaline Phosphatase Ammonia 167.0 H Total Creatine Kinase CK-MB (CK-2) CK-MB (CK-2) Rel Index Troponin T NT-Pro-B Natriuret Pep Total Protein Albumin Crossmatch See Detail 01/11/19 01/11/19 01/11/19 11:02 11:15 15:10 WBC RBC Hgb Hct MCV MCH RDW Plt Count Seg Neutrophils % Seg Neuts % (Manual) Lymphocytes % (Manual) Seg Neutrophils # Seg Neutrophils # Man Lymphocytes # (Manual) PT INR APTT POC ABG pH 7.287 L POC ABG pCO2 32.1 L POC ABG pO2 ABG pO2 ABG HCO3 ABG Base Excess ABG Hemoglobin Sodium Potassium Chloride Carbon Dioxide BUN Creatinine Glucose POC Glucose 239 H Lactic Acid 4.70 H* Calcium Phosphorus Magnesium Alkaline Phosphatase Ammonia Total Creatine Kinase CK-MB (CK-2) CK-MB (CK-2) Rel Index Troponin T NT-Pro-B Natriuret Pep Total Protein Albumin Crossmatch 01/11/19 01/11/19 01/11/19 20:30 20:30 23:13 WBC RBC Hgb 10.2 L D Hct 29.9 L D MCV 75 L MCH 25 L RDW 22.7 H Plt Count Seg Neutrophils % Seg Neuts % (Manual) 91.0 H Lymphocytes % (Manual) 5.0 L Seg Neutrophils # Seg Neutrophils # Man Lymphocytes # (Manual) 0.4 L PT INR APTT POC ABG pH POC ABG pCO2 POC ABG pO2 ABG pO2 ABG HCO3 ABG Base Excess ABG Hemoglobin Sodium 120 L D Potassium 5.8 H Chloride 78.5 L Carbon Dioxide 10 L BUN 190 H Creatinine 13.2 H Glucose 107 H POC Glucose 134 H Lactic Acid Calcium Phosphorus Magnesium Alkaline Phosphatase Ammonia Total Creatine Kinase CK-MB (CK-2) CK-MB (CK-2) Rel Index Troponin T NT-Pro-B Natriuret Pep Total Protein Albumin Crossmatch 01/12/19 01/12/19 01/12/19 04:15 04:15 04:50 WBC 16.3 H RBC Hgb 9.7 L Hct 29.0 L MCV 75 L MCH 25 L RDW 22.6 H Plt Count Seg Neutrophils % Seg Neuts % (Manual) 95.0 H Lymphocytes % (Manual) 2.0 L Seg Neutrophils # 15.5 H Seg Neutrophils # Man 15.5 H Lymphocytes # (Manual) 0.3 L PT INR APTT POC ABG pH POC ABG pCO2 POC ABG pO2 256 H ABG pO2 ABG HCO3 ABG Base Excess ABG Hemoglobin Sodium 121 L Potassium 6.5 H* Chloride 80.8 L Carbon Dioxide 12 L BUN 187 H Creatinine 13.1 H Glucose 110 H POC Glucose Lactic Acid Calcium Phosphorus Magnesium Alkaline Phosphatase Ammonia Total Creatine Kinase CK-MB (CK-2) CK-MB (CK-2) Rel Index Troponin T NT-Pro-B Natriuret Pep Total Protein Albumin Crossmatch 01/12/19 01/12/19 01/12/19 05:56 11:34 17:12 WBC RBC Hgb 7.2 L Hct 21.4 L D MCV MCH RDW Plt Count Seg Neutrophils % Seg Neuts % (Manual) Lymphocytes % (Manual) Seg Neutrophils # Seg Neutrophils # Man Lymphocytes # (Manual) PT INR APTT POC ABG pH POC ABG pCO2 POC ABG pO2 ABG pO2 ABG HCO3 ABG Base Excess ABG Hemoglobin Sodium Potassium Chloride Carbon Dioxide BUN Creatinine Glucose POC Glucose 124 H 127 H Lactic Acid Calcium Phosphorus Magnesium Alkaline Phosphatase Ammonia Total Creatine Kinase CK-MB (CK-2) CK-MB (CK-2) Rel Index Troponin T NT-Pro-B Natriuret Pep Total Protein Albumin Crossmatch 01/12/19 01/12/19 01/13/19 17:12 18:02 00:21 WBC RBC Hgb Hct MCV MCH RDW Plt Count Seg Neutrophils % Seg Neuts % (Manual) Lymphocytes % (Manual) Seg Neutrophils # Seg Neutrophils # Man Lymphocytes # (Manual) PT INR APTT POC ABG pH POC ABG pCO2 POC ABG pO2 ABG pO2 ABG HCO3 ABG Base Excess ABG Hemoglobin Sodium 129 L D Potassium Chloride 94.4 L Carbon Dioxide 14 L BUN 165 H Creatinine 11.4 H Glucose 119 H POC Glucose 140 H 132 H Lactic Acid Calcium 8.0 L D Phosphorus Magnesium Alkaline Phosphatase Ammonia Total Creatine Kinase CK-MB (CK-2) CK-MB (CK-2) Rel Index Troponin T NT-Pro-B Natriuret Pep Total Protein Albumin Crossmatch 01/13/19 01/13/19 01/13/19 01:30 01:30 04:13 WBC RBC Hgb 6.7 L Hct 20.5 L MCV MCH RDW Plt Count Seg Neutrophils % Seg Neuts % (Manual) Lymphocytes % (Manual) Seg Neutrophils # Seg Neutrophils # Man Lymphocytes # (Manual) PT INR APTT POC ABG pH POC ABG pCO2 POC ABG pO2 68 L ABG pO2 ABG HCO3 ABG Base Excess ABG Hemoglobin Sodium 131 L Potassium Chloride Carbon Dioxide 14 L BUN 150 H Creatinine 9.6 H Glucose 101 H POC Glucose Lactic Acid Calcium 7.5 L Phosphorus Magnesium Alkaline Phosphatase Ammonia Total Creatine Kinase CK-MB (CK-2) CK-MB (CK-2) Rel Index Troponin T NT-Pro-B Natriuret Pep Total Protein Albumin Crossmatch 01/13/19 01/13/19 01/13/19 04:26 05:30 05:36 WBC RBC Hgb Hct MCV MCH RDW Plt Count Seg Neutrophils % Seg Neuts % (Manual) Lymphocytes % (Manual) Seg Neutrophils # Seg Neutrophils # Man Lymphocytes # (Manual) PT INR APTT POC ABG pH POC ABG pCO2 POC ABG pO2 122 H ABG pO2 ABG HCO3 ABG Base Excess ABG Hemoglobin Sodium 135 L Potassium 3.3 L Chloride Carbon Dioxide 14 L BUN 125 H Creatinine 9.0 H Glucose POC Glucose 111 H Lactic Acid Calcium 6.9 L Phosphorus Magnesium Alkaline Phosphatase Ammonia Total Creatine Kinase CK-MB (CK-2) CK-MB (CK-2) Rel Index Troponin T NT-Pro-B Natriuret Pep Total Protein 5.2 L D Albumin 1.5 L Crossmatch 01/13/19 01/13/19 01/13/19 08:05 08:05 11:24 WBC RBC 2.36 L Hgb 6.1 L Hct 18.0 L* MCV 76 L MCH 26 L RDW 23.5 H Plt Count 103 L Seg Neutrophils % Seg Neuts % (Manual) 96.0 H Lymphocytes % (Manual) 2.0 L Seg Neutrophils # Seg Neutrophils # Man 9.9 H Lymphocytes # (Manual) 0.2 L PT INR APTT POC ABG pH POC ABG pCO2 POC ABG pO2 ABG pO2 ABG HCO3 ABG Base Excess ABG Hemoglobin Sodium 136 L Potassium 3.2 L Chloride Carbon Dioxide 15 L BUN 113 H Creatinine 8.0 H Glucose 127 H POC Glucose 122 H Lactic Acid Calcium 6.6 L Phosphorus Magnesium Alkaline Phosphatase Ammonia Total Creatine Kinase CK-MB (CK-2) CK-MB (CK-2) Rel Index Troponin T NT-Pro-B Natriuret Pep Total Protein Albumin Crossmatch 01/13/19 01/13/19 01/13/19 12:47 17:43 17:55 WBC RBC Hgb 7.7 L Hct 22.9 L MCV MCH RDW Plt Count Seg Neutrophils % Seg Neuts % (Manual) Lymphocytes % (Manual) Seg Neutrophils # Seg Neutrophils # Man Lymphocytes # (Manual) PT INR APTT POC ABG pH POC ABG pCO2 POC ABG pO2 ABG pO2 ABG HCO3 ABG Base Excess ABG Hemoglobin Sodium 134 L Potassium 3.3 L Chloride Carbon Dioxide 14 L BUN 122 H Creatinine 7.5 H Glucose POC Glucose 119 H Lactic Acid Calcium 6.9 L Phosphorus Magnesium Alkaline Phosphatase Ammonia Total Creatine Kinase CK-MB (CK-2) CK-MB (CK-2) Rel Index Troponin T NT-Pro-B Natriuret Pep Total Protein Albumin Crossmatch 01/13/19 01/14/19 01/14/19 23:35 04:30 04:35 WBC 12.6 H RBC 3.30 L Hgb 8.8 L Hct 26.0 L MCV 79 L MCH 27 L RDW 23.3 H Plt Count 100 L Seg Neutrophils % Seg Neuts % (Manual) 96.0 H Lymphocytes % (Manual) 1.0 L Seg Neutrophils # Seg Neutrophils # Man 12.1 H Lymphocytes # (Manual) 0.1 L PT INR APTT POC ABG pH POC ABG pCO2 POC ABG pO2 ABG pO2 113.7 H ABG HCO3 13.3 L ABG Base Excess -9.9 L ABG Hemoglobin 8.6 L Sodium Potassium Chloride Carbon Dioxide BUN Creatinine Glucose POC Glucose 106 H Lactic Acid Calcium Phosphorus Magnesium Alkaline Phosphatase Ammonia Total Creatine Kinase CK-MB (CK-2) CK-MB (CK-2) Rel Index Troponin T NT-Pro-B Natriuret Pep Total Protein Albumin Crossmatch 01/14/19 01/14/19 01/14/19 04:35 05:45 12:04 WBC RBC Hgb Hct MCV MCH RDW Plt Count Seg Neutrophils % Seg Neuts % (Manual) Lymphocytes % (Manual) Seg Neutrophils # Seg Neutrophils # Man Lymphocytes # (Manual) PT INR APTT POC ABG pH POC ABG pCO2 < 30 L POC ABG pO2 143 H ABG pO2 ABG HCO3 ABG Base Excess ABG Hemoglobin Sodium Potassium 3.5 L Chloride Carbon Dioxide 15 L BUN 111 H Creatinine 8.0 H Glucose POC Glucose 111 H Lactic Acid Calcium 7.2 L Phosphorus 5.30 H Magnesium 1.20 L Alkaline Phosphatase Ammonia Total Creatine Kinase CK-MB (CK-2) CK-MB (CK-2) Rel Index Troponin T NT-Pro-B Natriuret Pep Total Protein Albumin Crossmatch 01/14/19 01/15/19 01/15/19 17:30 03:35 05:31 WBC RBC Hgb Hct MCV MCH RDW Plt Count Seg Neutrophils % Seg Neuts % (Manual) Lymphocytes % (Manual) Seg Neutrophils # Seg Neutrophils # Man Lymphocytes # (Manual) PT INR APTT POC ABG pH POC ABG pCO2 POC ABG pO2 ABG pO2 118.4 H ABG HCO3 14.0 L ABG Base Excess -9.5 L ABG Hemoglobin 8.7 L Sodium Potassium Chloride Carbon Dioxide BUN Creatinine Glucose POC Glucose 119 H 106 H Lactic Acid Calcium Phosphorus Magnesium Alkaline Phosphatase Ammonia Total Creatine Kinase CK-MB (CK-2) CK-MB (CK-2) Rel Index Troponin T NT-Pro-B Natriuret Pep Total Protein Albumin Crossmatch 01/15/19 01/16/19 01/16/19 10:37 05:35 05:48 WBC RBC Hgb Hct MCV MCH RDW Plt Count Seg Neutrophils % Seg Neuts % (Manual) Lymphocytes % (Manual) Seg Neutrophils # Seg Neutrophils # Man Lymphocytes # (Manual) PT INR APTT POC ABG pH POC ABG pCO2 POC ABG pO2 ABG pO2 ABG HCO3 ABG Base Excess ABG Hemoglobin Sodium Potassium 3.0 L 3.2 L Chloride 109.1 H 112.5 H Carbon Dioxide 13 L 14 L BUN 105 H 105 H Creatinine 7.2 H 7.2 H Glucose 101 H POC Glucose 119 H Lactic Acid Calcium 7.4 L 7.6 L Phosphorus Magnesium Alkaline Phosphatase Ammonia Total Creatine Kinase CK-MB (CK-2) CK-MB (CK-2) Rel Index Troponin T NT-Pro-B Natriuret Pep Total Protein 5.4 L Albumin 1.3 L Crossmatch 01/16/19 12:07 WBC RBC Hgb Hct MCV MCH RDW Plt Count Seg Neutrophils % Seg Neuts % (Manual) Lymphocytes % (Manual) Seg Neutrophils # Seg Neutrophils # Man Lymphocytes # (Manual) PT INR APTT POC ABG pH POC ABG pCO2 POC ABG pO2 ABG pO2 ABG HCO3 ABG Base Excess ABG Hemoglobin Sodium Potassium Chloride Carbon Dioxide BUN Creatinine Glucose POC Glucose 118 H Lactic Acid Calcium Phosphorus Magnesium Alkaline Phosphatase Ammonia Total Creatine Kinase CK-MB (CK-2) CK-MB (CK-2) Rel Index Troponin T NT-Pro-B Natriuret Pep Total Protein Albumin Crossmatch
[2019-01-17] MEDS: SODIUM CHLORIDE FLUSH SYRINGE 10 ML IV SCH (10:57)
[2019-01-17] MEDS: PEPCID PO SCH (10:57)
--- NOTE | 2019-01-17 11:51 | Event Note ---
Date: 01/17/19 Called by RN to pronounce patient noted to be in asystole around 11:42 am seen and examined the patient, no heart beat, no breathing, no corneal reflex, fix dilated pupil pronounced at 12:00 pm family at bedside - updated
--- NOTE | 2019-01-17 12:19 | Progress Note ---
Assessment and Plan Impression: Status post cardiorespiratory arrest Anoxic encephalopathy History of stroke And stated renal disease on hemodialysis Possible sepsis. Recommendation P: Patient patient family wishes him to be transferred to hospice.. Patient prior to transfer Subjective Date of service: 01/17/19 Principal diagnosis: [place] Interval history: Patient was seen earlier around 11 AM this is a late entry. Shunt was noted to be gasping for air. Family was considering hospice. Objective Vital Signs - 12hr 01/17/19 01/17/19 01/17/19 00:30 00:45 01:00 Temperature Pulse Rate 122 H 123 H 126 H Pulse Rate [ From Monitor] Respiratory 30 H 29 H 31 H Rate Blood Pressure 88/49 93/48 89/44 O2 Sat by Pulse 82 L 82 L 83 L Oximetry 01/17/19 01/17/19 01/17/19 01:15 01:30 01:45 Temperature Pulse Rate 127 H 126 H 126 H Pulse Rate [ From Monitor] Respiratory 30 H 31 H 31 H Rate Blood Pressure 89/47 85/49 89/48 O2 Sat by Pulse 80 L 81 L 80 L Oximetry 01/17/19 01/17/19 01/17/19 02:00 02:15 02:30 Temperature Pulse Rate 126 H 126 H 124 H Pulse Rate [ From Monitor] Respiratory 30 H 30 H 31 H Rate Blood Pressure 87/48 91/47 88/48 O2 Sat by Pulse 82 L 82 L 82 L Oximetry 01/17/19 01/17/19 01/17/19 02:45 02:47 03:02 Temperature 100.3 F H Pulse Rate 124 H 126 H Pulse Rate [ From Monitor] Respiratory 30 H 29 H Rate Blood Pressure 88/49 O2 Sat by Pulse 81 L 81 L Oximetry 01/17/19 01/17/19 01/17/19 03:15 03:30 03:45 Temperature Pulse Rate 125 H 125 H 124 H Pulse Rate [ From Monitor] Respiratory 30 H 32 H 32 H Rate Blood Pressure 87/48 85/42 85/47 O2 Sat by Pulse 82 L 82 L 81 L Oximetry 01/17/19 01/17/19 01/17/19 04:00 04:15 04:30 Temperature Pulse Rate 124 H 123 H 123 H Pulse Rate [ 124 H From Monitor] Respiratory 32 H 32 H 30 H Rate Blood Pressure 84/45 83/47 88/45 O2 Sat by Pulse 82 L 81 L 81 L Oximetry 01/17/19 01/17/19 01/17/19 04:45 05:00 05:15 Temperature Pulse Rate 124 H 124 H 123 H Pulse Rate [ From Monitor] Respiratory 32 H 31 H 32 H Rate Blood Pressure 86/45 82/47 87/42 O2 Sat by Pulse 83 L 82 L 82 L Oximetry 01/17/19 01/17/19 01/17/19 05:30 05:45 06:00 Temperature Pulse Rate 124 H 123 H 122 H Pulse Rate [ From Monitor] Respiratory 33 H 31 H 34 H Rate Blood Pressure 81/40 84/38 95/42 O2 Sat by Pulse 83 L 83 L 82 L Oximetry 01/17/19 01/17/19 01/17/19 06:15 06:30 06:45 Temperature Pulse Rate 122 H 122 H 121 H Pulse Rate [ From Monitor] Respiratory 32 H 34 H 34 H Rate Blood Pressure 79/44 84/40 82/39 O2 Sat by Pulse 83 L 82 L 79 L Oximetry 01/17/19 01/17/19 01/17/19 07:00 07:15 07:30 Temperature Pulse Rate 119 H 120 H 120 H Pulse Rate [ From Monitor] Respiratory 31 H 32 H 30 H Rate Blood Pressure 75/38 72/45 87/48 O2 Sat by Pulse 75 L 96 97 Oximetry 01/17/19 01/17/19 01/17/19 07:45 08:00 08:15 Temperature 98.5 F Pulse Rate 120 H 120 H 121 H Pulse Rate [ From Monitor] Respiratory 28 H 31 H 30 H Rate Blood Pressure 91/54 83/56 87/51 O2 Sat by Pulse 97 97 97 Oximetry 01/17/19 01/17/19 01/17/19 08:30 08:45 09:00 Temperature Pulse Rate 119 H 120 H 120 H Pulse Rate [ From Monitor] Respiratory 30 H 29 H 32 H Rate Blood Pressure 100/50 87/45 87/40 O2 Sat by Pulse 97 91 88 Oximetry 01/17/19 01/17/19 01/17/19 09:15 09:30 09:45 Temperature Pulse Rate 120 H 120 H 119 H Pulse Rate [ From Monitor] Respiratory 31 H 30 H 32 H Rate Blood Pressure 94/46 96/45 95/46 O2 Sat by Pulse 89 86 85 Oximetry 01/17/19 01/17/19 01/17/19 10:00 10:15 10:30 Temperature Pulse Rate 120 H 119 H 120 H Pulse Rate [ From Monitor] Respiratory 31 H 34 H 32 H Rate Blood Pressure 86/43 74/39 76/40 O2 Sat by Pulse 85 87 87 Oximetry Constitutional: comatose, other (critically ill on vent) Eyes: non-icteric ENT: other (orally intubated and not medically sedated) Neck: supple Effort: normal Ascultation: Bilateral: clear, other (coarse BS bilaterally) Percussion: Bilateral: not dull Cardiovascular: regular rate and rhythm (no mrg) Gastrointestinal: normoactive bowel sounds, soft, other (colostomy with brown output per nursing) Extremities: no cyanosis, no edema Neurologic: other (unresponsive, mild increased tone RUE but flaccid other extremities) Psychiatric: other (not able to assess) CBC and BMP: 01/14/19 04:35 01/16/19 05:35 ABG, PT/INR, D-dimer: ABG POC ABG pH 7.399 (7.35-7.45) 01/14/19 05:45 ABG pH 7.401 pH Units (7.350-7.450) 01/15/19 03:35 POC ABG pCO2 < 30 (35-45) L 01/14/19 05:45 ABG pCO2 23.1 mm Hg 01/15/19 03:35 POC ABG pO2 143 (80-105) H 01/14/19 05:45 ABG pO2 118.4 mm Hg (80.0-90.0) H 01/15/19 03:35 POC ABG HCO3 13.7 (22-26 mml/L) 01/14/19 05:45 POC ABG Total CO2 14 (23-27mmol/L) 01/14/19 05:45 POC ABG O2 Sat 99 01/14/19 05:45 ABG O2 Saturation 98.4 % (95.0-99.0) 01/15/19 03:35 PT/INR, D-dimer PT 20.3 Sec. (12.2-14.9) H 01/11/19 09:19 INR 1.78 (0.87-1.13) H 01/11/19 09:19 Abnormal lab findings: Abnormal Labs 08/01/11/19 01/11/19 09:19 09:19 09:19 WBC RBC 2.42 L Hgb 5.7 L* Hct 17.5 L* MCV 72 L MCH 24 L RDW 20.9 H Plt Count Seg Neutrophils % 83.0 H Seg Neuts % (Manual) Lymphocytes % (Manual) Seg Neutrophils # 7.8 H Seg Neutrophils # Man Lymphocytes # (Manual) PT 20.3 H INR 1.78 H APTT 41.5 H POC ABG pH POC ABG pCO2 POC ABG pO2 ABG pO2 ABG HCO3 ABG Base Excess ABG Hemoglobin Sodium 113 L* Potassium 7.2 H* Chloride 72.7 L Carbon Dioxide 10 L BUN 197 H Creatinine 13.7 H Glucose 258 H POC Glucose Lactic Acid Calcium Phosphorus Magnesium 2.50 H Alkaline Phosphatase 139 H Ammonia Total Creatine Kinase 244 H CK-MB (CK-2) 10.1 H CK-MB (CK-2) Rel Index 4.1 H Troponin T 0.094 H NT-Pro-B Natriuret Pep 2056 H Total Protein Albumin 2.1 L Crossmatch 01/11/19 01/11/19 01/11/19 09:19 09:30 10:08 WBC RBC Hgb Hct MCV MCH RDW Plt Count Seg Neutrophils % Seg Neuts % (Manual) Lymphocytes % (Manual) Seg Neutrophils # Seg Neutrophils # Man Lymphocytes # (Manual) PT INR APTT POC ABG pH POC ABG pCO2 POC ABG pO2 ABG pO2 ABG HCO3 ABG Base Excess ABG Hemoglobin Sodium Potassium Chloride Carbon Dioxide BUN Creatinine Glucose POC Glucose Lactic Acid 7.20 H* Calcium Phosphorus Magnesium Alkaline Phosphatase Ammonia 167.0 H Total Creatine Kinase CK-MB (CK-2) CK-MB (CK-2) Rel Index Troponin T NT-Pro-B Natriuret Pep Total Protein Albumin Crossmatch See Detail 01/11/19 01/11/19 01/11/19 11:02 11:15 15:10 WBC RBC Hgb Hct MCV MCH RDW Plt Count Seg Neutrophils % Seg Neuts % (Manual) Lymphocytes % (Manual) Seg Neutrophils # Seg Neutrophils # Man Lymphocytes # (Manual) PT INR APTT POC ABG pH 7.287 L POC ABG pCO2 32.1 L POC ABG pO2 ABG pO2 ABG HCO3 ABG Base Excess ABG Hemoglobin Sodium Potassium Chloride Carbon Dioxide BUN Creatinine Glucose POC Glucose 239 H Lactic Acid 4.70 H* Calcium Phosphorus Magnesium Alkaline Phosphatase Ammonia Total Creatine Kinase CK-MB (CK-2) CK-MB (CK-2) Rel Index Troponin T NT-Pro-B Natriuret Pep Total Protein Albumin Crossmatch 01/11/19 01/11/19 01/11/19 20:30 20:30 23:13 WBC RBC Hgb 10.2 L D Hct 29.9 L D MCV 75 L MCH 25 L RDW 22.7 H Plt Count Seg Neutrophils % Seg Neuts % (Manual) 91.0 H Lymphocytes % (Manual) 5.0 L Seg Neutrophils # Seg Neutrophils # Man Lymphocytes # (Manual) 0.4 L PT INR APTT POC ABG pH POC ABG pCO2 POC ABG pO2 ABG pO2 ABG HCO3 ABG Base Excess ABG Hemoglobin Sodium 120 L D Potassium 5.8 H Chloride 78.5 L Carbon Dioxide 10 L BUN 190 H Creatinine 13.2 H Glucose 107 H POC Glucose 134 H Lactic Acid Calcium Phosphorus Magnesium Alkaline Phosphatase Ammonia Total Creatine Kinase CK-MB (CK-2) CK-MB (CK-2) Rel Index Troponin T NT-Pro-B Natriuret Pep Total Protein Albumin Crossmatch 01/12/19 01/12/19 01/12/19 04:15 04:15 04:50 WBC 16.3 H RBC Hgb 9.7 L Hct 29.0 L MCV 75 L MCH 25 L RDW 22.6 H Plt Count Seg Neutrophils % Seg Neuts % (Manual) 95.0 H Lymphocytes % (Manual) 2.0 L Seg Neutrophils # 15.5 H Seg Neutrophils # Man 15.5 H Lymphocytes # (Manual) 0.3 L PT INR APTT POC ABG pH POC ABG pCO2 POC ABG pO2 256 H ABG pO2 ABG HCO3 ABG Base Excess ABG Hemoglobin Sodium 121 L Potassium 6.5 H* Chloride 80.8 L Carbon Dioxide 12 L BUN 187 H Creatinine 13.1 H Glucose 110 H POC Glucose Lactic Acid Calcium Phosphorus Magnesium Alkaline Phosphatase Ammonia Total Creatine Kinase CK-MB (CK-2) CK-MB (CK-2) Rel Index Troponin T NT-Pro-B Natriuret Pep Total Protein Albumin Crossmatch 01/12/19 01/12/19 01/12/19 05:56 11:34 17:12 WBC RBC Hgb 7.2 L Hct 21.4 L D MCV MCH RDW Plt Count Seg Neutrophils % Seg Neuts % (Manual) Lymphocytes % (Manual) Seg Neutrophils # Seg Neutrophils # Man Lymphocytes # (Manual) PT INR APTT POC ABG pH POC ABG pCO2 POC ABG pO2 ABG pO2 ABG HCO3 ABG Base Excess ABG Hemoglobin Sodium Potassium Chloride Carbon Dioxide BUN Creatinine Glucose POC Glucose 124 H 127 H Lactic Acid Calcium Phosphorus Magnesium Alkaline Phosphatase Ammonia Total Creatine Kinase CK-MB (CK-2) CK-MB (CK-2) Rel Index Troponin T NT-Pro-B Natriuret Pep Total Protein Albumin Crossmatch 01/12/19 01/12/19 01/13/19 17:12 18:02 00:21 WBC RBC Hgb Hct MCV MCH RDW Plt Count Seg Neutrophils % Seg Neuts % (Manual) Lymphocytes % (Manual) Seg Neutrophils # Seg Neutrophils # Man Lymphocytes # (Manual) PT INR APTT POC ABG pH POC ABG pCO2 POC ABG pO2 ABG pO2 ABG HCO3 ABG Base Excess ABG Hemoglobin Sodium 129 L D Potassium Chloride 94.4 L Carbon Dioxide 14 L BUN 165 H Creatinine 11.4 H Glucose 119 H POC Glucose 140 H 132 H Lactic Acid Calcium 8.0 L D Phosphorus Magnesium Alkaline Phosphatase Ammonia Total Creatine Kinase CK-MB (CK-2) CK-MB (CK-2) Rel Index Troponin T NT-Pro-B Natriuret Pep Total Protein Albumin Crossmatch 01/13/19 01/13/19 01/13/19 01:30 01:30 04:13 WBC RBC Hgb 6.7 L Hct 20.5 L MCV MCH RDW Plt Count Seg Neutrophils % Seg Neuts % (Manual) Lymphocytes % (Manual) Seg Neutrophils # Seg Neutrophils # Man Lymphocytes # (Manual) PT INR APTT POC ABG pH POC ABG pCO2 POC ABG pO2 68 L ABG pO2 ABG HCO3 ABG Base Excess ABG Hemoglobin Sodium 131 L Potassium Chloride Carbon Dioxide 14 L BUN 150 H Creatinine 9.6 H Glucose 101 H POC Glucose Lactic Acid Calcium 7.5 L Phosphorus Magnesium Alkaline Phosphatase Ammonia Total Creatine Kinase CK-MB (CK-2) CK-MB (CK-2) Rel Index Troponin T NT-Pro-B Natriuret Pep Total Protein Albumin Crossmatch 01/13/19 01/13/19 01/13/19 04:26 05:30 05:36 WBC RBC Hgb Hct MCV MCH RDW Plt Count Seg Neutrophils % Seg Neuts % (Manual) Lymphocytes % (Manual) Seg Neutrophils # Seg Neutrophils # Man Lymphocytes # (Manual) PT INR APTT POC ABG pH POC ABG pCO2 POC ABG pO2 122 H ABG pO2 ABG HCO3 ABG Base Excess ABG Hemoglobin Sodium 135 L Potassium 3.3 L Chloride Carbon Dioxide 14 L BUN 125 H Creatinine 9.0 H Glucose POC Glucose 111 H Lactic Acid Calcium 6.9 L Phosphorus Magnesium Alkaline Phosphatase Ammonia Total Creatine Kinase CK-MB (CK-2) CK-MB (CK-2) Rel Index Troponin T NT-Pro-B Natriuret Pep Total Protein 5.2 L D Albumin 1.5 L Crossmatch 01/13/19 01/13/19 01/13/19 08:05 08:05 11:24 WBC RBC 2.36 L Hgb 6.1 L Hct 18.0 L* MCV 76 L MCH 26 L RDW 23.5 H Plt Count 103 L Seg Neutrophils % Seg Neuts % (Manual) 96.0 H Lymphocytes % (Manual) 2.0 L Seg Neutrophils # Seg Neutrophils # Man 9.9 H Lymphocytes # (Manual) 0.2 L PT INR APTT POC ABG pH POC ABG pCO2 POC ABG pO2 ABG pO2 ABG HCO3 ABG Base Excess ABG Hemoglobin Sodium 136 L Potassium 3.2 L Chloride Carbon Dioxide 15 L BUN 113 H Creatinine 8.0 H Glucose 127 H POC Glucose 122 H Lactic Acid Calcium 6.6 L Phosphorus Magnesium Alkaline Phosphatase Ammonia Total Creatine Kinase CK-MB (CK-2) CK-MB (CK-2) Rel Index Troponin T NT-Pro-B Natriuret Pep Total Protein Albumin Crossmatch 01/13/19 01/13/19 01/13/19 12:47 17:43 17:55 WBC RBC Hgb 7.7 L Hct 22.9 L MCV MCH RDW Plt Count Seg Neutrophils % Seg Neuts % (Manual) Lymphocytes % (Manual) Seg Neutrophils # Seg Neutrophils # Man Lymphocytes # (Manual) PT INR APTT POC ABG pH POC ABG pCO2 POC ABG pO2 ABG pO2 ABG HCO3 ABG Base Excess ABG Hemoglobin Sodium 134 L Potassium 3.3 L Chloride Carbon Dioxide 14 L BUN 122 H Creatinine 7.5 H Glucose POC Glucose 119 H Lactic Acid Calcium 6.9 L Phosphorus Magnesium Alkaline Phosphatase Ammonia Total Creatine Kinase CK-MB (CK-2) CK-MB (CK-2) Rel Index Troponin T NT-Pro-B Natriuret Pep Total Protein Albumin Crossmatch 01/13/19 01/14/19 01/14/19 23:35 04:30 04:35 WBC 12.6 H RBC 3.30 L Hgb 8.8 L Hct 26.0 L MCV 79 L MCH 27 L RDW 23.3 H Plt Count 100 L Seg Neutrophils % Seg Neuts % (Manual) 96.0 H Lymphocytes % (Manual) 1.0 L Seg Neutrophils # Seg Neutrophils # Man 12.1 H Lymphocytes # (Manual) 0.1 L PT INR APTT POC ABG pH POC ABG pCO2 POC ABG pO2 ABG pO2 113.7 H ABG HCO3 13.3 L ABG Base Excess -9.9 L ABG Hemoglobin 8.6 L Sodium Potassium Chloride Carbon Dioxide BUN Creatinine Glucose POC Glucose 106 H Lactic Acid Calcium Phosphorus Magnesium Alkaline Phosphatase Ammonia Total Creatine Kinase CK-MB (CK-2) CK-MB (CK-2) Rel Index Troponin T NT-Pro-B Natriuret Pep Total Protein Albumin Crossmatch 01/14/19 01/14/19 01/14/19 04:35 05:45 12:04 WBC RBC Hgb Hct MCV MCH RDW Plt Count Seg Neutrophils % Seg Neuts % (Manual) Lymphocytes % (Manual) Seg Neutrophils # Seg Neutrophils # Man Lymphocytes # (Manual) PT INR APTT POC ABG pH POC ABG pCO2 < 30 L POC ABG pO2 143 H ABG pO2 ABG HCO3 ABG Base Excess ABG Hemoglobin Sodium Potassium 3.5 L Chloride Carbon Dioxide 15 L BUN 111 H Creatinine 8.0 H Glucose POC Glucose 111 H Lactic Acid Calcium 7.2 L Phosphorus 5.30 H Magnesium 1.20 L Alkaline Phosphatase Ammonia Total Creatine Kinase CK-MB (CK-2) CK-MB (CK-2) Rel Index Troponin T NT-Pro-B Natriuret Pep Total Protein Albumin Crossmatch 01/14/19 01/15/19 01/15/19 17:30 03:35 05:31 WBC RBC Hgb Hct MCV MCH RDW Plt Count Seg Neutrophils % Seg Neuts % (Manual) Lymphocytes % (Manual) Seg Neutrophils # Seg Neutrophils # Man Lymphocytes # (Manual) PT INR APTT POC ABG pH POC ABG pCO2 POC ABG pO2 ABG pO2 118.4 H ABG HCO3 14.0 L ABG Base Excess -9.5 L ABG Hemoglobin 8.7 L Sodium Potassium Chloride Carbon Dioxide BUN Creatinine Glucose POC Glucose 119 H 106 H Lactic Acid Calcium Phosphorus Magnesium Alkaline Phosphatase Ammonia Total Creatine Kinase CK-MB (CK-2) CK-MB (CK-2) Rel Index Troponin T NT-Pro-B Natriuret Pep Total Protein Albumin Crossmatch 01/15/19 01/16/19 01/16/19 10:37 05:35 05:48 WBC RBC Hgb Hct MCV MCH RDW Plt Count Seg Neutrophils % Seg Neuts % (Manual) Lymphocytes % (Manual) Seg Neutrophils # Seg Neutrophils # Man Lymphocytes # (Manual) PT INR APTT POC ABG pH POC ABG pCO2 POC ABG pO2 ABG pO2 ABG HCO3 ABG Base Excess ABG Hemoglobin Sodium Potassium 3.0 L 3.2 L Chloride 109.1 H 112.5 H Carbon Dioxide 13 L 14 L BUN 105 H 105 H Creatinine 7.2 H 7.2 H Glucose 101 H POC Glucose 119 H Lactic Acid Calcium 7.4 L 7.6 L Phosphorus Magnesium Alkaline Phosphatase Ammonia Total Creatine Kinase CK-MB (CK-2) CK-MB (CK-2) Rel Index Troponin T NT-Pro-B Natriuret Pep Total Protein 5.4 L Albumin 1.3 L Crossmatch 01/16/19 12:07 WBC RBC Hgb Hct MCV MCH RDW Plt Count Seg Neutrophils % Seg Neuts % (Manual) Lymphocytes % (Manual) Seg Neutrophils # Seg Neutrophils # Man Lymphocytes # (Manual) PT INR APTT POC ABG pH POC ABG pCO2 POC ABG pO2 ABG pO2 ABG HCO3 ABG Base Excess ABG Hemoglobin Sodium Potassium Chloride Carbon Dioxide BUN Creatinine Glucose POC Glucose 118 H Lactic Acid Calcium Phosphorus Magnesium Alkaline Phosphatase Ammonia Total Creatine Kinase CK-MB (CK-2) CK-MB (CK-2) Rel Index Troponin T NT-Pro-B Natriuret Pep Total Protein Albumin Crossmatch
[2019-01-17 12:23] VITALS: BP 78/27
--- NOTE | 2019-01-17 15:37 | Death Summary ---
Summary - Providers Date of service: 01/17/19 Consults: 01/11/19 10:43 Consult to Physician [CONS] Stat Comment: DR FRANCESCO ANDINO W/DR SANTOYO @[id number] Consulting Provider: GEMA SANTOYO Physician Instructions: Reason For Exam: hyperkalemia, acute renal failure 01/12/19 03:15 Consult to Physician [CONS] Routine Comment: Consulting Provider: ABBI DUGGAN Physician Instructions: Reason For Exam: S/p cardiac arrest 01/12/19 03:16 Consult to Dietitian/Nutrition [CONS] Routine Physician Instructions: Reason For Exam: Tube feeding Reason for Consult: Write/Manage Tube Feeding 01/12/19 03:17 Consult to Dietitian/Nutrition [CONS] Routine Physician Instructions: Assess nutrtn needs, initiate, modify, manage TF Reason For Exam: Reason for Consult: Write/Manage Tube Feeding Reason for Consult: Write/Manage Tube Feeding 01/12/19 08:00 Consult to Wound/ET Nurse [CONS] Urgent Reason For Exam: wound eval: multiple wounds present on admission 01/14/19 02:15 Consult to Physician [CONS] Routine Comment: Consulting Provider: AWAIS BRONSON Physician Instructions: Reason For Exam: AMS Attending: NOHEMI BAUMANN - summary Date of admission: 01/11/19 11:18 Date of : 01/17/19 Procedures/treatments rendered: Patient is a 53 year old male with pmh significant for HTN, Hydranitis supprativa, colon resection with ileostomy and a resident of alf admitted after he was found down for unknown period of time with chart documentation revealing CPR for about 10 mins prior to EMS arrival, and noted to be in PEA, patient was given 1 round of epi and had ROSC and on arrival to the ED was intubated. * Started on 3 pressors following volume resuscitation and now down to Levophed only but remains commatose * Received 2 units of Blood * unable to start Dialysis due to severe hypotension but renal was following * commission specialist consulted and discussed case with them, * CXR: No acute cardiopulmonary abnormality * Patient remained intubated, remained on pressors, no improvement of renal fuction despite aggressive Mx * Family then the requested withdraw care and send patient back to SNF with hospice * Patient was extubated, stopped all aggressive measures, he before he could be send back to SNF with hospice Cause of : Acute cardiorespiratory arrest due to Severe Metabolic acidosis from renal failure Other problem list: Acute HYPOXIC RESPIRATORY FAILURE s/p cardiac arrest with PEA Severe Anemia S/P Transfusion 4 units PRBC [place] with vasomotor nephropathy SIRS with organ dysfunction but no clear evidence of sepsis Severe Metabolic acidosis Hyponatremia Metabolic Encephalopathy with ACUTE anoxic brain injury from cardiac arrest Hyperkalmia NOW WITH Hypokalemia Hydranitis supprativa
== END 2019-01-17 13:59 | DRG 207 ==
LOC: ED 08:59 → CC1 11:18
PROVIDERS: ADMIT Internal Medicine; ATTEND Internal Medicine
PROC: 5A1955Z Respiratory Ventilation, Greater than 96 Consecutive Hours (ICD-10-PCS; principal; 2019-01-11)
PROC: 0BH17EZ Insertion of Endotracheal Airway into Trachea, Via Natural or Artificial Opening (ICD-10-PCS; 2019-01-11)
PROC: 02HV33Z Insertion of Infusion Device into Superior Vena Cava, Percutaneous Approach (ICD-10-PCS; 2019-01-11)
PROC: 5A12012 Performance of Cardiac Output, Single, Manual (ICD-10-PCS; 2019-01-11)
PROC: 4A033R1 Measurement of Arterial Saturation, Peripheral, Percutaneous Approach (ICD-10-PCS; 2019-01-11)
PROC: 30233N1 Transfusion of Nonautologous Red Blood Cells into Peripheral Vein, Percutaneous Approach (ICD-10-PCS; 2019-01-11)
DX: J96.01 Acute respiratory failure with hypoxia (principal); N17.0 Acute kidney failure with tubular necrosis; G93.41 Metabolic encephalopathy; N18.6 End stage renal disease; R65.11 Systemic inflammatory response syndrome (SIRS) of non-infectious origin with acute organ dysfunction; E87.1 Hypo-osmolality and hyponatremia; G93.1 Anoxic brain damage, not elsewhere classified; I12.0 Hypertensive chronic kidney disease with stage 5 chronic kidney disease or end stage renal disease; K92.2 Gastrointestinal hemorrhage, unspecified; E87.2 Acidosis; I95.9 Hypotension, unspecified; K72.90 Hepatic failure, unspecified without coma; I46.9 Cardiac arrest, cause unspecified; R57.8 Other shock; E87.5 Hyperkalemia; D64.9 Anemia, unspecified; L73.2 Hidradenitis suppurativa; Z66 Do not resuscitate; E11.22 Type 2 diabetes mellitus with diabetic chronic kidney disease; E86.9 Volume depletion, unspecified; L89.159 Pressure ulcer of sacral region, unspecified stage; L89.899 Pressure ulcer of other site, unspecified stage; E87.8 Other disorders of electrolyte and fluid balance, not elsewhere classified; F17.210 Nicotine dependence, cigarettes, uncomplicated; Z82.49 Family history of ischemic heart disease and other diseases of the circulatory system; Z90.49 Acquired absence of other specified parts of digestive tract; Z93.2 Ileostomy status; Z79.899 Other long term (current) drug therapy; Z86.73 Personal history of transient ischemic attack (TIA), and cerebral infarction without residual deficits; E87.6 Hypokalemia
CPT/HCPCS: 36415; 36430; 36600; 51702; 70450; 71045; 80048; 80053; 80202; 81001; 82140; 82270; 82550; 82553; 82803; 82962; 83735; 83880; 84100; 84439; 84443; 84484; 85007; 85014; 85018; 85025; 85610; 85730; 86850; 86900; 86901; 86920; 87040; 87205; 93005; 93010; 93306; 94002; 94003; 94640; 96361; 96365; 96375; G0378; J0610; J0692; J0696; J1815; J3370; J7030; J7040; J7050; J7070; P9016